=== PATIENT | male | born 1950 | race Caucasian/White ===

== ENCOUNTER 2020-06-12 12:16 | Inpatient (IN) ==
--- OUTSIDE RECORDS SUMMARY | 2020-06-12 12:20 | External Medical Summary | Continuity of Care Document ---
:1950 Author Name Fadumo Burroughs Address Unavailable Unavailable , Care Team Providers Name Role Phone Jose Antonio GARCIA M.D. P. Unavailable [email or web address] PCP, UNKNOWN Unavailable Unavailable Problems Active medical history not documented Allergies and Adverse Reactions Allergy history not documented Medications Medications not documented Procedures Procedures not documented Immunizations Immunizations not documented Plan of Treatment Planned Observations Planned Goals not documented Results No Known Results Results not documented
[2020-06-12] MEDS ORDERED: MoRPHine SULFATE 2 MG/ML CARP IV PRN (12:38)
[2020-06-12] MEDS: MoRPHine SULFATE 4 MG/ML 1 ML CARP\\VIAL IV PRN ×3 (13:06→18:07)
[2020-06-12 13:30] LABS: INR 1.2 (0.9-1.1); Partial Thromboplastin Ratio 1.2; Partial Thromboplastin Time 34.6 Seconds (21.0-31.0); Prothrombin Time 12.4 Seconds (9.0-12.0)
[2020-06-12 13:38] LABS: BUN Creatinine Ratio 24.7 (10-20); Calcium 8.6 mg/dl (8.5-10.1); Creatinine Clr Calc Pharmacy 70.2 ml/min; Est GFR (African American) 81.4; Est GFR (Non-African American) 70.3
--- NOTE | 2020-06-12 13:48 | Emergency Department Note ---
History of Present Illness General Chief complaint: Hip Pain Time Seen by Provider: 06/12/20 12:38 Source: patient Mode of arrival: ambulatory Limitations: no limitations History of Present Illness Provider complaint: Right hip pain/injury Maximum Pain Intensity: 10 From a mcc. The patient lost his balance yesterday and fell onto his right hip causing some pain. He had x-rays this morning of his hip that showed a femoral neck fracture according to EMS. The patient was tested yesterday for Covid and was Covid negative at the [facility]. The patient was sent here for further evaluation. The patient does complain of right hip pain with movement. He denies any other injuries or complaints. He does not believe he struck his head and did not have any loss of consciousness. Home Medications Home Medications Medication Instructions Recorded Confirmed Type ATORVASTATIN (LIPITOR) 40 mg PO QAM #30 tab 02/18/14 Rx Aspirin (Aspirin EC Low Dose) 81 mg PO QAM #30 02/18/14 Rx Chlordiazepoxide (Chlordiazepoxide 25 mg PO BID #9 cap 02/18/14 Rx HCl) Allergies Allergy/AdvReac Type Severity Reaction Status Date / Time No Known Drug Allergies Allergy Unknown . Verified 02/14/14 10:39 Past Med/Surg History Social History Smoking Status: Unknown if ever smoked Preferred Language: Pashto Feels Safe at Home: Yes Review of Systems A total of 10 systems reviewed and were otherwise negative Physical Exam Vital Signs Vital Signs - 24 hr 06/12/20 12:16 06/12/20 12:30 06/12/20 13:00 Temperature 37.0 C Temperature Source Oral Pulse Rate 88 87 86 Pulse Rate from SpO2 Sensor 87 86 Pulse Rhythm Regular Respiratory Rate 20 23 26 H Respiratory Effort / Characteristics Non-Labored Spontaneous Respiratory Depth Normal Respiratory Pattern Regular Blood Pressure 168/95 H 193/92 H 171/85 H Blood Pressure Mean 119 128 107 Pulse Oximetry 95 94 94 Oxygen Delivery Method Room Air Room Air Room Air Sepsis Recent Fever Within 48 Hours No Sepsis New/Unexplained Change in Mental Status No Sepsis Action Taken by Nursing No Action Required CONSTITUTIONAL/VITAL SIGNS: Reviewed / noted above. GENERAL: Non-toxic in appearance. INTEGUMENTARY: Warm, dry, and [place]. HEAD: Normocephalic. EYES: without scleral icterus or trauma. ENT/OROPHARYNX: clear and moist. LYMPHADENOPATHY/NECK: Is supple without lymphadenopathy or meningismus. RESPIRATORY: Lungs clear and equal. CARDIOVASCULAR: Regular rate and rhythm. GI/ABDOMEN: Soft and nontender. No organomegaly or pulsatile mass. No rebound or guarding. Normal bowel sounds. EXTREMITIES: Warm and well perfused. There is tenderness to the right hip and discomfort with any movement. He does have it in a flexed position on the bed. BACK: No CVA tenderness. NEUROLOGICAL: Intact without focal deficits. PSYCHIATRIC: normal affect. MUSCULOSKELETAL: Normally developed with good muscle tone. TRIAGE NURSING DOCUMENTATION REVIEWED. Course Administered Medications Morphine Sulfate (Morphine Sulfate 4 Mg/Ml 1 Ml Carp\Vial) 4 mg IV Q1H PRN PRN Reason: Severe Pain (Rating 7,8,9,10) Stop: 06/26/20 12:37 Last Admin: 06/12/20 13:06 Dose: 4 mg Documented by: [id number] Medical Decision Making Differential Diagnosis Fracture, subluxation, dislocation, contusion, ligamentous injury, neurovascular, compartment syndrome, rhabdomyolysis, as well as other pathologies. Medical Records Attestation: I reviewed the patient's medical records. Home Medications Current Medication List: was personally reviewed by me Laboratory Data Attestation: I reviewed the patient's lab results. Result diagrams: 06/12/20 13:06 06/12/20 13:06 Lab Results 06/12/20 06/12/20 06/12/20 Range/Units 13:06 13:06 13:06 PT 12.4 H (9.0-12.0) Seconds INR 1.2 H (0.9-1.1) APTT 34.6 H (21.0-31.0) Seconds PTT Ratio 1.2 Sodium 137 (136-145) mmol/L Potassium 4.0 (3.5-5.1) mmol/L Chloride 104 (98-107) mmol/L Carbon Dioxide 27 (21-32) mmol/L Anion Gap 6.0 (3-11) BUN 26 H (7-18) mg/dl Creatinine 1.06 (0.6-1.4) mg/dl Est Cr Clr Drug Dosing 70.2 ml/min Est GFR ( Amer) 81.4 Est GFR (Non-Af Amer) 70.3 BUN/Creatinine Ratio 24.7 H (10-20) Glucose 239 H (70-99) mg/dl Calcium 8.6 (8.5-10.1) mg/dl Blood Type A Negative Antibody Screen NEGATIVE Imaging Data Radiologist's Impression: XR hip RT min 2V HISTORY: 69 years-old Male fall, pain acute right-sided hip pain status post fall COMPARISON: None TECHNIQUE: 2 views of the right hip FINDINGS: There is an acute transcervical nondisplaced fracture involving the right femur. Mild to moderate right hip osteoarthritis. The imaged right hemipelvis appears intact. No dislocation or avascular necrosis. Arterial vascular calcifications. IMPRESSION: Acute nondisplaced transcervical fracture of the right femur. XR chest 1V portable HISTORY: 69 years-old Male hip fx acute right hip pain with fracture COMPARISON: Chest radiographs 02/13/2014 TECHNIQUE: Supine portable AP view of the chest FINDINGS: Cardiomediastinal and hilar silhouettes are within normal limits. Calcified plaque of the thoracic aortic arch. No pneumothorax, pleural effusion, airspace consolidation or overt pulmonary edema. Probable healed remote fracture of the posterior left seventh rib. Degenerative changes of the shoulders and spine. IMPRESSION: No acute process. ECG Data Attestation: I personally reviewed and interpreted this ECG as follows: Indication: + other (Hip fracture) Rate (beats per minute): 86 Rhythm: + normal sinus ECG ST segments: no ST elevation ECG Findings: no PVCs MDM Narrative The patient is a 69-year-old male who presents to the ED with a chief complaint of the patient was given some IV morphine for pain. He will be seen by the hospitalist and orthopedist for further evaluation and care. Impression & Plan Closed fracture of right hip Discharge Plan Visit Data Chief Complaint: Hip Pain ED Provider: Roni Arteaga Discharge Problem: Closed fracture of right hip Patient Disposition: Being Evaluated by Hospitalist Forms Stand Alone Forms: My [facility] [employer] Prescriptions Prescriptions: No Action ATORVASTATIN (LIPITOR) 40 MG tablet 40 mg PO QAM Qty: 30 RF: 0 Aspirin (Aspirin EC Low Dose) 81 MG ENTERIC COATED TAB 81 mg PO QAM Qty: 30 RF: 0 Chlordiazepoxide (Chlordiazepoxide HCl) 25 MG capsule 25 mg PO BID Qty: 9 RF: 0 Referrals Referrals: Tomasz Valdez MD [Primary Care Provider] -
--- NOTE | 2020-06-12 13:53 | XRay Report ---
XR hip RT min 2V HISTORY: 69 years-old Male fall, pain acute right-sided hip pain status post fall COMPARISON: None TECHNIQUE: 2 views of the right hip FINDINGS: There is an acute transcervical nondisplaced fracture involving the right femur. Mild to moderate rig ht hip osteoarthritis. The imaged right hemipelvis appears intact. No dislocation or avascular necros is. Arterial vascular calcifications. IMPRESSION: Acute nondisplaced transcervical fracture of the right femur. ACT 112: Negative or not required by law. The above report was generated using voice recognition software. It may contain grammatical, syntax o r spelling errors. Electronically signed by: Mario Nails M.D. 06/12/2020 1:52 PM
--- NOTE | 2020-06-12 13:56 | XRay Report ---
XR chest 1V portable HISTORY: 69 years-old Male hip fx acute right hip pain with fracture COMPARISON: Chest radiographs 02/13/2014 TECHNIQUE: Supine portable AP view of the chest FINDINGS: Cardiomediastinal and hilar silhouettes are within normal limits. Calcified plaque of the thoracic ao rtic arch. No pneumothorax, pleural effusion, airspace consolidation or overt pulmonary edema. Probab le healed remote fracture of the posterior left seventh rib. Degenerative changes of the shoulders an d spine. IMPRESSION: No acute process. ACT 112: Negative or not required by law. The above report was generated using voice recognition software. It may contain grammatical, syntax o r spelling errors. Electronically signed by: Mario Nails M.D. 06/12/2020 1:54 PM
[2020-06-12 14:17] LABS: Basophils # (auto) 0.01 K/uL (0-0.2); Basophils % (auto) 0.2 %; Eosinophils # (auto) 0.11 K/uL (0-0.5); Hematocrit (blood only) 38.2 % (42-52); Hemoglobin 13.3 g/dL (14.0-18.0); Immature Granulocytes # (auto) 0.01 K/uL (0.00-0.02); Immature Granulocytes % (auto) 0.2 %; Lymphocytes # (auto) 0.78 K/uL (1.2-3.4); Lymphocytes % (auto) 14.4 %; Mean Corpuscular Hemoglobin 30.9 pg (25-34); Mean Corpuscular Hgb Conc 34.8 g/dL (32-36); Mean Corpuscular Volume 88.6 fL (80-100); Mean Platelet Volume 11.2 fL (7.4-10.4); Monocytes % (auto) 9.3 %; Neutrophils # (auto) 3.99 K/uL (1.4-6.5); Neutrophils % (auto) 73.9 %; Platelet Count 88 K/uL (130-400); Platelet Estimate Decreased (Normal); RDW Coefficient of Variation 13.2 % (11.5-14.5); RDW Standard Deviation 42.7 fL (36.4-46.3); Red Blood Count 4.31 M/uL (4.7-6.1)
--- NOTE | 2020-06-12 14:25 | History & Physical Report ---
Date of Service June 12, 2020 Assessment & Plan (1) Closed right hip fracture: Type and screen Vit D with AM labs NPO after midnight with LR @ 125 ml/HR Pain relief with Dilaudid 0.25-0.5mg IV q2h as needed Consult orthopedics (2) Fall: Unwitnessed but appears secondary to increased confusion when he was moved rooms. (3) Exposure to COVID-19 virus: Nasal swab negative 06/11. Repeat Nasal screen as no current symptoms or changes on CXR. (4) Generalized abdominal pain: No history of abdominal pain per [facility] CT A/P with IV contrast (5) Type 2 diabetes mellitus: HbA1c with a.m. labs Hold Metformin 1 g twice daily BSG ACHS, NovoLog sliding scale for correction and carb coverage, will add basal insulin if remains elevated. (6) Vitamin B12 deficiency: B12 injections monthly (7) Hypertensive urgency: Continue his usual lisinopril 10mg PO HS Hydralazine 5mg IV q4h PRN (8) Thrombocytopenia: Monitor with CBC in AM. Avoid anticoagulation if < 50. (9) History of CVA (cerebrovascular accident): Continue ASA, atorvastatin (10) DVT prophylaxis: SCDs. Deferred chemical prophylaxis pre-operatively. Admission and Anticipated Discharge Date Admission Date: 06/12/2020 History of Present Illness Chief Complaint: Right leg pain Primary Care Provider: Tomasz Valdez MD Akash Bey is a 69 year old male who presents to the ER with resident of [facility] since 2013 with right leg pain and XR confirmation of fracture performed as an outpatient. Difficult to get history from patient due to dysphasia but able to answer simple yes/no questions. Per residential he usually makes his own medical decisions. He had exposure to COVID-19 at [facility] and they have been testing him brent[place] daily basis. Temp 100.2 yesterday per residential notes. Patient denies shortness of breath, fever, chills, loss of taste or smell. Baseline cognition - may forget who staff members are, ineffective communication at times due to dysphasia and dysarthria as a result of prior strokes Baseline ambulation - abnormal gait and generalized muscle weakness and periph eral neuropathy - but can walk independently without any assist. 2 falls in the last week then previously in August. Recently had to change rooms due to COVID-19 exposure. In the ER XR hip confirmed right hip fracture. Therefore he was referred to medicine for admission and ongoing management of this. Allergies Allergy/AdvReac Type Severity Reaction Status Date / Time No Known Drug Allergies Allergy Unknown . Verified 06/12/20 15:46 Home Medications Home Medications Medication Instructions Recorded Confirmed Type aspirin [Aspirin Childrens] 81 mg PO DAILY 06/12/20 06/12/20 History atorvastatin [Lipitor] 40 mg PO PM 06/12/20 06/12/20 History carvedilol [Coreg] 3.125 mg PO BID 06/12/20 06/12/20 History docusate sodium [Colace] 100 mg PO BID 06/12/20 06/12/20 History folic acid 0.4 mg PO DAILY 06/12/20 06/12/20 History lisinopril [Prinivil] 10 mg PO HS 06/12/20 06/12/20 History magnesium oxide 400 mg PO TID 06/12/20 06/12/20 History metformin [Glucophage] 1,000 mg PO BID 06/12/20 06/12/20 History sennosides-docusate sodium 1 tab-cap PO QAM 06/12/20 06/12/20 History [Senexon-S] Past Med/Surg History Medical History (Updated 06/13/20 @ 07:32 by Kavin Olvera MD) Abnormal gait Alcohol abuse 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 Cholelithiasis Chronic constipation Contracture, left ankle Contracture, right ankle Diabetic neuropathy Dysarthria following cerebral infarction Full code status Functional urinary incontinence Generalized muscle weakness Hemiplegia of left nondominant 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 History of CVA (cerebrovascular accident) Hypertension Hypomagnesemia Incontinence, feces Left ear impacted cerumen Nicotine dependence Occlusion and stenosis of bilateral carotid arteries Oral phase dysphagia Type 2 diabetes mellitus Vascular dementia without behavioral disturbance Vitamin B12 deficiency Surgical History No pertinent past surgical history Social History Smoking Status: Unknown if ever smoked Tobacco Type: Cigarettes Hx Alcohol Use: No Hx Substance Use: No Preferred Language: Afghan Communication Ability: Impaired Communication Ability Comment: Prior CVA causing dysphaisa Beliefs That Will Affect Care: None marital status: Single Current Living Situation: Group Home Feels Safe at Home: Yes Assistive Devices: Oxygen - Continuous Review of Systems Review of Systems: All systems reviewed & are unremarkable except as noted in HPI & below (limited due to dysphasia) Physical Exam Constitutional: well developed; + not well nourished and no acute distress Eyes: + anicteric sclerae; normal pupil size ENMT: Mouth: + dry oral mucous membranes Neck: trachea midline Respiratory: normal respiratory effort, lungs clear to auscultation Cardiovascular: Rate/Rhythm: regular rate and regular rhythm Heart Sounds: + murmur (apical) Vessels: posterior tibial pulses present, dorsalis pedis pulses present and radial pulses present; no JVD Extremities: normal capillary refill; no calf tenderness and no pedal edema Gastrointestinal (Abdomen): Inspection/Auscultation: abdomen normal to inspection and normal bowel sounds Percussion/Palpation: + abdomen tender (Generalized), + guarding and abdomen soft; abdomen not rigid Musculoskeletal: painful movement of bilateral lower extremities even taking off his socks. Skin: no rashes, warm and dry (no areas of cellulitis) Neurologic: moves all extremities (in pain everywhere), + focal motor deficit (Left upper extremity, unable to compare lower extremities due to pain) and awake; not confused Speech / Cognition: + expressive aphasia and + abnormal cognition (able to follow one step commands but difficult to know cognition) Motor/Sensory: + pronator drift (unable to perform due to patient in pain); no tremor Psychiatric: Orientation: alert, oriented to person (self) and oriented to p lace; + not oriented to time Eye Contact: + fair eye contact Genitourinary: no CVA tenderness Results & Data Results & Data ([facility]) Vital Signs (Past 12 Hours) Vital Signs Temp Pulse Resp BP Pulse Ox 06/12/20 13:00 86 26 H 171/85 H 94 06/12/20 12:30 87 23 193/92 H 94 06/12/20 12:16 37.0 C 88 20 168/95 H 95 Diagnostic Findings XR chest 1V portable IMPRESSION: No acute process. XR hip RT min 2V IMPRESSION: Acute nondisplaced transcervical fracture of the right femur. ECG Indication: other (Pre-op) Rate (beats per minute): 86 Rhythm: normal sinus Findings: no acute ischemic change Comparison ECG Date: from (February 13, 2014) Change: no significant change Code Status & VTE Plan Code Status Full VTE Prophylaxis Plan VTE Prophylaxis will be ordered: Yes PG Care Time/CCT Total # of Minutes Spent Total Time Spent with Patient: Total time spent is greater than 50% in office service coordinator rdination of care (as documented) at patient's floor/unit and/or counseling patient: Coding Level of Care Code 77803 Initial Inpt Care Lvl 3 Diagnoses Closed right hip fracture S72.001A Fall W19.XXXA Exposure to COVID-19 virus Z20.828 Generalized abdominal pain R10.84 Type 2 diabetes mellitus E11.9 Vitamin B12 deficiency E53.8 Hypertensive urgency I16.0 Thrombocytopenia D69.6 History of CVA (cerebrovascular accident) Z86.73 DVT prophylaxis Z29.9
[2020-06-12] MEDS ORDERED: SODIUM CHLORIDE 0.9% 1000ML 500 ML IV ONE (16:21)
[2020-06-12] MEDS ORDERED: IOVERSOL 100ml IV ONE (18:15)
--- NOTE | 2020-06-12 18:32 | CT Scan Report ---
ABDOMEN AND PELVIS CT WITH IV CONTRAST CT DOSE: 1174.90 mGycm HISTORY: Acute generalized abdominal pain status post recent fall. fall yesterday, generalized abdom inal pain TECHNIQUE: Multiaxial CT images of the abdomen and pelvis were performed following the IV administrat ion of 90 cc of Optiray 320, A dose lowering technique was utilized adhering to the principles of AL DEMARIO. COMPARISON STUDY: None. FINDINGS: Multiplanar and bibasilar left greater than right bibasilar consolidative opacities. No pne umatosis or pneumoperitoneum. Moderate cardiomegaly with coronary artery calcifications. Small perica rdial effusion. The spleen, and adrenal glands are unremarkable. Gallstone noted within the gallbladd er neck. No CT evidence of acute cholecystitis. Pancreatic parenchymal calcifications suggesting sequ lamont of chronic pancreatitis. Extensive vascular calcifications. Unremarkable liver. Calcifications of the bilateral kidneys are likely vascular in nature. Probable cyst of the interpola r right kidney, 8 mm. No ureteral calculi or obstructive uropathy. Moderate urinary bladder distentio n with mild prostamegaly. Extensive calcified plaque the abdominal aorta and branch vessels. No aneur ysm. There is no bowel obstruction or bowel wall thickening. Moderate fecal retention. Unremarkable append ix. No retroperitoneal hematoma. There is asymmetric prominence of the right gluteus kelsie with mil dly increased attenuation. Moderate subcutaneous edema within the adjacent tissues. Degenerative buckner ges of the spine, pelvis and hips. Acute nondisplaced transcervical fracture of the right femur with mild impaction and mild apex anterior angulation.. Moderate osteoarthritis of the bilateral femoral a cetabular joints. No additional acute fracture identified. IMPRESSION: 1. Acute mildly angulated and impacted transcervical fracture of the right femur. 2. Intramuscular hematoma of the right gluteus kelsie. 3. No acute posttraumatic intra-abdominal or intrapelvic abnormality. 4. Dependent bibasilar opacities suggest atelectasis versus pneumonitis. 5. Prostamegaly with urinary bladder distention. 6. Additional findings as above. ACT 112: Negative or not required by law. The above report was generated using voice recognition software. It may contain grammatical, syntax o r spelling errors. Electronically signed by: Mario Nails M.D. 06/12/2020 6:31 PM
[2020-06-12] MEDS ORDERED: GLUCOSE 40% GEL 15 GM TUBE PO PRN (18:33)
[2020-06-12] MEDS ORDERED: DEXTROSE 50% 50 ML SYRINGE IV PRN (18:33)
[2020-06-12] MEDS ORDERED: GLUCOSE 10 TABS/TUBE PO PRN (18:33)
[2020-06-12] MEDS ORDERED: bisacodyL 10 MG SUPP PR PRN (18:33)
[2020-06-12] MEDS ORDERED: oxyCODONE HCL IR 5 MG TAB (IMMEDIATE RELEASE) PO PRN (18:33)
[2020-06-12] MEDS ORDERED: NALOXONE HCL 0.4 MG/1 ML VIAL/CARP IV PRN (18:33)
[2020-06-12] MEDS ORDERED: HYDROmorphone INJ 0.5 MG/0.5 ML SYR IV PRN (18:33)
[2020-06-12] MEDS ORDERED: MAGNESIUM HYDROXIDE SUSP 30 ML UDC PO PRN (18:33)
[2020-06-12] MEDS ORDERED: ACETAMINOPHEN 325 MG TAB PO PRN (18:33)
[2020-06-12] MEDS ORDERED: GLUCAGON FOR INJ 1 MG VIAL SQ PRN (18:33)
[2020-06-12] MEDS: LACTATED RINGER'S 1,000 ML IV SCH (18:50)
[2020-06-12] MEDS: INSULIN ASPART 100 UNITS/ML 3 ML PEN SC SCH ×2 (19:53→21:38)
--- NOTE | 2020-06-12 20:30 | Electrocardiogram Report ---
Test Reason : Blood Pressure : / mmHG Vent. Rate : 086 BPM Atrial Rate : 086 BPM P-R Int : 154 ms QRS Dur : 088 ms QT Int : 396 ms P-R-T Axes : 059 -11 069 degrees QTc Int : 473 ms Poor data quality, interpretation may be adversely affected Normal sinus rhythm Normal ECG When compared with ECG of 13-FEB-2014 17:36, No significant change was found Confirmed by Peter Mckeon ([id number]) on 06/12/2020 8:30:16 PM Referred By: Confirmed By:Peter Mckeon
[2020-06-12] MEDS: oxyCODONE HCL IR 5 MG TAB (IMMEDIATE RELEASE) PO PRN (20:32)
[2020-06-12] MEDS: carvediloL 3.125 MG TAB PO SCH (20:33)
[2020-06-12] MEDS: DOCUSATE SODIUM/SENNA 50/8.6MG TAB PO SCH (20:34)
[2020-06-12] MEDS: ATORVASTATIN 40 MG TAB PO SCH (20:42)
[2020-06-12] MEDS: lisinopril 10 MG TAB PO SCH (20:43)
[2020-06-12] MEDS: MAGNESIUM OXIDE 400 MG TAB PO SCH (20:44)
[2020-06-12] MEDS ORDERED: hydrALAZINE HCL 20 MG/ML VIAL IV PRN (21:01)
[2020-06-12] MEDS ORDERED: TAMSULOSIN HCL 0.4 MG CAP PO ONE (22:00)
[2020-06-12] MEDS ORDERED: INSULIN GLARGINE SOLOSTAR 100 UNITS/ML 3 ML PEN SC ONE (23:02)
[2020-06-13 00:51] LABS: Appearance Urine Clear (Clear); Bacteria Urine Automated Negative (Negative); Bilirubin Urine Negative (Negative); Blood Urine Trace (Negative); Color Urine Yellow; Epithelial Cell Urine Auto 20-30 /lpf (0-5); Glucose Urine UA 1+ (Negative); Ketones Urine Trace (Negative); Leukocyte Esterase Urine Negative (Negative); Nitrite Urine Negative (Negative); Protein Urine 1+ (Negative); Specific Gravity Urine 1.031 (1.000-1.030); Urobilinogen Urine Negative (Negative); pH Urine 5.5 (4.5-7.5)
[2020-06-13] MEDS: LACTATED RINGER'S 1,000 ML IV SCH ×2 (03:05→11:08)
[2020-06-13 06:34] LABS: Hematocrit (blood only) 36.2 % (42-52); Hemoglobin 12.2 g/dL (14.0-18.0); Mean Corpuscular Hemoglobin 30.5 pg (25-34); Mean Corpuscular Hgb Conc 33.7 g/dL (32-36); Mean Corpuscular Volume 90.5 fL (80-100); RDW Coefficient of Variation 13.6 % (11.5-14.5); RDW Standard Deviation 45.1 fL (36.4-46.3); White Blood Count 5.09 K/uL (4.8-10.8)
[2020-06-13 06:48] LABS: Mean Platelet Volume 10.6 fL (7.4-10.4); Platelet Count 82 K/uL (130-400)
[2020-06-13 07:03] LABS: Basophils # (auto) 0.01 K/uL (0-0.2); Basophils % (auto) 0.2 %; Eosinophils # (auto) 0.15 K/uL (0-0.5); Eosinophils % (auto) 2.9 %; Immature Granulocytes # (auto) 0.01 K/uL (0.00-0.02); Immature Granulocytes % (auto) 0.2 %; Lymphocytes # (auto) 0.85 K/uL (1.2-3.4); Lymphocytes % (auto) 16.7 %; Monocytes # (auto) 0.47 K/uL (0.11-0.59); Monocytes % (auto) 9.2 %; Neutrophils % (auto) 70.8 %
[2020-06-13 07:22] LABS: BUN Creatinine Ratio 23.8 (10-20); Calcium 8.6 mg/dl (8.5-10.1); Creatinine Clr Calc Pharmacy 75.1 ml/min; Est GFR (African American) 90.7; Est GFR (Non-African American) 78.2; Potassium 3.8 mmol/L (3.5-5.1)
[2020-06-13 08:45] LABS: Estimated Average Glucose 146 mg/dl; Hemoglobin A1C 6.7 % (4.5-5.6)
[2020-06-13] MEDS ORDERED: ASPIRIN 81 MG ECTAB PO SCH (09:00)
[2020-06-13] MEDS: carvediloL 3.125 MG TAB PO SCH ×2 (09:27→21:02)
[2020-06-13] MEDS: INSULIN ASPART 100 UNITS/ML 3 ML PEN SC SCH ×4 (10:08→22:36)
[2020-06-13] MEDS: DOCUSATE SODIUM/SENNA 50/8.6MG TAB PO SCH ×2 (10:10→21:09)
[2020-06-13] MEDS: MAGNESIUM OXIDE 400 MG TAB PO SCH ×3 (10:10→21:10)
[2020-06-13] MEDS: INSULIN GLARGINE SOLOSTAR 100 UNITS/ML 3 ML PEN SC SCH ×2 (10:10→21:00)
[2020-06-13] MEDS: FOLIC ACID 400 MCG TAB PO SCH (10:10)
--- NOTE | 2020-06-13 10:55 | Hospitalist Progress Note ---
Date of Service June 13, 2020 Assessment & Plan (1) Closed right hip fracture: Likely to OR later today by [facility] Orth[facility]ics if consent can be obtained from patient's POA. NPO in meantime with IVF. Pain control - aleman dilaudid to 0.5mg q2h; tylenol IV 1gm q8h prn. Defer selection of DVT proph to orthopedics. Check 25-OH vit D in am. From medical standpoint he is likely optimized. Although he has COVID-19 infection, O2 sats during my bedside visit today were 93% in RA at lowest and he is likely very early in the illness course. (2) COVID-19 virus infection: Our case management department called [facility] and he had been getti ng daily COVID testing until this admission. By report his testing was previously negative. Thus, he is early in the disease course. He is occasionally requiring a small amount of NC O2. Will repeat cxr to determine if any COVID pneumonia has developed. If he has persistent hypoxia then consider IV remdesivir x 5 days, decadron, and plasma. Consider d-dimer in am but expect it to be high in setting of hip fracture. (3) Fall: Unwitnessed fall at [facility]. No other apparent injuries. (4) Generalized abdominal pain: CT abd/pelvis without acute findings. LFTs noted to be normal. No pain on exam today. Follow. (5) Type 2 diabetes mellitus: A1c <7%. Holding metformin. Increase lantus to 10 units BID. novolog for correction and carb coverage (6) Vitamin B12 deficiency: B12 injections monthly (7) Thrombocytopenia: Platelets in the 80s. Also 110-140s 5-6 years ago. Thus, this is likely chronic. There could be a consumptive process element in the setting of [place]-fracture bleeding. Trend platelets. Also, COVID-19 infection could cause bone marrow suppression. (8) History of CVA (cerebrovascular accident): Continue ASA, atorvastatin for secondary prevention. Resulting left-sided hemiparesis. (9) Pancreatic calcification: noted on CT abd/pelvis. this is c/w chronic pancreatitis. if he has daily diarrhea consider creon. records indicate prior h/o alcoholism. (10) Hypertension: Cont home meds. (11) Murmur: last echo in 2013 -- was wnl. murmur not terribly loud. s1 and s2 clearly heard. defer on echo for now. (12) DVT prophylaxis: SCDs for now. Chemical means post-op. case management trying to figure out next of kin/POA. will update that person when contact information is available. Admission and Anticipated Discharge Date Admission Date: June 12, 2020 Subjective challenging to communicate with patient due to his dysarthria. however, he does c/o right hip pain stating "it hurts like hell." denies dyspnea or cough. no abd or chest pain. tele with NSR. Review of Systems Review of Systems: Unobtainable due to cognitive status Physical Exam Constitutional: + acute distress (any movement causes right hip pain ) and + altered mental status ENMT: Mouth: + dry oral mucous membranes Respiratory: normal respiratory effort, lungs clear to auscultation Cardiovascular: Rate/Rhythm: regular rate and regular rhythm Heart Sounds: normal S1, normal S2 and + murmur (2/6 LLSB) Vessels: posterior tibial pulses present and dorsalis pedis pulses present; no JVD Extremities: no edema Gastrointestinal (Abdomen): normal bowel sounds, soft, nontender, no hepatosplenomegaly Musculoskeletal: right hip mildly shortened and externally rotated; mild edema right thigh Neurologic: + focal motor deficit (left arm/leg with hemiparesis; increased tone LUE) Psychiatric: Orientation: alert Results & Data Results & Data ([facility]) Vital Signs (Past 12 Hours) Vital Signs Temp Pulse Resp BP Pulse Ox 06/13/20 07:47 36.5 C 81 18 159/78 H 100 06/13/20 04:00 36.7 C 71 20 157/94 H 99 06/13/20 00:32 36.5 C 81 20 150/94 H 98 Laboratory Results Laboratory Results - last 24 hr 06/12/20 06/12/20 06/12/20 13:06 13:06 13:06 WBC 5.40 RBC 4.31 L Hgb 13.3 L Hct 38.2 L MCV 88.6 MCH 30.9 MCHC 34.8 RDW Std Deviation 42.7 RDW Coeff of Guido 13.2 Plt Count 88 L MPV 11.2 H Immature Gran % (Auto) 0.2 Neut % (Auto) 73.9 Lymph % (Auto) 14.4 Denali % (Auto) 9.3 Eos % (Auto) 2.0 Baso % (Auto) 0.2 Neut # (Auto) 3.99 Lymph # (Auto) 0.78 L Denali # (Auto) 0.50 Eos # (Auto) 0.11 Baso # (Auto) 0.01 Immature Gran # (Auto) 0.01 Platelet Estimate Decreased L PT 12.4 H INR 1.2 H APTT 34.6 H PTT Ratio 1.2 Sodium Potassium Chloride Carbon Dioxide Anion Gap BUN Creatinine Est Cr Clr Drug Dosing Est GFR ( Amer) Est GFR (Non-Af Amer) BUN/Creatinine Ratio Glucose POC Glucose Estimat Average Glucose Hemoglobin A1c Calcium Urine Color Urine Appearance Urine pH Ur Specific Pacific Urine Protein Urine Glucose (UA) Urine Ketones Urine Blood Urine Nitrite Urine Bilirubin Urine Urobilinogen Ur Leukocyte Esterase Urine WBC (Auto) Urine RBC (Auto) U Hyaline Cast (Auto) U Epithel Cells (Auto) Urine Bacteria (Auto) Nasal Screen MRSA (PCR) COVID-19 Eval Order Hepatitis C Ab Screen SARS-CoV-2, RNA, NAAT Blood Type A Negative Antibody Screen NEGATIVE 06/12/20 06/12/20 06/12/20 13:06 15:30 15:30 WBC RBC Hgb Hct MCV MCH MCHC RDW Std Deviation RDW Coeff of Guido Plt Count MPV Immature Gran % (Auto) Neut % (Auto) Lymph % (Auto) Denali % (Auto) Eos % (Auto) Baso % (Auto) Neut # (Auto) Lymph # (Auto) Denali # (Auto) Eos # (Auto) Baso # (Auto) Immature Gran # (Auto) Platelet Estimate PT INR APTT PTT Ratio Sodium 137 Potassium 4.0 Chloride 104 Carbon Dioxide 27 Anion Gap 6.0 BUN 26 H Creatinine 1.06 Est Cr Clr Drug Dosing 70.2 Est GFR ( Amer) 81.4 Est GFR (Non-Af Amer) 70.3 BUN/Creatinine Ratio 24.7 H Glucose 239 H POC Glucose Estimat Average Glucose Hemoglobin A1c Calcium 8.6 Urine Color Urine Appearance Urine pH Ur Specific Pacific Urine Protein Urine Glucose (UA) Urine Ketones Urine Blood Urine Nitrite Urine Bilirubin Urine Urobilinogen Ur Leukocyte Esterase Urine WBC (Auto) Urine RBC (Auto) U Hyaline Cast (Auto) U Epithel Cells (Auto) Urine Bacteria (Auto) Nasal Screen MRSA (PCR) COVID-19 Eval [facility] Hepatitis C Ab Screen SARS-CoV-2, RNA, NAAT POSITIVE A* Blood Type Antibody Screen 06/12/20 06/12/20 06/13/20 19:32 21:33 06:08 WBC RBC Hgb Hct MCV MCH MCHC RDW Std Deviation RDW Coeff of Guido Plt Count MPV Immature Gran % (Auto) Neut % (Auto) Lymph % (Auto) Denali % (Auto) Eos % (Auto) Baso % (Auto) Neut # (Auto) Lymph # (Auto) Denali # (Auto) Eos # (Auto) Baso # (Auto) Immature Gran # (Auto) Platelet Estimate PT INR APTT PTT Ratio Sodium Potassium Chloride Carbon Dioxide Anion Gap BUN Creatinine Est Cr Clr Drug Dosing Est GFR ( Amer) Est GFR (Non-Af Amer) BUN/Creatinine Ratio Glucose POC Glucose 215 H 245 H Estimat Average Glucose 146 Hemoglobin A1c 6.7 H Calcium Urine Color Urine Appearance Urine pH Ur Specific Pacific Urine Protein Urine Glucose (UA) Urine Ketones Urine Blood Urine Nitrite Urine Bilirubin Urine Urobilinogen Ur Leukocyte Esterase Urine WBC (Auto) Urine RBC (Auto) U Hyaline Cast (Auto) U Epithel Cells (Auto) Urine Bacteria (Auto) Nasal Screen MRSA (PCR) COVID-19 Eval Order Hepatitis C Ab Screen SARS-CoV-2, RNA, NAAT Blood Type Antibody Screen 06/13/20 06/13/20 06/13/20 06:08 06:08 06:08 WBC 5.09 RBC 4.00 L Hgb 12.2 L Hct 36.2 L MCV 90.5 MCH 30.5 MCHC 33.7 RDW Std Deviation 45.1 RDW Coeff of Guido 13.6 Plt Count 82 L MPV 10.6 H Immature Gran % (Auto) 0.2 Neut % (Auto) 70.8 Lymph % (Auto) 16.7 Denali % (Auto) 9.2 Eos % (Auto) 2.9 Baso % (Auto) 0.2 Neut # (Auto) 3.60 Lymph # (Auto) 0.85 L Denali # (Auto) 0.47 Eos # (Auto) 0.15 Baso # (Auto) 0.01 Immature Gran # (Auto) 0.01 Platelet Estimate PT INR APTT PTT Ratio Sodium 136 Potassium 3.8 Chloride 105 Carbon Dioxide 31 Anion Gap 0 L BUN 23 H Creatinine 0.97 Est Cr Clr Drug Dosing 75.1 Est GFR ( Amer) 90.7 Est GFR (Non-Af Amer) 78.2 BUN/Creatinine Ratio 23.8 H Glucose 166 H POC Glucose Estimat Average Glucose Hemoglobin A1c Calcium 8.6 Urine Color Urine Appearance Urine pH Ur Specific Pacific Urine Protein Urine Glucose (UA) Urine Ketones Urine Blood Urine Nitrite Urine Bilirubin Urine Urobilinogen Ur Leukocyte Esterase Urine WBC (Auto) Urine RBC (Auto) U Hyaline Cast (Auto) U Epithel Cells (Auto) Urine Bacteria (Auto) Nasal Screen MRSA (PCR) COVID-19 Eval Order Hepatitis C Ab Screen Neg SARS-CoV-2, RNA, NAAT Blood Type Antibody Screen 06/13/20 06/13/20 06/13/20 06:50 07:49 Unknown WBC RBC Hgb Hct MCV MCH MCHC RDW Std Deviation RDW Coeff of Guido Plt Count MPV Immature Gran % (Auto) Neut % (Auto) Lymph % (Auto) Denali % (Auto) Eos % (Auto) Baso % (Auto) Neut # (Auto) Lymph # (Auto) Den[place] # (Auto) Eos # (Auto) Baso # (Auto) Immature Gran # (Auto) Platelet Estimate PT INR APTT PTT Ratio Sodium Potassium Chloride Carbon Dioxide Anion Gap BUN Creatinine Est Cr Clr Drug Dosing Est GFR ( Amer) Est GFR (Non-Af Amer) BUN/Creatinine Ratio Glucose POC Glucose 165 H Estimat Average Glucose Hemoglobin A1c Calcium Urine Color Yellow Urine Appearance Clear Urine pH 5.5 Ur Specific Pacific 1.031 H Urine Protein 1+ H Urine Glucose (UA) 1+ H Urine Ketones Trace H Urine Blood Trace H Urine Nitrite Negative Urine Bilirubin Negative Urine Urobilinogen Negative Ur Leukocyte Esterase Negative Urine WBC (Auto) 1-5 Urine RBC (Auto) 10-30 H U Hyaline Cast (Auto) 5-10 H U Epithel Cells (Auto) 20-30 H Urine Bacteria (Auto) Negative Nasal Screen MRSA (PCR) Negative COVID-19 Eval Order Hepatitis C Ab Screen SARS-CoV-2, RNA, NAAT Blood Type Antibody Screen PG Care Time/CCT Total # of Minutes Spent Total Time Spent with Patient: Total time spent is greater than 50% in coordination of care (as documented) at patient's floor/unit and/or counseling patient: Coding Level of Care Code 20721 Subseq Hosp Care Lvl 3 Diagnoses Closed right hip fracture S72.001A COVID-19 virus infection U07.1 Fall W19.XXXA Generalized abdominal pain R10.84 Type 2 diabetes mellitus E11.9 Vitamin B12 deficiency E53.8 Thrombocytopenia D69.6 History of CVA (cerebrovascular accident) Z86.73 Pancreatic calcification K86.89 Hypertension I10 Murmur R01.1 DVT prophylaxis Z29.9
[2020-06-13] MEDS ORDERED: ACETAMINOPHEN 1000 MG/100 ML IV IV PRN (11:01)
--- NOTE | 2020-06-13 13:23 | XRay Report ---
SINGLE VIEW CHEST CLINICAL HISTORY: Covid Pneumonia. FINDINGS: 3 AP, portable, upright chest radiograph is compared to study dated 06/12/2020. The examina tion is degraded by portable technique and patient rotation. The heart is enlarged noting atheroscle rotic calcification of the thoracic aorta. The pulmonary vasculature is noncongested. There is airspa ce consolidation at the left lung base. No large pleural effusion is identified. No pneumothorax is s een. The skeletal structures are osteopenic. The bony thorax is grossly intact. IMPRESSION: 1. There is airspace consolidation at the left lung base. Correlate clinically for evidence of an inf ectious/inflammatory pneumonitis. Radiographic follow-up to resolution is recommended. 2. Cardiomegaly without radiographic evidence of congestive failure. ACT 112: Negative or not required by law. Electronically signed by: Jose Elias Conner M.D. 06/13/2020 1:22 PM
[2020-06-13] MEDS ORDERED: REMDESIVIR 200 MG in SODIUM CHLORIDE 0.9% 210 ML IV ONE (13:45)
--- NOTE | 2020-06-13 14:05 | Orthopedic Consultation ---
Date of Consultation June 13, 2020 Assessment & Plan (1) Closed fracture of right hip: I spoke on the phone with his sister who is his power of litigation attorney associate. She consented to proceed with a right hip hemiarthroplasty. She understands the risks, benefits, and alternatives to the procedures like to proceed. He is currently n.p.o. We will plan to do the procedure later this afternoon. Present on Admission?: Yes History of Present Illness Reason for Consultation: Right hip fracture Attending Physician: Kavin Egan History of Present Illness Benedict is a pleasant 69-year-old male who resides at [facility]. He has advanced dementia. He is able to transfer with a walker but he only ambulates with a wheelchair. He has been wheelchair-bound for several years. He had a fall at [facility]. He was brought to [facility]. He was found to be Covid positive. He is dealing with right hip pain and x-rays demonstrated a displaced right femoral neck fracture. Orthopedics was consulted to evaluate and treat. Allergies Allergy/AdvReac Type Severity Reaction Status Date / Time No Known Drug Allergies Allergy Unknown . Verified 06/12/20 15:46 Home Medications Medication Instructions Recorded Confirmed Type aspirin [Aspirin Childrens] 81 mg PO DAILY 06/12/20 06/12/20 History atorvastatin [Lipitor] 40 mg PO PM 06/12/20 06/12/20 History carvedilol [Coreg] 3.125 mg PO BID 06/12/20 06/12/20 History docusate sodium [Colace] 100 mg PO BID 06/12/20 06/12/20 History folic acid 0.4 mg PO DAILY 06/12/20 06/12/20 History lisinopril [Prinivil] 10 mg PO HS 06/12/20 06/12/20 History magnesium oxide 400 mg PO TID 06/12/20 06/12/20 History metformin [Glucophage] 1,000 mg PO BID 06/12/20 06/12/20 History sennosides-docusate sodium 1 tab-cap PO QAM 06/12/20 06/12/20 History [Senexon-S] Patient History Medical History Abnormal gait Alcohol abuse 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 Cholelithiasis Chronic constipation Contracture, left ankle Contracture, right ankle Diabetic neuropathy Dysarthria following cerebral infarction Full code status Functional urinary incontinence Generalized muscle weakness Hemiplegia of left nondominant 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 History of CVA (cerebrovascular accident) Hypertension Hypomagnesemia Incontinence, feces Left ear impacted cerumen Nicotine dependence Occlusion and stenosis of bilateral carotid arteries Oral phase dysphagia Type 2 diabetes mellitus Vascular dementia without behavioral disturbance Vitamin B12 deficiency Surgical History No pertinent past surgical history Social History Smoking Status: Unknown if ever smoked Tobacco Type: Cigarettes Hx Alcohol Use: No Hx Substance Use: No Preferred Language: Turkish Communication Ability: Impaired Communication Ability Comment: Prior CVA causing dysphaisa Beliefs That Will Affect Care: None marital status: Single Current Living Situation: [facility] Feels Safe at Home: Yes Review of Systems Review of Systems: All systems reviewed & are unremarkable except as noted in HPI & below Physical Exam Physical Exam: On physical examination of the right hip, the right leg is shortened and externally rotated. He has pain with logroll of his right hip. He is unable to cooperate with a neurologic examination. Results & Data ([facility]) Vital Signs (Past 12 Hours) Vital Signs Temp Pulse Resp BP Pulse Ox 06/13/20 11:45 36.4 C L 93 H 18 171/70 H 92 06/13/20 07:47 36.5 C 81 18 159/78 H 100 06/13/20 04:00 36.7 C 71 20 157/94 H 99 Diagnostic Findings X-rays of the right hip show a moderately displaced right femoral neck fracture. PG Care Time/CCT Total # of Minutes Spent Total Time Spent with Patient: Total time spent is greater than 50% in coordination of care (as documented) at patient's floor/unit and/or counseling patient: Coding Level of Care Code 86331 Inpt Consult Level 4 Diagnoses Closed fracture of right hip S72.001A Encounter type: initial encounter (1) Closed fracture of right hip Encounter type: initial encounter Qualified Code(s): S72.001A - Fracture of unspecified part of neck of right femur, initial encounter for closed fracture
[2020-06-13] MEDS: HYDROmorphone INJ 0.5 MG/0.5 ML SYR IV PRN (14:37)
--- NOTE | 2020-06-13 15:12 | History & Physical Bridge Note ---
Date of Service June 13, 2020 History & Physical Bridge Note I have examined the patient, reviewed the History & Physical and in the interval since the performance of the History & Physical I have noted the following changes of clinical significance: no changes noted
[2020-06-13] MEDS ORDERED: ceFAZolin 2,000 MG/15 ML IV PUSH IV ONE (15:19)
[2020-06-13] MEDS: SODIUM CHLORIDE 0.9% 10ML FLUSH IV SCH (15:19)
[2020-06-13] MEDS ORDERED: fentaNYL citrate 100 MCG/2 ML VIAL ONE (15:23)
[2020-06-13] MEDS ORDERED: BACITRACIN INJ 50,000 UNIT VIAL ONE (15:29)
[2020-06-13] MEDS ORDERED: ROPIVACAINE 0.5% HCL/PF 150 MG, BUPIVACAINE 0.5% MPF 30 ML, EPINEPHrine 0.15 MG, Ketoro... INFIL SCH (16:00)
[2020-06-13] MEDS ORDERED: ATROPINE SULFATE 0.1 MG/ML 10ML SYR IV PRN (16:40)
[2020-06-13] MEDS ORDERED: fentaNYL citrate 100 MCG/2 ML VIAL IV PRN (16:40)
[2020-06-13] MEDS ORDERED: ePHEDrine sulfate 50 MG/ML AMP IV PRN (16:40)
[2020-06-13] MEDS ORDERED: ONDANSETRON INJ 2 MG/ML 2 ML VIAL IV PRN (16:40)
--- NOTE | 2020-06-13 16:40 | Anesthesiology Consultation ---
Date of Service June 13, 2020 Assessment & Plan (1) Encounter for pre-operative examination: Chart Review Chart Review: Acceptable Risk for Surgery Consults Requested none ASA ASA4 Proposed Anesthesia Anesthesia Type: General Risk / Benefits Reviewed With: PT / POA / Parent / Guardian, Accepts Plan and Informed Consent Obtained Additional Notes COVID positive History Surgery Operation Date: 06/13/20 09:50 Proposed Procedures p Right Bipolar Hemiarthroplasty - Janes Phipps, Height/Weight Height: 6 ft Weight: 76 kg Allergies Allergy/AdvReac Type Severity Reaction Status Date / Time No Known Drug Allergies Allergy Unknown . Verified 06/12/20 15:46 Medications Home Medications Medication Instructions Recorded Confirmed Last Taken aspirin [Aspirin Childrens] 81 mg PO DAILY 06/12/20 06/12/20 06/12/20 09:00 atorvastatin [Lipitor] 40 mg PO PM 06/12/20 06/12/20 06/11/20 17:00 carvedilol [Coreg] 3.125 mg PO BID 06/12/20 06/12/20 06/12/20 09:00 docusate sodium [Colace] 100 mg PO BID 06/12/20 06/12/20 06/12/20 09:00 folic acid 0.4 mg PO DAILY 06/12/20 06/12/20 06/12/20 09:00 lisinopril [Prinivil] 10 mg PO HS 06/12/20 06/12/20 06/11/20 21:00 magnesium oxide 400 mg PO TID 06/12/20 06/12/20 06/12/20 13:00 metformin [Glucophage] 1,000 mg PO BID 06/12/20 06/12/20 06/12/20 09:00 sennosides-docusate sodium 1 tab-cap PO QAM 06/12/20 06/12/20 06/12/20 09:00 [Senexon-S] Active Medications Generic Name Dose Route Start Last Admin Trade Name Freq PRN Reason Stop Dose Admin Aspirin 81 mg 06/13/20 09:00 06/13/20 10:11 Aspirin 81 Mg Ectab PO 07/13/20 08:59 Not Given DAILY [facility] Atorvastatin Calcium 40 mg 06/12/20 21:00 06/12/20 20:42 Atorvastatin 40 Mg Tab PO 07/12/20 20:59 40 mg PM ROHAN Administration Carvedilol 3.125 mg 06/12/20 21:00 06/13/20 09:27 Carvedilol 3.125 Mg Tab PO 07/12/20 20:59 3.125 mg BID ROHAN Administration Folic Acid 400 mcg 06/13/20 09:00 06/13/20 10:10 Folic Acid 400 Mcg Tab PO 07/13/20 08:59 Not Given DAILY ROHAN Hydralazine HCl 5 mg 06/12/20 21:01 06/13/20 14:38 Hydralazine Hcl 20 Mg/Ml Vial IV 07/12/20 21:00 5 mg Q4H PRN Administration sBP > 180 Hydromorphone HCl 0.5 mg 06/13/20 11:02 06/13/20 14:37 Hydromorphone Inj 0.5 Mg/0.5 Ml Syr IV 06/26/20 18:32 0.5 mg Q2H PRN Administration pain Lactated Ringer's 1,000 mls @ 125 mls/hr 06/12/20 18:33 06/13/20 11:08 Lr IV 07/12/20 18:32 125 mls/hr .Q8H ROHAN Administration Insulin Aspart 0 units 06/12/20 19:00 06/13/20 13:12 Insulin Aspart 100 Units/Ml 3 Ml Pen SC 07/12/20 18:59 2 units ACHS ROHAN Administration Insulin Glargine 10 units 06/13/20 09:00 06/13/20 10:10 Insulin Glargine Solostar 100 Units/Ml 3 Ml Pen SC 07/13/20 08:59 Not Given BID ROHAN Lisinopril 10 mg 06/12/20 21:00 06/12/20 20:43 Lisinopril 10 Mg Tab PO 07/12/20 20:59 10 mg HS ROHAN Administration Magnesium Oxide 400 mg 06/12/20 21:00 06/13/20 15:18 Magnesium Oxide 400 Mg Tab PO 07/12/20 20:59 Not Given TID ROHAN Oxycodone HCl 10 mg 06/12/20 18:33 06/12/20 20:32 Oxycodone Hcl Ir 5 Mg Tab (Immediate Release) PO 06/26/20 18:32 10 mg Q4H PRN Administration SEVERE Pain (Scale 7,8,9,10) Senna/Docusate Sodium 2 tab 06/12/20 21:00 06/12/20 20:34 Docusate Sodium/Senna 50/8.6mg Tab PO 07/12/20 20:59 2 tab HS ROHAN Administration Senna/Docusate Sodium 1 tab 06/13/20 09:00 06/13/20 10:10 Docusate Sodium/Senna 50/8.6mg Tab PO 07/13/20 08:59 Not Given QAM ROHAN Sodium Chloride 30 ml 06/13/20 14:00 06/13/20 15:19 Sodium Chloride 0.9% 10ml Flush IV 06/17/20 14:01 30 ml Q24H ROHAN Administration NPO Date Last Intake of Fluids: 06/12/20 Time Last Intake of Fluids: 18:00 Last Intake of Fluids Comment: per pt Date Last Intake of Solids: 06/12/20 Time Last Intake of Solids: 18:00 Last Intake of Solids Comment: per pt Past Medical History Medical History Abnormal gait Alcohol abuse 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 Cholelithiasis Chronic constipation Contracture, left ankle Contracture, right ankle Diabetic neuropathy Dysarthria following cerebral infarction Full code status Functional urinary incontinence Generalized muscle weakness Hemiplegia of left nondominant 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 History of CVA (cerebrovascular accident) Hypertension Hypomagnesemia Incontinence, feces Left ear impacted cerumen Nicotine dependence Occlusion and stenosis of bilateral carotid arteries Oral phase dysphagia Type 2 diabetes mellitus Vascular dementia without behavioral disturbance Vitamin B12 deficiency Exercise / Class Metabolic Activity IV < 2 Limit ADL/Bedbound Past Surgical History Surgical History No pertinent past surgical history Past Anesthesia History No Hx of Anesthesia Complications and No Family Hx of Anesthesia Complications History of PONV No Hx of PONV and No Hx of Motion Sickness Social History Smoking Status: Unknown if ever smoked Hx Alcohol Use: No Hx Substance Use: No Physical Exam Vital Signs Last Vital Signs Temp 97.9 F 06/13/20 15:15 Pulse 105 H 06/13/20 15:15 Resp 18 06/13/20 15:15 BP 158/84 H 06/13/20 15:15 Pulse Ox 95 06/13/20 15:15 ENMT Mouth: no dentition abnormality Thyromental Distance: > or= 3.5 Finger Breadths Mallampati Class: II Neck normal visual inspection Respiratory normal respiratory effort Auscultation: lungs clear to auscultation bilaterally Cardiovascular Rate/Rhythm: regular rate and regular rhythm Testing Laboratory Results 06/13/20 06:08 06/13/20 06:08 PT 12.4 Seconds (9.0-12.0) H 06/12/20 13:06 INR 1.2 (0.9-1.1) H 06/12/20 13:06 APTT 34.6 Seconds (21.0-31.0) H 06/12/20 13:06 Hemoglobin A1c 6.7 % (4.5-5.6) H 06/13/20 06:08 Urine Color Yellow 06/13/20 Unknown Urine Appearance Clear (Clear) 06/13/20 Unknown Urine pH 5.5 (4.5-7.5) 06/13/20 Unknown Ur Specific Jessie 1.031 (1.000-1.030) H 06/13/20 Unknown Urine Protein 1+ (Negative) H 06/13/20 Unknown Urine Glucose (UA) 1+ (Negative) H 06/13/20 Unknown Urine Ketones Trace (Negative) H 06/13/20 Unknown Urine Nitrite Negative (Negative) 06/13/20 Unknown Ur Leukocyte Esterase Negative (Negative) 06/13/20 Unknown Urine WBC (Auto) 1-5 /hpf (0-5) 06/13/20 Unknown Urine RBC (Auto) 10-30 /hpf (0-4) H 06/13/20 Unknown U Hyaline Cast (Auto) 5-10 /lpf (0-5) H 06/13/20 Unknown U Epithel Cells (Auto) 20-30 /lpf (0-5) H 06/13/20 Unknown Urine Bacteria (Auto) Negative (Negative) 06/13/20 Unknown Blood Type A Negative 06/12/20 13:06 Antibody Screen NEGATIVE 06/12/20 13:06 06/13/20 06/13/20 11:46 07:49 POC Glucose 180 H 165 H Electrocardiogram Date: 06/12/20 Normal sinus rhythm, rate 86 bpm Normal ECG When compared with ECG of 13-FEB-2014 17:36, No significant change was found Confirmed by Peter Mckeon ([id number]) on 06/12/2020 8:30:16 PM Chest X-Ray Date: 06/13/20 IMPRESSION: 1. There is airspace consolidation at the left lung base. Correlate clinically for evidence of an infectious/inflammatory pneumonitis. Radiographic follow-up to resolution is recommended. 2. Cardiomegaly without radiographic evidence of congestive failure.
--- NOTE | 2020-06-13 17:43 | Operative Report ---
PG Post Operative Report Pre & Post Diagnosis Operation Date: 06/13/20 09:50 Pre-Op Diagnosis: Displaced right femoral neck fracture Post-Op Diagnosis: Displaced right femoral neck fracture I identified the patient and participated in the time-out.: Yes Procedure Operation Date: 06/13/20 09:50 Actual Procedures p Right Hip Bipolar Hemiarthroplasty(Right) - Janes Phipps DO Surgeon Janes Phipps DO Chemical Blender Janes Valencia PAC Estimated Blood Loss 300 Findings Consistent with Post-Op Diagnosis Specimens Right femoral head Complications none Disposition Disposition: Recovery Room Indications Benedict is a 69-year-old male who fell at [facility] and sustained a right hip fracture. He was admitted to [facility]. Orthopedics was consulted. After discussions with his power of workers compensation defense attorney, we elected to proceed with a cemented right hip hemiarthroplasty. Description of Procedure On June 13, 2020 Benedict was brought down from the hospital room to the preoperative holding area. He was Covid positive and had to be placed in a negative pressure room. The operative extremity was identified and signed. He was then intubated in the negative pressure room and brought back to the oper ating room. He was placed in the lateral decubitus position. The right hip was then prepped and draped in sterile fashion. A timeout was done. The patient and the operative extremity was properly identified. A lateral approach was used. Dissection was taken down through the fascia and the abductors were exposed. The anterior one third of the abductors were tenotomized off the greater trochanter. The femoral neck was then resected and removed. The femoral head was then removed. The acetabulum was then exposed. Time was spent doing a circumferential labral release. Several different femoral heads were trialed and a size 52 seem to be the best fit. The proximal femur was then exposed. Sequential broaching up to a size 11 broach was done. A 52 mm bipolar shell with a +3.5 neck was then trialed. The hip was then reduced. The hip was brought through a full range of motion and felt to be stable. The hip was then dislocated. The broach was removed. The final size 11 LDFX stem was then cemented in place with Palacos G cement. Once cement had hardened a 28 mm +3.5 head was snapped into a 52 mm Shell. The hip was then reduced. The hip was brought through a full range of motion and felt to be stable. The abductors were then tenodesed back to the greater trochanter with transosseous FiberWire sutures and side to side sutures. The surrounding soft tissues were injected with 100 cc of an orthopedic pain control cocktail. The fascia was then closed with #1 Vicryl. Skin was closed with 2-0 Vicryl and zoey. A Silverlon dressing was placed. He was then transferred to a hospital bed and taken back to the negative pressure room while still intubated. He tolerated the procedure well. Janes Valencia PA-C, was present for the entire procedure. He was critical for patient positioning, prepping, draping, retraction exposure, wound closure and application of sterile dressing. I attest to the content of the Intraoperative Record and any orders documented therein. Any exceptions are noted below.
--- NOTE | 2020-06-13 18:38 | Anesthesiology Progress Note ---
Date of Service June 13, 2020 Anesthesia Post Procedure Vital Signs Vital Signs: Temp Pulse Pulse Pulse Resp BP Pulse Ox 06/13/20 18:30 105 H 20 152/72 H 97 06/13/20 18:20 107 H 19 149/87 H 96 06/13/20 18:10 107 H 18 114/70 98 06/13/20 18:00 36.2 C L 106 H 24 97/79 L 100 06/13/20 16:36 109 H 06/13/20 15:15 36.6 C 105 H 18 158/84 H 95 06/13/20 15:01 171/79 H 06/13/20 14:35 178/110 H 06/13/20 11:45 36.4 C L 93 H 18 171/70 H 92 06/13/20 07:47 36.5 C 81 18 159/78 H 100 06/13/20 04:00 36.7 C 71 20 157/94 H 99 06/13/20 00:32 36.5 C 81 20 150/94 H 98 06/12/20 19:43 36.8 C 85 187/105 H 92 Pain Intensity Right Hip: Pain Intensity: 6 Transfer of Care Handoff Completed per policy Notes Mental Status: alert / awake / arousable Patient Amnestic to Procedure: Yes Nausea / Vomiting: adequately controlled Pain: adequately controlled Airway Patency, RR, SpO2: stable & adequate BP & HR: stable & adequate Hydration State: stable & adequate Anesthetic Complications: no major complications apparent
--- NOTE | 2020-06-13 18:39 | XRay Report ---
XR hip RT min 2V CLINICAL HISTORY: Post-Operative implant position COMPARISON: Right hip radiographs June 12, 2020. FINDINGS: Alignment of the right hip arthroplasty is anatomic. There is no periprosthetic fracture o r unexpected radiopaque foreign body. There are skin zoey. Extensive vascular calcification is inc identally noted. IMPRESSION: Expected findings following right hip arthroplasty. ACT 112: Negative or not required by law. Electronically signed by: Param Taylor M.D. 06/13/2020 6:38 PM
[2020-06-13] MEDS: DEXAMETHASONE SOD PHOSPHATE 6 MG in SYRINGE 0 ML IV SCH (19:49)
[2020-06-13] MEDS ORDERED: INSULIN GLARGINE SOLOSTAR 100 UNITS/ML 3 ML PEN SC SCH (21:00)
[2020-06-13] MEDS: ASPIRIN 81 MG ECTAB PO SCH (21:02)
[2020-06-13] MEDS: lisinopril 10 MG TAB PO SCH (21:04)
[2020-06-13] MEDS: ATORVASTATIN 40 MG TAB PO SCH (21:05)
[2020-06-13] MEDS: TAMSULOSIN HCL 0.4 MG CAP PO SCH (21:07)
[2020-06-13] MEDS: oxyCODONE HCL IR 5 MG TAB (IMMEDIATE RELEASE) PO PRN (22:27)
[2020-06-14] MEDS: LACTATED RINGER'S 1,000 ML IV SCH ×4 (01:56→18:05)
[2020-06-14 06:24] LABS: Hematocrit (blood only) 27.5 % (42-52); Hemoglobin 9.4 g/dL (14.0-18.0); Mean Corpuscular Hgb Conc 34.2 g/dL (32-36); Mean Corpuscular Volume 90.8 fL (80-100); RDW Coefficient of Variation 13.4 % (11.5-14.5); RDW Standard Deviation 44.4 fL (36.4-46.3); Red Blood Count 3.03 M/uL (4.7-6.1); White Blood Count 4.46 K/uL (4.8-10.8)
[2020-06-14 06:30] LABS: Mean Platelet Volume 11.5 fL (7.4-10.4); Platelet Count 81 K/uL (130-400)
[2020-06-14 07:01] LABS: BUN Creatinine Ratio 25.6 (10-20); Calcium 8.3 mg/dl (8.5-10.1); Creatinine Clr Calc Pharmacy 75.9 ml/min; Est GFR (African American) 89.5; Est GFR (Non-African American) 77.3; Magnesium 1.7 mg/dl (1.8-2.4); Potassium 4.4 mmol/L (3.5-5.1)
[2020-06-14 07:04] LABS: Immature Granulocytes # (auto) 0.01 K/uL (0.00-0.02); Immature Granulocytes % (auto) 0.2 %; Lymphocytes % (auto) 6.7 %; Monocytes # (auto) 0.28 K/uL (0.11-0.59); Monocytes % (auto) 6.3 %; Neutrophils # (auto) 3.87 K/uL (1.4-6.5); Neutrophils % (auto) 86.8 %
[2020-06-14] MEDS ORDERED: ERGOCALCIFEROL 50,000 UNITS 1250 MCG CAP PO ONE (08:45)
[2020-06-14] MEDS ORDERED: MAGNESIUM SULFATE / D5W 1 GM/100 ML BAG IV ONE (08:45)
[2020-06-14] MEDS: HYDROmorphone INJ 0.5 MG/0.5 ML SYR IV PRN (10:09)
[2020-06-14] MEDS: FOLIC ACID 400 MCG TAB PO SCH (10:13)
[2020-06-14] MEDS: MAGNESIUM OXIDE 400 MG TAB PO SCH ×3 (10:13→20:53)
[2020-06-14] MEDS: DOCUSATE SODIUM/SENNA 50/8.6MG TAB PO SCH ×2 (10:13→20:54)
[2020-06-14] MEDS: ASPIRIN 81 MG ECTAB PO SCH ×2 (10:14→20:52)
[2020-06-14] MEDS: carvediloL 3.125 MG TAB PO SCH ×2 (10:14→20:52)
[2020-06-14] MEDS: INSULIN ASPART 100 UNITS/ML 3 ML PEN SC SCH ×4 (11:00→20:56)
[2020-06-14] MEDS: INSULIN GLARGINE SOLOSTAR 100 UNITS/ML 3 ML PEN SC SCH ×2 (11:01→20:56)
--- NOTE | 2020-06-14 12:33 | Hospitalist Progress Note ---
Date of Service June 14, 2020 Assessment & Plan (1) Acute respiratory failure with hypoxia: 2nd to COVID-19. Supportive care. see below. (2) Closed right hip fracture: POD #1 s/p ORIF by Dr Phipps. DVT proph - asa BID, but will ask ortho if we can do lovenox or heparin in light of COVID status. Pain control - dilaudid 0.5mg q2h prn; tylenol prn. Replace vitamin D. PT, OT. (3) COVID-19 virus infection: with developing pneumonia and acute hypoxic respiratory failure. day #2 decadron. day #2 remdesivir. I spoke with pt's sister, Casie COREAS. Consent obtained for convalescent plasma - risks/benefits described in detail. Conversation witnessed by staff combat information center officer. Will transfuse once plasma is available. Will need d-dimer rechecked in next 1-2 days. Follow Cr and ast/alt in light of remdesivir. (4) Fall: [facility] at [facility]. No other apparent injuries besides right hip fracture. (5) Generalized abdominal pain: CT abd/pelvis without acute findings. LFTs noted to be normal. Continues to have no pain. (6) Type 2 diabetes mellitus: A1c <7%. Holding metformin. Increase lantus to 15 units BID. novolog for correction and carb coverage - adjust again today. (7) Vitamin B12 deficiency: B12 injections monthly (8) Thrombocytopenia: Platelets in the 80s. Also 110-140s 5-6 years ago. Thus, this is likely chronic. There could be a consumptive process element in the setting of madison-fracture bleeding. Trend platelets. COVID-19 infection could cause bone marrow suppression. (9) History of CVA (cerebrovascular accident): Continue ASA, atorvastatin for secondary prevention. Resulting left-sided hemiparesis. (10) Pancreatic calcification: noted on CT abd/pelvis. this is c/w chronic pancreatitis. if he has daily diarrhea consider creon. records indicate prior h/o alcoholism. (11) Hypertension: Cont home meds. (12) Murmur: last echo in 2013 -- was wnl. murmur not terribly loud. s1 and s2 clearly heard. defer on echo for now. (13) Hypomagnesemia: replace Iv mag repeat level am (14) Vitamin D deficiency: ergocalciferol 01512 units weekly x 8 weeks (15) DVT prophylaxis: asa 81mg BID but will ask ortho to allow higher dose lovenox or heparin SC updated Casie Sena extensively by phone today including consent process for plasma Admission and Anticipated Discharge Date Admission Date: June 12, 2020 Subjective patient awake and more talkative today than yesterday however much of his speech was word-salad and challenging to understand. he does c/o hip pain. requiring more O2 today. I turned off his O2 via NC and he promptly decreased to 89% sats in room air. difficult to elicit ROS due to dysarthria and word-salad. staff report poor appetite. tele wnl overnight. Review of Systems Review of Systems: Unobtainable due to cognitive status Physical Exam Constitutional: + altered mental status; no acute distress ENMT: external ear and nose normal, oropharynx normal Respiratory: no respiratory distress Auscultation: + rales (bases); no wheezes Cardiovascular: Rate/Rhythm: regular rhythm and + tachycardic Heart Sounds: normal S1, normal S2 and + murmur (2/6 LLSB) Vessels: posterior tibial pulses present and dorsalis pedis pulses present; no JVD Extremities: + edema (right thigh only ) Gastrointestinal (Abdomen): normal bowel sounds, soft, nontender, no hepatosplenomegaly Neurologic: + focal motor deficit (left arm/leg with hemiparesis; increased tone LUE) Psychiatric: Orientation: alert and oriented to person Results & Data Results & Data ([facility]) Vital Signs (Past 12 Hours) Vital Signs Temp Pulse Resp BP Pulse Ox 06/14/20 11:11 36.8 C 108 H 18 104/81 93 06/14/20 08:17 36.5 C 101 H 18 142/74 H 95 06/14/20 04:39 37.1 C 91 H 17 139/72 96 Laboratory Results Laboratory Results - last 24 hr 06/12/20 06/13/20 06/14/20 13:06 21:00 05:47 WBC RBC Hgb Hct MCV MCH MCHC RDW Std Deviation RDW Coeff of Guido Plt Count MPV Immature Gran % (Auto) Neut % (Auto) Lymph % (Auto) Cassia % (Auto) Eos % (Auto) Baso % (Auto) Neut # (Auto) Lymph # (Auto) Cassia # (Auto) Eos # (Auto) Baso # (Auto) Immature Gran # (Auto) Sodium Potassium Chloride Carbon Dioxide Anion Gap BUN Creatinine Est Cr Clr Drug Dosing Est GFR ( Amer) Est GFR (Non-Af Amer) BUN/Creatinine Ratio Glucose POC Glucose 187 H Calcium Magnesium AST ALT 25-OH Vitamin D Total 13.1 L Blood Type A Negative Antibody Screen NEGATIVE 06/14/20 06/14/20 06/14/20 05:47 05:47 08:19 WBC 4.46 L RBC 3.03 L Hgb 9.4 L Hct 27.5 L MCV 90.8 MCH 31.0 MCHC 34.2 RDW Std Deviation 44.4 RDW Coeff of Guido 13.4 Plt Count 81 L MPV 11.5 H Immature Gran % (Auto) 0.2 Neut % (Auto) 86.8 Lymph % (Auto) 6.7 Cassia % (Auto) 6.3 Eos % (Auto) 0.0 Baso % (Auto) 0.0 Neut # (Auto) 3.87 Lymph # (Auto) 0.30 L Cassia # (Auto) 0.28 Eos # (Auto) 0.00 Baso # (Auto) 0.00 Immature Gran # (Auto) 0.01 Sodium 137 Potassium 4.4 D Chloride 103 Carbon Dioxide 28 Anion Gap 6.0 BUN 25 H Creatinine 0.98 Est Cr Clr Drug Dosing 75.9 Est GFR ( Amer) 89.5 Est GFR (Non-Af Amer) 77.3 BUN/Creatinine Ratio 25.6 H Glucose 227 H POC Glucose 213 H Calcium 8.3 L Magnesium 1.7 L AST 19 ALT 14 25-OH Vitamin D Total Blood Type Antibody Screen 06/14/20 11:14 WBC RBC Hgb Hct MCV MCH MCHC RDW Std Deviation RDW Coeff of Guido Plt Count MPV Immature Gran % (Auto) Neut % (Auto) Lymph % (Auto) Cassia % (Auto) Eos % (Auto) Baso % (Auto) Neut # (Auto) Lymph # (Auto) Cassia # (Auto) Eos # (Auto) Baso # (Auto) Immature Gran # (Auto) Sodium Potassium Chloride Carbon Dioxide Anion Gap BUN Creatinine Est Cr Clr Drug Dosing Est GFR ( Amer) Est GFR (Non-Af Amer) BUN/Creatinine Ratio Glucose POC Glucose 248 H Calcium Magnesium AST ALT 25-OH Vitamin D Total Blood Type Antibody Screen PG Care Time/CCT Total # of Minutes Spent Total Time Spent with Patient: Total time spent is greater than 50% in coordination of care (as documented) at patient's floor/unit and/or counseling patient: Coding Level of Care Code 00876 Subseq Hosp Care Lvl 3 Diagnoses Acute respiratory failure with hypoxia J96.01 Closed right hip fracture S72.001A COVID-19 virus infection U07.1 Fall W19.XXXA Generalized abdominal pain R10.84 Type 2 diabetes mellitus E11.9 Vitamin B12 deficiency E53.8 Thrombocytopenia D69.6 History of CVA (cerebrovascular accident) Z86.73 Pancreatic calcification K86.89 Hypertension I10 Murmur R01.1 Hypomagnesemia E83.42 Vitamin D deficiency E55.9 DVT prophylaxis Z29.9
[2020-06-14] MEDS: DEXAMETHASONE SOD PHOSPHATE 6 MG in SYRINGE 0 ML IV SCH (12:54)
[2020-06-14] MEDS: CEROVITE ADV FORMULA TAB PO SCH (12:54)
[2020-06-14] MEDS: REMDESIVIR 100 MG in SODIUM CHLORIDE 0.9% 230 ML IV SCH (14:24)
[2020-06-14] MEDS: SODIUM CHLORIDE 0.9% 10ML FLUSH IV SCH (15:30)
--- NOTE | 2020-06-14 20:21 | XRay Report ---
XR chest 1V portable HISTORY: 69 years-old Male COVID-19; worsening hypoxia acute hypoxia with shortness of breath COMPARISON: Chest radiograph 06/13/2020 TECHNIQUE: Portable AP view of the chest FINDINGS: Cardiomediastinal and hilar silhouettes are within normal limits. No pneumothorax, large pleural effu sukhi or overt pulmonary edema. Chronic bibasilar interstitial coarsening. Subtle ill-defined opacitie s of the medial right lung base. Degenerative changes of the shoulders and spine. Limited exam second emely to positioning. IMPRESSION: Subtle ill-defined opacities of the medial right lung base may reflect atelectasis versus pneumonitis. ACT 112: Negative or not required by law. The above report was generated using voice recognition software. It may contain grammatical, syntax o r spelling errors. Electronically signed by: Mario Nails M.D. 06/14/2020 8:20 PM
[2020-06-14] MEDS: TAMSULOSIN HCL 0.4 MG CAP PO SCH (20:52)
[2020-06-14] MEDS: ATORVASTATIN 40 MG TAB PO SCH (20:53)
[2020-06-14] MEDS: lisinopril 10 MG TAB PO SCH (20:54)
[2020-06-15] MEDS: oxyCODONE HCL IR 5 MG TAB (IMMEDIATE RELEASE) PO PRN (00:48)
[2020-06-15] MEDS: HYDROmorphone INJ 0.5 MG/0.5 ML SYR IV PRN (04:47)
[2020-06-15 06:35] LABS: Creatinine Clr Calc Pharmacy 74.4 ml/min; Est GFR (African American) 87.4; Est GFR (Non-African American) 75.4
[2020-06-15] MEDS: DEXAMETHASONE SOD PHOSPHATE 6 MG in SYRINGE 0 ML IV SCH (07:31)
[2020-06-15] MEDS: ASPIRIN 81 MG ECTAB PO SCH (07:32)
[2020-06-15] MEDS: carvediloL 3.125 MG TAB PO SCH ×2 (07:32→20:57)
[2020-06-15] MEDS: MAGNESIUM OXIDE 400 MG TAB PO SCH ×3 (07:32→20:58)
[2020-06-15] MEDS: FOLIC ACID 400 MCG TAB PO SCH (07:32)
[2020-06-15] MEDS: DOCUSATE SODIUM/SENNA 50/8.6MG TAB PO SCH ×2 (07:33→20:59)
[2020-06-15] MEDS: CEROVITE ADV FORMULA TAB PO SCH (07:33)
[2020-06-15 07:57] LABS: Hematocrit (blood only) 28.9 % (42-52); Hemoglobin 9.9 g/dL (14.0-18.0); Mean Corpuscular Hgb Conc 34.3 g/dL (32-36); Mean Corpuscular Volume 90.6 fL (80-100); Mean Platelet Volume 11.5 fL (7.4-10.4); Platelet Count 113 K/uL (130-400); RDW Coefficient of Variation 13.4 % (11.5-14.5); RDW Standard Deviation 44.3 fL (36.4-46.3); Red Blood Count 3.19 M/uL (4.7-6.1); White Blood Count 5.67 K/uL (4.8-10.8)
[2020-06-15 08:06] LABS: BUN Creatinine Ratio 29.6 (10-20); Calcium 8.3 mg/dl (8.5-10.1); Creatinine Clr Calc Pharmacy 77.5 ml/min; Est GFR (African American) 91.8; Est GFR (Non-African American) 79.2; Magnesium 1.8 mg/dl (1.8-2.4); Potassium 3.8 mmol/L (3.5-5.1)
[2020-06-15] MEDS: INSULIN ASPART 100 UNITS/ML 3 ML PEN SC SCH ×4 (08:28→21:29)
[2020-06-15] MEDS: INSULIN GLARGINE SOLOSTAR 100 UNITS/ML 3 ML PEN SC SCH ×2 (08:40→21:23)
[2020-06-15] MEDS: LACTATED RINGER'S 1,000 ML IV SCH (10:30)
[2020-06-15] MEDS: CARBOHYDRATES FOR HYPOGLYCEMIA PO PRN (12:23)
[2020-06-15] MEDS: REMDESIVIR 100 MG in SODIUM CHLORIDE 0.9% 230 ML IV SCH (13:51)
[2020-06-15] MEDS: SODIUM CHLORIDE 0.9% 10ML FLUSH IV SCH (13:52)
[2020-06-15] MEDS ORDERED: OPTIRAY 320 125ml IV ONE (16:36)
--- NOTE | 2020-06-15 16:49 | CT Scan Report ---
CT ANGIOGRAM OF THE CHEST CLINICAL HISTORY: Dyspnea. Recent surgery. Covid. COMPARISON STUDY: Chest x-ray dated 06/14/2020. TECHNIQUE: Following the IV administration of 103 cc of Optiray 320, CT angiogram of the chest was pe rformed from the upper abdomen to the thoracic inlet utilizing the pulmonary embolus protocol. Images are reviewed in the axial, sagittal, and coronal planes. 3-D MIPS images are created and assessed. I V contrast was administered without complication. A dose lowering technique was utilized adhering to the principles of ALARA. The examination is degraded by motion artifact, as well as by streak artifa ct from the arms which could not be elevated above the chest. CT DOSE: 733.28 mGycm FINDINGS: Thyroid: Imaged portions of the thyroid gland are normal in size and heterogeneous in attenuation. Thoracic aorta: There is evidence carotid calcification of the thoracic aorta, which is normal in sophia iber and demonstrates standard 3-vessel arch anatomy. No dissection is seen. Pulmonary vasculature: The pulmonary trunk is normal in caliber. There are no filling defects identif ied in main, lobar, or proximal segmental pulmonary branches to suggest pulmonary embolus. Evaluation of the peripheral branches is degraded by streak and motion artifact. Heart: The heart is enlarged noting a small pericardial effusion. The coronary arteries are densely c alcified. Lungs and pleural spaces: Evaluation of the lung parenchyma is significantly degraded by motion artif act. There are trace pleural effusions. Dense patchy airspace consolidation is seen at both lung base s, right greater than left. Milder patchy airspace consolidation is seen in the upper lobes. Secretio ns are seen in the distal trachea. There is mild diffuse peribronchial thickening. Mediastinum: There are mildly enlarged mediastinal lymph nodes. A subcarinal node on image #165 measu res 2.5 x 1.8 cm. A right peritracheal node on image #199 measures 9 mm short axis. Calcified mediast inal nodes indicate remote granulomatous infection. Kim: There are calcified left hilar nodes. No hilar adenopathy is identified. Axillae: There is no axillary lymphadenopathy. Upper abdomen: Moderate fecal retention is noted in the partially visualized left colon. There are ca lcified hepatic granulomas. Partially visualized upper abdominal viscera is otherwise grossly unremar kable. Skeletal structures: The skeletal structures are osteopenic. 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 No lytic or blastic bony lesions are seen. IMPRESSION: 1. Streak and motion compromised examination. 2. There is no evidence of central pulmonary embolus in the main, lobar, or proximal segmental pulmon emely arteries. 3. There is dense bibasilar airspace consolidation, right greater than left. Milder patchy airspace c onsolidation is seen throughout the upper lobes. The appearance is typical for an infectious/inflamma tory pneumonitis. Radiographic follow-up to resolution is recommended. 4. Trace pleural effusions. 5. There are mildly enlarged mediastinal lymph nodes which are nonspecific and may be reactive. 6. Additional findings as above. ACT 112: Negative or not required by law. Electronically signed by: Jose Elias Conner M.D. 06/15/2020 4:48 PM
[2020-06-15] MEDS ORDERED: PIPERACILL/TAZOBAC CONSULT ACTIVE PRN (16:58)
[2020-06-15] MEDS ORDERED: PIPERACILLIN/TAZOBACTAM 3.375 GM in DEXTROSE 5% 100 ML IV ONE (17:30)
[2020-06-15] MEDS: HEPARIN SOD 5,000 UNIT/0.5 ML VIAL SQ SCH ×2 (17:49→23:52)
[2020-06-15] MEDS: ADVANCED PROBIOTIC 1250 MG CAPSULE PO SCH (17:51)
--- NOTE | 2020-06-15 20:19 | Hospitalist Progress Note ---
Date of Service June 15, 2020 Assessment & Plan (1) Pneumonia due to COVID-19 virus: Extensive pneumonia b/l as seen on CTA chest. Cannot rule out superimposed bacterial pneumonia. Continue decadron and remdesivir. Day #3 of each. s/p plasma on 06/14/20. Start zosyn for possible bacterial pneumonia. Aspiration vs gram negative ([facility] patient). Overall respiratory status is worse today. Increasing O2 requirements. (2) Acute respiratory failure with hypoxia: 2nd to COVID-19 pneumonia. see "pneumonia" above. Supportive care. (3) Acute blood loss anemia: 2nd to bleeding from hip fracture, hematoma, etc. CBC in am. (4) Closed right hip fracture: POD #2 s/p ORIF by Dr Phipps. DVT proph - heparin 7500 units TID in light of COVID 19 infection; Dr Phipps ok with such. Pain control - dilaudid 0.5mg q2h prn; tylenol prn. Replace vitamin D. PT, OT. (5) COVID-19 virus infection: with pneumonia and acute hypoxic respiratory failure. day #3 decadron. day #3 remdesivir. Check d-dimer am. Follow Cr and ast/alt in light of remdesivir. (6) Acute metabolic encephalopathy: 2nd to COVID-19, pain, etc. Supportive care. (7) Fall: Unwitnessed fall at [facility]. No other apparent injuries besides right hip fracture. (8) Generalized abdominal pain: CT abd/pelvis without acute findings. Continues to have no pain. (9) Type 2 diabetes mellitus: A1c <7%. Holding metformin. With hypoglycemia this am. Cut lantus back to once daily dosing. novolog for correction and carb coverage. (10) Vitamin B12 deficiency: B12 injections monthly (11) Thrombocytopenia: Platelets slowly improving. Also 110-140s 5-6 years ago. Thus, this is likely chronic. There could be a consumptive process element in the setting of [place]-fracture bleeding. COVID-19 infection could cause bone marrow suppression. (12) History of CVA (cerebrovascular accident): Continue ASA, atorvastatin for secondary prevention. Resulting left-sided hemiparesis. (13) Pancreatic calcification: noted on CT abd/pelvis. this is c/w chronic pancreatitis. if he has daily diarrhea consider creon. records indicate prior h/o alcoholism. (14) Hypertension: Cont home meds. (15) Murmur: last echo in 2013 -- was wnl. murmur not terribly loud. s1 and s2 clearly heard. defer on echo for now. (16) Hypomagnesemia: replaced and resolved (17) Vitamin D deficiency: ergocalciferol 14800 units weekly x 8 weeks (18) DVT prophylaxis: heparin 7500 units TID - due to increased VTE risk in setting of COVID infection updated Casie Sena extensively by phone today once again told Casie prognosis is guarded and I am concerned he is worsening she will inform her siblings about his status Admission and Anticipated Discharge Date Admission Date: June 12, 2020 Subjective patient very confused during my visit. talks very quickly with a word-salad type pattern. only intelligible thing he mentioned was pain of his right hip. otherwise could not offer meaningful history or ROS. staff report a buttock ulcer, as well as extensive ecchymoses over right flank and right hip region. POOR appetite. Review of Systems Review of Systems: Unobtainable due to cognitive status Physical Exam Constitutional: + acute distress (due to pain ), + ill appearing, + altered mental status and + frail appearing ENMT: Mouth: + dry oral mucous membranes Respiratory: no respiratory distress Auscultation: + diminished lung sounds (bases) and + rales (bases); no wheezes Cardiovascular: Rate/Rhythm: regular rhythm and + tachycardic Heart Sounds: normal S1, normal S2 and + murmur (2/6 LLSB) Vessels: posterior tibial pulses present and dorsalis pedis pulses present; no JVD Extremities: + edema (right thigh only ) Gastrointestinal (Abdomen): normal bowel sounds, soft, nontender, no hepatosplenomegaly Skin: extensive ecchymoses right flank, right lateral thigh Neurologic: + focal motor deficit (left arm/leg with hemiparesis; increased tone LUE) and + confused Speech / Cognition: + abnormal speech Psychiatric: Orientation: alert and oriented to person; + not oriented to place and + not oriented to time Results & Data Results & Data ([facility]) Vital Signs (Past 12 Hours) Vital Signs Temp Pulse Resp BP Pulse Ox 06/15/20 19:47 36.8 C 116 H 18 137/97 94 06/15/20 17:10 36.6 C 116 H 18 124/89 95 CTA chest reviewed - extensive b/l pneumonia, worst right base no PE labs reviewed - cbc, bmp AST elevated hypoglycemic this am PG Care Time/CCT Total # of Minutes Spent Total Time Spent with Patient: Total time spent is greater than 50% in coordination of care (as documented) at patient's floor/unit and/or counseling patient: Coding Level of Care Code 67641 Subseq Hosp Care Lvl 3 Diagnoses Pneumonia due to COVID-19 virus U07.1; J12.89 Acute respiratory failure with hypoxia J96.01 Acute blood loss anemia D62 Closed right hip fracture S72.001A COVID-19 virus infection U07.1 Acute metabolic encephalopathy G93.41 Fall W19.XXXA Generalized abdominal pain R10.84 Type 2 diabetes mellitus E11.9 Vitamin B12 deficiency E53.8 Thrombocytopenia D69.6 History of CVA (cerebrovascular accident) Z86.73 Pancreatic calcification K86.89 Hypertension I10 Murmur R01.1 Hypomagnesemia E83.42 Vitamin D deficiency E55.9 DVT prophylaxis Z29.9
[2020-06-15] MEDS: TAMSULOSIN HCL 0.4 MG CAP PO SCH (20:57)
[2020-06-15] MEDS: ATORVASTATIN 40 MG TAB PO SCH (20:58)
[2020-06-15] MEDS: lisinopril 10 MG TAB PO SCH (20:59)
[2020-06-15] MEDS: PIPERACILLIN/TAZOBACTAM 3.375 GM in DEXTROSE 5% 100 ML IV SCH (21:31)
[2020-06-16] MEDS: LACTATED RINGER'S 1,000 ML IV SCH ×2 (01:24→13:11)
[2020-06-16] MEDS: PIPERACILLIN/TAZOBACTAM 3.375 GM in DEXTROSE 5% 100 ML IV SCH ×3 (05:44→21:03)
[2020-06-16] MEDS: HEPARIN SOD 5,000 UNIT/0.5 ML VIAL SQ SCH ×3 (05:45→21:14)
[2020-06-16 07:06] LABS: Creatinine Clr Calc Pharmacy 77.5 ml/min; Est GFR (African American) 91.8; Est GFR (Non-African American) 79.2
[2020-06-16 07:29] LABS: Hematocrit (blood only) 26.5 % (42-52); Mean Corpuscular Hemoglobin 30.8 pg (25-34); Mean Corpuscular Volume 90.8 fL (80-100); Mean Platelet Volume 11.2 fL (7.4-10.4); Platelet Count 124 K/uL (130-400); RDW Coefficient of Variation 13.6 % (11.5-14.5); RDW Standard Deviation 45.5 fL (36.4-46.3); Red Blood Count 2.92 M/uL (4.7-6.1); White Blood Count 5.92 K/uL (4.8-10.8)
[2020-06-16 07:30] LABS: D Dimer 1700 ug/L FEU (0-500)
[2020-06-16 07:31] LABS: BUN Creatinine Ratio 29.7 (10-20); Calcium 8.1 mg/dl (8.5-10.1); Creatinine Clr Calc Pharmacy 74.4 ml/min; Est GFR (African American) 87.4; Est GFR (Non-African American) 75.4; Potassium 3.9 mmol/L (3.5-5.1)
[2020-06-16] MEDS: HYDROmorphone INJ 0.5 MG/0.5 ML SYR IV PRN ×4 (08:01→21:04)
[2020-06-16] MEDS: DEXAMETHASONE SOD PHOSPHATE 6 MG in SYRINGE 0 ML IV SCH (08:02)
[2020-06-16] MEDS: carvediloL 3.125 MG TAB PO SCH ×2 (08:06→21:17)
[2020-06-16] MEDS: ADVANCED PROBIOTIC 1250 MG CAPSULE PO SCH (08:07)
[2020-06-16] MEDS: FOLIC ACID 400 MCG TAB PO SCH (08:07)
[2020-06-16] MEDS: DOCUSATE SODIUM/SENNA 50/8.6MG TAB PO SCH ×2 (08:07→21:19)
[2020-06-16] MEDS: MAGNESIUM OXIDE 400 MG TAB PO SCH ×3 (08:07→21:17)
[2020-06-16] MEDS: CEROVITE ADV FORMULA TAB PO SCH (08:07)
[2020-06-16] MEDS: INSULIN ASPART 100 UNITS/ML 3 ML PEN SC SCH ×4 (09:13→21:00)
[2020-06-16] MEDS: INSULIN GLARGINE SOLOSTAR 100 UNITS/ML 3 ML PEN SC SCH ×2 (09:13→21:00)
[2020-06-16] MEDS ORDERED: bisacodyL 10 MG SUPP PR STA (09:37)
--- NOTE | 2020-06-16 13:00 | Orthopedic Progress Note ---
Date of Service June 16, 2020 Assessment & Plan (1) Closed fracture of right hip: His incision looks good. He has not been participating with physical therapy. He does have advanced dementia. According to his sister and his power of document review attorney he mostly ambulates with a wheelchair. He does limited ambulation with a walker, mostly just for transfers. We will keep him on Lovenox for DVT prophylaxis. He can be weightbearing as tolerated with the right hip. He is orthopedically stable for discharge when medically ready. The Silverlon dressing can stay in place for 7 days from the day of surgery. The zoey will be removed 2 to 3 weeks from the day of surgery. Full discharge instructions were already placed in the discharge summary. He should follow-up with orthopedics in 2 to 3 weeks for staple removal. Present on Admission?: Yes Admission and Anticipated Discharge Date Admission Date: June 12, 2020 Subjective Benedict was seen and examined at bedside this morning. He is awake but is difficult to understand him. He has not been working well with physical therapy. I am not sure if he has been out of bed yet. He does not seem to be having too much pain at the right hip. He has had no acute events since the surgery. Physical Exam Physical Exam: On physical examination of the right hip, the Silverlon dressing is clean and dry. There is a little bit of bleeding on it but that is to be expected. He has some ecchymosis posteriorly in the gluteal region. His leg lengths are equal. There is no signs of infection. He is unable to cooperate with a neurologic examination. Results & Data ([facility]) Vital Signs (Past 12 Hours) Vital Signs Temp Pulse Pulse Resp BP BP Pulse Ox 06/16/20 11:18 36.5 C 77 18 123/76 99 06/16/20 08:00 37.1 C 97 H 18 148/85 H 100 06/16/20 07:55 98 H 20 160/79 H 99 06/16/20 04:11 37.0 C 93 H 20 157/76 H 97 06/16/20 01:15 87 Laboratory Results H & H 06/12/20 06/13/20 06/14/20 Range/Units 13:06 06:08 05:47 Hgb 13.3 L 12.2 L 9.4 L (14.0-18.0) g/dL Hct 38.2 L 36.2 L 27.5 L (42-52) % 06/15/20 06/16/20 Range/Units 05:38 05:48 Hgb 9.9 L 9.0 L (14.0-18.0) g/dL Hct 28.9 L 26.5 L (42-52) % Coagulation 06/12/20 Range/Units 13:06 INR 1.2 H (0.9-1.1) Diagnostic Findings Postoperative x-rays of the right hip showed the prosthesis to be in anatomic alignment without any evidence of fracture, dislocation, or loosening. PG Care Time/CCT Total # of Minutes Spent Total Time Spent with Patient: Total time spent is greater than 50% in coordination of care (as documented) at patient's floor/unit and/or counseling patient: Coding Level of Care Code None Diagnoses Closed fracture of right hip S72.001A Encounter type: initial encounter (1) Closed fracture of right hip Encounter type: initial encounter Qualified Code(s): S72.001A - Fracture of unspecified part of neck of right femur, initial encounter for closed fracture
[2020-06-16] MEDS: REMDESIVIR 100 MG in SODIUM CHLORIDE 0.9% 230 ML IV SCH (14:14)
--- NOTE | 2020-06-16 15:06 | Electrocardiogram Report ---
Test Reason : Blood Pressure : / mmHG Vent. Rate : 123 BPM Atrial Rate : 123 BPM P-R Int : 148 ms QRS Dur : 088 ms QT Int : 324 ms P-R-T Axes : 062 -16 081 degrees QTc Int : 463 ms Poor data quality, interpretation may be adversely affected Sinus tachycardia with Premature supraventricular complexes Nonspecific ST and T wave abnormality Abnormal ECG When compared with ECG of 12-JUN-2020 13:11, Premature supraventricular complexes are now Present T wave inversion now evident in Anterolateral leads Confirmed by Brandon Koroma ([id number]) on 06/16/2020 3:06:15 PM Referred By: REFERRED SELF Confirmed By:Brandon Koroma
[2020-06-16] MEDS: SODIUM CHLORIDE 0.9% 10ML FLUSH IV SCH (15:57)
--- NOTE | 2020-06-16 20:35 | Hospitalist Progress Note ---
Date of Service June 16, 2020 Assessment & Plan (1) Pneumonia due to COVID-19 virus: Extensive pneumonia b/l as seen on CTA chest. Cannot rule out superimposed bacterial pneumonia. Continue decadron and remdesivir. Day #4 of each. s/p plasma on 06/14/20. Day #2 zosyn for possible bacterial pneumonia. Aspiration vs gram negative (SNF patient). Appreciate speech consultation. Respiratory status mildly improved today. (2) Acute respiratory failure with hypoxia: 2nd to COVID-19 pneumonia. see "pneumonia" above. Supportive care. (3) Acute blood loss anemia: 2nd to bleeding from hip fracture, hematoma, etc. Hb 9 today. stable. start ferrous sulfate BID once constipation is improved. (4) Closed right hip fracture: POD #3 s/p ORIF by Dr Phipps. DVT proph - heparin 7500 units TID in light of COVID 19 infection; Dr Phipps ok with such. Pain control - dilaudid 0.5mg q2h prn; tylenol prn. Replace vitamin D. PT, OT. (5) COVID-19 virus infection: with pneumonia and acute hypoxic respiratory failure. day #4 decadron. day #4 remdesivir. Follow Cr and ast/alt in light of remdesivir. s/p plasma this admission as well. (6) Acute metabolic encephalopathy: severe. 2nd to COVID-19, pain, etc. Supportive care. consider scheduled antipsychotic at HS. (7) Fall: Unwitnessed fall at SNF. No other apparent injuries besides right hip fracture. (8) Generalized abdominal pain: CT abd/pelvis without acute findings. Pain present today - suspect constipation. cont aggressive bowel regimen. (9) Type 2 diabetes mellitus: A1c <7%. Holding metformin. lantus BID. novolog for correction and carb coverage. (10) Vitamin B12 deficiency: B12 injections monthly (11) Thrombocytopenia: Platelets slowly improving. baseline 110-140s 5-6 years ago. Thus, this is likely chronic. There could be a consumptive process element in the setting of [place]-fracture bleeding. COVID-19 infection could cause bone marrow suppression. trend his cbc. (12) History of CVA (cerebrovascular accident): Continue ASA, atorvastatin for secondary prevention. Resulting left-sided hemiparesis. (13) Pancreatic calcification: noted on CT abd/pelvis. this is c/w chronic pancreatitis. records indicate prior h/o alcoholism. (14) Hypertension: Cont home meds. (15) Murmur: last echo in 2013 -- was wnl. defer on echo due to COVID status for now. (16) Hypomagnesemia: replaced and resolved (17) Vitamin D deficiency: ergocalciferol 40424 units weekly x 8 weeks (18) DVT prophylaxis: heparin 7500 units TID - due to increased VTE risk in setting of COVID infection updated Casie Sena extensively by phone today again told Casie prognosis is guarded and I am concerned he is failing to thrive will obtain palliative care consult tomorrow she continues to keep her siblings informed about his status Admission and Anticipated Discharge Date Admission Date: June 12, 2020 Subjective patient with usual word salad but I was able to understand him a bit more today. states he "hurts all over". also states he is short of breath. staff report no BM yet. staff also report ongoing poor appetite/liquid intake. doing poorly with therapy. tele - sinus tach or NSR. Review of Systems Review of Systems: Unobtainable due to cognitive status Physical Exam Constitutional: + ill appearing, + altered mental status and + frail appearing; no acute distress ENMT: Mouth: + dry oral mucous membranes Respiratory: no respiratory distress Auscultation: + diminished lung sounds (bases), + rales (bases with course BS b/l) and + wheezes (scant b/l ) sounds worse today Cardiovascular: Rate/Rhythm: regular rate and regular rhythm Heart Sounds: normal S1, normal S2 and + murmur (2/6 LLSB) Vessels: posterior tibial pulses present and dorsalis pedis pulses present; no JVD Extremities: + edema (right thigh only ) Gastrointestinal (Abdomen): Inspection/Auscultation: normal bowel sounds; abdomen not distended Percussion/Palpation: + abdomen tender (central abdomen ); no hepatosplenomegaly Neurologic: + focal motor deficit (left arm/leg with hemiparesis; increased tone LUE) and + confused Speech / Cognition: + abnormal speech Psychiatric: Orientation: alert and oriented to person; + not oriented to place and + not oriented to time Results & Data Results & Data ([facility]) Vital Signs (Past 12 Hours) Vital Signs Temp Pulse Pulse Resp BP Pulse Ox 06/16/20 19:30 70 99 06/16/20 18:24 71 06/16/20 15:31 36.8 C 95 H 20 139/78 95 06/16/20 14:26 99 06/16/20 13:01 100 06/16/20 11:18 36.5 C 77 18 123/76 99 Laboratory Results Laboratory Results - last 24 hr 06/15/20 06/16/20 06/16/20 23:59 04:10 05:41 WBC RBC Hgb Hct MCV MCH MCHC RDW Std Deviation RDW Coeff of Guido Plt Count MPV D-Dimer Sodium Potassium Chloride Carbon Dioxide Anion Gap BUN Creatinine 0.96 Est Cr Clr Drug Dosing 77.5 Est GFR ( Amer) 91.8 Est GFR (Non-Af Amer) 79.2 BUN/Creatinine Ratio Glucose POC Glucose 114 H 118 H Calcium AST 89 H ALT 35 06/16/20 06/16/20 06/16/20 05:48 05:48 05:48 WBC 5.92 RBC 2.92 L Hgb 9.0 L Hct 26.5 L MCV 90.8 MCH 30.8 MCHC 34.0 RDW Std Deviation 45.5 RDW Coeff of Guido 13.6 Plt Count 124 L MPV 11.2 H D-Dimer 1700 H* Sodium 140 Potassium 3.9 Chloride 104 Carbon Dioxide 30 Anion Gap 6.0 BUN 30 H Creatinine 1.00 Est Cr Clr Drug Dosing 74.4 Est GFR ( Amer) 87.4 Est GFR (Non-Af Amer) 75.4 BUN/Creatinine Ratio 29.7 H Glucose 108 H POC Glucose Calcium 8.1 L AST 90 H ALT 36 06/16/20 06/16/20 06/16/20 07:10 11:16 16:51 WBC RBC Hgb Hct MCV MCH MCHC RDW Std Deviation RDW Coeff of Guido Plt Count MPV D-Dimer Sodium Potassium Chloride Carbon Dioxide Anion Gap BUN Creatinine Est Cr Clr Drug Dosing Est GFR ( Amer) Est GFR (Non-Af Amer) BUN/Creatinine Ratio Glucose POC Glucose 139 H 189 H 218 H Calcium AST ALT PG Care Time/CCT Total # of Minutes Spent Total Time Spent with Patient: Total time spent is greater than 50% in coordination of care (as documented) at patient's floor/unit and/or counseling patient: Coding Level of Care Code 04995 Subseq Hosp Care Lvl 3 Diagnoses Pneumonia due to COVID-19 virus U07.1; J12.89 Acute respiratory failure with hypoxia J96.01 Acute blood loss anemia D62 Closed right hip fracture S72.001A COVID-19 virus infection U07.1 Acute metabolic encephalopathy G93.41 Fall W19.XXXA Generalized abdominal pain R10.84 Type 2 diabetes mellitus E11.9 Vitamin B12 deficiency E53.8 Thrombocytopenia D69.6 History of CVA (cerebrovascular accident) Z86.73 Pancreatic calcification K86.89 Hypertension I10 Murmur R01.1 Hypomagnesemia E83.42 Vitamin D deficiency E55.9 DVT prophylaxis Z29.9
[2020-06-16] MEDS: ATORVASTATIN 40 MG TAB PO SCH (21:18)
[2020-06-16] MEDS: TAMSULOSIN HCL 0.4 MG CAP PO SCH (21:18)
[2020-06-16] MEDS: lisinopril 10 MG TAB PO SCH (21:23)
[2020-06-17] MEDS: LACTATED RINGER'S 1,000 ML IV SCH ×2 (01:55→13:27)
[2020-06-17] MEDS: HYDROmorphone INJ 0.5 MG/0.5 ML SYR IV PRN ×3 (03:11→20:22)
[2020-06-17] MEDS: PIPERACILLIN/TAZOBACTAM 3.375 GM in DEXTROSE 5% 100 ML IV SCH ×3 (05:15→21:54)
[2020-06-17] MEDS: HEPARIN SOD 5,000 UNIT/0.5 ML VIAL SQ SCH ×3 (05:16→20:25)
[2020-06-17 06:56] LABS: Creatinine Clr Calc Pharmacy 75.1 ml/min; Est GFR (African American) 88.4; Est GFR (Non-African American) 76.3
[2020-06-17 07:43] LABS: D Dimer 1250 ug/L FEU (0-500)
[2020-06-17 08:00] LABS: Calcium 8.3 mg/dl (8.5-10.1); Creatinine Clr Calc Pharmacy 74.4 ml/min; Est GFR (African American) 87.4; Est GFR (Non-African American) 75.4; Potassium 4.1 mmol/L (3.5-5.1)
[2020-06-17] MEDS: DEXAMETHASONE SOD PHOSPHATE 6 MG in SYRINGE 0 ML IV SCH (08:46)
[2020-06-17] MEDS: MAGNESIUM OXIDE 400 MG TAB PO SCH ×3 (08:46→20:22)
[2020-06-17] MEDS: carvediloL 3.125 MG TAB PO SCH ×2 (08:46→20:24)
[2020-06-17] MEDS: FOLIC ACID 400 MCG TAB PO SCH (08:47)
[2020-06-17] MEDS: CEROVITE ADV FORMULA TAB PO SCH (08:47)
[2020-06-17] MEDS: ADVANCED PROBIOTIC 1250 MG CAPSULE PO SCH (08:47)
[2020-06-17] MEDS: INSULIN ASPART 100 UNITS/ML 3 ML PEN SC SCH ×4 (08:49→20:23)
[2020-06-17] MEDS: DOCUSATE SODIUM/SENNA 50/8.6MG TAB PO SCH ×2 (09:58→20:22)
[2020-06-17] MEDS: INSULIN GLARGINE SOLOSTAR 100 UNITS/ML 3 ML PEN SC SCH ×2 (09:58→20:24)
[2020-06-17] MEDS: SODIUM CHLORIDE 0.9% 10ML FLUSH IV SCH (13:05)
[2020-06-17] MEDS: REMDESIVIR 100 MG in SODIUM CHLORIDE 0.9% 230 ML IV SCH (13:05)
--- NOTE | 2020-06-17 15:22 | Palliative Care Consultation ---
Date of Consultation June 17, 2020 Assessment & Plan (1) Palliative care encounter: His sister, Casie Sena, is his primary contact. I called her at [phone] at 1500 with no answer. Will continue to reach out to discuss Mr Bey's illness and goals of care. He is a full code at this time. I was able to reach his sister, Casie, later this afternoon. When asked what her understanding of his current situation was, she was concerned that he was having difficulty with swallowing. We reviewed his current pneumonia with covid in context of hip fracture, prior CVA and general debility. She tells me that he has never discussed anything about his healthcare wishes and she does not know what he would say if he were able to speak for himself right now. I explained that he is very ill and at risk for further complications and decline. Likelihood for recovery to his prior potential is virtually zero. We discussed what life had been like for him prior to his CVA in 2013. While she is unsure about what Akash's wishes would be for his care, she is adamant that her wish is to pursue all available options at this time. She is agreeable to palliative care following and updating her to discuss goals for treatment as his illness evolves. Thank you for allowing us to participate in this gentleman's care. (2) Acute respiratory failure with hypoxia: (3) Pneumonia due to COVID-19 virus: (4) Closed right hip fracture: History of Present Illness Reason for Consultation: goals of care Requesting Physician: Dr. Egan Attending Physician: Kavin Egan History of Present Illness 69 yo gentleman who is a resident at [facility] since CVA in 2013. He has had residual dysphagia and apparently also aphasia. He had an unwitnessed fall that resulted in a right hip fracture. He is s/p right hip hemiarthroplasy. He has subsequently developed b/l pneumonia and is covid positive. He is being treated with remdesivir, decadron, convalescent plasma and IV antibiotics. He has elevated D dimer of 1250 and is on heparin. He has been receiving both dilaudid and oxycodone for pain related to his hip fracture. We have been consulted to assist with goals of care. Allergies Allergy/AdvReac Type Severity Reaction Status Date / Time No Known Drug Allergies Allergy Unknown . Verified 06/12/20 15:46 Home Medications Medication Instructions Recorded Confirmed Type aspirin [Aspirin Childrens] 81 mg PO DAILY 06/12/20 06/12/20 History atorvastatin [Lipitor] 40 mg PO PM 06/12/20 06/12/20 History carvedilol [Coreg] 3.125 mg PO BID 06/12/20 06/12/20 History docusate sodium [Colace] 100 mg PO BID 06/12/20 06/12/20 History folic acid 0.4 mg PO DAILY 06/12/20 06/12/20 History lisinopril [Prinivil] 10 mg PO HS 06/12/20 06/12/20 History magnesium oxide 400 mg PO TID 06/12/20 06/12/20 History metformin [Glucophage] 1,000 mg PO BID 06/12/20 06/12/20 History sennosides-docusate sodium 1 tab-cap PO QAM 06/12/20 06/12/20 History [Senexon-S] Patient History Medical History Abnormal gait Alcohol abuse 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 Cholelithiasis Chronic constipation Contracture, left ankle Contracture, right ankle Diabetic neuropathy Dysarthria following cerebral infarction Full code status Functional urinary incontinence Generalized muscle weakness Hemiplegia of left nondominant 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 History of CVA (cerebrovascular accident) Hypertension Hypomagnesemia Incontinence, feces Left ear impacted cerumen Nicotine dependence Occlusion and stenosis of bilateral carotid arteries Oral phase dysphagia Type 2 diabetes mellitus Vascular dementia without behavioral disturbance Vitamin B12 deficiency Surgical History No pertinent past surgical history Social History Smoking Status: Unknown if ever smoked Tobacco Type: Cigarettes Hx Alcohol Use: No Hx Substance Use: No Preferred Language: Citizen Of [place] Communication Ability: Impaired Communication Ability Comment: Prior CVA causing dysphaisa Beliefs That Will Affect Care: None marital status: Single Current Living Situation: Shelter Feels Safe at Home: Yes Assistive Devices: Oxygen - Continuous Review of Systems Review of Systems: Other not obtained with aphasia and covid 19 pandemic Physical Exam Physical Exam: deferred due to covid 19 pandemic Results & Data ([facility]) Vital Signs (Past 12 Hours) Vital Signs Temp Pulse Pulse Resp BP Pulse Ox 06/17/20 11:06 99.0 F 83 18 120/73 98 06/17/20 08:00 71 06/17/20 07:50 97.7 F 86 18 138/70 96 PG Care Time/CCT Total # of Minutes Spent Total Time Spent with Patient: Total time spent is greater than 50% in coordination of care (as documented) at patient's floor/unit and/or counseling patient: 40 minutes total with more than 50% of time spent on family education, goals of care Coding Level of Care Code 14032 Inpt Consult Level 2 Diagnoses Palliative care encounter Z51.5 Acute respiratory failure with hypoxia J96.01 Pneumonia due to COVID-19 virus U07.1; J12.89 Closed right hip fracture S72.001A
[2020-06-17] MEDS: lisinopril 10 MG TAB PO SCH (20:23)
[2020-06-17] MEDS: TAMSULOSIN HCL 0.4 MG CAP PO SCH (20:24)
[2020-06-17] MEDS: ATORVASTATIN 40 MG TAB PO SCH (20:24)
--- NOTE | 2020-06-17 20:54 | Hospitalist Progress Note ---
Date of Service June 17, 2020 Assessment & Plan (1) Pneumonia due to COVID-19 virus: Extensive pneumonia b/l as seen on CTA chest. Cannot rule out superimposed bacterial pneumonia. Continue decadron and remdesivir. Day #5 of each. s/p plasma on 06/14/20. Day #3 zosyn for possible bacterial pneumonia. Aspiration vs gram negative (SNF patient). Could consider changing to PO abx tomorrow if stable/improving from respiratory standpoint. Respiratory status stable today. (2) COVID-19 virus infection: with pneumonia and acute hypoxic respiratory failure. day #5 decadron. day #5 remdesivir. Follow Cr and ast/alt in light of remdesivir. s/p plasma this admission as well. Significant anorexia, failure to thrive, etc in face of COVID-19 illness. Appreciate palliative care consultation. (3) Acute respiratory failure with hypoxia: 2nd to COVID-19 pneumonia. see "pneumonia" above. Supportive care. No clinical evidence of pulmonary edema. (4) Acute blood loss anemia: 2nd to bleeding from hip fracture, hematoma, etc. cont ferrous sulfate BID. repeat CBC am. (5) Closed right hip fracture: POD #4 s/p ORIF by Dr Phipps. DVT proph - heparin 7500 units TID in light of COVID 19 infection; Dr Phipps ok with such. Pain control - dilaudid 0.5mg q2h prn; tylenol prn; oxycodone prn. Patient seems to be in pain most times of day - consider long-acting pain meds. not doing well with PT, OT. (6) Acute metabolic encephalopathy: severe. ongoing. 2nd to COVID-19, pain, etc. Supportive care. consider scheduled antipsychotic at HS. (7) Fall: Unwitnessed fall at SNF. No other apparent injuries besides right hip fracture. (8) Generalized abdominal pain: CT abd/pelvis without acute findings. suspect constipation -- had BM overnight and pain seems better today. cont aggressive bowel regimen. (9) Type 2 diabetes mellitus: A1c <7%. Holding metformin. uncontrolled. due to steroids. adjust lantus BID. adjust novolog for correction and carb coverage. (10) Vitamin B12 deficiency: B12 injections monthly will give injection tomorrow (11) Thrombocytopenia: Platelets slowly improving. repeat cbc in am baseline 110-140s 5-6 years ago. Thus, this is likely chronic. (12) History of CVA (cerebrovascular accident): Continue ASA, atorvastatin for secondary prevention. Resulting left-sided hemiparesis. (13) Pancreatic calcification: noted on CT abd/pelvis. this is c/w chronic pancreatitis. records indicate prior h/o alcoholism. (14) Hypertension: Cont home meds. (15) Murmur: last echo in 2013 -- was wnl. defer on echo due to COVID status for now. (16) Hypomagnesemia: replaced and resolved (17) Vitamin D deficiency: ergocalciferol 57974 units weekly x 8 weeks (18) DVT prophylaxis: heparin 7500 units TID - due to increased VTE risk in setting of COVID infection updated Casie Sena extensively by phone over the last few days have told Casie several times that prognosis is guarded and I am concerned he is failing to thrive appreciate palliative care consult sister wants aggressive care, full code, etc Admission and Anticipated Discharge Date Admission Date: June 12, 2020 Subjective patient states "I feel terrible" he cannot elaborate on such his word-salad speech continues does seem to continue have right hip pain had bowel movement per staff tele - stable, NSR eating very poorly still Review of Systems Review of Systems: Unobtainable due to cognitive status Physical Exam Constitutional: + ill appearing, + altered mental status and + frail appearing; no acute distress ENMT: external ear and nose normal, oropharynx normal Respiratory: no respiratory distress Auscultation: + diminished lung sounds (bases) and + rales (bases with course BS b/l) Cardiovascular: Rate/Rhythm: regular rate and regular rhythm Heart Sounds: normal S1, normal S2 and + murmur (2/6 LLSB) Vessels: posterior tibial pulses present and dorsalis pedis pulses present; no JVD Extremities: + edema (right thigh only ) Gastrointestinal (Abdomen): normal bowel sounds, soft, nontender, no hepatosplenomegaly Inspection/Auscultation: abdomen not distended Skin: + pallor dressing intact right lateral hip Neurologic: + focal motor deficit (left arm/leg with hemiparesis; increased tone LUE) and + confused Speech / Cognition: + abnormal speech Psychiatric: Orientation: alert and oriented to person; + not oriented to place and + not oriented to time Results & Data Results & Data ([facility]) Vital Signs (Past 12 Hours) Vital Signs Temp Pulse Pulse Resp BP Pulse Ox 06/17/20 19:00 36.8 C 90 20 153/80 H 95 06/17/20 16:28 36.6 C 87 22 164/73 H 98 06/17/20 16:00 77 06/17/20 11:06 37.2 C 83 18 120/73 98 Laboratory Results Laboratory Results - last 24 hr 06/16/20 06/17/20 06/17/20 20:58 05:38 06:55 D-Dimer 1250 H* Sodium Potassium Chloride Carbon Dioxide Anion Gap BUN Creatinine 0.99 Est Cr Clr Drug Dosing 75.1 Est GFR ( Amer) 88.4 Est GFR (Non-Af Amer) 76.3 BUN/Creatinine Ratio Glucose POC Glucose 224 H Calcium AST 51 H ALT 32 06/17/20 06/17/20 06/17/20 06:55 07:53 11:11 D-Dimer Sodium 139 Potassium 4.1 Chloride 105 Carbon Dioxide 31 Anion Gap 4.0 BUN 37 H Creatinine 1.00 Est Cr Clr Drug Dosing 74.4 Est GFR ( Amer) 87.4 Est GFR (Non-Af Amer) 75.4 BUN/Creatinine Ratio 37.0 H Glucose 142 H POC Glucose 153 H 233 H Calcium 8.3 L AST ALT 06/17/20 06/17/20 16:26 20:04 D-Dimer Sodium Potassium Chloride Carbon Dioxide Anion Gap BUN Creatinine Est Cr Clr Drug Dosing Est GFR ( Amer) Est GFR (Non-Af Amer) BUN/Creatinine Ratio Glucose POC Glucose 206 H 217 H Calcium AST ALT PG Care Time/CCT Total # of Minutes Spent Total Time Spent with Patient: Total time spent is greater than 50% in coordination of care (as documented) at patient's floor/unit and/or counseling patient: Coding Level of Care Code 77433 Subseq Hosp Care Lvl 3 Diagnoses Pneumonia due to COVID-19 virus U07.1; J12.89 COVID-19 virus infection U07.1 Acute respiratory failure with hypoxia J96.01 Acute blood loss anemia D62 Closed right hip fracture S72.001A Acute metabolic encephalopathy G93.41 Fall W19.XXXA Generalized abdominal pain R10.84 Type 2 diabetes mellitus E11.9 Vitamin B12 deficiency E53.8 Thrombocytopenia D69.6 History of CVA (cerebrovascular accident) Z86.73 Pancreatic calcification K86.89 Hypertension I10 Murmur R01.1 Hypomagnesemia E83.42 Vitamin D deficiency E55.9 DVT prophylaxis Z29.9
[2020-06-18] MEDS: PIPERACILLIN/TAZOBACTAM 3.375 GM in DEXTROSE 5% 100 ML IV SCH ×3 (05:57→23:18)
[2020-06-18] MEDS: HEPARIN SOD 5,000 UNIT/0.5 ML VIAL SQ SCH ×3 (05:57→23:31)
[2020-06-18 06:56] LABS: Hemoglobin 8.4 g/dL (14.0-18.0); Mean Corpuscular Hemoglobin 30.3 pg (25-34); Mean Corpuscular Hgb Conc 33.6 g/dL (32-36); Mean Corpuscular Volume 90.3 fL (80-100); Mean Platelet Volume 11.1 fL (7.4-10.4); Platelet Count 195 K/uL (130-400); RDW Coefficient of Variation 13.5 % (11.5-14.5); RDW Standard Deviation 44.6 fL (36.4-46.3); Red Blood Count 2.77 M/uL (4.7-6.1); White Blood Count 7.06 K/uL (4.8-10.8)
[2020-06-18 07:23] LABS: BUN Creatinine Ratio 39.1 (10-20); Calcium 8.3 mg/dl (8.5-10.1); Creatinine Clr Calc Pharmacy 72.2 ml/min; Est GFR (African American) 84.3; Est GFR (Non-African American) 72.7
[2020-06-18] MEDS: oxyCODONE HCL IR 5 MG TAB (IMMEDIATE RELEASE) PO PRN (08:02)
[2020-06-18] MEDS: carvediloL 3.125 MG TAB PO SCH ×2 (08:03→23:20)
[2020-06-18] MEDS: DEXAMETHASONE SOD PHOSPHATE 6 MG in SYRINGE 0 ML IV SCH (08:03)
[2020-06-18] MEDS: ADVANCED PROBIOTIC 1250 MG CAPSULE PO SCH (08:03)
[2020-06-18] MEDS: MAGNESIUM OXIDE 400 MG TAB PO SCH ×3 (08:03→23:21)
[2020-06-18] MEDS: DOCUSATE SODIUM/SENNA 50/8.6MG TAB PO SCH ×2 (08:03→23:20)
[2020-06-18] MEDS: CEROVITE ADV FORMULA TAB PO SCH (08:04)
[2020-06-18] MEDS: FOLIC ACID 400 MCG TAB PO SCH (08:04)
[2020-06-18] MEDS: FERROUS SULFATE 325 MG TAB PO SCH ×2 (08:04→18:09)
[2020-06-18] MEDS ORDERED: CYANOCOBALAMIN 1000 MCG/ML VIAL IM ONE (08:30)
[2020-06-18] MEDS: INSULIN GLARGINE SOLOSTAR 100 UNITS/ML 3 ML PEN SC SCH ×2 (09:05→23:29)
[2020-06-18] MEDS: INSULIN ASPART 100 UNITS/ML 3 ML PEN SC SCH ×4 (09:06→23:30)
[2020-06-18] MEDS: HYDROmorphone INJ 0.5 MG/0.5 ML SYR IV PRN (18:20)
--- NOTE | 2020-06-18 20:54 | Hospitalist Progress Note ---
Date of Service June 18, 2020 Assessment & Plan (1) Pneumonia due to COVID-19 virus: Extensive pneumonia b/l as seen on CTA chest. Cannot rule out superimposed bacterial pneumonia. Continue decadron - day #6 of such. s/p 5-day remdesivir course. s/p plasma on 06/14/20. Day #4 zosyn for possible bacterial pneumonia. Aspiration vs gram negative (SNF patient). Could consider changing to PO abx tomorrow if stable/improving from respiratory standpoint. Respiratory status stable again today. (2) COVID-19 virus infection: with pneumonia and acute hypoxic respiratory failure. day #6 decadron. completed 5-day remdesivir course. ast/alt normal while on remdesivir. s/p plasma this admission as well. Significant anorexia, failure to thrive, etc in face of COVID-19 illness -- maybe starting to improve slowly?? Appreciate palliative care consultation. (3) Acute respiratory failure with hypoxia: 2nd to COVID-19 pneumonia. see "pneumonia" above. (4) Acute blood loss anemia: 2nd to bleeding from hip fracture, hematoma, etc. cont ferrous sulfate BID. could consider IV venofer while here. (5) Closed right hip fracture: POD #5 s/p ORIF by Dr Phipps. DVT proph - heparin 7500 units TID in light of COVID 19 infection; Dr Phipps ok with such. Pain control - dilaudid 0.5mg q2h prn; tylenol prn; oxycodone prn. Patient seems to be in pain most times of day - consider long-acting pain meds. not doing well with PT, OT. see their notes. long-term rehab potential is poor in light of prior stroke and multiple comorbidities. (6) Acute metabolic encephalopathy: severe. ongoing. 2nd to COVID-19, pain, etc. Supportive care. consider scheduled antipsychotic at HS. (7) Fall: Unwitnessed fall at SNF. No other apparent injuries besides right hip fracture. (8) Generalized abdominal pain: CT abd/pelvis without acute findings. suspect constipation as culprit - symptoms improved with BM. cont aggressive bowel regimen. (9) Type 2 diabetes mellitus: A1c <7%. Holding metformin. uncontrolled but now improving. cont lantus BID + novolog for correction and carb coverage. (10) Vitamin B12 deficiency: B12 injections monthly will give injection today (11) Thrombocytopenia: resolved was likely consumptive in setting of hip fracture w/ bleeding, and also bone marrow suppression from COVID 19 infection (12) History of CVA (cerebrovascular accident): Continue ASA, atorvastatin for secondary prevention. Resulting left-sided hemiparesis. (13) Pancreatic calcification: noted on CT abd/pelvis. this is c/w chronic pancreatitis. records indicate prior h/o alcoholism. (14) Hypertension: Cont home meds. (15) Murmur: last echo in 2013 -- was wnl. defer on echo due to COVID status for now. (16) Hypomagnesemia: replaced and resolved (17) Vitamin D deficiency: ergocalciferol 01842 units weekly x 8 weeks (18) DVT prophylaxis: heparin 7500 units TID - due to increased VTE risk in setting of COVID infection updated Casie Sena extensively by phone over the last few days have told Casie several times that prognosis is guarded spoke to her again 06/18/20 appreciate palliative care consult sister wants aggressive care, full code, etc patient has other siblings - Casie is keeping them informed; uncertain of other siblings' feelings on his care Admission and Anticipated Discharge Date Admission Date: June 12, 2020 Subjective during the visit pt said "keeps going [id number]; [id number]" (talking about IV pump) he could not give any other meaningful history or ROS at least 3/4 of the visit his speech was typical word salad staff report his eating was better today and more robust still doing very poorly with turns, transfers, etc lots of pain right hip still on NC O2 Review of Systems Review of Systems: Unobtainable due to cognitive status Physical Exam Constitutional: + altered mental status and + frail appearing; no acute distress ENMT: external ear and nose normal, oropharynx normal Respiratory: no respiratory distress Auscultation: + diminished lung sounds (bases) and + rales (bases with course BS b/l) Cardiovascular: Rate/Rhythm: regular rate and regular rhythm Heart Sounds: normal S1, normal S2 and + murmur (2/6 LLSB) Vessels: posterior tibial pulses present and dorsalis pedis pulses present; no JVD Extremities: + edema (right thigh only but improving) Gastrointestinal (Abdomen): normal bowel sounds, soft, nontender, no hepatosplenomegaly Inspection/Auscultation: + abdomen distended (Mild) Skin: + pallor Neurologic: + focal motor deficit (left arm/leg with hemiparesis; increased tone LUE) and + confused Speech / Cognition: + abnormal speech Psychiatric: Orientation: alert and oriented to person; + not oriented to place and + not oriented to time Results & Data Results & Data ([facility]) Vital Signs (Past 12 Hours) Vital Signs Temp Pulse Pulse Resp BP Pulse Ox 06/18/20 16:10 36.6 C 72 20 146/72 H 99 06/18/20 15:32 79 06/18/20 11:27 36.7 C 78 20 143/69 H 95 06/18/20 10:45 71 Laboratory Results Laboratory Results - last 24 hr 06/18/20 06/18/20 06/18/20 05:46 05:46 08:37 WBC 7.06 RBC 2.77 L Hgb 8.4 L Hct 25.0 L MCV 90.3 MCH 30.3 MCHC 33.6 RDW Std Deviation 44.6 RDW Coeff of Guido 13.5 Plt Count 195 D MPV 11.1 H Sodium 140 Potassium 4.0 Chloride 105 Carbon Dioxide 32 Anion Gap 3.0 BUN 40 H Creatinine 1.03 Est Cr Clr Drug Dosing 72.2 Est GFR ( Amer) 84.3 Est GFR (Non-Af Amer) 72.7 BUN/Creatinine Ratio 39.1 H Glucose 113 H POC Glucose 141 H Calcium 8.3 L AST 38 H ALT 29 06/18/20 06/18/20 11:53 17:29 WBC RBC Hgb Hct MCV MCH MCHC RDW Std Deviation RDW Coeff of Guido Plt Count MPV Sodium Potassium Chloride Carbon Dioxide Anion Gap BUN Creatinine Est Cr Clr Drug Dosing Est GFR ( Amer) Est GFR (Non-Af Amer) BUN/Creatinine Ratio Glucose POC Glucose 181 H 187 H Calcium AST ALT PG Care Time/CCT Total # of Minutes Spent Total Time Spent with Patient: Total time spent is greater than 50% in coordination of care (as documented) at patient's floor/unit and/or counseling patient: Coding Level of Care Code 97373 Subseq Hosp Care Lvl 3 Diagnoses Pneumonia due to COVID-19 virus U07.1; J12.89 COVID-19 virus infection U07.1 Acute respiratory failure with hypoxia J96.01 Acute blood loss anemia D62 Closed right hip fracture S72.001A Acute metabolic encephalopathy G93.41 Fall W19.XXXA Generalized abdominal pain R10.84 Type 2 diabetes mellitus E11.9 Vitamin B12 deficiency E53.8 Thrombocytopenia D69.6 History of CVA (cerebrovascular accident) Z86.73 Pancreatic calcification K86.89 Hypertension I10 Murmur R01.1 Hypomagnesemia E83.42 Vitamin D deficiency E55.9 DVT prophylaxis Z29.9
[2020-06-18] MEDS: ATORVASTATIN 40 MG TAB PO SCH (23:20)
[2020-06-18] MEDS: TAMSULOSIN HCL 0.4 MG CAP PO SCH (23:20)
[2020-06-18] MEDS: lisinopril 10 MG TAB PO SCH (23:21)
[2020-06-19] MEDS: oxyCODONE HCL IR 5 MG TAB (IMMEDIATE RELEASE) PO PRN (06:03)
[2020-06-19] MEDS: PIPERACILLIN/TAZOBACTAM 3.375 GM in DEXTROSE 5% 100 ML IV SCH ×3 (06:04→22:28)
[2020-06-19] MEDS: HEPARIN SOD 5,000 UNIT/0.5 ML VIAL SQ SCH ×3 (06:07→21:45)
[2020-06-19 07:17] LABS: Hematocrit (blood only) 23.5 % (42-52); Hemoglobin 7.7 g/dL (14.0-18.0); Mean Corpuscular Hemoglobin 30.2 pg (25-34); Mean Corpuscular Hgb Conc 32.8 g/dL (32-36); Mean Corpuscular Volume 92.2 fL (80-100); Mean Platelet Volume 10.8 fL (7.4-10.4); Platelet Count 237 K/uL (130-400); RDW Coefficient of Variation 13.9 % (11.5-14.5); RDW Standard Deviation 46.8 fL (36.4-46.3); Red Blood Count 2.55 M/uL (4.7-6.1); White Blood Count 7.78 K/uL (4.8-10.8)
[2020-06-19 07:38] LABS: BUN Creatinine Ratio 34.9 (10-20); Calcium 7.8 mg/dl (8.5-10.1); Creatinine Clr Calc Pharmacy 74.4 ml/min; Est GFR (African American) 87.4; Est GFR (Non-African American) 75.4; Potassium 3.5 mmol/L (3.5-5.1)
[2020-06-19] MEDS: INSULIN ASPART 100 UNITS/ML 3 ML PEN SC SCH ×4 (09:55→21:45)
[2020-06-19] MEDS: carvediloL 3.125 MG TAB PO SCH ×2 (10:20→20:20)
[2020-06-19] MEDS: DEXAMETHASONE SOD PHOSPHATE 6 MG in SYRINGE 0 ML IV SCH (10:21)
[2020-06-19] MEDS: CEROVITE ADV FORMULA TAB PO SCH (10:21)
[2020-06-19] MEDS: MAGNESIUM OXIDE 400 MG TAB PO SCH ×3 (10:22→20:20)
[2020-06-19] MEDS: FERROUS SULFATE 325 MG TAB PO SCH ×2 (10:22→19:02)
[2020-06-19] MEDS: DOCUSATE SODIUM/SENNA 50/8.6MG TAB PO SCH ×2 (10:22→20:19)
[2020-06-19] MEDS: FOLIC ACID 400 MCG TAB PO SCH (10:23)
[2020-06-19] MEDS: ADVANCED PROBIOTIC 1250 MG CAPSULE PO SCH (10:24)
[2020-06-19] MEDS: INSULIN GLARGINE SOLOSTAR 100 UNITS/ML 3 ML PEN SC SCH ×2 (10:33→21:45)
[2020-06-19] MEDS ORDERED: HALOPERIDOL LACTATE 5 MG/ML 1 ML VIAL IM PRN (19:24)
[2020-06-19] MEDS: lisinopril 10 MG TAB PO SCH (20:19)
[2020-06-19] MEDS: TAMSULOSIN HCL 0.4 MG CAP PO SCH (20:19)
[2020-06-19] MEDS: ATORVASTATIN 40 MG TAB PO SCH (20:20)
--- NOTE | 2020-06-19 22:32 | Hospitalist Progress Note ---
Date of Service June 19, 2020 Assessment & Plan (1) Pneumonia due to COVID-19 virus: Extensive pneumonia b/l as seen on CTA chest. Cannot rule out superimposed bacterial pneumonia. Continue decadron - day #7 of such. s/p 5-day remdesivir course. s/p plasma on 06/14/20. Day #5 zosyn for possible bacterial pneumonia. Aspiration vs gram negative (SNF patient). Could consider changing to PO abx tomorrow if stable/improving from respiratory standpoint. Respiratory status stable again today. (2) COVID-19 virus infection: with pneumonia and acute hypoxic respiratory failure. day #6 decadron. completed 5-day remdesivir course. ast/alt normal while on remdesivir. s/p plasma this admission as well. Significant anorexia, failure to thrive, etc in face of COVID-19 illness -- maybe starting to improve slowly?? Appreciate palliative care consultation. (3) Acute respiratory failure with hypoxia: 2nd to COVID-19 pneumonia. see "pneumonia" above. (4) Acute blood loss anemia: 2nd to bleeding from hip fracture, hematoma, etc. cont ferrous sulfate BID. could consider IV venofer while here. (5) Closed right hip fracture: POD #6 s/p ORIF by Dr Phipps. DVT proph - heparin 7500 units TID in light of COVID 19 infection; Dr Phipps ok with such. Pain control - dilaudid 0.5mg q2h prn; tylenol prn; oxycodone prn. Patient seems to be in pain most times of day - consider long-acting pain meds. not doing well with PT, OT. see their notes. long-term rehab potential is poor in light of prior stroke and multiple comorbidities. (6) Acute metabolic encephalopathy: severe. ongoing. 2nd to COVID-19, pain, etc. Supportive care. consider scheduled antipsychotic at HS. (7) Fall: Unwitnessed fall at SNF. No other apparent injuries besides right hip fracture. (8) Generalized abdominal pain: CT abd/pelvis without acute findings. suspect constipation as culprit - symptoms improved with BM. cont aggressive bowel regimen. (9) Type 2 diabetes mellitus: A1c <7%. Holding metformin. uncontrolled but now improving. cont lantus BID + novolog for correction and carb coverage. (10) Vitamin B12 deficiency: B12 injections monthly will give injection today (11) Thrombocytopenia: resolved was likely consumptive in setting of hip fracture w/ bleeding, and also bone marrow suppression from COVID 19 infection (12) History of CVA (cerebrovascular accident): Continue ASA, atorvastatin for secondary prevention. Resulting left-sided hemiparesis. (13) Pancreatic calcification: noted on CT abd/pelvis. this is c/w chronic pancreatitis. records indicate prior h/o alcoholism. (14) Hypertension: Cont home meds. (15) Murmur: last echo in 2013 -- was wnl. defer on echo due to COVID status for now. (16) Hypomagnesemia: replaced and resolved (17) Vitamin D deficiency: ergocalciferol 28038 units weekly x 8 weeks (18) DVT prophylaxis: heparin 7500 units TID - due to increased VTE risk in setting of COVID infection updated Casie Sena extensively by phone over the last few days have told Casie several times that prognosis is guarded spoke to her again 06/18/20 appreciate palliative care consult sister wants aggressive care, full code, etc patient has other siblings - Casie is keeping them informed; uncertain of other siblings' feelings on his care Admission and Anticipated Discharge Date Admission Date: June 12, 2020 Subjective Patient remains intermittently confused. Has no new complaints today. Review of Systems Review of Systems: Unobtainable due to cognitive status Physical Exam Physical Exam: Constitutional: + altered mental status and + frail appearing; no acute distress ENMT: external ear and nose normal, oropharynx normal Respiratory: no respiratory distress Auscultation: + diminished lung sounds (bases) and + rales (bases with course BS b/l) Cardiovascular: Rate/Rhythm: regular rate and regular rhythm Heart Sounds: normal S1, normal S2 and + murmur (2/6 LLSB) Vessels: posterior tibial pulses present and dorsalis pedis pulses present; no JVD Extremities: + edema (right thigh only but improving) Gastrointestinal (Abdomen): normal bowel sounds, soft, nontender, no hepatosplenomegaly Inspection/Auscultation: + abdomen distended (Mild) Skin: + pallor Neurologic: + focal motor deficit (left arm/leg with hemiparesis; increased tone LUE) and + confused Speech / Cognition: + abnormal speech Psychiatric: Orientation: alert and oriented to person; + not oriented to place and + not oriented to time Results & Data Results & Data ([facility]) Vital Signs (Past 12 Hours) Vital Signs Temp Pulse Resp BP Pulse Ox 06/19/20 20:17 77 162/81 H 06/19/20 19:57 37.2 C 102 H 16 161/74 H 95 06/19/20 15:58 37.4 C 86 20 166/76 H 95 06/19/20 11:53 37.4 C 85 20 154/74 H 94 PG Care Time/CCT Total # of Minutes Spent Total Time Spent with Patient: Total time spent is greater than 50% in coordination of care (as documented) at patient's floor/unit and/or counseling patient: Coding Level of Care Code 66378 Subseq Hosp Care Lvl 3 Diagnoses Pneumonia due to COVID-19 virus U07.1; J12.89 COVID-19 virus infection U07.1 Acute respiratory failure with hypoxia J96.01 Acute blood loss anemia D62 Closed right hip fracture S72.001A Acute metabolic encephalopathy G93.41 Fall W19.XXXA Generalized abdominal pain R10.84 Type 2 diabetes mellitus E11.9 Vitamin B12 deficiency E53.8 Thrombocytopenia D69.6 History of CVA (cerebrovascular accident) Z86.73 Pancreatic calcification K86.89 Hypertension I10 Murmur R01.1 Hypomagnesemia E83.42 Vitamin D deficiency E55.9 DVT prophylaxis Z29.9 Time Spent (min) 35
[2020-06-20] MEDS: oxyCODONE HCL IR 5 MG TAB (IMMEDIATE RELEASE) PO PRN (05:15)
[2020-06-20] MEDS: PIPERACILLIN/TAZOBACTAM 3.375 GM in DEXTROSE 5% 100 ML IV SCH ×2 (06:10→13:49)
[2020-06-20] MEDS: HEPARIN SOD 5,000 UNIT/0.5 ML VIAL SQ SCH ×3 (06:21→21:22)
[2020-06-20] MEDS: CARBOHYDRATES FOR HYPOGLYCEMIA PO PRN (07:37)
[2020-06-20] MEDS: INSULIN ASPART 100 UNITS/ML 3 ML PEN SC SCH ×4 (08:25→21:27)
[2020-06-20] MEDS: INSULIN GLARGINE SOLOSTAR 100 UNITS/ML 3 ML PEN SC SCH (08:30)
[2020-06-20] MEDS: MAGNESIUM OXIDE 400 MG TAB PO SCH ×3 (08:33→21:20)
[2020-06-20] MEDS: carvediloL 3.125 MG TAB PO SCH ×2 (08:33→21:19)
[2020-06-20] MEDS: FOLIC ACID 400 MCG TAB PO SCH (08:33)
[2020-06-20] MEDS: CEROVITE ADV FORMULA TAB PO SCH (08:33)
[2020-06-20] MEDS: ADVANCED PROBIOTIC 1250 MG CAPSULE PO SCH (08:33)
[2020-06-20] MEDS: FERROUS SULFATE 325 MG TAB PO SCH ×2 (08:33→17:43)
[2020-06-20] MEDS: DEXAMETHASONE SOD PHOSPHATE 6 MG in SYRINGE 0 ML IV SCH (08:33)
[2020-06-20] MEDS: DOCUSATE SODIUM/SENNA 50/8.6MG TAB PO SCH ×2 (08:34→21:19)
[2020-06-20] MEDS ORDERED: QUEtiapine FUMARATE 25 MG TABLET PO SCH (21:00)
[2020-06-20] MEDS: lisinopril 10 MG TAB PO SCH (21:19)
[2020-06-20] MEDS: TAMSULOSIN HCL 0.4 MG CAP PO SCH (21:20)
[2020-06-20] MEDS: ATORVASTATIN 40 MG TAB PO SCH (21:21)
--- NOTE | 2020-06-20 22:46 | Hospitalist Progress Note ---
Date of Service June 20, 2020 Assessment & Plan (1) Pneumonia due to COVID-19 virus: Extensive pneumonia b/l as seen on CTA chest. Cannot rule out superimposed bacterial pneumonia. Continue decadron - day #8 of such. s/p 5-day remdesivir course. s/p plasma on 06/14/20. Day #5 zosyn for possible bacterial pneumonia, will stop today, no hypoxia, no clear signs of bacterial pneumonia Respiratory status stable again today. (2) COVID-19 virus infection: with pneumonia and acute hypoxic respiratory failure. day #8 decadron. completed 5-day remdesivir course. ast/alt normal while on remdesivir. s/p plasma this admission as well. Significant anorexia, failure to thrive, etc in face of COVID-19 illness -- minimal improvement today Appreciate palliative care consultation. family wishes him to be full code (3) Acute respiratory failure with hypoxia: 2nd to COVID-19 pneumonia. see "pneumonia" above. (4) Acute blood loss anemia: 2nd to bleeding from hip fracture, hematoma, etc. cont ferrous sulfate BID. Hb stable (5) Closed right hip fracture: POD #7 s/p ORIF by Dr Phipps. DVT proph - heparin 7500 units TID in light of COVID 19 infection; Dr Phipps ok with such. Pain control - dilaudid 0.5mg q2h prn; tylenol prn; oxycodone prn. Patient seems to be in pain most times of day not doing well with PT, OT, not cooperative long-term rehab potential is poor in light of prior stroke and multiple comorbidities doubtful that he will return to prior functional status (6) Acute metabolic encephalopathy: severe. ongoing. 2nd to COVID-19, pain, etc. Supportive care. (7) Fall: Unwitnessed fall at SNF. No other apparent injuries besides right hip fracture. (8) Generalized abdominal pain: CT abd/pelvis without acute findings. suspect constipation as culprit - symptoms improved with BM. cont aggressive bowel regimen. (9) Type 2 diabetes mellitus: A1c <7%. Holding metformin. uncontrolled but now improving. cont lantus BID + novolog for correction and carb coverage. (10) Vitamin B12 deficiency: B12 injections monthly (11) Thrombocytopenia: resolved was likely consumptive in setting of hip fracture w/ bleeding, and also bone marrow suppression from COVID 19 infection (12) History of CVA (cerebrovascular accident): Continue ASA, atorvastatin for secondary prevention. Resulting left-sided hemiparesis. (13) Pancreatic calcification: noted on CT abd/pelvis. this is c/w chronic pancreatitis. records indicate prior h/o alcoholism. (14) Hypertension: Cont home meds. (15) Murmur: last echo in 2013 -- was wnl. defer on echo due to COVID status for now. (16) Hypomagnesemia: replaced and resolved (17) Vitamin D deficiency: ergocalciferol 44672 units weekly x 8 weeks (18) DVT prophylaxis: heparin 7500 units TID - due to increased VTE risk in setting of COVID infection Admission and Anticipated Discharge Date Admission Date: June 12, 2020 Subjective patient confused, difficult to understand he is agitated, won't let staff try to get him out of bed he does not appear to be in pain, won't tell me if he is reviewed chart appreciate palliative care following patient Review of Systems Review of Systems: Unobtainable due to cognitive status Physical Exam Constitutional: well nourished and + frail appearing; no acute distress Neck: trachea midline, no thyromegaly Respiratory: normal respiratory effort, lungs clear to auscultation Cardiovascular: RRR, no murmur, no edema Gastrointestinal (Abdomen): normal bowel sounds, soft, nontender, no hepatosplenomegaly Musculoskeletal: Head/Neck/Chest: normocephalic, head atraumatic and neck supple Extremities: + limited ROM of extremities (right hip due to pain) and + abnormal strength (weakness in left upper and lower extremity); + extremities abnormal to inspection (edema in left arm), no cyanosis, no clubbing and no petechiae Skin: no rashes, warm and dry Neurologic: CN's II-XI intact bilaterally, moves all extremities, awake and + confused Speech / Cognition: + abnormal speech Psychiatric: Orientation: alert, oriented to person and + guarded; + not oriented to place and + not oriented to time Lymphatic: no cervical or axillary lymphadenopathy Results & Data Results & Data ([facility]) Vital Signs (Past 12 Hours) Vital Signs Temp Pulse Pulse Resp BP Pulse Ox 06/20/20 19:14 91 H 19 128/75 97 06/20/20 15:49 37.1 C 92 H 19 151/96 H 96 11/23/20 15:00 78 06/20/20 11:18 36.7 C 81 19 184/79 H 98 Laboratory Results Laboratory Results - last 24 hr 06/20/20 06/20/20 06/20/20 07:27 07:29 07:51 POC Glucose 54 L* 53 L* 51 L* 06/20/20 06/20/20 06/20/20 08:01 10:08 11:20 POC Glucose 55 L* 105 H 112 H 06/20/20 06/20/20 16:15 20:06 POC Glucose 202 H 256 H Medications Administered Current Inpatient Medications Acetaminophen (Acetaminophen 325 Mg Tab) 650 mg PO Q6H PRN PRN Reason: MILD Pain (Scale 1,2,3) Stop: 07/12/20 18:32 Last Admin: 06/16/20 08:08 Dose: 650 mg Documented by: Atorvastatin Calcium (Atorvastatin 40 Mg Tab) 40 mg PO PM [facility] Stop: 07/12/20 20:59 Last Admin: 06/20/20 21:21 Dose: 40 mg Documented by: Bisacodyl (Bisacodyl 10 Mg Supp) 10 mg RI DAILY PRN PRN Reason: Constipation Stop: 07/12/20 18:32 Carvedilol (Carvedilol 3.125 Mg Tab) 3.125 mg PO BID [facility] Stop: 07/12/20 20:59 Last Admin: 06/20/20 21:19 Dose: 3.125 mg Documented by: Dextrose (Dextrose 50% 50 Ml Syringe) 25 - 50 ml IV UD PRN; Protocol PRN Reason: Hypoglycemia Protocol Stop: 07/12/20 18:32 Ferrous Sulfate (Ferrous Sulfate 325 Mg Tab) 325 mg PO BIDM [facility] Stop: 07/18/20 07:59 Last Admin: 06/20/20 17:43 Dose: 325 mg Documented by: Folic Acid (Folic Acid 400 Mcg Tab) 400 mcg PO DAILY [facility] Stop: 07/13/20 08:59 Last Admin: 06/20/20 08:33 Dose: 400 mcg Documented by: Glucagon (Glucagon For Inj 1 Mg Vial) 1 mg SQ UD PRN; Protocol PRN Reason: Hypoglycemia Protocol Stop: 07/12/20 18:32 Glucose (Glucose 10 Tabs/Tube) 4 - 8 tabs PO UD PRN; Protocol PRN Reason: Hypoglycemia Protocol Stop: 07/12/20 18:32 Glucose (Glucose 40% Gel 15 Gm Tube) 15 - 30 gm PO UD PRN; Protocol PRN Reason: Hypoglycemia Protocol Stop: 07/12/20 18:32 Haloperidol Lactate (Haloperidol Lactate 5 Mg/Ml 1 Ml Vial) 1 mg IM Q6H PRN PRN Reason: Agitation Stop: 07/19/20 19:23 Last Admin: 06/19/20 20:15 Dose: 1 mg Documented by: Heparin Sodium (Porcine) (Heparin Sod 5,000 Unit/0.5 Ml Vial) 7,500 units SQ Q8 [facility] Stop: 07/15/20 17:29 Last Admin: 06/20/20 21:22 Dose: 7,500 units Documented by: Hydralazine HCl (Hydralazine Hcl 20 Mg/Ml Vial) 5 mg IV Q4H PRN PRN Reason: sBP > 180 Stop: 07/12/20 21:00 Last Admin: 06/13/20 14:38 Dose: 5 mg Documented by: Hydromorphone HCl (Hydromorphone Inj 0.5 Mg/0.5 Ml Syr) 0.5 mg IV Q2H PRN PRN Reason: pain Stop: 06/26/20 18:32 Last Admin: 06/18/20 18:20 Dose: 0.5 mg Documented by: Dexamethasone Sodium Phosphate (6 mg/ Syringe) 1.5 mls @ 1 mls/min IV DAILY [facility] Stop: 07/13/20 13:44 Last Admin: 06/20/20 08:33 Dose: 1 mls/min Documented by: Insulin Aspart (Insulin Aspart 100 Units/Ml 3 Ml Pen) 0 units SC ACHS [facility] Stop: 07/12/20 18:59 Last Admin: 06/20/20 21:27 Dose: 5 units Documented by: Insulin Glargine (Insulin Glargine Solostar 100 Units/Ml 3 Ml Pen) 18 units SC DAILY [facility] Stop: 07/18/20 08:59 Lactobacillus Acidoph/Casei/Rhamnos (Advanced Probiotic 1250 Mg Capsule) 2 cap PO DAILY [facility] Stop: 07/15/20 16:59 Last Admin: 06/20/20 08:33 Dose: 2 cap Documented by: Lisinopril (Lisinopril 10 Mg Tab) 10 mg PO HS [facility] Stop: 12/15/20 20:59 Last Admin: 06/20/20 21:19 Dose: 10 mg Documented by: Magnesium Hydroxide (Magnesium Hydroxide Susp 30 Ml Udc) 30 ml PO DAILY PRN PRN Reason: Constipation Stop: 07/12/20 18:32 Magnesium Oxide (Magnesium Oxide 400 Mg Tab) 400 mg PO TID [facility] Stop: 07/12/20 20:59 Last Admin: 06/20/20 21:20 Dose: 400 mg Documented by: Miscellaneous (Carbohydrates For Hypoglycemia ) 15 - 30 gm PO UD PRN PRN Reason: Hypoglycemia Protocol Stop: 07/12/20 18:32 Last Admin: 06/20/20 07:37 Dose: 30 gm Documented by: Multivitamins/Minerals (Cerovite Adv Formula Tab) 1 tab PO QAM [facility] Stop: 07/14/20 08:59 Last Admin: 06/20/20 08:33 Dose: 1 tab Documented by: Naloxone HCl (Naloxone Hcl 0.4 Mg/1 Ml Vial/Carp) 0.1 mg IV UD PRN PRN Reason: Opiate Overdose Stop: 07/12/20 18:32 Oxycodone HCl (Oxycodone Hcl Ir 5 Mg Tab (Immediate Release)) 5 mg PO Q4H PRN PRN Reason: MODERATE Pain (Scale 4,5,6) Stop: 06/26/20 18:32 Last Admin: 06/16/20 05:55 Dose: 5 mg Documented by: Oxycodone HCl (Oxycodone Hcl Ir 5 Mg Tab (Immediate Release)) 10 mg PO Q4H PRN PRN Reason: SEVERE Pain (Scale 7,8,9,10) Stop: 06/26/20 18:32 Last Admin: 06/20/20 05:15 Dose: 10 mg Documented by: Senna/Docusate Sodium (Docusate Sodium/Senna 50/8.6mg Tab) 2 tab PO HS [facility] Stop: 07/12/20 20:59 Last Admin: 06/20/20 21:19 Dose: 2 tab Documented by: Senna/Docusate Sodium (Docusate Sodium/Senna 50/8.6mg Tab) 1 tab PO QAM [facility] Stop: 07/13/20 08:59 Last Admin: 06/20/20 08:34 Dose: 1 tab Documented by: Tamsulosin HCl (Tamsulosin Hcl 0.4 Mg Cap) 0.4 mg PO HS [facility] Stop: 07/13/20 20:59 Last Admin: 06/20/20 21:20 Dose: 0.4 mg Documented by: PG Care Time/CCT Total # of Minutes Spent Total Time Spent with Patient: Total time spent is greater than 50% in coordination of care (as documented) at patient's floor/unit and/or counseling patient: Coding Level of Care Code 11081 Subseq Hosp Care Lvl 2 Diagnoses Pneumonia due to COVID-19 virus U07.1; J12.89 COVID-19 virus infection U07.1 Acute respiratory failure with hypoxia J96.01 Acute blood loss anemia D62 Closed right hip fracture S72.001A Acute metabolic encephalopathy G93.41 Fall W19.XXXA Generalized abdominal pain R10.84 Type 2 diabetes mellitus E11.9 Vitamin B12 deficiency E53.8 Thrombocytopenia D69.6 History of CVA (cerebrovascular accident) Z86.73 Pancreatic calcification K86.89 Hypertension I10 Murmur R01.1 Hypomagnesemia E83.42 Vitamin D deficiency E55.9 DVT prophylaxis Z29.9
[2020-06-21] MEDS: HEPARIN SOD 5,000 UNIT/0.5 ML VIAL SQ SCH ×3 (05:29→21:04)
[2020-06-21] MEDS: INSULIN GLARGINE SOLOSTAR 100 UNITS/ML 3 ML PEN SC SCH (10:04)
[2020-06-21] MEDS: INSULIN ASPART 100 UNITS/ML 3 ML PEN SC SCH ×4 (10:05→21:06)
[2020-06-21] MEDS: DEXAMETHASONE SOD PHOSPHATE 6 MG in SYRINGE 0 ML IV SCH (10:06)
[2020-06-21] MEDS: ADVANCED PROBIOTIC 1250 MG CAPSULE PO SCH (10:06)
[2020-06-21] MEDS: MAGNESIUM OXIDE 400 MG TAB PO SCH ×3 (10:07→21:02)
[2020-06-21] MEDS: CEROVITE ADV FORMULA TAB PO SCH (10:07)
[2020-06-21] MEDS: DOCUSATE SODIUM/SENNA 50/8.6MG TAB PO SCH ×2 (10:07→21:00)
[2020-06-21] MEDS: FOLIC ACID 400 MCG TAB PO SCH (10:08)
[2020-06-21] MEDS: FERROUS SULFATE 325 MG TAB PO SCH ×2 (10:09→17:24)
[2020-06-21] MEDS: carvediloL 3.125 MG TAB PO SCH ×2 (10:09→21:02)
--- NOTE | 2020-06-21 16:43 | Palliative Care Progress Note ---
Date of Service June 21, 2020 Assessment & Plan Admission and Anticipated Discharge Date Admission Date: June 12, 2020 Subjective Discussed Results & Data ([facility]) Vital Signs (Past 12 Hours) Vital Signs Temp Pulse Pulse Resp BP BP Pulse Ox 06/21/20 15:53 98.4 F 81 18 128/76 96 06/21/20 11:38 97.7 F 105 H 18 110/81 95 06/21/20 07:39 81 06/21/20 07:35 97.7 F 87 18 128/90 98 PG Care Time/CCT Total # of Minutes Spent Total Time Spent with Patient: Total time spent is greater than 50% in coordination of care (as documented) at patient's floor/unit and/or counseling patient: Coding
[2020-06-21] MEDS: ATORVASTATIN 40 MG TAB PO SCH (21:03)
[2020-06-21] MEDS: TAMSULOSIN HCL 0.4 MG CAP PO SCH (21:03)
[2020-06-21] MEDS: lisinopril 10 MG TAB PO SCH (21:04)
--- NOTE | 2020-06-21 22:50 | Hospitalist Progress Note ---
Date of Service June 21, 2020 Assessment & Plan (1) Pneumonia due to COVID-19 virus: Extensive pneumonia b/l as seen on CTA chest. Cannot rule out superimposed bacterial pneumonia. Continue decadron - day #9 of such. s/p 5-day remdesivir course. s/p plasma on 06/14/20. complted 5 days of Zosyn for possible bacterial pneumonia, no hypoxia, no clear signs of bacterial pneumonia Respiratory status stable for several days on room air he is stable for discharge in relation to COVID infection (2) COVID-19 virus infection: with pneumonia and acute hypoxic respiratory failure. day #9 decadron. completed 5-day remdesivir course. ast/alt normal while on remdesivir. s/p plasma this admission as well. Significant anorexia, failure to thrive, etc in face of COVID-19 illness -- getting up today, still not eating great Appreciate palliative care consultation. family wishes him to be full code and aggressive care (3) Acute respiratory failure with hypoxia: 2nd to COVID-19 pneumonia. see "pneumonia" above. (4) Acute blood loss anemia: 2nd to bleeding from hip fracture, hematoma, etc. cont ferrous sulfate BID. Hb stable (5) Closed right hip fracture: POD #8 s/p ORIF by Dr Phipps. DVT proph - heparin 7500 units TID in light of COVID 19 infection; Dr Phipps ok with such. Pain control - dilaudid 0.5mg q2h prn; tylenol prn; oxycodone prn. Patient seems to be in pain most times of day he was finally able to get up to a chair today long-term rehab potential is poor in light of prior stroke and multiple comorbidities doubtful that he will return to prior functional status would recommend return to [facility] but palliative trying to determine how much family would want done if he continues to decline for time being they want aggressive care (6) Acute metabolic encephalopathy: severe. ongoing. 2nd to COVID-19, pain, etc. Supportive care. today he keeps saying that he feels drunk, but he is speaking a lot more and language is more coherent (7) Fall: [facility] at [facility]. No other apparent injuries besides right hip fracture. (8) Generalized abdominal pain: CT abd/pelvis without acute findings. suspect constipation as culprit - symptoms improved with BM. cont aggressive bowel regimen. (9) Type 2 diabetes mellitus: A1c <7%. Holding metformin. hypoglycemia yesterday, change to Lantus qAM, stopped evening dose sugars better today (10) Vitamin B12 deficiency: B12 injections monthly (11) Thrombocytopenia: resolved was likely consumptive in setting of hip fracture w/ bleeding, and also bone marrow suppression from COVID 19 infection (12) History of CVA (cerebrovascular accident): Continue ASA, atorvastatin for secondary prevention. Resulting left-sided hemiparesis. (13) Pancreatic calcification: noted on CT abd/pelvis. this is c/w chronic pancreatitis. records indicate prior h/o alcoholism. (14) Hypertension: Cont home meds. (15) Murmur: last echo in 2013 -- was wnl. defer on echo due to COVID status for now. (16) Hypomagnesemia: replaced and resolved (17) Vitamin D deficiency: ergocalciferol 69977 units weekly x 8 weeks (18) DVT prophylaxis: heparin 7500 units TID - due to increased VTE risk in setting of COVID infection can likely return to [facility] in a few days Admission and Anticipated Discharge Date Admission Date: June 12, 2020 Subjective patient doing a lot better today, sitting up in a chair, he cooperated with nurse will have RN marques quigley as this could be contributing to agitation and confusion he is speaking better today, he says he feels like he is drunk, but he cannot tell me why he feels this way explained he is here in hospital due to hip fracture and COVID discussed that he needs to cooperate with therapy, goal is to get back to [facility] palliative care touched base with family, they continue to want everything done for him they won't go into further details as to why, Dr. Hui communicating with them that he has multiple co-morbidities Review of Systems Review of Systems: Unobtainable due to cognitive status (just keeps saying that he feels drunk) Physical Exam Constitutional: well nourished and + frail appearing; no acute distress Neck: trachea midline, no thyromegaly Respiratory: normal respiratory effort, lungs clear to auscultation Cardiovascular: RRR, no murmur, no edema Gastrointestinal (Abdomen): normal bowel sounds, soft, nontender, no hepatosplenomegaly Musculoskeletal: Head/Neck/Chest: normocephalic, head atraumatic and neck supple Extremities: + limited ROM of extremities (right hip due to pain) and + abnormal strength (weakness in left upper and lower extremity); + extremities abnormal to inspection (edema in left arm), no cyanosis, no clubbing and no petechiae Skin: no rashes, warm and dry Neurologic: CN's II-XI intact bilaterally, moves all extremities, awake and + confused Speech / Cognition: + abnormal speech Psychiatric: Orientation: alert, oriented to person and + guarded; + not oriented to place and + not oriented to time Lymphatic: no cervical or axillary lymphadenopathy Results & Data Results & Data ([facility]) Vital Signs (Past 12 Hours) Vital Signs Temp Pulse Pulse Resp BP BP Pulse Ox 06/21/20 19:13 89 06/21/20 15:53 36.9 C 81 18 128/76 96 06/21/20 11:38 36.5 C 105 H 18 110/81 95 Laboratory Results Laboratory Results - last 24 hr 06/21/20 06/21/20 06/21/20 07:24 11:37 16:29 POC Glucose 144 H 259 H 231 H 06/21/20 20:18 POC Glucose 200 H Medications Administered Current Inpatient Medications Acetaminophen (Acetaminophen 325 Mg Tab) 650 mg PO Q6H PRN PRN Reason: MILD Pain (Scale 1,2,3) Stop: 07/12/20 18:32 Last Admin: 06/16/20 08:08 Dose: 650 mg Documented by: Atorvastatin Calcium (Atorvastatin 40 Mg Tab) 40 mg PO PM [facility] Stop: 07/12/20 20:59 Last Admin: 06/21/20 21:03 Dose: 40 mg Documented by: Bisacodyl (Bisacodyl 10 Mg Supp) 10 mg WA DAILY PRN PRN Reason: Constipation Stop: 07/12/20 18:32 Carvedilol (Carvedilol 3.125 Mg Tab) 3.125 mg PO BID [facility] Stop: 07/12/20 20:59 Last Admin: 06/21/20 21:02 Dose: 3.125 mg Documented by: Dextrose (Dextrose 50% 50 Ml Syringe) 25 - 50 ml IV UD PRN; Protocol PRN Reason: Hypoglycemia Protocol Stop: 07/12/20 18:32 Ferrous Sulfate (Ferrous Sulfate 325 Mg Tab) 325 mg PO BIDM [facility] Stop: 07/18/20 07:59 Last Admin: 11/24/20 17:24 Dose: 325 mg Documented by: Folic Acid (Folic Acid 400 Mcg Tab) 400 mcg PO DAILY [facility]OHAN Stop: 07/13/20 08:59 Last Admin: 06/21/20 10:08 Dose: 400 mcg Documented by: Glucagon (Glucagon For Inj 1 Mg Vial) 1 mg SQ UD PRN; Protocol PRN Reason: Hypoglycemia Protocol Stop: 07/12/20 18:32 Glucose (Glucose 10 Tabs/Tube) 4 - 8 tabs PO UD PRN; Protocol PRN Reason: Hypoglycemia Protocol Stop: 07/12/20 18:32 Glucose (Glucose 40% Gel 15 Gm Tube) 15 - 30 gm PO UD PRN; Protocol PRN Reason: Hypoglycemia Protocol Stop: 07/12/20 18:32 Haloperidol Lactate (Haloperidol Lactate 5 Mg/Ml 1 Ml Vial) 1 mg IM Q6H PRN PRN Reason: Agitation Stop: 07/19/20 19:23 Last Admin: 06/19/20 20:15 Dose: 1 mg Documented by: Heparin Sodium (Porcine) (Heparin Sod 5,000 Unit/0.5 Ml Vial) 7,500 units SQ Q8 ROHAN Stop: 07/15/20 17:29 Last Admin: 06/21/20 21:04 Dose: 7,500 units Documented by: Hydralazine HCl (Hydralazine Hcl 20 Mg/Ml Vial) 5 mg IV Q4H PRN PRN Reason: sBP > 180 Stop: 07/12/20 21:00 Last Admin: 06/13/20 14:38 Dose: 5 mg Documented by: Hydromorphone HCl (Hydromorphone Inj 0.5 Mg/0.5 Ml Syr) 0.5 mg IV Q2H PRN PRN Reason: pain Stop: 06/26/20 18:32 Last Admin: 06/18/20 18:20 Dose: 0.5 mg Documented by: Dexamethasone Sodium Phosphate (6 mg/ Syringe) 1.5 mls @ 1 mls/min IV DAILY ROHAN Stop: 07/13/20 13:44 Last Admin: 06/21/20 10:06 Dose: 1 mls/min Documented by: Insulin Aspart (Insulin Aspart 100 Units/Ml 3 Ml Pen) 0 units SC ACHS ROHAN Stop: 07/12/20 18:59 Last Admin: 11/24/20 21:06 Dose: 2 units Documented by: Insulin Glargine (Insulin Glargine Solostar 100 Units/Ml 3 Ml Pen) 18 units SC DAILY [facility] Stop: 07/18/20 08:59 Last Admin: 06/21/20 10:04 Dose: 18 units Documented by: Lactobacillus Acidoph/Casei/Rhamnos (Advanced Probiotic 1250 Mg Capsule) 2 cap PO DAILY [facility] Stop: 07/15/20 16:59 Last Admin: 06/21/20 10:06 Dose: 2 cap Documented by: Lisinopril (Lisinopril 10 Mg Tab) 10 mg PO HS [facility] Stop: 07/12/20 20:59 Last Admin: 06/21/20 21:04 Dose: 10 mg Documented by: Magnesium Hydroxide (Magnesium Hydroxide Susp 30 Ml Udc) 30 ml PO DAILY PRN PRN Reason: Constipation Stop: 07/12/20 18:32 Magnesium Oxide (Magnesium Oxide 400 Mg Tab) 400 mg PO TID [facility] Stop: 07/12/20 20:59 Last Admin: 06/21/20 21:02 Dose: 400 mg Documented by: Miscellaneous (Carbohydrates For Hypoglycemia ) 15 - 30 gm PO UD PRN PRN Reason: Hypoglycemia Protocol Stop: 07/12/20 18:32 Last Admin: 06/20/20 07:37 Dose: 30 gm Documented by: Multivitamins/Minerals (Cerovite Adv Formula Tab) 1 tab PO QAM [facility] Stop: 07/14/20 08:59 Last Admin: 06/21/20 10:07 Dose: 1 tab Documented by: Naloxone HCl (Naloxone Hcl 0.4 Mg/1 Ml Vial/Carp) 0.1 mg IV UD PRN PRN Reason: Opiate Overdose Stop: 07/12/20 18:32 Oxycodone HCl (Oxycodone Hcl Ir 5 Mg Tab (Immediate Release)) 5 mg PO Q4H PRN PRN Reason: MODERATE Pain (Scale 4,5,6) Stop: 06/26/20 18:32 Last Admin: 06/16/20 05:55 Dose: 5 mg Documented by: Oxycodone HCl (Oxycodone Hcl Ir 5 Mg Tab (Immediate Release)) 10 mg PO Q4H PRN PRN Reason: SEVERE Pain (Scale 7,8,9,10) Stop: 06/26/20 18:32 Last Admin: 06/20/20 05:15 Dose: 10 mg Documented by: Senna/Docusate Sodium (Docusate Sodium/Senna 50/8.6mg Tab) 2 tab PO HS [facility]OHAN Stop: 07/12/20 20:59 Last Admin: 06/21/20 21:00 Dose: 2 tab Documented by: Senna/Docusate Sodium (Docusate Sodium/Senna 50/8.6mg Tab) 1 tab PO QAM [facility]OHAN Stop: 07/13/20 08:59 Last Admin: 06/21/20 10:07 Dose: 1 tab Documented by: Tamsulosin HCl (Tamsulosin Hcl 0.4 Mg Cap) 0.4 mg PO HS ROHAN Stop: 07/13/20 20:59 Last Admin: 06/21/20 21:03 Dose: 0.4 mg Documented by: PG Care Time/CCT Total # of Minutes Spent Total Time Spent with Patient: Total time spent is greater than 50% in coordination of care (as documented) at patient's floor/unit and/or counseling patient: Coding Level of Care Code 24358 Subseq Hosp Care Lvl 3 Diagnoses Pneumonia due to COVID-19 virus U07.1; J12.89 COVID-19 virus infection U07.1 Acute respiratory failure with hypoxia J96.01 Acute blood loss anemia D62 Closed right hip fracture S72.001A Acute metabolic encephalopathy G93.41 Fall W19.XXXA Generalized abdominal pain R10.84 Type 2 diabetes mellitus E11.9 Vitamin B12 deficiency E53.8 Thrombocytopenia D69.6 History of CVA (cerebrovascular accident) Z86.73 Pancreatic calcification K86.89 Hypertension I10 Murmur R01.1 Hypomagnesemia E83.42 Vitamin D deficiency E55.9 DVT prophylaxis Z29.9
[2020-06-22] MEDS: HEPARIN SOD 5,000 UNIT/0.5 ML VIAL SQ SCH ×2 (06:27→13:21)
[2020-06-22] MEDS: INSULIN GLARGINE SOLOSTAR 100 UNITS/ML 3 ML PEN SC SCH (09:24)
[2020-06-22] MEDS: carvediloL 3.125 MG TAB PO SCH (09:25)
[2020-06-22] MEDS: MAGNESIUM OXIDE 400 MG TAB PO SCH ×2 (09:25→13:20)
[2020-06-22] MEDS: INSULIN ASPART 100 UNITS/ML 3 ML PEN SC SCH ×3 (09:25→17:41)
[2020-06-22] MEDS: FERROUS SULFATE 325 MG TAB PO SCH ×2 (09:26→17:54)
[2020-06-22] MEDS: FOLIC ACID 400 MCG TAB PO SCH (09:26)
[2020-06-22] MEDS: DOCUSATE SODIUM/SENNA 50/8.6MG TAB PO SCH (09:27)
[2020-06-22] MEDS: ADVANCED PROBIOTIC 1250 MG CAPSULE PO SCH (09:32)
[2020-06-22] MEDS: CEROVITE ADV FORMULA TAB PO SCH (09:32)
[2020-06-22] MEDS: DEXAMETHASONE SOD PHOSPHATE 6 MG in SYRINGE 0 ML IV SCH (09:33)
--- NOTE | 2020-06-22 13:42 | Palliative Care Progress Note ---
Date of Service June 22, 2020 Assessment & Plan (1) Palliative care encounter: I talked with sister, Casie, on the phone. She understands his restrictions due to his comorbidities, but is adamantly wanting Mr. Bey to remain a Full Code and receive aggressive treatment. He was able to eat small bites but of course remains ill and likely will further decline. He has not received much medication from a pain management perspective. His last dose of IV Dilaudid was on 06/18, last dose of Roxicodone was 06/20. I suspect that he has underlying chronic pain and could benefit from more frequent administration of his PRN medications. Will reiterate this for discharge as well. The patient is able to return back to [facility] as he is a bed hold. Discussed the above with the IDT and case management Thank you for allowing us to participate in this gentleman's care. (2) Acute respiratory failure with hypoxia: (3) Pneumonia due to COVID-19 virus: (4) Closed right hip fracture: Admission and Anticipated Discharge Date Admission Date: June 12, 2020 Subjective Patient was able to sit in the chair yesterday and was cooperating with the RN. Patients quigley was removed See A/P for further information. Review of Systems Review of Systems: deferred due to covid-19. discussed with hospitalist Physical Exam Physical Exam: deferred due to covid 19 and discussed with hospitalist Results & Data ([facility]) Vital Signs (Past 12 Hours) Vital Signs Temp Pulse Pulse Resp BP Pulse Ox 06/22/20 11:37 36.6 C 80 18 144/82 H 93 06/22/20 09:24 36.5 C 73 20 158/81 H 93 06/22/20 08:00 81 06/22/20 05:55 36.6 C 78 18 150/81 H 99 PG Care Time/CCT Total # of Minutes Spent Total Time Spent with Patient: Total time spent is greater than 50% in coor dination of care (as documented) at patient's floor/unit and/or counseling patient: 35 Coding Level of Care Code 29312 Subseq Hosp Care Lvl 3 Diagnoses Palliative care encounter Z51.5 Acute respiratory failure with hypoxia J96.01 Pneumonia due to COVID-19 virus U07.1; J12.89 Closed right hip fracture S72.001A Time Spent (min) 35 Time Spent Midlevel Total time spent 35 minutes with > 50% of that time spent discussing goals of care with family and collaborating with IDT
--- NOTE | 2020-06-22 16:36 | Discharge Summary ---
Date of Service June 22, 2020 Admission HPI Per Admitting Provider Akash Bey is a 69 year old male who presents to the ER with resident of [facility] since 2013 with right leg pain and XR confirmation of fracture performed as an outpatient. Difficult to get history from patient due to dysphasia but able to answer simple yes/no questions. Per [facility] he usually makes his own medical decisions. He had exposure to COVID-19 at [facility] and they have been testing him brent[place] daily basis. Temp 100.2 yesterday per [facility] notes. Patient denies shortness of breath, fever, chills, loss of taste or smell. Baseline cognition - may forget who staff members are, ineffective communication at times due to dysphasia and dysarthria as a result of prior strokes Baseline ambulation - abnormal gait and generalized muscle weakness and peripheral neuropathy - but can walk independently without any assist. 2 falls in the last week then previously in August. Recently had to change rooms due to COVID-19 exposure. In the ER XR hip confirmed right hip fracture. Therefore he was referred to medicine for admission and ongoing management of this. Principal Diagnosis Pt has been doing well. Tolerating PO without issue. Pt denies fever, SOB, chest pain, abd pain, n/v/c/d, LE pain or swelling. Discharge Exam Constitutional WD/WN, vitals as above Eyes normal visual ayon by confrontation and + anicteric sclerae Neck normal visual inspection and trachea midline Respiratory normal respiratory effort, lungs clear to auscultation Cardiovascular Rate/Rhythm: regular rate and regular rhythm Gastrointestinal (Abdomen) Inspection/Auscultation: abdomen not distended Percussion/Palpation: abdomen soft; abdomen nontender Musculoskeletal Head/Neck/Chest: normocephalic and head atraumatic Skin no rashes, warm and dry Neurologic awake and + confused Speech / Cognition: + abnormal speech Psychiatric Orientation: alert, oriented to person and cooperative; + not oriented to place and + not oriented to time Discharge Data Allergies Allergy/AdvReac Type Severity Reaction Status Date / Time No Known Drug Allergies Allergy Unknown . Verified 06/12/20 15:46 Consultations 06/12/20 14:12 ED Decision to Admit Stat 06/12/20 18:33 Consult Case Management - Discharge Planning Routine Consult Orthopedic Surgery Routine 06/13/20 19:25 Consult Case Management - Discharge Planning Routine 06/17/20 08:41 Consult Palliative Care Routine Procedures Performed Operation Date: 06/13/20 09:50 Actual Procedures p Right Bipolar Hemiarthroplasty(Right) - Janes Phipps, Ordered Studies 06/12/20 15:32 CT abd pelvis IV con only Stat 06/15/20 15:02 CT angio chest PE protocol Urgent Hospital Course (1) Pneumonia due to COVID-19 virus: Extensive pneumonia b/l as seen on CTA chest. Cannot rule out superimposed bacterial pneumonia. Finished course of decadron, 10 days s/p 5-day remdesivir course. s/p plasma on 06/14/20. completed 5 days of Zosyn for possible bacterial pneumonia, no hypoxia, no clear signs of bacterial pneumonia Respiratory status stable for several days on room air he is stable for discharge in relation to COVID infection (2) COVID-19 virus infection: with pneumonia and acute hypoxic respiratory failure. decadron. completed 5-day remdesivir course. ast/alt normal while on remdesivir. s/p plasma this admission as well. Significant anorexia, failure to thrive, etc in face of COVID-19 illness -- getting up today, still not eating great Appreciate palliative care consultation. family wishes him to be full code and aggressive care (3) Acute respiratory failure with hypoxia: 2nd to COVID-19 pneumonia. see "pneumonia" above. (4) Acute blood loss anemia: 2nd to bleeding from hip fracture, hematoma, etc. cont ferrous sulfate BID. Hb stable (5) Closed right hip fracture: s/p ORIF by Dr Phipps on 06/13 DVT proph during admission - heparin 7500 units TID in light of COVID 19 infection Issues with pain control during admission, has not required narcotic pain medications for a few days prior to d/c long-term rehab potential is poor in light of prior stroke and multiple comorbidities doubtful that he will return to prior functional status would recommend return to [facility] but palliative Palliative care was active in pt's stay and attempts to coordinate goals of care with family (6) Acute metabolic encephalopathy: Improving and is at baseline 2nd to COVID-19, pain, etc. Supportive care. (7) Fall: [facility]ed fall at SN[facility]. No other apparent injuries besides right hip fracture. (8) Generalized abdominal pain: CT abd/pelvis without acute findings. suspect constipation as culprit - symptoms improved with BM. cont aggressive bowel regimen. (9) Type 2 diabetes mellitus: A1c <7%. (10) Vitamin B12 deficiency: B12 injections monthly (11) Thrombocytopenia: resolved was likely consumptive in setting of hip fracture w/ bleeding, and also bone marrow suppression from COVID 19 infection (12) History of CVA (cerebrovascular accident): Continue ASA, atorvastatin for secondary prevention. Resulting left-sided hemiparesis. (13) Pancreatic calcification: noted on CT abd/pelvis. this is c/w chronic pancreatitis. records indicate prior h/o alcoholism. (14) Hypertension: Cont home meds. (15) Murmur: last echo in 2013 -- was wnl. defer on echo due to COVID status for now. (16) Hypomagnesemia: replaced and resolved (17) Vitamin D deficiency: ergocalciferol 62514 units weekly x 8 weeks Total Time Total Time Spent Total Time Spent (In Minutes): >30 Total Time Includes: Examination of the Patient, Discharge Planning, Medication Reconciliation, Communication With Other Providers and Other Discharge Plan Discharge Items Patient Disposition: Transfer Correction Fac Reason For Visit: RIGHT HIP FRACTURE Discharge Diagnosis: R hip fracture, COVID PNA Activity: As commented below Activity Comment: As per PT recs s/p R hip repair Non-emergency contact: Primary Care Provider and Surgeon Call non-emergency contact if: you have any medication questions, your symptoms worsen and your pain is concerning for you Follow-up/Referrals: Tomasz Valdez MD [Primary Care Provider] - Diet: Carb Consistent or DM2 Addtl Attending Provider Instructions: ORTHOPEDIC INSTRUCTIONS Hip Hemiarthroplasty Activity and Therapy Recommendations: 1. You were shown a series of exercises in the hospital. Do these exercises three times each day if you are able. 2. Get up and walk several times each day if you are capable. Make sure you have assistance is needed. For the first four weeks, try not to stand or walk for more than one hour at a time. If you do stand or walk for more than one hour, you will not hurt anything, but your leg will likely swell. 3. As you feel comfortable, you may change from the walker or crutches to a cane and then to independent walking if you are able. Please be safe. Medications: 1. Narcotic You will likely be sent from the hospital with the narcotic pain medication that worked best throughout your stay. 2. Lovenox -you will likely be on Lovenox postoperatively for 4 to 6 weeks for DVT prophylaxis. 3. Other medications may be given for specific circumstances. If you have any questions, please call the office at [phone]. 4. Resume previous home medications unless otherwise instructed TEDs/Elastic Stockings: The white elastic stockings help limit swelling and prevent blood clots from forming in your legs. The more you wear them, the more they work. Wear them for six weeks. Dressing Care: Leave the Silverlon dressing in place for 7 days. After 7 days you may remove the dressing. If the incision is not draining then you may leave the zoey open to air. If there is a little bit of drainage or if the zoey are getting stuck on your clothing then cover the incision with a dry dressing. The zoey will be removed at your 2 week follow-up appointment. Showering: You may shower with the Silverlon dressing in place. Do not let the shower spray hit the dressing directly. Pat the Silverlon dressing dry. If the dressing becomes wet underneath, then simply remove the dressing. Keep the incision dry until you are 7 days out from the day of surgery. After 7 days you may remove the Silverlon dressing and shower with the zoey exposed. Let soapy water run over the zoey and pat them dry. Do not scrub or soak the incision. Things To Watch For: 1. Drainage from the incision site that occurs more than one week after your surgery. 2. Increased redness at the incision site. 3. Fever above 102 degrees Fahrenheit. 4. Unusual chest pain or shortness of breath. 5. Call [facility] at with any of the above problems Follow-Up Visit: Follow-up with Dr. Phipps's PA (Janes Valencia) 2-3 weeks after your day of surgery. He will remove your zoey and answer any questions. If you have any additional questions or concerns, Dr Phipps is usually in the office at the same time and will be available An appointment was probably scheduled when you signed-up for surgery in the office. If you have any questions call [employer] Provider Instructions: Pt started on lantus this admission, please check BS ACHS to determine if ongoing insulin needs moving forward as metformin is restarted. Pending Studies at Discharge: No Stand-Alone Forms: My [facility] Skilled Items Patient informed of condition?: Yes DNR: No Discharge Level of Care: Skilled Communicable Disease: Yes Discharge Prognosis: Improving Lines: None Urinary Catheter: No Medications and DC Order Prescriptions: New tamsulosin 0.4 mg Capsule 0.4 mg PO HS Qty: 30 RF: 0 ferrous sulfate 325 mg (65 mg iron) Tablet,Delayed Release (Dr/Ec) 325 mg PO BIDM Qty: 600 RF: 0 Lantus Solostar U-100 Insulin 100 unit/mL (3 mL) Insulin Pen 18 unit SC DAILY 30 Days Qty: 5.4 RF: 0 Advanced Probiotic 625 mg (10 billion cell) Capsule 2 cap PO DAILY Qty: 60 RF: 0 Continued atorvastatin [Lipitor] 40 mg tablet 40 mg PO PM RF: 0 sennosides-docusate sodium [Senexon-S] 8.6-50 mg Tablet 1 tab-cap PO QAM RF: 0 folic acid 400 mcg Tablet 0.4 mg PO DAILY RF: 0 carvedilol [Coreg] 3.125 mg tablet 3.125 mg PO BID RF: 0 magnesium oxide 400 mg (241.3 mg magnesium) Tablet 400 mg PO TID RF: 0 metformin [Glucophage] 1,000 mg tablet 1,000 mg PO BID RF: 0 lisinopril [Prinivil] 10 mg tablet 10 mg PO HS RF: 0 docusate sodium [Colace] 100 mg Capsule 100 mg PO BID RF: 0 aspirin [Aspirin Childrens] 81 mg Tablet,Chewable 81 mg PO DAILY RF: 0 Discharge Orders: Discharge Order (Routine); Ordered 06/22/20 Ordered By: Vidya Hilliard/Other Patient Handouts: Managing Type 2 Diabetes Admission Data Admit Date/Time: 06/12/20 14:24 Attending Provider: Vidya Quintero Admit Provider: Kavin Olvera Primary Care Provider: Tomasz Valdez Other Providers: Kavin Olvera ; Angus Prajapati ; Samina Hui Other Interventions: Discharge Summary Assessment (RN) Last Done: 06/22/20 16:58 Coding Level of Care Code D/C Day Management >30 mins Diagnoses Pneumonia due to COVID-19 virus U07.1; J12.89 COVID-19 virus infection U07.1 Acute respiratory failure with hypoxia J96.01 Acute blood loss anemia D62 Closed right hip fracture S72.001A Acute metabolic encephalopathy G93.41 Fall W19.XXXA Generalized abdominal pain R10.84 Type 2 diabetes mellitus E11.9 Vitamin B12 deficiency E53.8 Thrombocytopenia D69.6 History of CVA (cerebrovascular accident) Z86.73 Pancreatic calcification K86.89 Hypertension I10 Murmur R01.1 Hypomagnesemia E83.42 Vitamin D deficiency E55.9
== END 2020-06-22 20:06 | DRG 521 ==
LOC: ED 12:16 → SUATTDRO 14:24 → 2S 14:24

== ENCOUNTER 2021-07-01 18:55 | Inpatient (IN) ==
[2021-07-01] MEDS ORDERED: ONDANSETRON INJ 2 MG/ML 2 ML VIAL IV STA (19:04)
--- NOTE | 2021-07-01 19:09 | Emergency Department Note ---
History of Present Illness General Chief complaint: Vomiting Stated complaint: ABD PAIN Time Seen by Provider: 07/01/21 18:57 Source: patient and EMS Mode of arrival: EMS History of Present Illness Provider complaint: Abdominal pain Onset (ago): hour(s) Location: abdomen and left Radiation: non-radiation Pain Consistency: + now resolved Quality: + other (Sore) Exacerbated By: + other (Bumps during ambulance ride) Associated symptoms: + nausea/vomiting; no chest pain, no cough, no fever/chills, no headaches or no shortness of breath This is a 71-year-old male who presents with abdominal pain. He states it started earlier today. He describes it as a soreness in the lower abdomen more on the left side. He states it was worse when he came over here in the ambulance and they hit any bumps. He states it is now resolved. He did state that earlier he was eating a piece of meat and he choked on it and then vomited about a nickel sized piece of meat. He states he did not chew it properly. He was coughing after the choking episode but denies cough now. He states he is not short of breath or having any chest pain. He denies any fever or cold symptoms. He has had no diarrhea or urinary symptoms. Home Medications Medication Instructions Recorded Confirmed Type aspirin 81 mg chewable tablet 81 mg PO DAILY 06/12/20 07/01/21 History (Aspirin Childrens) atorvastatin 40 mg tablet (Lipitor) 40 mg PO PM 06/12/20 07/01/21 History carvedilol 3.125 mg tablet (Coreg) 3.125 mg PO AMHS 06/12/20 07/01/21 History folic acid 400 mcg tablet 0.4 mg PO DAILY 06/12/20 07/01/21 History magnesium oxide 400 mg (241.3 mg 400 mg PO BID 06/12/20 07/01/21 History magnesium) tablet acetaminophen 500 mg tablet 500 mg PO TID MDD 3g 08/02/20 07/01/21 History (Tylenol Extra Strength) L.acidop,casei,lactis,rham-B.lact,james 2 cap PO QAM 07/01/21 07/01/21 History 625 mg (10 billion cell) capsule (Advanced Probiotic) acetaminophen 325 mg tablet 650 mg PO Q4 PRN MDD 3g 07/01/21 07/01/21 History diclofenac sodium 1 % topical gel 4 g TOPICAL QID 07/01/21 07/01/21 History famotidine 20 mg tablet 20 mg PO DAILY 07/01/21 07/01/21 History furosemide 20 mg tablet 20 mg PO DAILY 07/01/21 07/01/21 History insulin glargine 100 unit/mL 22 unit SUBCUT QAM 07/01/21 07/01/21 History subcutaneous solution (Lantus U-100 Insulin) ipratropium 0.5 mg-albuterol 3 mg 3 ml INHALATION Q4 PRN 07/01/21 07/01/21 History (2.5 mg base)/3 mL nebulization soln lisinopril 10 mg tablet 10 mg PO HS 07/01/21 07/01/21 History metformin 1,000 mg tablet 1,000 mg PO BID 07/01/21 07/01/21 History potassium chloride 20 mEq 20 meq PO DAILY 07/01/21 07/01/21 History tablet,extended release(part/cryst) tamsulosin 0.4 mg capsule 0.4 mg PO DAILYBB 07/01/21 07/01/21 History Allergies Allergy/AdvReac Type Severity Reaction Status Date / Time No Known Drug Allergies Allergy Unknown . 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 Cholelithiasis Chronic constipation Contracture, left ankle Contracture, right ankle Diabetic neuropathy Dysarthria following cerebral infarction Full code status Functional urinary incontinence Generalized muscle weakness Hemiplegia of left nondominant 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 History of CVA (cerebrovascular accident) Hypertension Hypomagnesemia Incontinence, feces Left ear impacted cerumen Nicotine dependence Occlusion and stenosis of bilateral carotid arteries Oral phase dysphagia Type 2 diabetes mellitus Vascular dementia without behavioral disturbance Vitamin B12 deficiency Surgical History No pertinent past surgical history Social History Smoking Status: Never smoker Tobacco Type: Cigarettes Hx Alcohol Use: No Hx Substance Use: No Preferred Language: Mongolian Communication Ability: Impaired Beliefs That Will Affect Care: None marital status: Single Current Living Situation: Detention Feels Safe at Home: Yes Assistive Devices: Wheelchair Review of Systems See HPI for pertinent positives & negatives. and A total of 10 systems reviewed and were otherwise negative Physical Exam Vital Signs Vital Signs - 24 hr 07/01/21 18:47 07/01/21 20:48 07/01/21 21:00 Temperature 36.8 C Temperature Source Oral Pulse Rate 103 H Pulse Rate [Right] 102 H 95 H Pulse Rhythm Regular Pulse Rhythm [Right] Regular Regular Respiratory Rate 16 18 18 Respiratory Effort / Characteristics Non-Labored Non-Labored Non-Labored Respiratory Depth Normal Normal Normal Blood Pressure 155/100 H Blood Pressure [Left Arm] 155/107 H 169/142 H Blood Pressure Mean 118 Blood Pressure Mean [Left Arm] 123 151 Pulse Oximetry 95 92 94 Oxygen Delivery Method Room Air Room Air Room Air Sepsis Recent Fever Within 48 Hours No Sepsis New/Unexplained Change in Mental Status No Sepsis Action Taken by Nursing No Action Required 07/01/21 22:59 Temperature Temperature Source Pulse Rate 90 Pulse Rate [Right] Pulse Rhythm Pulse Rhythm [Right] Respiratory Rate Respiratory Effort / Characteristics Respiratory Depth Blood Pressure 169/100 H Blood Pressure [Left Arm] Blood Pressure Mean Blood Pressure Mean [Left Arm] Pulse Oximetry Oxygen Delivery Method Sepsis Recent Fever Within 48 Hours Sepsis New/Unexplained Change in Mental Status Sepsis Action Taken by Nursing Constitutional: Vital signs reviewed. Eyes: Pupils are equal round reactive to light. Conjunctiva are noninjected. ENT: Pharynx is clear without erythema or exudate. Mucous membranes are moist. Neck supple without meningeal signs. Respiratory: Clear to auscultation bilaterally. Breath sounds are equal bilaterally. Cardiovascular: Tachycardic. Regular rhythm. GI: Soft, nondistended with tenderness in the left lower quadrant. No guarding.. Bowel sounds are present. Musculoskeletal: No peripheral edema. No lower extremity tenderness. Integumentary: No cyanosis. or jaundice. Neurological: The patient is awake and alert. Speech is very slurred. Psychiatric: Normal affect. Not anxious appearing. Course Administered Medications Discontinued Medications Metoprolol Tartrate (Metoprolol Tartrate 1 Mg/Ml Vial) 2.5 mg IV NOW STA Stop: 07/01/21 22:44 Last Admin: 07/01/21 22:59 Dose: 2.5 mg Documented by: [id number] Ondansetron HCl (Ondansetron Inj 2 Mg/Ml 2 Ml Vial) 4 mg IV NOW STA Stop: 07/01/21 19:05 Last Admin: 07/01/21 22:20 Dose: Not Given Documented by: [id number] Medical Decision Making Differential Diagnosis Diverticulitis, bowel obstruction, constipation, aspiration, food bolus impaction Medical Records Attestation: I reviewed the patient's medical records. I did perform a limited focused review of portions of the patient's old chart on the electronic medical record. The patient has had no recent pertinent visits to this hospital. The patient was admitted in May of last year for COVID-19 pneumonia. He also had abdominal pain then which was thought to be due to constipation. Home Medications Current Medication List: was personally reviewed by me Laboratory Data Attestation: I reviewed the patient's lab results. Result diagrams: 07/01/21 19:11 07/01/21 19:11 Lab Results 07/01/21 07/01/21 07/01/21 Range/Units 19:11 19:11 19:58 WBC 9.24 (4.8-10.8) K/uL RBC 4.63 L (4.7-6.1) M/uL Hgb 14.6 (14.0-18.0) g/dL Hct 43.2 (42-52) % MCV 93.3 (80-100) fL MCH 31.5 (25-34) pg MCHC 33.8 (32-36) g/dL RDW Std Deviation 46.4 H (36.4-46.3) fL RDW Coeff of Guido 13.7 (11.5-14.5) % Plt Count 144 (130-400) K/uL MPV 11.0 H (7.4-10.4) fL Immature Gran % (Auto) 0.8 % Neut % (Auto) 84.0 % Lymph % (Auto) 7.8 % Runnels % (Auto) 6.0 % Eos % (Auto) 1.2 % Baso % (Auto) 0.2 % Neut # (Auto) 7.77 H (1.4-6.5) K/uL Lymph # (Auto) 0.72 L (1.2-3.4) K/uL Runnels # (Auto) 0.55 (0.11-0.59) K/uL Eos # (Auto) 0.11 (0-0.5) K/uL Baso # (Auto) 0.02 (0-0.2) K/uL Immature Gran # (Auto) 0.07 H (0.00-0.02) K/uL APTT (21.0-31.0) Seconds PTT Ratio Sodium 139 (136-145) mmol/L Potassium 4.4 (3.5-5.1) mmol/L Chloride 104 (98-107) mmol/L Carbon Dioxide 28 (21-32) mmol/L Anion Gap 7.0 (3-11) BUN 24 H (7-18) mg/dl Creatinine 1.15 (0.6-1.4) mg/dl Est Cr Clr Drug Dosing 62.8 ml/min Est GFR ( Amer) 72.8 ml/min Est GFR (Non-Af Amer) 62.8 ml/min BUN/Creatinine Ratio 20.4 H (10-20) Glucose 209 H (70-99) mg/dl Calcium 9.4 (8.5-10.1) mg/dl Total Bilirubin 0.5 (0.2-1) mg/dl AST 9 L (15-37) U/L ALT 18 (12-78) Alkaline Phosphatase 105 (45-117) U/L Troponin I 0.191 H* (0-0.045) ng/ml Total Protein 7.9 (6.4-8.2) gm/dl Albumin 3.5 (3.4-5.0) gm/dl Globulin 4.4 H (2.5-4.0) gm/dl Albumin/Globulin Ratio 0.8 L (0.9-2) Lipase 119 (73-393) U/L SARS-CoV-2, RNA, NAAT NEGATIVE (NEGATIVE) 07/01/21 Range/Units 22:54 WBC (4.8-10.8) K/uL RBC (4.7-6.1) M/uL Hgb (14.0-18.0) g/dL Hct (42-52) % MCV (80-100) fL MCH (25-34) pg MCHC (32-36) g/dL RDW Std Deviation (36.4-46.3) fL RDW Coeff of Guido (11.5-14.5) % Plt Count (130-400) K/uL MPV (7.4-10.4) fL Immature Gran % (Auto) % Neut % (Auto) % Lymph % (Auto) % Runnels % (Auto) % Eos % (Auto) % Baso % (Auto) % Neut # (Auto) (1.4-6.5) K/uL Lymph # (Auto) (1.2-3.4) K/uL Runnels # (Auto) (0.11-0.59) K/uL Eos # (Auto) (0-0.5) K/uL Baso # (Auto) (0-0.2) K/uL Immature Gran # (Auto) (0.00-0.02) K/uL APTT 24.3 (21.0-31.0) Seconds PTT Ratio 0.9 Sodium (136-145) mmol/L Potassium (3.5-5.1) mmol/L Chloride (98-107) mmol/L Carbon Dioxide (21-32) mmol/L Anion Gap (3-11) BUN (7-18) mg/dl Creatinine (0.6-1.4) mg/dl Est Cr Clr Drug Dosing ml/min Est GFR ( Amer) ml/min Est GFR (Non-Af Amer) ml/min BUN/Creatinine Ratio (10-20) Glucose (70-99) mg/dl Calcium (8.5-10.1) mg/dl Total Bilirubin (0.2-1) mg/dl AST (15-37) U/L ALT (12-78) Alkaline Phosphatase (45-117) U/L Troponin I (0-0.045) ng/ml Total Protein (6.4-8.2) gm/dl Albumin (3.4-5.0) gm/dl Globulin (2.5-4.0) gm/dl Albumin/Globulin Ratio (0.9-2) Lipase (73-393) U/L SARS-CoV-2, RNA, NAAT (NEGATIVE) Imaging Data Attestation: I personally reviewed and interpreted this imaging study as follows: My Impression: Chest x-ray per my interpretation shows no acute cardiopulmonary process. Radiologist's Impression: Abdomen/Pelvis CT 07/01/21 19:04 CT OF THE ABDOMEN AND PELVIS WITHOUT CONTRAST CLINICAL HISTORY: Left lower quadrant pain. COMPARISON STUDY: CT of the abdomen and pelvis June 12, 2020. TECHNIQUE: Axial images of the abdomen and pelvis were obtained without IV contrast. Images were reviewed in the axial, sagittal, and coronal planes. Automated exposure control was utilized for the study. A dose lowering technique was utilized adhering to the principles of ALARA. FINDINGS: Note is made of moderate groundglass opacities within the lower lungs. These are increased in extent when compared to CT of June 12, 2020. Extensive calcifications within each renal sinus are likely vascular. There is no hydronephrosis. There are no ureteral calculi. Bladder is mildly distended. Evaluation the remainder of the abdomen and pelvis is suboptimally assessed on this unenhanced exam. Unenhanced images of the liver, spleen, adrenal glands and pancreas are unremarkable with exception of parenchymal calcifications within the pancreas. There is no biliary or pancreatic ductal dilatation. There is a gallstone within the gallbladder. There is no peripancreatic or pericholecystic infiltration. The appendix is unremarkable. There is no evidence for a bowel obstruction. Moderate amount of stool within the colon and rectum is noted. Images of the pelvis are degraded by streak artifact from right hip arthroplasty. There is no free fluid. There is no abscess. No acute fracture is identified within the visualized skeletal structures. Extensive atherosclerotic plaque is noted. IMPRESSION: 1. Bilateral lower lobe groundglass opacities. The appearance favors an infectious process however a similar pattern was shown on CT of June 12, 2020. These are technically indeterminate and a follow-up chest CT in 6 months is recommended. 2. No acute process within the abdomen or pelvis on unenhanced exam. 3. Cholelithiasis. No evidence for acute cholecystitis. 4. Moderate amount of stool within the colon and the rectum. No bowel obstruction. ACT 112: Negative or not required by law. Electronically signed by: Param Taylor M.D. 07/01/2021 8:06 PM [facility] Patient: AKASH JONES (Male) : 46 Status: ER Date: 07/01/21 20:33 Room #: History: tachy/pos trop eval for pe Slices: [id number] Priors: Tech: Elvin Leone @ [phone] Exams: CTA CHEST Contrast: IV Amt: 120 ml optiray Accession Numbers: [id number] Referring Physician: AKASH HASTINGS Preliminary Findings Only See Final Report For Complete Findings CTA CHEST: No pulmonary embolism. No acute aortic syndrome. Advanced coronary artery calcifications. Dependent atelectasis in the lungs. Radiologist: Manoj Mcconnell MD Study ready at 21:30 and initial results transmitted at 22:11 ECG Data Attestation: I personally reviewed and interpreted this ECG as follows: Indication: + abdominal pain and + tachycardia Rate (beats per minute): 106 Rhythm: + sinus tachycardia ECG ST segments: + T-wave inversions; no ST elevation ECG Findings: no PVCs Comparison ECG Date: no prior available MDM Narrative I did evaluate the patient as noted above. The patient is presenting after choking on a piece of meat and vomiting a nickel sized piece of meat. He c omplains of lower abdominal pain currently. He states he is not short of breath. His O2 saturation is 93% on room air. IV access was established. I did place an order for continuous cardiac monitoring. The monitor showed sinus tachycardia at a rate of 111 bpm.I did order and personally review the patient's 12-lead EKG as described above. He has sinus tachycardia at a rate of 106. He has some T wave inversions in the high lateral leads. No old EKGs available for comparison. He denies having any chest pain or shortness of breath. I did order and personally reviewed the images of the patient's chest x-ray as described above. I did order a urine analysis. I did order and review the tawana ent's blood work as noted in the electronic medical record. CBC is unremarkable without leukocytosis or anemia. His electrolytes are unremarkable. Glucose is 209 but he does have a history of diabetes. Troponin is elevated 0.191. Again he denies having any chest pain or shortness of breath. I did order a CT of the abdomen and pelvis. I did review the images myself as well as the radiology r eport as described above. He has groundglass opacities in the lower lobes of the lung but these were apparently present on CT June 12, 2020. That is when he had COVID-19. He has moderate stool within the colon and rectum without bowel obstruction. I did reevaluate the patient. He is persistently tachycardic. Given the positive troponin and persistent tachycardia I did wish to rule out PE and so I did order a CT angiogram of the chest after discussion with the patient. There is no evidence of pulmonary embolism but he does have advanced coronary artery calcifications. I did discuss the test results with the patient. He will be hospitalized for further care and evaluation. His ta chycardia is significantly improved. His heart rate is now 90. He denies any chest pain or shortness of breath. He will require repeat cardiac biomarkers and further evaluation. I did discuss case with the hospitalist and counter caser. Impression & Plan Abdominal pain, lower, Choking episode, Tachycardia, Elevated troponin, Acute h yperglycemia Discharge Plan Visit Data Chief Complaint: Vomiting Stated Complaint: ABD PAIN ED Provider: Akash Hastings Discharge Problem: Abdominal pain, lower, Choking episode, Tachycardia, Elevated troponin, Acute hyperglycemia Patient Disposition: Being Evaluated by Hospitalist Forms Stand Alone Forms: My [facility] Prescriptions Prescriptions: No Action acetaminophen [Tylenol Extra Strength] 500 mg tablet 500 mg PO TID MDD 3g RF: 0 atorvastatin [Lipitor] 40 mg tablet 40 mg PO PM RF: 0 folic acid 400 mcg Tablet 0.4 mg PO DAILY RF: 0 carvedilol [Coreg] 3.125 mg tablet 3.125 mg PO AMHS RF: 0 magnesium oxide 400 mg (241.3 mg magnesium) Tablet 400 mg PO BID RF: 0 aspirin [Aspirin Childrens] 81 mg Tablet,Chewable 81 mg PO DAILY RF: 0 potassium chloride 20 mEq tablet,ER particles/crystals 20 meq PO DAILY RF: 0 famotidine 20 mg tablet 20 mg PO DAILY RF: 0 metformin 1,000 mg tablet 1,000 mg PO BID RF: 0 lisinopril 10 mg tablet 10 mg PO HS RF: 0 furosemide 20 mg tablet 20 mg PO DAILY RF: 0 Lantus U-100 Insulin 100 unit/mL solution 22 unit SUBCUT QAM RF: 0 diclofenac sodium 1 % gel 4 g TOPICAL QID RF: 0 tamsulosin 0.4 mg capsule 0.4 mg PO DAILYBB RF: 0 Advanced Probiotic 625 mg (10 billion cell) capsule 2 cap PO QAM RF: 0 ipratropium-albuterol 0.5 mg-3 mg(2.5 mg base)/3 mL solution for nebulization 3 ml INHALATION Q4 PRN (Reason: Shortness Of Breath) RF: 0 acetaminophen 325 mg Tablet 650 mg PO Q4 MDD 3g PRN (Reason: Fever Or Pain) RF: 0 Referrals Referrals: Tomasz Valdez MD [Physician] -
[2021-07-01 19:21] LABS: Basophils # (auto) 0.02 K/uL (0-0.2); Basophils % (auto) 0.2 %; Eosinophils # (auto) 0.11 K/uL (0-0.5); Eosinophils % (auto) 1.2 %; Hematocrit (blood only) 43.2 % (42-52); Hemoglobin 14.6 g/dL (14.0-18.0); Immature Granulocytes # (auto) 0.07 K/uL (0.00-0.02); Immature Granulocytes % (auto) 0.8 %; Lymphocytes # (auto) 0.72 K/uL (1.2-3.4); Lymphocytes % (auto) 7.8 %; Mean Corpuscular Hemoglobin 31.5 pg (25-34); Mean Corpuscular Hgb Conc 33.8 g/dL (32-36); Mean Corpuscular Volume 93.3 fL (80-100); Monocytes # (auto) 0.55 K/uL (0.11-0.59); Neutrophils # (auto) 7.77 K/uL (1.4-6.5); Platelet Count 144 K/uL (130-400); RDW Coefficient of Variation 13.7 % (11.5-14.5); RDW Standard Deviation 46.4 fL (36.4-46.3); Red Blood Count 4.63 M/uL (4.7-6.1); White Blood Count 9.24 K/uL (4.8-10.8)
[2021-07-01 19:38] LABS: Albumin Level 3.5 gm/dl (3.4-5.0); BUN Creatinine Ratio 20.4 (10-20); Calcium 9.4 mg/dl (8.5-10.1); Creatinine Clr Calc Pharmacy 62.8 ml/min; Est GFR (African American) 72.8 ml/min; Est GFR (Non-African American) 62.8 ml/min; Potassium 4.4 mmol/L (3.5-5.1)
[2021-07-01 19:50] LABS: Albumin Globulin Ratio 0.8 (0.9-2); Bilirubin,Total 0.5 mg/dl (0.2-1); Globulin 4.4 gm/dl (2.5-4.0); Total Protein 7.9 gm/dl (6.4-8.2); Troponin I 0.191 ng/ml (0-0.045)
--- NOTE | 2021-07-01 20:07 | CT Scan Report ---
CT OF THE ABDOMEN AND PELVIS WITHOUT CONTRAST CLINICAL HISTORY: Left lower quadrant pain. COMPARISON STUDY: CT of the abdomen and pelvis June 12, 2020. TECHNIQUE: Axial images of the abdomen and pelvis were obtained without IV contrast. Images were revi ewed in the axial, sagittal, and coronal planes. Automated exposure control was utilized for the aracely dy. A dose lowering technique was utilized adhering to the principles of ALARA. FINDINGS: Note is made of moderate groundglass opacities within the lower lungs. These are increased in extent when compared to CT of June 12, 2020. Extensive calcifications within each renal sinus are likely vascular. There is no hydronephrosis. There are no ureteral calculi. Bladder is mildly dis tended. Evaluation the remainder of the abdomen and pelvis is suboptimally assessed on this unenhance d exam. Unenhanced images of the liver, spleen, adrenal glands and pancreas are unremarkable with exc eption of parenchymal calcifications within the pancreas. There is no biliary or pancreatic ductal di latation. There is a gallstone within the gallbladder. There is no peripancreatic or pericholecystic infiltration. The appendix is unremarkable. There is no evidence for a bowel obstruction. Moderate am ount of stool within the colon and rectum is noted. Images of the pelvis are degraded by streak artif act from right hip arthroplasty. There is no free fluid. There is no abscess. No acute fracture is id entified within the visualized skeletal structures. Extensive atherosclerotic plaque is noted. IMPRESSION: 1. Bilateral lower lobe groundglass opacities. The appearance favors an infectious process however a similar pattern was shown on CT of June 12, 2020. These are technically indeterminate and a follo w-up chest CT in 6 months is recommended. 2. No acute process within the abdomen or pelvis on unenhanced exam. 3. Cholelithiasis. No evidence for acute cholecystitis. 4. Moderate amount of stool within the colon and the rectum. No bowel obstruction. ACT 112: Negative or not required by law. Electronically signed by: Param Taylor M.D. 07/01/2021 8:06 PM
--- NOTE | 2021-07-01 22:40 | History & Physical Report ---
Date of Service July 01, 2021 Assessment & Plan (1) SOB (shortness of breath): Plan: Secondary to aspiration pneumonitis Known aspiration risk No sepsis for now Troponin elevation secondary to above hypertensive urgency contributory hx CVA/PVD as per records DM2 insulin requiring, well-controlled as of recent hemoglobin A1c of 04 June 2021 dementia/hx Wernicke Korsakoff syndrome as per records past tobacco/alcohol abuse OBS PCU Unasyn Swallow eval, aspiration precautions Facilitate nighttime BP meds Follow troponin TTE, Cardiology consult if with progression Basal insulin, ISS BG goal 1 10-1 40, carb count coverage DVT prophylaxis. Lovenox subcu Full code Patient sister requesting updates from providers. Ms. Casie Sena, contact #[phone]. Text document was generated using [employer] voice recognition software. It may contain grammatical or spelling errors. Kindly contact undersigned for clarification of any documentation item in question. History of Present Illness Chief Complaint: Abdominal pain, cough, S OB Primary Care Provider: Dr. Rosa History obtained from patient, family, and records. Limited history from patient secondary to chronic aphasia. Medical history significant for CVA, PVD, hypertension, DM2 insulin requiring, dementia, Wernicke Korsakoff syndrome as per records, past tobacco/alcohol abuse, chronic anemia (baseline hemoglobin 12-13 ), aspiration risk as per records. Last confinement May 2020 for COVID-19 pneumonia. Patient complained of left-sided abdominal pain to jail staff in a.m. as per records. Patient later on noted to choke on a piece of meat with subsequent cough and emesis. Some shortness of breath as per patient. Patient denies chest pain. Abnormal vitals noted at jail as per patient sister. Patient brought to the ER for evaluation. Medical History as above Surgical History : Hip fracture surgery Family History : Heart disease, stroke Personal/Social history : Past tobacco/alcohol abuse, disabled, jail resident Allergies Allergy/AdvReac Type Severity Reaction Status Date / Time No Known Drug Allergies Allergy Unknown . Verified 07/01/21 19:26 Home Medications Medication Instructions Recorded Confirmed Type aspirin 81 mg chewable tablet 81 mg PO DAILY 06/12/20 07/01/21 History (Aspirin Childrens) atorvastatin 40 mg tablet (Lipitor) 40 mg PO PM 06/12/20 07/01/21 History carvedilol 3.125 mg tablet (Coreg) 3.125 mg PO AMHS 06/12/20 07/01/21 History folic acid 400 mcg tablet 0.4 mg PO DAILY 06/12/20 07/01/21 History magnesium oxide 400 mg (241.3 mg 400 mg PO BID 06/12/20 07/01/21 History magnesium) tablet acetaminophen 500 mg tablet 500 mg PO TID MDD 3g 08/02/20 07/01/21 History (Tylenol Extra Strength) L.acidop,casei,lactis,rham-B.lact,james 2 cap PO QAM 07/01/21 07/01/21 History 625 mg (10 billion cell) capsule (Advanced Probiotic) acetaminophen 325 mg tablet 650 mg PO Q4 PRN MDD 3g 07/01/21 07/01/21 History diclofenac sodium 1 % topical gel 4 g TOPICAL QID 07/01/21 07/01/21 History famotidine 20 mg tablet 20 mg PO DAILY 07/01/21 07/01/21 History furosemide 20 mg tablet 20 mg PO DAILY 07/01/21 07/01/21 History insulin glargine 100 unit/mL 22 unit SUBCUT QAM 07/01/21 07/01/21 History subcutaneous solution (Lantus U-100 Insulin) ipratropium 0.5 mg-albuterol 3 mg 3 ml INHALATION Q4 PRN 07/01/21 07/01/21 History (2.5 mg base)/3 mL nebulization soln lisinopril 10 mg tablet 10 mg PO HS 07/01/21 07/01/21 History metformin 1,000 mg tablet 1,000 mg PO BID 07/01/21 07/01/21 History potassium chloride 20 mEq 20 meq PO DAILY 07/01/21 07/01/21 History tablet,extended release(part/cryst) tamsulosin 0.4 mg capsule 0.4 mg PO DAILYBB 07/01/21 07/01/21 History Past Med/Surg History Medical History Abnormal gait Alcohol abuse 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 Cholelithiasis Chronic constipation Contracture, left ankle Contracture, right ankle Diabetic neuropathy Dysarthria following cerebral infarction Full code status Functional urinary incontinence Generalized muscle weakness Hemiplegia of left nondominant 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 History of CVA (cerebrovascular accident) Hypertension Hypomagnesemia Incontinence, feces Left ear impacted cerumen Nicotine dependence Occlusion and stenosis of bilateral carotid arteries Oral phase dysphagia Type 2 diabetes mellitus Vascular dementia without behavioral disturbance Vitamin B12 deficiency Surgical History No pertinent past surgical history Social History Smoking Status: Never smoker Tobacco Type: Cigarettes Hx Alcohol Use: No Hx Substance Use: No Preferred Language: Latvian Communication Ability: Impaired Communication Ability Comment: Pt follows direction Beliefs That Will Affect Care: None marital status: Single Current Living Situation: Other Current Living Situation Comment: is from [facility] Feels Safe at Home: Yes Assistive Devices: Wheelchair Review of Systems Review of Systems: Could not be reliably obtained Physical Exam Physical Exam: GENERAL: Comfortable, aphasic, dysarthric, no respiratory distress SKIN: Pallor, warm HEENT: Pale palpebral conjunctivae, no ptosis, dry buccal mucosa NECK : Supple, no tenderness CHEST : Decreased breath sounds, no tenderness HEART : RRR, systolic murmur heard over sternal border and second right intercostal space ABDOMEN: Some distention, nontender EXTREMITIES : No LE swelling/tenderness, no other conspicuous deformities noted NEUROLOGIC : Coherent, aphasic, dysarthric, chronic left hemiplegia Results & Data Results & Data ([facility]) Vital Signs (Past 12 Hours) Vital Signs Temp Pulse Pulse Resp BP BP Pulse Ox 07/01/21 21:00 95 H 18 169/142 H 94 07/01/21 20:48 102 H 18 155/107 H 92 07/01/21 18:47 36.8 C 103 H 16 155/[address] chest initial read: No pulmonaryembolism. No acute aortic syndrome. Advanced coronaryarterycalcifications. Dependent atelectasis in the lungs EKG as per my interpretation: Rate 105, sinus tachycardia, LAD, LAFB, no ischemia
[2021-07-01] MEDS ORDERED: METOPROLOL TARTRATE 1 MG/ML VIAL IV STA (22:43)
[2021-07-01 23:16] LABS: Partial Thromboplastin Ratio 0.9; Partial Thromboplastin Time 24.3 Seconds (21.0-31.0)
[2021-07-01 23:41] LABS: Magnesium 1.7 mg/dl (1.8-2.4); Troponin I 2.29 ng/ml (0-0.045)
[2021-07-01] MEDS ORDERED: SODIUM CHLORIDE 0.9% 1000ML 1,000 ML IV ONE (23:49)
[2021-07-02] MEDS ORDERED: AMPICILLIN/SULBACTAM SOD 3,000 MG in 0.9 % SODIUM CHLORIDE 100 ML IV ONE
[2021-07-02] MEDS ORDERED: MAGNESIUM SULFATE / D5W 1 GM/100 ML BAG IV ONE (00:04)
[2021-07-02] MEDS ORDERED: PROMETHAZINE HCL 12.5 MG in SODIUM CHLORIDE 0.9% 50 ML IV PRN (01:08)
[2021-07-02] MEDS ORDERED: NITROGLYCERIN SL 0.4 MG/TAB TAB SL PRN (01:08)
[2021-07-02] MEDS ORDERED: oxyCODONE HCL IR 5 MG TAB (IMMEDIATE RELEASE) PO PRN (01:08)
[2021-07-02] MEDS ORDERED: PNEUMOCOCCAL POLYSACCHARIDES 25 MCG/0.5 ML VIAL/SYR IM ONE (02:19)
[2021-07-02] MEDS ORDERED: INFLUENZA VACCINE HIGH DOSE PF 65+ 0.7 ML SYR IM ONE (02:19)
[2021-07-02 02:30] LABS: Basophils # (auto) 0.02 K/uL (0-0.2); Basophils % (auto) 0.3 %; Eosinophils # (auto) 0.07 K/uL (0-0.5); Eosinophils % (auto) 0.9 %; Hematocrit (blood only) 40.4 % (42-52); Hemoglobin 13.9 g/dL (14.0-18.0); Immature Granulocytes # (auto) 0.03 K/uL (0.00-0.02); Immature Granulocytes % (auto) 0.4 %; Lymphocytes # (auto) 1.17 K/uL (1.2-3.4); Lymphocytes % (auto) 15.3 %; Mean Corpuscular Hemoglobin 32.2 pg (25-34); Mean Corpuscular Hgb Conc 34.4 g/dL (32-36); Mean Corpuscular Volume 93.5 fL (80-100); Monocytes # (auto) 0.68 K/uL (0.11-0.59); Monocytes % (auto) 8.9 %; Neutrophils # (auto) 5.67 K/uL (1.4-6.5); Neutrophils % (auto) 74.2 %; Platelet Count 145 K/uL (130-400); RDW Coefficient of Variation 13.7 % (11.5-14.5); Red Blood Count 4.32 M/uL (4.7-6.1); White Blood Count 7.64 K/uL (4.8-10.8)
[2021-07-02] MEDS ORDERED: LABETALOL HCL IV 5 MG/ML 20ML IV STA (02:31)
[2021-07-02 02:39] LABS: Partial Thromboplastin Time 25.5 Seconds (21.0-31.0)
[2021-07-02 02:47] LABS: BUN Creatinine Ratio 18.6 (10-20); Calcium 9.2 mg/dl (8.5-10.1); Creatinine Clr Calc Pharmacy 56.1 ml/min; Est GFR (African American) 68.4 ml/min; Potassium 4.3 mmol/L (3.5-5.1)
[2021-07-02] MEDS: lisinopril 10 MG TAB PO SCH ×2 (03:02→21:31)
[2021-07-02] MEDS: INSULIN ASPART 100 UNITS/ML 3 ML PEN SC SCH ×5 (03:19→21:13)
[2021-07-02] MEDS ORDERED: Heparin IV Adult Wt-Based Standard *NO* Bolus Protocol IV SCH (03:19)
--- NOTE | 2021-07-02 03:36 | Communication Note ---
Date of Service: July 02, 2021 Progressive troponin elevation noted overnight 0.191 -> 2.290 -> 4.080 Patient without complaints as per RN. AP NSTEMI Change full admission Initiate IV heparin Continue patient aspirin, beta-marsha, statin Rx Cardiology consult in a.m. Re: NSTEMI
[2021-07-02] MEDS ORDERED: HEPARIN 25000 UNIT/500 ML D5W IV ONE (04:27)
[2021-07-02] MEDS: ASPIRIN 81 MG ECTAB PO SCH (04:31)
[2021-07-02] MEDS: HEPARIN SODIUM/DEXTROSE 25,000 UNITS/500 ML BAG IV SCH ×2 (04:42→23:14)
[2021-07-02] MEDS: AMPICILLIN/SULBACTAM SOD 3,000 MG in 0.9 % SODIUM CHLORIDE 100 ML IV SCH ×3 (06:00→18:37)
[2021-07-02] MEDS: TAMSULOSIN HCL 0.4 MG CAP PO SCH (06:00)
[2021-07-02] MEDS ORDERED: CONSULT PHARMACY SCH (09:00)
[2021-07-02] MEDS ORDERED: INSULIN GLARGINE SOLOSTAR 100 UNITS/ML 3 ML PEN SC SCH (09:00)
[2021-07-02] MEDS ORDERED: ASPIRIN 81 MG ECTAB PO SCH (09:00)
[2021-07-02] MEDS ORDERED: ENOXAPARIN INJ 40 MG/0.4 ML SYR SQ SCH (09:00)
[2021-07-02] MEDS ORDERED: carvediloL 6.25 MG TAB PO SCH (09:00)
[2021-07-02] MEDS ORDERED: carvediloL 3.125 MG TAB PO SCH ×2 (09:00)
[2021-07-02] MEDS: FOLIC ACID 400 MCG TAB PO SCH (09:15)
[2021-07-02] MEDS: ACETAMINOPHEN 500 MG TAB PO SCH ×3 (09:15→21:31)
[2021-07-02] MEDS: carvediloL 6.25 MG TAB PO SCH ×2 (09:15→21:32)
--- NOTE | 2021-07-02 09:22 | CT Scan Report ---
CHEST CTA for PULMONARY ARTERIES CT DOSE: 830.47 mGy.cm HISTORY: Tachycardia. Positive troponin. Assess for pulmonary embolus. TECHNIQUE: Multiaxial CT images of the chest were performed following the intravenous administration of contrast to evaluate the pulmonary arteries. Maximal intensity projection images were also obtaine d. A dose lowering technique was utilized adhering to the principles of ALARA. COMPARISON STUDY: Chest CTA 06/15/2020. FINDINGS: There are few punctate calcifications within the visualized liver and spleen. The adrenal g lands are unremarkable. There are few small gallstones. Trace left pleural effusion and a trace peric ardial effusion, unchanged. Normal caliber esophagus. Severe calcified plaque within the coronary art eries. Normal caliber thoracic aorta with no evidence for dissection. The heart is borderline enlarge d. Mild elevation of the left hemidiaphragm, unchanged. No filling defects within the pulmonary arter ies to suggest a pulmonary embolus. A few calcified hilar and subcarinal lymph nodes. No lymphadenopa thy identified within the chest. No suspicious lytic or blastic osseous lesions. No pneumothorax. Mil d biapical pleural-parenchymal scarlike densities remain unchanged. Interstitial thickening and groun dglass densities within the lung bases most pronounced within the lower lobes have improved in the in terval. There is 1.3 cm focal irregular density within the right upper lobe on image 163. This is sim ilar to the prior study. Mild diffuse bronchial wall thickening. Focal opacification within the right upper lobe bronchus best seen image 186. This is new from the prior study and therefore favors mucoi d opacification. IMPRESSION: 1. No evidence for pulmonary embolus. 2. Interval improvement in the interstitial thickening and groundglass densities within the lung base s most pronounced within the lower lobes. This could represent a residual viral pneumonitis or aspira tion pneumonitis. [address] follow-up recommended to ensure resolution. 3. Focal opacification within the right upper lobe bronchus which favors mucoid opacification. This a lso requires CT follow-up or bronchoscopy to exclude the less likely possibility of an endobronchial lesion. 4. Focal irregular density within the right upper lobe measuring 1.3 cm, unchanged. This may represen t an area of scarring. This also requires follow-up to ensure stability and exclude the less likely p ossibility of a pulmonary lesion. 5. Trace left pleural effusion and a trace pericardial effusion, unchanged ACT 112: Positive. There are findings on this exam that require communication between the performing entity and the patient following Patient Test Result Information Act ([place] Act 112) guidelines. Electronically signed by: Dewayne Morrison M.D. 07/02/2021 9:21 AM
[2021-07-02] MEDS: INSULIN GLARGINE SOLOSTAR 100 UNITS/ML 3 ML PEN SC SCH ×2 (10:23→21:13)
--- NOTE | 2021-07-02 11:02 | XRay Report ---
XR chest 1V portable HISTORY: Possible aspiration. choked COMPARISON: Chest 06/14/2020. FINDINGS: Patchy bibasilar airspace opacities. No pneumothorax. No pleural fusions. The heart remains borderline enlarged. No evidence for pulmonary edema. IMPRESSION: Patchy bibasilar airspace opacities. This could represent atelectasis or pneumonia. ACT 112: Negative or not required by law. Electronically signed by: Dewayne Morrison M.D. 07/02/2021 11:00 AM
[2021-07-02 11:55] LABS: Appearance Urine Clear (Clear); Bacteria Urine Automated Negative (Negative); Bilirubin Urine Negative (Negative); Blood Urine Negative (Negative); Cast Urine Automated 0 /lpf (0-5); Color Urine Yellow; Glucose Urine UA Negative (Negative); Ketones Urine Negative (Negative); Leukocyte Esterase Urine Negative (Negative); Nitrite Urine Negative (Negative); Protein Urine 1+ (Negative); RBC Urine Automated 0-4 /hpf (0-4); Specific Gravity Urine 1.038 (1.000-1.030); Urobilinogen Urine Negative (Negative)
[2021-07-02 12:00] LABS: Partial Thromboplastin Ratio 2.3
[2021-07-02 12:17] LABS: Partial Thromboplastin Time 59.2 Seconds (21.0-31.0)
--- NOTE | 2021-07-02 13:01 | Electrocardiogram Report ---
Test Reason : Blood Pressure : / mmHG Vent. Rate : 106 BPM Atrial Rate : 106 BPM P-R Int : 166 ms QRS Dur : 096 ms QT Int : 376 ms P-R-T Axes : 065 -28 089 degrees QTc Int : 499 ms Sinus tachycardia Otherwise normal ECG When compared with ECG of 15-JUN-2020 15:50, Premature supraventricular complexes are no longer Present ST no longer depressed in Anterior leads T wave inversion less evident in Anterolateral leads Confirmed by Bruno Simpson ([id number]) on 07/02/2021 1:01:01 PM Referred By: Barb Ventura Confirmed By:Bruno Simpson
--- NOTE | 2021-07-02 13:11 | Electrocardiogram Report ---
Test Reason : Blood Pressure : / mmHG Vent. Rate : 069 BPM Atrial Rate : 069 BPM P-R Int : 162 ms QRS Dur : 102 ms QT Int : 460 ms P-R-T Axes : 062 -43 089 degrees QTc Int : 492 ms Normal sinus rhythm Left axis deviation T wave abnormality, consider anterolateral ischemia Prolonged QT Abnormal ECG When compared with ECG of 01-JUL-2021 19:11, (unconfirmed) Vent. rate has decreased BY 37 BPM T wave inversion more evident in Anterolateral leads Confirmed by Bruno Simpson ([id number]) on 07/02/2021 1:10:57 PM Referred By: Barb Ventura Confirmed By:Bruno Simpson
--- NOTE | 2021-07-02 16:52 | Cardiology Consultation ---
Date of Consultation July 02, 2021 Assessment & Plan (1) NSTEMI (non-ST elevated myocardial infarction): 71-year-old halfway patient with history of bihemispheric strokes presents after a choking episode, chest x-ray/CT suggestive of possible aspiration pneumonia, and he has had non-ST segment elevation myocardial infarction. Patient's echocardiogram reveals focal apical hypokinesis to akinesis with normal hypercontractile wall motion of the mid and apical levels, perhaps consi stent with ischemia/injury in the distal LAD territory or perhaps due to stress- induced cardiomyopathy with left apical ballooning pattern. The patient is not a candidate for invasive coronary angiography. Continue supportive care and medications including aspirin, unfractionated heparin, carvedilol, lisinopril, and atorvastatin. I am concerned with regards to his bleeding risk, and will therefore hold off on adding clopidogrel. Agree with empiric antibiotics. DVT prophylaxis: He is on unfractioned heparin infusion. Case discussed with Dr Jones. History of Present Illness Attending Physician: Jomar Jones MD History of Present Illness Mr Bey is a 71-year-old male seen in cardiology consultation per the request of Dr. Copeland and Dr Jones for the evaluation of troponin elevation, non-ST segment elevation myocardial infarction. Interview of the patient was limited due to his baseline neurologic deficits. He is a resident of [facility] and does not follow with cardiology as an outpatient. Per review of his outpatient chart a CT of the head performed in July, revealed encephalomalacia of the high right frontal parietal region as well as a large chronic infarct of the right basal ganglia. Carotid duplex performed 03/28/2021 demonstrated a known chronic occlusion of the right internal carotid artery and a moderate stenosis of the left internal carotid artery in the range of 50 to 69%. He reportedly has chronic left hemiparesis. And is maintained on aspirin 81 mg daily and atorvastatin 40 mg daily with most recent outpatient LDL level as measured in March, of 69 mg/dL. He had presented to the emergency department with apparent complaint of abdominal pain and a recent choking episode. Electrocardiogram performed this morning 07/02/2021 at 10:32 AM revealed normal sinus rhythm at 69 bpm, with T wave inversion in leads V3 to V6 consistent with anterolateral ischemia. Compared to prior tracing performed on 07/01/2021, anterolateral repolarization changes are new. The patient was observed to have an elevation in his troponin I, which peaked at 4.2 NG per mL this morning at 535, and trended down to 3.06 NG per mL as of 1131 this morning. As noted, at the time my assessment, communication with the patient is somewhat difficult, but he denies any chest discomfort. Allergies Allergy/AdvReac Type Severity Reaction Status Date / Time No Known Drug Allergies Allergy Unknown . Verified 07/01/21 19:26 Home Medications Medication Instructions Recorded Confirmed Type aspirin 81 mg chewable tablet 81 mg PO DAILY 06/12/20 07/01/21 History (Aspirin Childrens) atorvastatin 40 mg tablet (Lipitor) 40 mg PO PM 06/12/20 07/01/21 History carvedilol 3.125 mg tablet (Coreg) 3.125 mg PO AMHS 06/12/20 07/01/21 History folic acid 400 mcg tablet 0.4 mg PO DAILY 06/12/20 07/01/21 History magnesium oxide 400 mg (241.3 mg 400 mg PO BID 06/12/20 07/01/21 History magnesium) tablet acetaminophen 500 mg tablet 500 mg PO TID MDD 3g 08/02/20 07/01/21 History (Tylenol Extra Strength) L.acidop,casei,lactis,rham-B.lact,james 2 cap PO QAM 07/01/21 07/01/21 History 625 mg (10 billion cell) capsule (Advanced Probiotic) acetaminophen 325 mg tablet 650 mg PO Q4 PRN MDD 3g 07/01/21 07/01/21 History diclofenac sodium 1 % topical gel 4 g TOPICAL QID 07/01/21 07/01/21 History famotidine 20 mg tablet 20 mg PO DAILY 07/01/21 07/01/21 History furosemide 20 mg tablet 20 mg PO DAILY 07/01/21 07/01/21 History insulin glargine 100 unit/mL 22 unit SUBCUT QAM 07/01/21 07/01/21 History subcutaneous solution (Lantus U-100 Insulin) ipratropium 0.5 mg-albuterol 3 mg 3 ml INHALATION Q4 PRN 07/01/21 07/01/21 History (2.5 mg base)/3 mL nebulization soln lisinopril 10 mg tablet 10 mg PO HS 07/01/21 07/01/21 History metformin 1,000 mg tablet 1,000 mg PO BID 07/01/21 07/01/21 History potassium chloride 20 mEq 20 meq PO DAILY 07/01/21 07/01/21 History tablet,extended release(part/cryst) tamsulosin 0.4 mg capsule 0.4 mg PO DAILYBB 07/01/21 07/01/21 History Patient History Medical History Abnormal gait Alcohol abuse 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 Cholelithiasis Chronic constipation Contracture, left ankle Contracture, right ankle Diabetic neuropathy Dysarthria following cerebral infarction Full code status Functional urinary incontinence Generalized muscle weakness Hemiplegia of left nondominant 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 History of CVA (cerebrovascular accident) Hypertension Hypomagnesemia Incontinence, feces Left ear impacted cerumen Nicotine dependence Occlusion and stenosis of bilateral carotid arteries Oral phase dysphagia Type 2 diabetes mellitus Vascular dementia without behavioral disturbance Vitamin B12 deficiency Surgical History No pertinent past surgical history Social History Smoking Status: Never smoker Tobacco Type: Cigarettes Hx Alcohol Use: No Hx Substance Use: No Preferred Language: Malay Communication Ability: Effective Communication Ability Comment: Pt follows direction Beliefs That Will Affect Care: None marital status: Single Current Living Situation: Other Current Living Situation Comment: is from [facility] Feels Safe at Home: Yes Assistive Devices: Walker and Wheelchair Review of Systems Review of Systems: Unobtainable due to cognitive status Physical Exam Physical Exam: Temp Pulse Resp BP Pulse Ox 36.6 C 77 16 151/75 H 95 07/02/21 15:10 07/02/21 16:00 07/02/21 15:10 07/02/21 15:10 07/02/21 15:10 Constitutional: + ill appearing (Chronically ill in appearance) Respiratory: normal respiratory effort, lungs clear to auscultation Cardiovascular: RRR, no murmur, no edema Gastrointestinal (Abdomen): normal bowel sounds, soft, nontender, no hepatosplenomegaly Neurologic: Expressive aphasia noted, left hemiparesis Results & Data ([facility]) Vital Signs (Past 12 Hours) Vital Signs Temp Pulse Pulse Resp BP BP Pulse Ox 07/02/21 16:00 77 07/02/21 15:10 36.6 C 72 16 151/75 H 95 07/02/21 12:24 36.5 C 70 18 128/77 97 07/02/21 08:00 67 07/02/21 07:10 36.5 C 79 20 175/81 H 94 Laboratory Results Cardiac Enzymes 07/01/21 07/01/21 07/02/21 Range/Units 19:11 22:54 02:15 AST 9 L (15-37) U/L Troponin I 0.191 H* 2.290 H* 4.080 H* (0-0.045) ng/ml 07/02/21 07/02/21 Range/Units 05:35 11:31 AST (15-37) U/L Troponin I 4.210 H* 3.060 H* (0-0.045) ng/ml Coagulation 07/01/21 07/02/21 07/02/21 Range/Units 22:54 02:15 11:07 APTT 24.3 25.5 59.2 H* (21.0-31.0) Seconds Lipids 07/02/21 Range/Units 02:15 Triglycerides 82 (0-150) mg/dl Cholesterol 125 (0-200) mg/dl HDL Cholesterol 46 mg/dl Cholesterol/HDL Ratio 3 CBC 07/01/21 07/02/21 Range/Units 19:11 02:15 WBC 9.24 7.64 (4.8-10.8) K/uL RBC 4.63 L 4.32 L (4.7-6.1) M/uL Hgb 14.6 13.9 L (14.0-18.0) g/dL Hct 43.2 40.4 L (42-52) % Plt Count 144 145 (130-400) K/uL Neut # (Auto) 7.77 H 5.67 (1.4-6.5) K/uL Lymph # (Auto) 0.72 L 1.17 L (1.2-3.4) K/uL [place] # (Auto) 0.55 0.68 H (0.11-0.59) K/uL Eos # (Auto) 0.11 0.07 (0-0.5) K/uL Baso # (Auto) 0.02 0.02 (0-0.2) K/uL Comprehensive Metabolic Panel 07/01/21 07/02/21 Range/Units 19:11 02:15 Sodium 139 138 (136-145) mmol/L Potassium 4.4 4.3 (3.5-5.1) mmol/L Chloride 104 104 (98-107) mmol/L Carbon Dioxide 28 31 (21-32) mmol/L BUN 24 H 23 H (7-18) mg/dl Creatinine 1.15 1.21 (0.6-1.4) mg/dl Glucose 209 H 187 H (70-99) mg/dl Calcium 9.4 9.2 (8.5-10.1) mg/dl AST 9 L (15-37) U/L ALT 18 (12-78) Alkaline Phosphatase 105 (45-117) U/L Total Protein 7.9 (6.4-8.2) gm/dl Albumin 3.5 (3.4-5.0) gm/dl Intake and Output 07/02/21 07/02/21 07/02/21 06:59 14:59 22:59 Intake Total 377.65 / 377.65 267.75 / 267.75 Balance 377.65 / 377.65 267.75 / 267.75 Intake: IV 377.65 / 377.65 267.75 / 267.75 Ampicillin/Sulbactam Sod 3,000 216 / 216 108 / 108 mg In 0.9 % Sodium Chloride 100 ml @ 216 mls/hr IV Q6H [facility] Rx# :[id number] Heparin Sodium/Dextrose 25,000 61.65 / 61.65 159.75 / 159.75 units In 500 ml @ 1,350 UNITS/ HR 27 mls/hr IV .[id number] [facility] Rx #:[id number] Magnesium Sulfate / D5w 1 gm In 100 / 100 100 ml @ 50 mls/hr IV ONE ONE Rx#:[id number] Other: Weight 82.9 kg Weight Measurement Method Built in [facility] Diagnostic Findings Abdomen/Pelvis CT 07/01/21 19:04 CT OF THE ABDOMEN AND PELVIS WITHOUT CONTRAST IMPRESSION: 1. Bilateral lower lobe groundglass opacities. The appearance favors an infectious process however a similar pattern was shown on CT of June 12, 2020. These are technically indeterminate and a follow-up chest CT in 6 months is recommended. 2. No acute process within the abdomen or pelvis on unenhanced exam. 3. Cholelithiasis. No evidence for acute cholecystitis. 4. Moderate amount of stool within the colon and the rectum. No bowel obstruction. ACT 112: Negative or not required by law. Electronically signed by: Param Taylor M.D. 07/01/2021 8:06 PM Chest X-Ray 07/01/21 19:04 XR chest 1V portable HISTORY: Possible aspiration. choked COMPARISON: Chest 06/14/2020. FINDINGS: Patchy bibasilar airspace opacities. No pneumothorax. No pleural fusions. The heart remains borderline enlarged. No evidence for pulmonary edema. IMPRESSION: Patchy bibasilar airspace opacities. This could represent atelectasis or pneumonia. ACT 112: Negative or not required by law. Electronically signed by: Dewayne Morrison M.D. 07/02/2021 11:00 AM Chest CTA 07/01/21 19:58 CHEST CTA for PULMONARY ARTERIES IMPRESSION: 1. No evidence for pulmonary embolus. 2. Interval improvement in the interstitial thickening and groundglass densities within the lung bases most pronounced within the lower lobes. This could represent a residual viral pneumonitis or aspiration pneumonitis. [address] follow-up recommended to ensure resolution. 3. Focal opacification within the right upper lobe bronchus which favors mucoid opacification. This also requires CT follow-up or bronchoscopy to exclude the less likely possibility of an endobronchial lesion. 4. Focal irregular density within the right upper lobe measuring 1.3 cm, unchanged. This may represent an area of scarring. This also requires follow-up to ensure stability and exclude the less likely possibility of a pulmonary lesion. 5. Trace left pleural effusion and a trace pericardial effusion, unchanged ACT 112: Positive. There are findings on this exam that require communication between the performing entity and the patient following Patient Test Result Information Act ([place] Act 112) guidelines. Electronically signed by: Dewayne Morrison M.D. 07/02/2021 9:21 AM
[2021-07-02] MEDS: ATORVASTATIN 40 MG TAB PO SCH (21:32)
--- NOTE | 2021-07-02 23:56 | Hospitalist Progress Note ---
Date of Service July 02, 2021 Assessment & Plan (1) NSTEMI (non-ST elevated myocardial infarction): Plan: Elevated troponin Present on admission for shortness of breath after choking on a piece of meat Troponin on admission 0.191, then peak to 4.2, now trending down to 3.06 EKG showed T wave inversion on admission Denies any chest pain He was started on heparin drip cardiology on board Echo showed focal apical hypokinesis to akinesis with normal hypercontractile wall motion of the mid and apical levels, perhaps consistent with ischemia/injury in the distal LAD territory or perhaps due to stress-induced cardiomyopathy with left apical ballooning pattern. Ejection fraction 55 to 60% Not a candidate for invasive coronary angiography as per cardiology Continue medical management with aspirin, unfractionated heparin, carvedilol, lisinopril, and atorvastatin. Continue monitor in telemetry SOB (shortness of breath) Choking episode Possible secondary to aspiration pneumonitis Chest x-ray showed Patchy bibasilar airspace opacities CTA chest showed Interval improvement in the interstitial thickening and groundglass densities within the lung bases most pronounced within the lower lobes. Focal opacification within the right upper lobe bronchus which favors mucoid opacification.. [address] follow-up recommended to ensure resolution. Continue Unasyn IV Speech on board Continue aspiration precaution Hx CVA Continue aspirin and statin DM2 Most recent hemoglobin A1c 04 June 2021 Metformin on hold during the hospital course Continue Lantus and insulin sliding scale Continue monitor blood sugar Dementia/hx Wernicke Korsakoff syndrome as per records Stable DVT prophylaxis. On heparin drip Full code Patient sister requesting updates from providers. Ms. Casie Sena, contact #[phone]. Admission and Anticipated Discharge Date Admission Date: July 02, 2021 Subjective Patient was seen and examined for follow-up of dysphagia Lying in bed with no acute distress Denies any chest pain, palpitation, dizziness, and fever. Review of Systems Review of Systems: All systems reviewed & are unremarkable except as noted in Subjective Physical Exam Physical Exam: General- No acute distress Head- atraumatic Eyes- PERRL, EOMI, ENT- oropharynx clear Neck- supple, no JVD Lungs- clear to auscultation Heart- regular rhythm; +murmur Abdomen- normal bowel sounds, soft, nontender Extremities- no calf tenderness Neuro- alert, awake; PERRL, EOMI, +dysarthria, +chronic left hemiplegia Skin- warm & dry Results & Data Results & Data ([facility]) Vital Signs (Past 12 Hours) Vital Signs Temp Pulse Pulse Resp BP BP Pulse Ox 07/02/21 22:29 36.5 C 62 19 118/73 94 07/02/21 21:28 68 148/77 H 95 07/02/21 19:42 36.3 C L 69 19 127/78 95 07/02/21 16:00 77 07/02/21 15:10 36.6 C 72 16 151/75 H 95 07/02/21 12:24 36.5 C 70 18 128/77 97
[2021-07-03] MEDS: AMPICILLIN/SULBACTAM SOD 3,000 MG in 0.9 % SODIUM CHLORIDE 100 ML IV SCH ×4 (00:49→17:13)
[2021-07-03] MEDS: TAMSULOSIN HCL 0.4 MG CAP PO SCH (05:33)
[2021-07-03] MEDS: carvediloL 6.25 MG TAB PO SCH ×2 (08:13→20:51)
[2021-07-03] MEDS: ACETAMINOPHEN 500 MG TAB PO SCH ×3 (08:13→20:50)
[2021-07-03] MEDS: FOLIC ACID 400 MCG TAB PO SCH (08:14)
[2021-07-03] MEDS: ASPIRIN 81 MG ECTAB PO SCH (08:14)
[2021-07-03] MEDS: INSULIN GLARGINE SOLOSTAR 100 UNITS/ML 3 ML PEN SC SCH ×2 (08:14→20:51)
[2021-07-03] MEDS: INSULIN ASPART 100 UNITS/ML 3 ML PEN SC SCH ×4 (08:15→20:51)
[2021-07-03 10:41] LABS: Partial Thromboplastin Ratio 3.8
[2021-07-03 10:49] LABS: Partial Thromboplastin Time 100.9 Seconds (21.0-31.0)
--- NOTE | 2021-07-03 12:14 | Cardiology Progress Note ---
Date of Service July 03, 2021 Assessment & Plan (1) NSTEMI (non-ST elevated myocardial infarction): Plan: 71-year-old prison patient with history of bihemispheric strokes presents after a choking episode, chest x-ray/CT suggestive of possible aspiration pne umonia, and he has had non-ST segment elevation myocardial infarction. Patient's echocardiogram reveals focal apical hypokinesis to akinesis with normal hypercontractile wall motion of the mid and apical levels, perhaps consistent with ischemia/injury in the distal LAD territory or perhaps due to stress-induced cardiomyopathy with left apical ballooning pattern. The patient is not a candidate for invasive coronary angiography. Continue supportive care and medications including aspirin, unfractionated heparin, carvedilol, lisinopril, and atorvastatin. I am concerned with regards to his bleeding risk, and will therefore hold off on adding clopidogrel. Agree with empiric antibiotics for possible aspiration event. Update EKG. DVT prophylaxis: He is on unfractionated heparin infusion. Admission and Anticipated Discharge Date Admission Date: July 02, 2021 Subjective Patient seen in follow up.He is much more alert today. He asked me to change the channel to the news on his TV. He is sitting upright and eating his lunch meal. Telemetry reveals SR in the 60s . Review of Systems Review of Systems: All systems reviewed & are unremarkable except as noted in HPI & below Physical Exam Physical Exam: Cardiac Enzymes 07/02/21 Range/Units 11:31 Troponin I 3.060 H* (0-0.045) ng/ml Coagulation 07/02/21 07/03/21 Range/Units 11:07 10:05 APTT 59.2 H* 100.9 H* (21.0-31.0) Seco nds Intake and Output 07/02/21 07/03/21 07/03/21 22:59 06:59 14:59 Intake Total 382.6 / 2223.20 1573.85 / 2223.20 Output Total 200 / 200 Balance 382.6 / 2023. 1373.85 / Intake: IV 282.6 / 2073.20 1523.85 / 2073.20 Ampicillin/Sul bactam Sod 3,000 108 / 432 216 / 432 mg In 0.9 % So dium Chloride 100 ml @ 216 mls/h r IV Q6H [facility] Rx# :[id number] Heparin Sodium /Dextrose 25,000 174.6 / 642.20 307.85 / 642.20 units In 500 m l @ 1,350 UNITS/ HR 27 mls/hr I V .[id number] [facility] Rx #:[id number] Sodium Chlorid e 0.9% 1000ML 1, 1000 / 1000 000 ml @ 50 ml s/hr IV .Q20H [facility] Rx#:[id number] Oral 100 / 150 50 / 150 Output: Urine Amount (Ca theter) 200 / 200 External 200 / 200 Other: # Unmeasured Voi ds 1 Weight 83.4 kg Constitutional: + ill appearing (Chronically ill in appearance) Respiratory: normal respiratory effort, lungs clear to auscultation Cardiovascular: RRR, no murmur, no edema Gastrointestinal (Abdomen): normal bowel sounds, soft, nontender, no hepatosplenomegaly Neurologic: L hemiparesis Results & Data ([facility]) Vital Signs (Past 12 Hours) Vital Signs Temp Pulse Pulse Resp BP Pulse Ox 07/03/21 08:01 36.5 C 76 18 132/60 95 07/03/21 07:15 68 07/03/21 03:07 36.5 C 63 18 124/75 94
[2021-07-03 12:33] LABS: Hematocrit (blood only) 36.3 % (42-52); Hemoglobin 12.3 g/dL (14.0-18.0); Mean Corpuscular Hemoglobin 31.6 pg (25-34); Mean Corpuscular Hgb Conc 33.9 g/dL (32-36); Mean Corpuscular Volume 93.3 fL (80-100); Mean Platelet Volume 10.8 fL (7.4-10.4); Platelet Count 121 K/uL (130-400); RDW Coefficient of Variation 13.7 % (11.5-14.5); RDW Standard Deviation 46.4 fL (36.4-46.3); Red Blood Count 3.89 M/uL (4.7-6.1); White Blood Count 4.92 K/uL (4.8-10.8)
[2021-07-03 13:10] LABS: Calcium 8.9 mg/dl (8.5-10.1); Creatinine Clr Calc Pharmacy 55.7 ml/min; Est GFR (African American) 67.7 ml/min; Est GFR (Non-African American) 58.5 ml/min; Potassium 3.9 mmol/L (3.5-5.1)
--- NOTE | 2021-07-03 16:52 | Communication Note ---
Date of Service: July 03, 2021 EKG performed at 1600 Reviewed. EKG shows evolution of new deep T wave inversions in the precordial leads compatible with LAD occlusion or stress induced cardiomyopathy. Pt denied any symptoms of angina at time of my assessment today.
[2021-07-03 18:13] LABS: Partial Thromboplastin Ratio 2.4
[2021-07-03 18:15] LABS: Partial Thromboplastin Time 63.5 Seconds (21.0-31.0)
[2021-07-03] MEDS: lisinopril 10 MG TAB PO SCH (20:51)
[2021-07-03] MEDS: ATORVASTATIN 40 MG TAB PO SCH (20:51)
[2021-07-03] MEDS: HEPARIN SODIUM/DEXTROSE 25,000 UNITS/500 ML BAG IV SCH (20:52)
--- NOTE | 2021-07-03 22:01 | Hospitalist Progress Note ---
Date of Service July 03, 2021 Assessment & Plan (1) NSTEMI (non-ST elevated myocardial infarction): Plan: Elevated troponin Present on admission for shortness of breath after choking on a piece of meat Troponin on admission 0.191, then peak to 4.2, now trending down to 3.06 EKG showed T wave inversion on admission Denies any chest pain He was started on heparin drip cardiology on board Echo showed focal apical hypokinesis to akinesis with normal hypercontractile wall motion of the mid and apical levels, perhaps consistent with ischemia/injury in the distal LAD territory or perhaps due to stress-induced cardiomyopathy with left apical ballooning pattern. Ejection fraction 55 to 60% Not a candidate for invasive coronary angiography as per cardiology Continue medical management with aspirin, unfractionated heparin, carvedilol, lisinopril, and atorvastatin. Case discussed with cardiology recommend to continue IV heparin drip for 48-hour Continue monitor in telemetry SOB (shortness of breath) Choking episode Possible secondary to aspiration pneumonitis Chest x-ray showed Patchy bibasilar airspace opacities CTA chest showed Interval improvement in the interstitial thickening and groundglass densities within the lung bases most pronounced within the lower lobes. Focal opacification within the right upper lobe bronchus which favors mucoid opacification.. [address] follow-up recommended to ensure resolution. Continue Unasyn IV Speech on board Continue aspiration precaution Abnormal Lung CT Need outpatient CT chest in 3 month follow-up to ensure resolution. Hx CVA Continue aspirin and statin DM2 Most recent hemoglobin A1c 04 June 2021 Metformin on hold during the hospital course Continue Lantus and insulin sliding scale Continue monitor blood sugar Dementia/hx Wernicke Korsakoff syndrome as per records Stable DVT prophylaxis. On heparin drip Full code Patient sister requesting updates from providers. Ms. Casie Sena, contact #[phone]. Admission and Anticipated Discharge Date Admission Date: July 02, 2021 Subjective Patient was seen and examined for follow-up of elevated troponin Lying in bed with no acute distress He is more awake today and I was able to understand him when he speaks Denies any chest pain, palpitation, dizziness, and fever. Review of Systems Review of Systems: All systems reviewed & are unremarkable except as noted in Subjective Physical Exam Physical Exam: General- No acute distress Head- atraumatic Eyes- PERRL, EOMI, ENT- oropharynx clear Neck- supple, no JVD Lungs- clear to auscultation Heart- regular rhythm; +murmur Abdomen- normal bowel sounds, soft, nontender Extremities- no calf tenderness Neuro- alert, awake; PERRL, EOMI, +dysarthria, +chronic left hemiplegia Skin- warm & dry Results & Data Results & Data ([facility]) Vital Signs (Past 12 Hours) Vital Signs Temp Pulse Pulse Resp BP BP Pulse Ox 07/03/21 20:41 36.8 C 86 22 189/93 H 94 07/03/21 16:00 36.8 C 67 18 126/79 97 07/03/21 14:55 70 07/03/21 11:30 37.4 C 83 20 120/61 96
[2021-07-04] MEDS: AMPICILLIN/SULBACTAM SOD 3,000 MG in 0.9 % SODIUM CHLORIDE 100 ML IV SCH ×5 (00:06→23:58)
[2021-07-04] MEDS: TAMSULOSIN HCL 0.4 MG CAP PO SCH (06:28)
[2021-07-04 08:05] LABS: Partial Thromboplastin Ratio 2.3
[2021-07-04 08:11] LABS: Partial Thromboplastin Time 61.5 Seconds (21.0-31.0)
[2021-07-04] MEDS: INSULIN ASPART 100 UNITS/ML 3 ML PEN SC SCH ×4 (08:21→20:11)
[2021-07-04] MEDS: INSULIN GLARGINE SOLOSTAR 100 UNITS/ML 3 ML PEN SC SCH ×2 (08:21→20:11)
[2021-07-04] MEDS: ACETAMINOPHEN 500 MG TAB PO SCH ×3 (08:22→20:09)
[2021-07-04] MEDS: carvediloL 6.25 MG TAB PO SCH ×2 (08:22→20:10)
[2021-07-04] MEDS: ASPIRIN 81 MG ECTAB PO SCH (08:22)
[2021-07-04] MEDS: FOLIC ACID 400 MCG TAB PO SCH (08:22)
--- NOTE | 2021-07-04 10:21 | Electrocardiogram Report ---
Test Reason : Blood Pressure : / mmHG Vent. Rate : 067 BPM Atrial Rate : 067 BPM P-R Int : 166 ms QRS Dur : 100 ms QT Int : 494 ms P-R-T Axes : 052 -33 141 degrees QTc Int : 521 ms Normal sinus rhythm Left axis deviation Marked T wave abnormality consider anterolateral ischemia Prolonged QT Abnormal ECG When compared with ECG of 02-JUL-2021 10:32, T wave inversion more evident in Anterolateral leads Confirmed by Bruno Simpson ([id number]) on 07/04/2021 10:21:14 AM Referred By: Barb Ventura Confirmed By:Bruno Simpson
--- NOTE | 2021-07-04 10:32 | Electrocardiogram Report ---
Test Reason : Blood Pressure : / mmHG Vent. Rate : 067 BPM Atrial Rate : 067 BPM P-R Int : 172 ms QRS Dur : 100 ms QT Int : 498 ms P-R-T Axes : 053 -28 158 degrees QTc Int : 526 ms Normal sinus rhythm Prolonged QT Abnormal ECG When compared with ECG of 03-JUL-2021 16:00, (unconfirmed) No significant change was found Confirmed by Bruno Simpson ([id number]) on 07/04/2021 10:32:14 AM Referred By: Barb Ventura Confirmed By:Bruno Simpson
--- NOTE | 2021-07-04 15:12 | Cardiology Progress Note ---
Date of Service July 04, 2021 Assessment & Plan (1) NSTEMI (non-ST elevated myocardial infarction): Plan: 71-year-old longterm patient with history of bihemispheric strokes presents after a choking episode, chest x-ray/CT suggestive of possible aspiration pne umonia, and he has had non-ST segment elevation myocardial infarction. EKG performed 07/04/2021 reveals ongoing deep T wave inversions in the anterior precordial leads consistent with anterolateral ischemia or stress-induced cardiomyopathy. A repeat echocardiogram was performed revealing ongoing small focal apical wall motion abnormality, with hypercontractility at the mid and basal levels of the left ventricle. Patient's clinical presentation, troponin levels, EKG and echocardiogram suggest LAD territory ischemia/infarction or stress-induced induced cardiomyopathy (Takotsubo syndrome/left apical ballooning pattern). Patient is felt to be at high risk for complication of cardiac catheterization given his history of severe cerebrovascular disease. He states that he utilizes a wheelchair at the longterm, and does not walk due to his baseline neurologic deficit. Given lack of anginal symptoms, recommend ongoing medication therapy. -Discontinue Coumadin having completed 48 hours of infusion -Continue aspirin, carvedilol, lisinopril, atorvastatin Hold off on adding clopidogrel due to bleeding risk. Transition to DVT prophylaxis dose Lovenox for tomorrow. Titrate up lisinopril to 10 twice daily, as blood pressure has been above goal. Although this needs to be performed with caution given his history of chronic carotid occlusion. DVT prophylaxis: Transition to Lovenox DVT prophylaxis dose. Admission and Anticipated Discharge Date Admission Date: July 02, 2021 Subjective Patient seen in cardiology follow-up. Denies any subjective complaint at present. Specifically denies any chest discomfort or shortness of breath, however history is somewhat difficult to obtain. Review of Systems Review of Systems: All systems reviewed & are unremarkable except as noted in HPI & below Physical Exam Physical Exam: Temp Pulse Resp BP Pulse Ox 36.6 C 64 16 170/69 H 97 07/04/21 15:06 07/04/21 15:06 07/04/21 15:06 07/04/21 15:06 07/04/21 15:06 Constitutional: no acute distress Respiratory: normal respiratory effort, lungs clear to auscultation Cardiovascular: RRR, no murmur, no edema Gastrointestinal (Abdomen): normal bowel sounds, soft, nontender, no hepatosplenomegaly Neurologic: Left hemiparesis Results & Data ([facility]) Vital Signs (Past 12 Hours) Vital Signs Temp Pulse Pulse Resp BP Pulse Ox 07/04/21 08:41 84 07/04/21 07:11 36.3 C L 65 18 155/82 H 95 07/04/21 03:28 36.3 C L 70 16 135/79 94
[2021-07-04] MEDS: HEPARIN SODIUM/DEXTROSE 25,000 UNITS/500 ML BAG IV SCH (16:06)
[2021-07-04] MEDS: ATORVASTATIN 40 MG TAB PO SCH (20:10)
[2021-07-04] MEDS: lisinopril 10 MG TAB PO SCH (20:10)
--- NOTE | 2021-07-04 23:29 | Hospitalist Progress Note ---
Date of Service July 04, 2021 Assessment & Plan (1) NSTEMI (non-ST elevated myocardial infarction): Plan: Elevated troponin Present on admission for shortness of breath after choking on a piece of meat Troponin on admission 0.191, then peak to 4.2, now trending down to 3.06 EKG showed T wave inversion on admission Denies any chest pain He was started on heparin drip cardiology on board Echo showed focal apical hypokinesis to akinesis with normal hypercontractile wall motion of the mid and apical levels, perhaps consistent with ischemia/injury in the distal LAD territory or perhaps due to stress-induced cardiomyopathy with left apical ballooning pattern. Ejection fraction 55 to 60% Not a candidate for invasive coronary angiography due to high risk for complication of cardiac cath with history of severe cerebrovascular disease. Repeat echo today showed a small focal apical wall motion abnormality, with hypercontractility at the mid and basal levels of the left ventricle. Ejection fraction 60 to 65% Continue medical management with aspirin, unfractionated heparin, carvedilol, lisinopril, and atorvastatin. IV heparin drip discontinued after 48-hour Continue monitor in telemetry SOB (shortness of breath) Choking episode Possible secondary to aspiration pneumonitis Chest x-ray showed Patchy bibasilar airspace opacities CTA chest showed Interval improvement in the interstitial thickening and groundglass densities within the lung bases most pronounced within the lower lobes. Focal opacification within the right upper lobe bronchus which favors mucoid opacification.. [address] follow-up recommended to ensure resolution. Continue Unasyn IV Speech on board Continue aspiration precaution Hypertension Lisinopril increased to 10 mg twice daily Continue monitor BP Abnormal Lung CT Need outpatient CT chest in 3 month follow-up to ensure resolution. Hx CVA Continue aspirin and statin DM2 Most recent hemoglobin A1c 04 June 2021 Metformin on hold during the hospital course Continue Lantus and insulin sliding scale Continue monitor blood sugar Dementia/hx Wernicke Korsakoff syndrome as per records Stable DVT prophylaxis. On heparin drip Full code Patient sister requesting updates from providers. Ms. Casie Sena, contact #[phone]. Admission and Anticipated Discharge Date Admission Date: July 02, 2021 Subjective Patient was seen and examined for follow-up of elevated troponin Lying in bed with no acute distress Denies any chest pain, palpitation, dizziness, and fever. Review of Systems Review of Systems: All systems reviewed & are unremarkable except as noted in Subjective Physical Exam Physical Exam: General- No acute distress Head- atraumatic Eyes- PERRL, EOMI, ENT- oropharynx clear Neck- supple, no JVD Lungs- clear to auscultation Heart- regular rhythm; +murmur Abdomen- normal bowel sounds, soft, nontender Extremities- no calf tenderness Neuro- alert, awake; PERRL, EOMI, +dysarthria, +chronic left hemiplegia Skin- warm & dry Results & Data Results & Data ([facility]) Vital Signs (Past 12 Hours) Vital Signs Temp Pulse Pulse Resp BP Pulse Ox 07/04/21 19:34 36.5 C 65 18 165/80 H 96 07/04/21 16:07 57 L 07/04/21 15:06 36.6 C 64 16 170/69 H 97
[2021-07-05] MEDS: AMPICILLIN/SULBACTAM SOD 3,000 MG in 0.9 % SODIUM CHLORIDE 100 ML IV SCH ×4 (05:41→23:07)
[2021-07-05] MEDS: TAMSULOSIN HCL 0.4 MG CAP PO SCH (05:42)
[2021-07-05 05:58] LABS: Hematocrit (blood only) 35.1 % (42-52); Hemoglobin 11.7 g/dL (14.0-18.0); Mean Corpuscular Hgb Conc 33.3 g/dL (32-36); Mean Corpuscular Volume 92.9 fL (80-100); Platelet Count 113 K/uL (130-400); RDW Coefficient of Variation 13.5 % (11.5-14.5); RDW Standard Deviation 46.2 fL (36.4-46.3); Red Blood Count 3.78 M/uL (4.7-6.1); White Blood Count 4.48 K/uL (4.8-10.8)
[2021-07-05 06:30] LABS: Calcium 8.3 mg/dl (8.5-10.1); Creatinine Clr Calc Pharmacy 67.3 ml/min; Est GFR (African American) 85.1 ml/min; Est GFR (Non-African American) 73.4 ml/min; Magnesium 1.7 mg/dl (1.8-2.4); Potassium 3.7 mmol/L (3.5-5.1)
[2021-07-05 06:53] LABS: Troponin I 0.301 ng/ml (0-0.045)
[2021-07-05] MEDS: INSULIN ASPART 100 UNITS/ML 3 ML PEN SC SCH ×4 (08:46→21:01)
[2021-07-05] MEDS: INSULIN GLARGINE SOLOSTAR 100 UNITS/ML 3 ML PEN SC SCH ×2 (08:47→21:00)
[2021-07-05] MEDS: lisinopril 10 MG TAB PO SCH ×2 (08:50→20:59)
[2021-07-05] MEDS: carvediloL 6.25 MG TAB PO SCH ×2 (08:51→20:58)
[2021-07-05] MEDS: FOLIC ACID 400 MCG TAB PO SCH (08:51)
[2021-07-05] MEDS: ASPIRIN 81 MG ECTAB PO SCH (08:51)
[2021-07-05] MEDS: ACETAMINOPHEN 500 MG TAB PO SCH ×3 (08:52→20:57)
[2021-07-05] MEDS ORDERED: POTASSIUM CHLORIDE 20 MEQ/15 ML UDC PO STA (11:41)
--- NOTE | 2021-07-05 11:41 | Cardiology Progress Note ---
Date of Service July 05, 2021 Assessment & Plan (1) NSTEMI (non-ST elevated myocardial infarction): Plan: Continue medical management for NSTEMI, with distal LAD territory infarct/injury, or perhaps stress-induced cardiomyopathy, preserved LVEF noted repeat echocardiogram 07/04/2021. Supplement potassium and magnesium. Has completed 48-hour course of heparin. Continue aspirin, carvedilol, lisinopril (dose titrated to 10 twice daily this admission), atorvastatin. Lovenox, DVT prophylaxis distad. (2) Aortic stenosis: Plan: Moderate aortic stenosis noted on echo. Continue clinical/echocardiographic surveillance. No intervention necessary at present. Admission and Anticipated Discharge Date Admission Date: July 02, 2021 Subjective Patient seen in cardiology follow-up. He has been off of heparin for 48 hours. Denies any subjective complaints. Telemetry reveals sinus bradycardia in the range of 50 to 60 bpm. Physical Exam Physical Exam: Temp Pulse Resp BP Pulse Ox 37.0 C 68 18 123/59 L 97 07/05/21 08:00 07/05/21 08:00 07/05/21 08:00 07/05/21 08:00 07/05/21 08:00 Constitutional: WD/WN, vitals as above Respiratory: normal respiratory effort, lungs clear to auscultation Cardiovascular: Rate/Rhythm: regular rate Heart Sounds: + murmur (2/6 systolic murmur) Extremities: no edema Neurologic: Left hemiparesis Results & Data ([facility]) Vital Signs (Past 12 Hours) Vital Signs Temp Pulse Pulse Resp BP Pulse Ox 07/05/21 08:00 37.0 C 68 18 123/59 L 97 07/05/21 07:52 63 07/05/21 03:34 36.6 C 62 18 128/63 96 Laboratory Results Cardiac Enzymes 07/05/21 Range/Units 05:40 Troponin I 0.301 H* (0-0.045) ng/ml CBC 07/05/21 Range/Units 05:40 WBC 4.48 L (4.8-10.8) K/uL RBC 3.78 L (4.7-6.1) M/uL Hgb 11.7 L (14.0-18.0) g/dL Hct 35.1 L (42-52) % Plt Count 113 L (130-400) K/uL Comprehensive Metabolic Panel 07/05/21 Range/Units 05:40 Sodium 143 (136-145) mmol/L Potassium 3.7 (3.5-5.1) mmol/L Chloride 110 H (98-107) mmol/L Carbon Dioxide 27 (21-32) mmol/L BUN 18 (7-18) mg/dl Creatinine 1.01 (0.6-1.4) mg/dl Glucose 105 H (70-99) mg/dl Calcium 8.3 L (8.5-10.1) mg/dl Intake and Output 07/04/21 07/05/21 07/05/21 22:59 06:59 14:59 Intake Total 111.617 / 1252.417 516 / 1252.417 Output Total 975 / 975 Balance 111.617 / 277.417 -459 / 277.417 Intake: IV 111.617 / 712.417 216 / 712.417 Ampicillin/Sulbactam Sod 3,000 108 / 432 216 / 432 mg In 0.9 % Sodium Chloride 100 ml @ 216 mls/hr IV Q6H [facility] Rx# :[id number] Heparin Sodium/Dextrose 25,000 3.617 / 280.417 units In 500 ml @ 1,200 UNITS/ HR 24 mls/hr IV .[id number] [facility] Rx #:[id number] Oral 300 / 540 Output: Urine 900 / 900 Urine Amount (Catheter) 75 / 75 External 75 / 75 Other: # Unmeasured Voids 1 Weight 82.1 kg Weight Measurement Method Built in [facility]
[2021-07-05] MEDS: ENOXAPARIN INJ 40 MG/0.4 ML SYR SQ SCH (13:51)
[2021-07-05] MEDS: MAGNESIUM OXIDE 400 MG TAB PO SCH ×2 (13:51→20:58)
--- NOTE | 2021-07-05 20:19 | Hospitalist Progress Note ---
Date of Service July 05, 2021 delayed entry date of service noted above Assessment & Plan (1) NSTEMI (non-ST elevated myocardial infarction): Plan: per Dr. Jones's notes with addendum NSTEMI Elevated troponin Present on admission for shortness of breath after choking on a piece of meat Troponin on admission 0.191, then peak to 4.2, now trending down to 3.06 EKG showed T wave inversion on admission Denies any chest pain He was started on heparin drip cardiology on board Echo showed focal apical hypokinesis to akinesis with normal hypercontractile wall motion of the mid and apical levels, perhaps consistent with ischemia/injury in the distal LAD territory or perhaps due to stress-induced cardiomyopathy with left apical ballooning pattern. Ejection fraction 55 to 60% Not a candidate for invasive coronary angiography due to high risk for complication of cardiac cath with history of severe cerebrovascular disease. Repeat echo today showed a small focal apical wall motion abnormality, with hypercontractility at the mid and basal levels of the left ventricle. Ejection fraction 60 to 65% Continue medical management with aspirin, unfractionated heparin, carvedilol, lisinopril, and atorvastatin. IV heparin drip discontinued after 48-hour Continue monitor in telemetry 07/05 Remains stable overall Continue aspirin, carvedilol, lisinopril, Lipitor Appreciate cardiology service recommendations SOB (shortness of breath) Choking episode Possible aspiration pneumonitis Chest x-ray showed Patchy bibasilar airspace opacities CTA chest showed Interval improvement in the interstitial thickening and groundglass densities within the lung bases most pronounced within the lower lobes. Focal opacification within the right upper lobe bronchus which favors mucoid opacification.. [address] follow-up recommended to ensure resolution. Continue Unasyn IV Speech on board Continue aspiration precaution 07/05/2021 Respiratory status stable Continue Unasyn Always supervise with meals Hypertension Lisinopril increased to 10 mg twice daily Continue monitor BP Abnormal Lung CT CT chest angio: 1. No evidence for pulmonary embolus. 2. Interval improvement in the interstitial thickening and groundglass densities within the lung bases most pronounced within the lower lobes. This could represent a residual viral pneumonitis or aspiration pneumonitis. [address] follow-up recommended to ensure resolution. 3. Focal opacification within the right upper lobe bronchus which favors mucoid opacification. This also requires CT follow-up or bronchoscopy to exclude the less likely possibility of an endobronchial lesion. 4. Focal irregular density within the right upper lobe measuring 1.3 cm, unchanged. This may represent an area of scarring. This also requires follow-up to ensure stability and exclude the less likely possibility of a pulmonary lesion. 5. Trace left pleural effusion and a trace pericardial effusion, unchanged Need outpatient CT chest in 1 month follow-up to ensure resolution. Hx CVA Continue aspirin and statin DM2 Most recent hemoglobin A1c 04 June 2021 Metformin on hold during the hospital course Continue Lantus and insulin sliding scale Continue monitor blood sugar Dementia/hx Wernicke Korsakoff syndrome as per records Stable DVT prophylaxis. On lovenox Full code Admission and Anticipated Discharge Date Admission Date: July 02, 2021 Subjective ff up for NSTEMI, aspiration pneumonitis, etc seen sitting up in bed, comfortable in good spirits states he feels fine overall no chest pain, dyspnea, palpitations, dizziness No cough, shortness of breath, sputum, fevers or chills No other symptoms No other issues per [employer] of Systems Review of Systems: all noted and negative except for above Physical Exam Physical Exam: General- oriented x 1-2, not in distress, speaks in sentences with no effort or accessory muscle use Eyes- anicteric Neck- no JVD Lungs- clear breath sounds bilaterally, no rales/wheezes Heart- normal rate, regular rhythm; no murmurs Abdomen- normal bowel sounds, nondistended, soft, nontender Extremities- no pretibial edema, no calf tenderness Neuro- alert, oriented x 1-2; no gross focal neurologic deficits Skin- warm & dry Results & Data Results & Data ([facility]) Vital Signs (Past 12 Hours) Vital Signs Temp Pulse Pulse Resp BP Pulse Ox 07/05/21 20:05 37.0 C 68 19 158/72 H 96 07/05/21 15:45 64 07/05/21 15:30 37 C 63 16 166/73 H 93 07/05/21 11:49 36.4 C L 59 L 18 129/73 96 all noted and reviewed including below
[2021-07-05] MEDS: ATORVASTATIN 40 MG TAB PO SCH (20:59)
[2021-07-06] MEDS: AMPICILLIN/SULBACTAM SOD 3,000 MG in 0.9 % SODIUM CHLORIDE 100 ML IV SCH ×3 (05:57→17:25)
[2021-07-06] MEDS: TAMSULOSIN HCL 0.4 MG CAP PO SCH (05:58)
[2021-07-06 07:51] LABS: Creatinine Clr Calc Pharmacy 66.6 ml/min; Est GFR (African American) 84.1 ml/min; Est GFR (Non-African American) 72.6 ml/min
[2021-07-06] MEDS: ENOXAPARIN INJ 40 MG/0.4 ML SYR SQ SCH (08:14)
[2021-07-06] MEDS: lisinopril 10 MG TAB PO SCH (08:15)
[2021-07-06] MEDS: ACETAMINOPHEN 500 MG TAB PO SCH ×2 (08:15→14:46)
[2021-07-06] MEDS: MAGNESIUM OXIDE 400 MG TAB PO SCH (08:15)
[2021-07-06] MEDS: ASPIRIN 81 MG ECTAB PO SCH (08:16)
[2021-07-06] MEDS: carvediloL 6.25 MG TAB PO SCH (08:16)
[2021-07-06] MEDS: FOLIC ACID 400 MCG TAB PO SCH (08:16)
[2021-07-06] MEDS: INSULIN GLARGINE SOLOSTAR 100 UNITS/ML 3 ML PEN SC SCH (08:17)
[2021-07-06] MEDS: INSULIN ASPART 100 UNITS/ML 3 ML PEN SC SCH ×3 (08:19→17:21)
[2021-07-06 10:40] LABS: BUN Creatinine Ratio 18.8 (10-20); Calcium 8.9 mg/dl (8.5-10.1); Creatinine Clr Calc Pharmacy 63.5 ml/min; Est GFR (African American) 79.4 ml/min; Est GFR (Non-African American) 68.5 ml/min; Magnesium 2.2 mg/dl (1.8-2.4); Potassium 3.8 mmol/L (3.5-5.1)
--- NOTE | 2021-07-06 12:37 | Cardiology Progress Note ---
Date of Service July 06, 2021 Assessment & Plan (1) NSTEMI (non-ST elevated myocardial infarction): Plan: Continue medical management for the NSTEMI (Distal LAD territory infarct/injury versus stress-induced cardiomyopathy). Preserved LVEF noted via repeat echocardiogram dated 07/04/2021. Continue guideline directed medical management with beta-marsha (carvedilol), ACEI (Lisinopril), moderate intensity statin therapy (atorvastatin 40 mg/dL), and aspirin (2) Aortic stenosis: Plan: Moderate via resting echocaridography this admission. Continue clinical/echocardiographic surveillance. No intervention necessary at this point. (3) Dyslipidemia, goal LDL below 70: Plan: LDL goal less than 70 mg/dL. LDL cholesterol 63 mg/dL on 07/02/2021. LFT's OK (AST 9, ALT 18, Alk Phos 105) on 07/01/2021. Continue atorvastatin 40 mg/day (4) HTN, goal below 130/80: Plan: Last BP was 131/64 with labile BP's noted throughout this admission. Carvedilol and Lisinopril increased this admission. Resting heart rates will not likely allow for further titration of carvedilol. Amlodipine may be a future consideration along with long acting nitrates (isosorbide mononitrate) Admission and Anticipated Discharge Date Admission Date: July 02, 2021 Supervising Physician Co-Signing Physician Notes Supervising Physician Attestation: I have personally performed a history and physical examination on the patient. I agree with the physician seed laboratory assistant's findings and plan as documented with the following additions. Subjective: Patient without complaints other than being eager for transfer back to the [facility] Exam: Left-sided hemiparesis Data: Sinus rhythm with sinus bradycardia in the range of 50 to 60 bpm noted Assessment and Plan: Findings and plan as documented above. DVT prophylaxis: Subcutaneous Lovenox 40 mg daily Angus Carr DO Subjective Patient seen and examined in cardiology follow-up. Inpatient and outpatient chart reviewed including medications and telemetry reviewed. No complaints. Anxious for discharge back to [facility]. Patient denies chest pain, palpitations, shortness of breath, dizziness, fevers, or chills. Telemetry over the last 24 hours has revealed sinus rhythm in the 50's and 60's, with occasional PAC's overnight. July 04, 2021 TTE Interpretation Summary ([facility], Dr. Carr): Goal directed focus study. Moderate concntric LVH. Small apical WMA, with hyperdynamic contrac tility at the mid and basal levels. Normal systolic function, EF 60-65%. Moderate aortic stenosis. When compared to the previous study dated 07/02/2021, there has been subtle improvement in the size of the apical WMA. Physical Exam Physical Exam: General: A&Ox3. NAD. Garbled speech. HENT: Normocephalic. Atraumatic. Eyes: PER. Conjunctiva pink, sclera clear. Neck: Transmitted systolic murmur versus bilateral carotid bruits. No JVD. No HJR. Heart: RRR. Grade II/ systolic murmur heart best at the right upper sternal border. No diastolic murmur. No rub. PMI is nondisplaced. Lungs: Upper airway congestion that improves post cough. No wheeze. Abdomen: +BS. Soft. Nontender. No masses or organomegaly. Extremities: No clubbing, cyanosis, or edema. Nails are discolored, presumably from prior tobacco use/abuse. Limited neurological examination reveals left sided hemiparesis. Pulses: radial=2/4, posterior tibial=1/4. Results & Data ([facility]) Vital Signs (Past 12 Hours) Vital Signs Temp Pulse Pulse Resp BP Pulse Ox 07/06/21 12:00 36.5 C 59 L 18 131/64 96 07/06/21 08:00 36.9 C 59 L 60 16 147/73 H 96 07/06/21 03:45 36.3 C L 54 L 149/63 H 95 Laboratory Results Laboratory Results - last 48 hr 07/04/21 07/04/21 07/05/21 16:28 19:59 05:40 WBC RBC Hgb Hct MCV MCH MCHC RDW Std Deviation RDW Coeff of Guido Plt Count MPV Sodium 143 Potassium 3.7 Chloride 110 H Carbon Dioxide 27 Anion Gap 6.0 BUN 18 Creatinine 1.01 Est Cr Clr Drug Dosing 67.3 Est GFR ( Amer) 85.1 Est GFR (Non-Af Amer) 73.4 BUN/Creatinine Ratio 18.0 Glucose 105 H POC Glucose 150 H 140 H Calcium 8.3 L Magnesium 1.7 L Troponin I 0.301 H* 07/05/21 07/05/21 07/05/21 05:40 07:32 11:30 WBC 4.48 L RBC 3.78 L Hgb 11.7 L Hct 35.1 L MCV 92.9 MCH 31.0 MCHC 33.3 RDW Std Deviation 46.2 RDW Coeff of Guido 13.5 Plt Count 113 L MPV 11.0 H Sodium Potassium Chloride Carbon Dioxide Anion Gap BUN Creatinine Est Cr Clr Drug Dosing Est GFR ( Amer) Est GFR (Non-Af Amer) BUN/Creatinine Ratio Glucose POC Glucose 97 167 H Calcium Magnesium Troponin I 07/05/21 07/05/21 07/06/21 16:04 20:47 06:43 WBC RBC Hgb Hct MCV MCH MCHC RDW Std Deviation RDW Coeff of Guido Plt Count MPV Sodium Potassium Chloride Carbon Dioxide Anion Gap BUN Creatinine 1.02 Est Cr Clr Drug Dosing 66.6 Est GFR ( Amer) 84.1 Est GFR (Non-Af Amer) 72.6 BUN/Creatinine Ratio Glucose POC Glucose 135 H 136 H Calcium Magnesium Troponin I 07/06/21 07/06/21 07/06/21 06:45 07:42 11:16 WBC RBC Hgb Hct MCV MCH MCHC RDW Std Deviation RDW Coeff of Guido Plt Count MPV Sodium 141 Potassium 3.8 Chloride 109 H Carbon Dioxide 29 Anion Gap 3.0 BUN 20 H Creatinine 1.07 Est Cr Clr Drug Dosing 63.5 Est GFR ( Amer) 79.4 Est GFR (Non-Af Amer) 68.5 BUN/Creatinine Ratio 18.8 Glucose 101 H POC Glucose 102 H 210 H Calcium 8.9 Magnesium 2.2 Troponin I
--- NOTE | 2021-07-06 15:29 | Hospitalist Progress Note ---
Date of Service July 06, 2021 Assessment & Plan (1) NSTEMI (non-ST elevated myocardial infarction): Plan: per Dr. Jones's notes with addendum NSTEMI Elevated troponin Present on admission for shortness of breath after choking on a piece of meat Troponin on admission 0.191, then peak to 4.2, now trending down to 3.06 EKG showed T wave inversion on admission Denies any chest pain He was started on heparin drip cardiology on board Echo showed focal apical hypokinesis to akinesis with normal hypercontractile wall motion of the mid and apical levels, perhaps consistent with ischemia/injury in the distal LAD territory or perhaps due to stress-induced cardiomyopathy with left apical ballooning pattern. Ejection fraction 55 to 60% Not a candidate for invasive coronary angiography due to high risk for complication of cardiac cath with history of severe cerebrovascular disease. Repeat echo today showed a small focal apical wall motion abnormality, with hypercontractility at the mid and basal levels of the left ventricle. Ejection fraction 60 to 65% Continue medical management with aspirin, unfractionated heparin, carvedilol, lisinopril, and atorvastatin. IV heparin drip discontinued after 48-hour Continue monitor in telemetry 07/06/21 Remains stable overall Continue aspirin, carvedilol, lisinopril, Lipitor Appreciate cardiology service recommendations ff up with [facility] wrap turner Dr. Carr in 2 weeks Moderate aortic stenosis Continue clinical/echocardiographic surveillance per cardiology service SOB (shortness of breath) Choking episode Possible aspiration pneumonitis Chest x-ray showed Patchy bibasilar airspace opacities CTA chest showed Interval improvement in the interstitial thickening and groundglass densities within the lung bases most pronounced within the lower lobes. Focal opacification within the right upper lobe bronchus which favors mucoid opacification.. [address] follow-up recommended to ensure resolution. Continue Unasyn IV Speech on board Continue aspiration precaution 07/06/2021 Respiratory status stable Completed 5 days of IV Zosyn Always supervise with meals Follow speech therapy recommendations Hypertension Lisinopril increased to 10 mg twice daily Carvedilol increased to 6.25 mg p.o. twice daily Continue monitor BP Abnormal Lung CT CT chest angio: 1. No evidence for pulmonary embolus. 2. Interval improvement in the interstitial thickening and groundglass densities within the lung bases most pronounced within the lower lobes. This could rep resent a residual viral pneumonitis or aspiration pneumonitis. [address] follow-up recommended to ensure resolution. 3. Focal opacification within the right upper lobe bronchus which favors mucoid opacification. This also requires CT follow-up or bronchoscopy to exclude the less likely possibility of an endobronchial lesion. 4. Focal irregular density within the right upper lobe measuring 1.3 cm, unchanged. This may represent an area of scarring. This also requires follow-up to ensure stability and exclude the less likely possibility of a pulmonary lesion. 5. Trace left pleural effusion and a trace pericardial effusion, unchanged Need outpatient CT chest in 1 month follow-up to ensure resolution. Hx CVA Continue aspirin and statin DM2 Most recent hemoglobin A1c 04 June 2021 Metformin on hold during the hospital course Continue Lantus and insulin sliding scale Continue monitor blood sugar Dementia/hx Wernicke Korsakoff syndrome as per records Stable DVT prophylaxis. On lovenox Disposition Return to detention facility Follow-up with PCP in 1 week Follow-up with wrap turner Dr. Carr in 2 weeks Admission and Anticipated Discharge Date Admission Date: July 02, 2021 Subjective Follow-up for NSTEMI, aspiration pneumonitis, etc. Seen resting in bed, comfortable good spirits States he feels fine overall No cough, shortness of breath, sputum, fevers or chills No chest pain, palpitations, dizziness No other symptoms States he is ready for discharge today Review of Systems Review of Systems: all noted and negative except for above Physical Exam Physical Exam: General- oriented x 1-2, not in distress, speaks in sentences with no effort or accessory muscle use Eyes- anicteric Neck- no JVD Lungs- clear BS bilaterally, no crackles or wheezing Heart- normal rate, regular rhythm; no murmurs Abdomen- normal bowel sounds, nondistended, soft, nontender Extremities- no pretibial edema, no calf tenderness Neuro- alert, oriented x 1-2, no gross focal neurologic deficits Skin- warm & dry Results & Data Results & Data ([facility]) Vital Signs (Past 12 Hours) Vital Signs Temp Pulse Pulse Resp BP Pulse Ox 07/06/21 12:00 36.5 C 59 L 18 131/64 96 07/06/21 08:00 36.9 C 59 L 60 16 147/73 H 96 07/06/21 03:45 36.3 C L 54 L 149/63 H 95 all noted and reviewed including below
--- NOTE | 2021-07-06 15:39 | Discharge Summary ---
Date of Service July 06, 2021 Admission HPI Per Admitting Provider History obtained from patient, family, and records. Limited history from patient secondary to chronic aphasia. Medical history significant for CVA, PVD, hypertension, DM2 insulin requiring, dementia, Wernicke Korsakoff syndrome as per records, past tobacco/alcohol abuse, chronic anemia (baseline hemoglobin 12-13 ), aspiration risk as per records. Last confinement May 2020 for COVID-19 pneumonia. Patient complained of left-sided abdominal pain to halfway staff in a.m. as per records. Patient later on noted to choke on a piece of meat with subsequent cough and emesis. Some shortness of breath as per patient. Patient denies chest pain. Abnormal vitals noted at halfway as per patient sister. Patient brought to the ER for evaluation. Medical History as above Surgical History : Hip fracture surgery Family History : Heart disease, stroke Personal/Social history : Past tobacco/alcohol abuse, disabled, halfway resident Admission Exam (Per Admitting) Constitutional GENERAL: Comfortable, aphasic, dysarthric, no respiratory distress SKIN: Pallor, warm HEENT: Pale palpebral conjunctivae, no ptosis, dry buccal mucosa NECK : Supple, no tenderness CHEST : Decreased breath sounds, no tenderness HEART : RRR, systolic murmur heard over sternal border and second right intercostal space ABDOMEN: Some distention, nontender EXTREMITIES : No LE swelling/tenderness, no other conspicuous deformities noted NEUROLOGIC : Coherent, aphasic, dysarthric, chronic left hemiplegia Discharge Data Consultations 07/01/21 22:51 ED Decision to Admit Stat 07/02/21 03:19 Consult Cardiology Routine Procedures Performed CHEST CTA for PULMONARY ARTERIES CT DOSE: 830.47 mGy.cm HISTORY: Tachycardia. Positive troponin. Assess for pulmonary embolus. TECHNIQUE: Multiaxial CT images of the chest were performed following the intravenous administration of contrast to evaluate the pulmonary arteries. Maximal intensity projection images were also obtained. A dose lowering technique was utilized adhering to the principles of ALARA. COMPARISON STUDY: Chest CTA 06/15/2020. FINDINGS: There are few punctate calcifications within the visualized liver and spleen. The adrenal glands are unremarkable. There are few small gallstones. Trace left pleural effusion and a trace pericardial effusion, unchanged. Normal caliber esophagus. Severe calcified plaque within the coronary arteries. Normal caliber thoracic aorta with no evidence for dissection. The heart is borderline enlarged. Mild elevation of the left hemidiaphragm, unchanged. No filling defects within the pulmonary arteries to suggest a pulmonary embolus. A few calcified hilar and subcarinal lymph nodes. No lymphadenopathy identified within the chest. No suspicious lytic or blastic osseous lesions. No pneumothorax. Mild biapical pleural-parenchymal scarlike densities remain unchanged. Interstitial thickening and groundglass densities within the lung bases most pronounced within the lower lobes have improved in the interval. There is 1.3 cm focal irregular density within the right upper lobe on image 163. This is similar to the prior study. Mild diffuse bronchial wall thickening. Focal opacification within the right upper lobe bronchus best seen image 186. This is new from the prior study and therefore favors mucoid opacification. IMPRESSION: 1. No evidence for pulmonary embolus. 2. Interval improvement in the interstitial thickening and groundglass densities within the lung bases most pronounced within the lower lobes. This could re present a residual viral pneumonitis or aspiration pneumonitis. [address] follow-up recommended to ensure resolution. 3. Focal opacification within the right upper lobe bronchus which favors mucoid opacification. This also requires CT follow-up or bronchoscopy to exclude the less likely possibility of an endobronchial lesion. 4. Focal irregular density within the right upper lobe measuring 1.3 cm, unchanged. This may represent an area of scarring. This also requires follow-up to ensure stability and exclude the less likely possibility of a pulmonary lesion. 5. Trace left pleural effusion and a trace pericardial effusion, unchanged ACT 112: Positive. There are findings on this exam that require communication between the performing entity and the patient following Patient Test Result Information Act ([place] Act 112) guidelines. Electronically signed by: Dewayne Morrison M.D. 07/02/2021 9:[address] OF THE ABDOMEN AND PELVIS WITHOUT CONTRAST CLINICAL HISTORY: Left lower quadrant pain. COMPARISON STUDY: CT of the abdomen and pelvis June 12, 2020. TECHNIQUE: Axial images of the abdomen and pelvis were obtained without IV contrast. Images were reviewed in the axial, sagittal, and coronal planes. Automated exposure control was utilized for the study. A dose lowering technique was utilized adhering to the principles of ALARA. FINDINGS: Note is made of moderate groundglass opacities within the lower lungs. These are increased in extent when compared to CT of June 12, 2020. Extensive calcifications within each renal sinus are likely vascular. There is no hydronephrosis. There are no ureteral calculi. Bladder is mildly distended. Evaluation the remainder of the abdomen and pelvis is suboptimally assessed on this unenhanced exam. Unenhanced images of the liver, spleen, adrenal glands and pancreas are unremarkable with exception of parenchymal calcifications within the pancreas. There is no biliary or pancreatic ductal dilatation. There is a gallstone within the gallbladder. There is no peripancreatic or pericholecystic infiltration. The appendix is unremarkable. There is no evidence for a bowel obstruction. Moderate amount of stool within the colon and rectum is noted. Images of the pelvis are degraded by streak artifact from right hip arthroplasty. There is no free fluid. There is no abscess. No acute fracture is identified within the visualized skeletal structures. Extensive atherosclerotic plaque is noted. IMPRESSION: 1. Bilateral lower lobe groundglass opacities. The appearance favors an infectious process however a similar pattern was shown on CT of June 12, 2020. These are technically indeterminate and a follow-up chest CT in 6 months is recommended. 2. No acute process within the abdomen or pelvis on unenhanced exam. 3. Cholelithiasis. No evidence for acute cholecystitis. 4. Moderate amount of stool within the colon and the rectum. No bowel obstruction. ACT 112: Negative or not required by law. Electronically signed by: Param Taylor M.D. 07/01/2021 8:06 PM Hospital Course (1) NSTEMI (non-ST elevated myocardial infarction): per Dr. Jones's notes with addendum NSTEMI Elevated troponin Present on admission for shortness of breath after choking on a piece of meat Troponin on admission 0.191, then peak to 4.2, now trending down to 3.06 EKG showed T wave inversion on admission Denies any chest pain He was started on heparin drip cardiology on board Echo showed focal apical hypokinesis to akinesis with normal hypercontractile wall motion of the mid and apical levels, perhaps consistent with ischemia/injury in the distal LAD territory or perhaps due to stress-induced cardiomyopathy with left apical ballooning pattern. Ejection fraction 55 to 60% Not a candidate for invasive coronary angiography due to high risk for complication of cardiac cath with history of severe cerebrovascular disease. Repeat echo today showed a small focal apical wall motion abnormality, with hypercontractility at the mid and basal levels of the left ventricle. Ejection fraction 60 to 65% Continue medical management with aspirin, unfractionated heparin, carvedilol, lisinopril, and atorvastatin. IV heparin drip discontinued after 48-hour Continue monitor in telemetry 07/06/21 Remains stable overall Continue aspirin, carvedilol, lisinopril, Lipitor Appreciate cardiology service recommendations ff up with [facility] riprap worker Dr. Carr in 2 weeks Moderate aortic stenosis Continue clinical/echocardiographic surveillance per cardiology service SOB (shortness of breath) Choking episode Possible aspiration pneumonitis Chest x-ray showed Patchy bibasilar airspace opacities CTA chest showed Interval improvement in the interstitial thickening and groundglass densities within the lung bases most pronounced within the lower lob es. Focal opacification within the right upper lobe bronchus which favors mucoid opacification.. [address] follow-up recommended to ensure resolution. Continue Unasyn IV Speech on board Continue aspiration precaution 07/06/2021 Respiratory status stable Completed 5 days of IV Zosyn Always supervise with meals Follow speech therapy recommendations Hypertension Lisinopril increased to 10 mg twice daily Carvedilol increased to 6.25 mg p.o. twice daily Continue monitor BP Abnormal Lung CT CT chest angio: 1. No evidence for pulmonary embolus. 2. Interval improvement in the interstitial thickening and groundglass densities within the lung bases most pronounced within the lower lobes. This could represent a residual viral pneumonitis or aspiration pneumonitis. [address] follow-up recommended to ensure resolution. 3. Focal opacification within the right upper lobe bronchus which favors mucoid opacification. This also requires CT follow-up or bronchoscopy to exclude the less likely possibility of an endobronchial lesion. 4. Focal irregular density within the right upper lobe measuring 1.3 cm, unchanged. This may represent an area of scarring. This also requires follow-up to ensure stability and exclude the less likely possibility of a pulmonary lesion. 5. Trace left pleural effusion and a trace pericardial effusion, unchanged Need outpatient CT chest in 1 month follow-up to ensure resolution. Hx CVA Continue aspirin and statin DM2 Most recent hemoglobin A1c 04 June 2021 Metformin on hold during the hospital course Continue Lantus and insulin sliding scale Continue monitor blood sugar Dementia/hx Wernicke Korsakoff syndrome as per records Stable DVT prophylaxis. On lovenox Disposition Return to group home facility Follow-up with PCP in 1 week Follow-up with riprap worker Dr. Crar in 2 weeks
== END 2021-07-06 19:13 | DRG 280 ==
LOC: ED 18:55 → 2S 18:55 → SUATTDRO 07-02 03:21

== ENCOUNTER 2023-01-21 19:33 | Inpatient (IN) ==
[2023-01-21] MEDS ORDERED: ALBUT/IPRATROP 3MG/0.5MG NEB 3 ML VIAL NEB STA (20:08)
--- NOTE | 2023-01-21 20:13 | Emergency Department Note ---
Impression & Plan AMS (altered mental status), Multifocal pneumonia, Aspiration into airway, Hypomagnesemia, Acute hyperglycemia ED Provider Note ED Provider Note NAME: ROB JONES AGE:72 SEX: Male : 1950 ARRIVES VIA: EMS INFORMANT: EMS ED PROVIDER(s): Samina Syed DO CHIEF COMPLAINT: AMS HPI: This is a 72-year-old male presents emergency department via EMS after he was seen by an outpatient provider and sent in for additional evaluation and concern for failed outpatient treatment of pneumonia. Patient was diagnosed on Saturday with pneumonia and started on doxycycline. He was rechecked today and given steroids and a breathing treatment. 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 Patient does have a prior history of dysphagia/aspiration. Patient can answer yes no to simple questions and denies chest pain, abdominal pain, headaches, or nausea. PAST MEDICAL HISTORY:See Below PAST SURGICAL HISTORY:See Below FAMILY HISTORY:See Below SOCIAL HISTORY:See Below HOME MEDICATIONS:See Below ALLERGIES:See Below VITALS:See Below PHYSICAL EXAMINATION: GENERAL: alert, well appearing, well nourished, no distress, non-toxic EYE EXAM: normal conjunctiva, PERRL and EOM's grossly intact OROPHARYNX: no exudate, no erythema, lips, buccal mucosa, and tongue normal and mucous membranes are dry NECK: supple, no nuchal rigidity, no adenopathy, non-tender LUNGS: Normal chest wall mechanics, frequent cough, bilateral rhonchi, scattered expiratory wheeze, conversational tachypnea, coarse cough HEART: no murmurs, S1 normal and S2 normal ABDOMEN: abdomen soft, non-tender, normo-active bowel sounds, no masses, no rebound or guarding. BACK: Back is symmetrical on inspection and there is no deformity, no midline tenderness, no CVA tenderness. SKIN: no rashes, petechiae, orbruising UPPER EXTREMITIES: upper extremities are grossly normal. FROM, nml pulses b/l. LOWER EXTREMITIES: No pitting edema. FROM, nml pulses b/l. NEURO EXAM: Confused, cranial nerves II-XII grossly intact, aphasia, no facial droop,Gross sensation intact. Vital Signs: reviewed and remarkable Differential Diagnosis: Pneumonia, PE, pleural effusion, CHF, ACS, foreign body, failed outpatient treatment, sepsis, as well as others were considered MEDICAL DECISION MAKING: This is a 72-year-old male who presents via EMS from a local facility due to concern for worsening pneumonia and failed outpatient treatment. Patient with significant risk factors and prior history. Patient was afebrile and vital signs stable on arrival although he was noted to be tachycardic. Labs drawn and sent, IV established, EKG and CXR performed and interpreted at bedside, and patient placed on telemetry. Due to severity of symptoms and history of pneumonia, patient sent additionally for CT imaging to rule out other pathology and also better define the areas involved with his infection. Patient noted to have a multifocal pneumonia, no evidence of PE. Patient's breathing and lung sounds were improved following a DuoNeb treatment. Patient was given IV antibiotics here and gentle IV fluid hydration additionally. Case discussed with hospitalist team for additional evaluation and management. Consultation(s): 0: DIscussed with Dr. Santana for admission. ER Treatment Provided: See below Diagnostics Interpreted By Me: -ECG: Normal sinus at 81, normal axis, normal intervals, no acute ST/T wave changes -Cardiac Monitoring: An order was placed for continuous cardiac monitoring. The monitor shows a rate of 78 with normal sinus rhythm. -Laboratory studies: As stated above and show below. -Imaging studies: X-ray Chest: A single view study of the chest was reviewed and was negative for cardiomegaly, effusion, pulmonary edema, or wide mediastinum. Lower lobe pneumonia. 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 History of CVA (cerebrovascular accident) Hypertension Hypomagnesemia Incontinence, feces Left ear impacted cerumen Nicotine dependence Occlusion and stenosis of bilateral carotid arteries Oral phase dysphagia Type 2 diabetes mellitus Vascular dementia without behavioral disturbance Vitamin B12 deficiency Surgical History No pertinent past surgical history Social History Smoking Status: Never smoker Tobacco Type: Cigarettes Second Hand Exposure: No; Hx Alcohol Use: No Hx Substance Use: No Preferred Language: Romansh Communication Ability: Effective Communication Ability Comment: Patient mouths words, Hard to make out Floor Manager Required: No Beliefs That Will Affect Care: None marital status: Single Current Living Situation: Jail Current Living Situation Comment: is from [facility] Feels Safe at Home: Yes Assistive Devices: Walker and Wheelchair Assistive Devices Comment: Patient is a turn and reposition Allergies Allergies Allergy/AdvReac Type Severity Reaction Status Date / Time No Known Allergies Allergy Verified 01/21/23 20:07 Home Meds Home Medications Medication Instructions Recorded Confirmed aspirin 81 mg chewable tablet 81 mg PO QAM 06/12/20 01/21/23 (Aspirin Childrens) atorvastatin 40 mg tablet (Lipitor) 40 mg PO QDD 06/12/20 01/21/23 folic acid 400 mcg tablet 0.4 mg PO QAM 06/12/20 01/21/23 magnesium oxide 400 mg (241.3 mg 400 mg PO BID17 06/12/20 01/21/23 magnesium) tablet acetaminophen 500 mg tablet 500 mg PO TID 08/02/20 01/21/23 (Tylenol Extra Strength) acetaminophen 325 mg tablet 650 mg PO Q4 PRN Fever Or Pain 07/01/21 01/21/23 diclofenac sodium 1 % topical gel 4 g topical QID 07/01/21 01/21/23 famotidine 20 mg tablet 20 mg PO DAILY 07/01/21 01/21/23 ipratropium 0.5 mg-albuterol 3 mg 3 ml inhalation Q4 PRN Shortness 07/01/21 01/21/23 (2.5 mg base)/3 mL nebulization Of Breath soln tamsulosin 0.4 mg capsule 0.4 mg PO DAILYBB 07/01/21 01/21/23 Med Pass Suppliment 180 ml PO TID 01/21/23 01/21/23 amlodipine 2.5 mg tablet 2.5 mg PO QAM 01/21/23 01/21/23 dimenhydrinate 50 mg tablet 50 mg PO DIRECTED PRN PRN CAR 01/21/23 01/21/23 (Driminate) RIDES doxycycline hyclate 100 mg capsule 100 mg PO BID 01/21/23 01/21/23 fluticasone propionate 50 2 spray intranasal HS 01/21/23 01/21/23 mcg/actuation nasal spray,suspension (Flonase Allergy Relief) guaifenesin 100 mg/5 mL oral 200 mg PO Q4H PRN Cough 01/21/23 01/21/23 liquid (Robafen) ipratropium 0.5 mg-albuterol 3 mg 3 ml inhalation QID 01/21/23 01/21/23 (2.5 mg base)/3 mL nebulization soln loratadine 10 mg tablet (Claritin) 10 mg PO QAM 01/21/23 01/21/23 magnesium hydroxide 400 mg/5 mL 30 ml PO DIRECTED PRN NO BM OF 01/21/23 01/21/23 oral suspension (Milk of Magnesia) 3 DAYS. metformin 500 mg tablet 500 mg PO BID17 01/21/23 01/21/23 methylprednisolone sodium succ 125 125 mg IM ONCE 01/21/23 01/21/23 mg solution for injection mirtazapine 15 mg tablet 15 mg PO HS 01/21/23 01/21/23 prednisone 20 mg tablet 40 mg PO QAM 01/21/23 01/21/23 sennosides 8.6 mg-docusate sodium 2 tab-cap PO BID 01/21/23 01/21/23 50 mg capsule (Senna Plus) Previous Rx's Medication Instructions Recorded carvedilol 6.25 mg tablet 6.25 mg PO AMHS 30 days #30 tabs 07/06/21 lisinopril 10 mg tablet 10 mg PO BID 30 days #60 tabs 07/06/21 Results & Data (ED) Vital Signs Vital Signs - 24 hr 01/21/23 19:39 01/21/23 19:45 01/21/23 20:00 Temperature 37 C Temperature Source Oral Pulse Rate 100 H 101 H 87 Respiratory Rate 18 22 Blood Pressure 140/77 125/69 Blood Pressure Mean 98 87 Pulse Oximetry 97 94 Oxygen Delivery Method Room Air Room Air Sepsis Recent Fever Within 48 Hours No Sepsis New/Unexplained Change in Mental Status Yes Sepsis Action Taken by Nursing No Action Required 01/21/23 21:30 01/21/23 22:00 01/21/23 22:30 Temperature Temperature Source Pulse Rate 77 78 78 Respiratory Rate 21 16 16 Blood Pressure 144/76 H 113/69 111/56 L Blood Pressure Mean 98 83 74 Pulse Oximetry 100 96 96 Oxygen Delivery Method Room Air Room Air Room Air Sepsis Recent Fever Within 48 Hours Sepsis New/Unexplained Change in Mental Status Sepsis Action Taken by Nursing 01/21/23 23:00 Temperature Temperature Source Pulse Rate 74 Respiratory Rate 17 Blood Pressure 103/59 L Blood Pressure Mean 73 Pulse Oximetry 94 Oxygen Delivery Method Room Air Sepsis Recent Fever Within 48 Hours Sepsis New/Unexplained Change in Mental Status Sepsis Action Taken by Nursing Laboratory Data 01/21/23 19:49 01/21/23 19:49 Lab Results 01/21/23 01/21/23 01/21/23 Range/Units 19:49 19:49 19:49 WBC 6.08 (4.8-10.8) K/ul RBC 3.85 L (4.70-6.10) M/uL Hgb 11.9 L (14.0-18.0) g/dl Hct 35.9 L (42.0-52.0) % MCV 93.2 (80.0-100.0) fL MCH 30.9 (25.0-34.0) pg MCHC 33.1 (32.0-36.0) g/dL RDW Std Deviation 46.2 (36.4-46.3) fL RDW Coeff of Guido 13.5 (11.5-14.5) % Plt Count 263 (130-400) K/uL MPV 11.3 (9.4-12.4) fL Immature Gran % (Auto) 0.5 % Neut % (Auto) 90.7 % Lymph % (Auto) 8.1 % [place] % (Auto) 0.5 % Eos % (Auto) 0.0 % Baso % (Auto) 0.2 % Neut # (Auto) 5.52 (1.40-6.50) K/uL Lymph # (Auto) 0.49 L (1.2-3.4) K/uL [place] # (Auto) 0.03 L (0.11-0.59) K/uL Eos # (Auto) 0.00 (0-0.50) K/uL Baso # (Auto) 0.01 (0-0.2) K/uL Immature Gran # (Auto) 0.03 (0.01-0.20) K/uL PT 12.7 H (9.0-12.0) Seconds INR 1.2 H (0.9-1.1) Sodium 137 (136-145) mmol/L Potassium 4.5 (3.5-5.1) mmol/L Chloride 98 (98-107) mmol/L Carbon Dioxide 28 (21-32) mmol/L Anion Gap 11 (3-11) BUN 28 H (6-23) mg/dl Creatinine 1.02 (0.6-1.4) mg/dl Est Cr Clr Drug Dosing Not Reportable Est GFR ( Amer) 83.5 ml/min Est GFR (Non-Af Amer) 72.1 ml/min BUN/Creatinine Ratio 27.5 H (10-20) Glucose 357 H* (70-99(Fasting)) mg/dl POC Glucose (70-99) mg/dl Calcium 9.9 (8.6-10.3) mg/dl Magnesium 1.6 L (1.7-2.4) mg/dl Total Bilirubin 0.5 (0.2-1.0) mg/dl AST 11 L (13-39) U/L ALT 12 (7-52) U/L Alkaline Phosphatase 75 (34-104) U/L Troponin I High Sens 11.1 (0-20) pg/ml Total Protein 8.1 (6.0-8.3) gm/dl Albumin 3.9 (3.4-5.0) gm/dl Globulin 4.2 H (2.5-4.0) gm/dl Albumin/Globulin Ratio 0.9 (0.9-2) Lipase 9 L (11-82) U/L TSH (0.300-4.500) uIu/ml Adenovirus (PCR) (NotDetected) B. pertussis DNA (PCR) (NotDetected) B.parapertussis DNA PCR (NotDetected) C. pneumoniae DNA (PCR) (NotDetected) Coronavirus OC43 (PCR) (NotDetected) Coronavirus HKU1 (PCR) (NotDetected) Coronavirus 229E (PCR) (NotDetected) SARS-CoV-2 (PCR) (NotDetected) Coronavirus NL63 (PCR) (NotDetected) Human Metapneumovir PCR (NotDetected) Influenza Type A (PCR) (NotDetected) Influenza Type B (PCR) (NotDetected) M. pneumoniae (PCR) (NotDetected) Parainfluenza 1 (PCR) (NotDetected) Parainfluenza 2 (PCR) (NotDetected) Parainfluenza 3 (PCR) (NotDetected) Parainfluenza 4 (PCR) (NotDetected) RSV (PCR) (NotDetected) Entero/Rhino (PCR) (NotDetected) 01/21/23 01/21/23 01/21/23 Range/Units 19:49 19:53 19:54 WBC (4.8-10.8) K/ul RBC (4.70-6.10) M/uL Hgb (14.0-18.0) g/dl Hct (42.0-52.0) % MCV (80.0-100.0) fL MCH (25.0-34.0) pg MCHC (32.0-36.0) g/dL RDW Std Deviation (36.4-46.3) fL RDW Coeff of Guido (11.5-14.5) % Plt Count (130-400) K/uL MPV (9.4-12.4) fL Immature Gran % (Auto) % Neut % (Auto) % Lymph % (Auto) % [place] % (Auto) % Eos % (Auto) % Baso % (Auto) % Neut # (Auto) (1.40-6.50) K/uL Lymph # (Auto) (1.2-3.4) K/uL [place] # (Auto) (0.11-0.59) K/uL Eos # (Auto) (0-0.50) K/uL Baso # (Auto) (0-0.2) K/uL Immature Gran # (Auto) (0.01-0.20) K/uL PT (9.0-12.0) Seconds INR (0.9-1.1) Sodium (136-145) mmol/L Potassium (3.5-5.1) mmol/L Chloride (98-107) mmol/L Carbon Dioxide (21-32) mmol/L Anion Gap (3-11) BUN (6-23) mg/dl Creatinine (0.6-1.4) mg/dl Est Cr Clr Drug Dosing Est GFR ( Amer) ml/min Est GFR (Non-Af Amer) ml/min BUN/Creatinine Ratio (10-20) Glucose (70-99(Fasting)) mg/dl POC Glucose 324 H* (70-99) mg/dl Calcium (8.6-10.3) mg/dl Magnesium (1.7-2.4) mg/dl Total Bilirubin (0.2-1.0) mg/dl AST (13-39) U/L ALT (7-52) U/L Alkaline Phosphatase (34-104) U/L Troponin I High Sens (0-20) pg/ml Total Protein (6.0-8.3) gm/dl Albumin (3.4-5.0) gm/dl Globulin (2.5-4.0) gm/dl Albumin/Globulin Ratio (0.9-2) Lipase (11-82) U/L TSH 0.560 (0.300-4.500) uIu/ml Adenovirus (PCR) Not Detected (NotDetected) B. pertussis DNA (PCR) Not Detected (NotDetected) B.parapertussis DNA PCR Not Detected (NotDetected) C. pneumoniae DNA (PCR) Not Detected (NotDetected) Coronavirus OC43 (PCR) Not Detected (NotDetected) Coronavirus HKU1 (PCR) Not Detected (NotDetected) Coronavirus 229E (PCR) Not Detected (NotDetected) SARS-CoV-2 (PCR) Not Detected (NotDetected) Coronavirus NL63 (PCR) Not Detected (NotDetected) Human Metapneumovir PCR Not Detected (NotDetected) Influenza Type A (PCR) Not Detected (NotDetected) Influenza Type B (PCR) Not Detected (NotDetected) M. pneumoniae (PCR) Not Detected (NotDetected) Parainfluenza 1 (PCR) Not Detected (NotDetected) Parainfluenza 2 (PCR) Not Detected (NotDetected) Parainfluenza 3 (PCR) Not Detected (NotDetected) Parainfluenza 4 (PCR) Not Detected (NotDetected) RSV (PCR) Not Detected (NotDetected) Entero/Rhino (PCR) Not Detected (NotDetected) 01/21/23 Range/Units 23:09 WBC (4.8-10.8) K/ul RBC (4.70-6.10) M/uL Hgb (14.0-18.0) g/dl Hct (42.0-52.0) % MCV (80.0-100.0) fL MCH (25.0-34.0) pg MCHC (32.0-36.0) g/dL RDW Std Deviation (36.4-46.3) fL RDW Coeff of Guido (11.5-14.5) % Plt Count (130-400) K/uL MPV (9.4-12.4) fL Immature Gran % (Auto) % Neut % (Auto) % Lymph % (Auto) % [place] % (Auto) % Eos % (Auto) % Baso % (Auto) % Neut # (Auto) (1.40-6.50) K/uL Lymph # (Auto) (1.2-3.4) K/uL [place] # (Auto) (0.11-0.59) K/uL Eos # (Auto) (0-0.50) K/uL Baso # (Auto) (0-0.2) K/uL Immature Gran # (Auto) (0.01-0.20) K/uL PT (9.0-12.0) Seconds INR (0.9-1.1) Sodium (136-145) mmol/L Potassium (3.5-5.1) mmol/L Chloride (98-107) mmol/L Carbon Dioxide (21-32) mmol/L Anion Gap (3-11) BUN (6-23) mg/dl Creatinine (0.6-1.4) mg/dl Est Cr Clr Drug Dosing Est GFR ( Amer) ml/min Est GFR (Non-Af Amer) ml/min BUN/Creatinine Ratio (10-20) Glucose (70-99(Fasting)) mg/dl POC Glucose 334 H* (70-99) mg/dl Calcium (8.6-10.3) mg/dl Magnesium (1.7-2.4) mg/dl Total Bilirubin (0.2-1.0) mg/dl AST (13-39) U/L ALT (7-52) U/L Alkaline Phosphatase (34-104) U/L Troponin I High Sens (0-20) pg/ml Total Protein (6.0-8.3) gm/dl Albumin (3.4-5.0) gm/dl Globulin (2.5-4.0) gm/dl Albumin/Globulin Ratio (0.9-2) Lipase (11-82) U/L TSH (0.300-4.500) uIu/ml Adenovirus (PCR) (NotDetected) B. pertussis DNA (PCR) (NotDetected) B.parapertussis DNA PCR (NotDetected) C. pneumoniae DNA (PCR) (NotDetected) Coronavirus OC43 (PCR) (NotDetected) Coronavirus HKU1 (PCR) (NotDetected) Coronavirus 229E (PCR) (NotDetected) SARS-CoV-2 (PCR) (NotDetected) Coronavirus NL63 (PCR) (NotDetected) Human Metapneumovir PCR (NotDetected) Influenza Type A (PCR) (NotDetected) Influenza Type B (PCR) (NotDetected) M. pneumoniae (PCR) (NotDetected) Parainfluenza 1 (PCR) (NotDetected) Parainfluenza 2 (PCR) (NotDetected) Parainfluenza 3 (PCR) (NotDetected) Parainfluenza 4 (PCR) (NotDetected) RSV (PCR) (NotDetected) Entero/Rhino (PCR) (NotDetected) Administered Medications Acetaminophen (Acetaminophen 500 Mg Tab) 500 mg PO Q8 [facility] Stop: 02/21/23 05:59 Last Admin: 01/22/23 20:14 Dose: 500 mg Documented By: Admin: 01/22/23 12:50 Dose: Not Given Documented By: Admin: 01/22/23 05:04 Dose: Not Given Documented By: TMD Albuterol (Albut/Ipratrop 3mg/0.5mg Neb 3 Ml Vial) 3 ml NEB Q12R ROHAN; Protocol Stop: 02/21/23 18:59 Last Admin: 01/22/23 19:23 Dose: 3 ml Documented By: CMF Amlodipine Besylate (Amlodipine Besylate 5 Mg Tab) 2.5 mg PO QAM [facility] Stop: 02/21/23 08:59 Last Admin: 01/22/23 08:28 Dose: Not Given Documented By: CARLOS Aspirin (Aspirin 81 Mg Ectab) 81 mg PO QAM [facility] Stop: 02/21/23 08:59 Last Admin: 01/22/23 08:28 Dose: Not Given Documented By: CARLOS Atorvastatin Calcium (Atorvastatin 40 Mg Tab) 40 mg PO QDD [facility] Stop: 02/21/23 16:29 Last Admin: 01/22/23 16:15 Dose: 40 mg Documented By: CARLOS Carvedilol (Carvedilol 3.125 Mg Tab) 3.125 mg PO AMHS [facility] Stop: 02/21/23 08:59 Last Admin: 01/22/23 20:13 Dose: 3.125 mg Documented By: Admin: 01/22/23 08:28 Dose: Not Given Documented By: Jayce Diclofenac Sodium (Diclofenac Sod 1% Gel 100 Gm Tube) 4 gm EXT QID [facility]; Protocol Stop: 02/21/23 08:59 Last Admin: 01/22/23 20:13 Dose: 4 gm Documented By: Admin: 01/22/23 16:15 Dose: 4 gm Documented By: Admin: 01/22/23 12:15 Dose: 4 gm Documented By: Admin: 01/22/23 08:36 Dose: Not Given Documented By: CARLOS Famotidine (Famotidine 20 Mg Tab) 20 mg PO DAILY [facility] Stop: 02/21/23 08:59 Last Admin: 01/22/23 08:28 Dose: Not Given Documented By: Jayce Fluticasone Propionate (Fluticasone Propionate Na Spr 16 Gm Btl) 2 sprays NA HS [facility] Stop: 02/21/23 20:59 Last Admin: 01/22/23 20:12 Dose: 2 sprays Documented By: TEDDY Folic Acid (Folic Acid 400 Mcg Tab) 400 mcg PO QAM [facility] Stop: 02/21/23 08:59 Last Admin: 01/22/23 08:28 Dose: Not Given Documented By: CARLOS Ampicillin Sodium/Sulbactam Sodium 3,000 mg/ Sodium Chloride 108 mls @ 200 mls/hr IV Q6H [facility]; Protocol Stop: 01/29/23 02:59 Last Infusion: 01/22/23 20:41 Dose: 0 mls/hr Documented By: Admin: 01/22/23 20:07 Dose: 200 mls/hr Documented By: Infusion: 01/22/23 17:05 Dose: 0 mls/hr Documented By: Admin: 01/22/23 16:12 Dose: 200 mls/hr Documented By: Infusion: 01/22/23 09:34 Dose: 0 mls/hr Documented By: Admin: 01/22/23 08:40 Dose: 200 mls/hr Documented By: Infusion: 01/22/23 03:48 Dose: 0 mls/hr Documented By: Admin: 01/22/23 03:14 Dose: 200 mls/hr Documented By: RAJESH Insulin Aspart (Insulin Aspart Per Unit Charge) 0 units SC ACHS [facility] Stop: 02/21/23 16:29 Last Admin: 01/22/23 20:35 Dose: Not Given Documented By: Admin: 01/22/23 17:08 Dose: 1 units Documented By: CARLOS Co-signed By: KAREN Insulin Glargine (Lantus Per Unit Charge) 10 units SQ HS [facility] Stop: 02/21/23 20:59 Last Admin: 01/22/23 20:36 Dose: Not Given Documented By: TEDDY Ipratropium [place] (Ipratropium [place] Neb Soln 0.02% 2.5 Ml Vial) 0.5 mg NEB Q6R [facility] Stop: 02/21/23 06:59 Last Admin: 01/23/23 00:55 Dose: Not Given Documented By: Admin: 01/22/23 20:06 Dose: Not Given Documented By: Admin: 01/22/23 12:40 Dose: 0.5 mg Documented By: Admin: 01/22/23 07:17 Dose: 0.5 mg Documented By: JOHNNY Levalbuterol HCl (Levalbuterol 1.25 Mg/3 Ml Neb) 1.25 mg NEB Q6R [facility] Stop: 02/21/23 06:59 Last Admin: 01/23/23 00:55 Dose: Not Given Documented By: Admin: 01/22/23 20:06 Dose: Not Given Documented By: Admin: 01/22/23 12:40 Dose: 1.25 mg Documented By: Admin: 01/22/23 07:17 Dose: 1.25 mg Documented By: JOHNNY Loratadine (Loratadine 10 Mg Tab) 10 mg PO QAM [facility] Stop: 02/21/23 08:59 Last Admin: 01/22/23 08:29 Dose: Not Given Documented By: SMJayce Magnesium Oxide (Magnesium Oxide 400 Mg Tab) 400 mg PO BID17 [facility] Stop: 02/21/23 08:59 Last Admin: 01/22/23 16:15 Dose: 400 mg Documented By: Admin: 01/22/23 08:29 Dose: Not Given Documented By: CARLOS Sodium Chloride (Sodium Chlor 7% 4 Ml Neb) 4 ml NEB BIDR [facility] Stop: 02/21/23 18:59 Last Admin: 01/22/23 19:23 Dose: 4 ml Documented By: CMF Tamsulosin HCl (Tamsulosin Hcl 0.4 Mg Cap) 0.4 mg PO DAILYBB [facility] Stop: 02/21/23 06:29 Last Admin: 01/22/23 05:26 Dose: Not Given Documented By: TMD Discontinued Medications Albuterol (Albut/Ipratrop 3mg/0.5mg Neb 3 Ml Vial) 3 ml NEB NOW STA; Protocol Stop: 01/21/23 20:09 Last Admin: 01/21/23 20:14 Dose: 3 ml Documented By: YOUNG Enoxaparin Sodium (Enoxaparin Inj 30 Mg/0.3 Ml Syr) [facility]: 02/21/23 08:59 Last Admin: 01/22/23 08:37 Dose: 30 mg Documented By: CARLOS Sodium Chloride (Nss 1000ml) 1,000 mls @ 125 mls/hr IV .Q8H [facility] Stop: 02/20/23 20:14 Last Infusion: 01/22/23 02:11 Dose: 0 mls/hr Documented By: Infusion: 01/21/23 23:12 Dose: 0 mls/hr Documented By: Admin: 01/21/23 20:14 Dose: 125 mls/hr Documented By: EDGARDO Magnesium Sulfate/Dextrose (Magnesium Sulfate / D5w) 1 gm in 100 mls @ 100 mls/hr IV NOW STA Stop: 01/21/23 22:19 Last Infusion: 01/21/23 22:45 Dose: 0 mls/hr Documented By: Admin: 01/21/23 21:31 Dose: 100 mls/hr Documented By: YOUNG Piperacillin Sod/Tazobactam Sod (Zosyn) 4.5 gm in 120 mls @ 240 mls/hr IV NOW ONE Stop: 01/21/23 23:20 Last Infusion: 01/21/23 23:29 Dose: 0 mls/hr Documented By: Admin: 01/21/23 23:03 Dose: 240 mls/hr Documented By: YOUNG Sodium Chloride (Nss 1000ml) 1,000 mls @ 50 mls/hr IV .Q20H STA Stop: 01/22/23 19:15 Last Infusion: 01/22/23 12:48 Dose: 0 mls/hr Documented By: Infusion: 01/22/23 08:36 Dose: 50 mls/hr Documented By: Infusion: 01/22/23 00:41 Dose: 75 mls/hr Documented By: Admin: 01/21/23 23:26 Dose: 125 mls/hr Documented By: YOUNG Acetaminophen (Ofirmev) 1,000 mg in 100 mls @ 400 mls/hr IV NOW STA Stop: 01/22/23 02:54 Last Infusion: 01/22/23 03:16 Dose: 0 mls/hr Documented By: Admin: 01/22/23 02:55 Dose: 400 mls/hr Documented By: RAJESH Insulin Aspart (Insulin Aspart Per Unit Charge) 0 units SC ACHS [facility] Stop: 02/21/23 02:04 Last Admin: 01/22/23 02:32 Dose: 4 units Documented By: TMD Co-signed By: JULIO CESAR Insulin Aspart (Insulin Aspart Per Unit Charge) 0 units SC Q6 [facility] Stop: 02/21/23 02:04 Last Admin: 01/22/23 12:14 Dose: Not Given Documented By: Admin: 01/22/23 06:21 Dose: 1 units Documented By: TMD Co-signed By: YOMAIRA Insulin Glargine (Lantus Per Unit Charge) 10 units SQ NOW STA Stop: 01/22/23 00:02 Last Admin: 01/22/23 00:42 Dose: 10 units Documented By: YOUNG Co-signed By: MACEY Insulin Human Regular (Novolin-R Insulin Per Unit Charge) 6 units IV NOW STA Stop: 01/21/23 20:56 Last Admin: 01/21/23 21:31 Dose: 6 units Documented By: YOUNG Co-signed By: IGGY Insulin Human Regular (Novolin-R Insulin Per Unit Charge) 6 units IV NOW STA Stop: 01/21/23 23:13 Last Admin: 01/21/23 23:26 Dose: 6 units Documented By: YOUNG Co-signed By: XIMENA Ioversol (Optiray 320 125ml) 120 ml IV ONCE ONE Stop: 01/21/23 22:14 Last Admin: 01/21/23 22:14 Dose: 120 ml Documented By: AGUSTINA Imaging Data Radiologist's Impression: Chest CTA 01/21/23 21:20 Exam(s): CTA CHEST IV Amt: 120ml EXAM: CT Angiography Chest With Intravenous Contrast CLINICAL HISTORY: Pulmonary embolus. TECHNIQUE: Axial computed tomographic angiography images of the chest with intravenous contrast. CTDI is 14.25 mGy and DLP is 638.17 mGy-cm. Automated exposure control was utilized for the study. A dose lowering technique was utilized adhering to the principles of ALARA. MIP reconstructed images were created and reviewed. COMPARISON: CTA chest 07/01/2021 FINDINGS: Pulmonary arteries: Unremarkable. No pulmonary embolus. Aorta: Mild atherosclerosis. No thoracic aortic aneurysm. Lungs: Bibasilar airspace opacities favor aspiration/aspiration pneumonia as there are filling defects of the bronchi of the left lower lobe. There are additional airspace opacities of the left upper lobe. Pleural space: Unremarkable. No significant effusion. No pneumothorax. Heart: Unremarkable. No cardiomegaly. No significant pericardial effusion. No evidence of RV dysfunction. Bones/joints: There are degenerative changes of the spine. No fracture. Soft tissues: Unremarkable. Lymph nodes: Unremarkable. No enlarged lymph nodes. IMPRESSION: 1. No pulmonary embolus. 2. Bibasilar airspace opacities favor aspiration/aspiration pneumonia as there are filling defects of the bronchi of the left lower lobe. There are additional airspace opacities of the left upper lobe. Electronically signed by: Wendy Ascencio MD 01/21/23 22:50 PM Discharge Plan Visit Data Chief Complaint: Altered Mental Status Stated Complaint: ALTERED "MORE THAN NORMAL", DX W PNEUMONIA ON FRI ED Provider: Samina Syed Discharge Problem: AMS (altered mental status), Multifocal pneumonia, Aspiration into airway, Hypomagnesemia, Acute hyperglycemia Patient Disposition: Admitted As Inpatient Discharge Instructions Interventions: ED Discharge Assessment Last Done: 01/22/23 01:23
[2023-01-21] MEDS ORDERED: SODIUM CHLORIDE 0.9% 1000ML 1,000 ML IV SCH (20:15)
[2023-01-21 20:31] LABS: Hematocrit (blood only) 35.9 % (42.0-52.0); Hemoglobin 11.9 g/dl (14.0-18.0); Mean Corpuscular Hemoglobin 30.9 pg (25.0-34.0); Mean Corpuscular Hgb Conc 33.1 g/dL (32.0-36.0); Mean Corpuscular Volume 93.2 fL (80.0-100.0); Mean Platelet Volume 11.3 fL (9.4-12.4); Platelet Count 263 K/uL (130-400); RDW Coefficient of Variation 13.5 % (11.5-14.5); RDW Standard Deviation 46.2 fL (36.4-46.3); Red Blood Count 3.85 M/uL (4.70-6.10); White Blood Count 6.08 K/ul (4.8-10.8)
[2023-01-21 20:49] LABS: Basophils # (auto) 0.01 K/uL (0-0.2); Basophils % (auto) 0.2 %; Immature Granulocytes # (auto) 0.03 K/uL (0.01-0.20); Immature Granulocytes % (auto) 0.5 %; Lymphocytes # (auto) 0.49 K/uL (1.2-3.4); Lymphocytes % (auto) 8.1 %; Monocytes # (auto) 0.03 K/uL (0.11-0.59); Monocytes % (auto) 0.5 %; Neutrophils # (auto) 5.52 K/uL (1.40-6.50); Neutrophils % (auto) 90.7 %
[2023-01-21 20:50] LABS: INR 1.2 (0.9-1.1); Prothrombin Time 12.7 Seconds (9.0-12.0)
[2023-01-21 20:55] LABS: Alanine Aminotransferase 12 U/L (7-52); Albumin Globulin Ratio 0.9 (0.9-2); Albumin Level 3.9 gm/dl (3.4-5.0); Alkaline Phosphatase 75 U/L (34-104); Anion Gap 11 (3-11); Aspartate Aminotransferase 11 U/L (13-39); BUN Creatinine Ratio 27.5 (10-20); Bilirubin,Total 0.5 mg/dl (0.2-1.0); Blood Urea Nitrogen 28 mg/dl (6-23); Calcium 9.9 mg/dl (8.6-10.3); Carbon Dioxide 28 mmol/L (21-32); Chloride 98 mmol/L (98-107); Est GFR (African American) 83.5 ml/min; Est GFR (Non-African American) 72.1 ml/min; Globulin 4.2 gm/dl (2.5-4.0); Glucose 357 mg/dl (70-99(Fasting)); Lipase 9 U/L (11-82); Magnesium 1.6 mg/dl (1.7-2.4); Potassium 4.5 mmol/L (3.5-5.1); Sodium 137 mmol/L (136-145); Total Protein 8.1 gm/dl (6.0-8.3); Troponin I High Sensitivity 11.1 pg/ml (0-20)
[2023-01-21] MEDS ORDERED: NovoLIN-R INSULIN PER UNIT CHARGE IV STA ×2 (20:55→23:12)
[2023-01-21 21:02] LABS: Adenovirus PCR Not Detected (NotDetected); Bordetella parapertussis PCR Not Detected (NotDetected); Bordetella pertussis PCR Not Detected (NotDetected); Chlamydia pneumoniae PCR Not Detected (NotDetected); Coronavirus 229E PCR Not Detected (NotDetected); Coronavirus CoV-2 (COVID19)PCR Not Detected (NotDetected); Coronavirus HKU1 PCR Not Detected (NotDetected); Coronavirus NL63 PCR Not Detected (NotDetected); Coronavirus OC43PCR Not Detected (NotDetected); Human Metapneumovirus PCR Not Detected (NotDetected); Influenza A PCR Not Detected (NotDetected); Influenza B PCR Not Detected (NotDetected); Mycoplasma pneumoniae PCR Not Detected (NotDetected); Parainfluenza Virus 1 PCR Not Detected (NotDetected); Parainfluenza Virus 2 PCR Not Detected (NotDetected); Parainfluenza Virus 3 PCR Not Detected (NotDetected); Parainfluenza Virus 4 PCR Not Detected (NotDetected); Respiratory Syncytial VirusPCR Not Detected (NotDetected); Rhinovirus/Enterovirus PCR Not Detected (NotDetected)
[2023-01-21] MEDS ORDERED: MAGNESIUM SULFATE / D5W 1 GM/100 ML BAG IV STA (21:20)
[2023-01-21] MEDS ORDERED: OPTIRAY 320 125ml IV ONE (22:13)
--- NOTE | 2023-01-21 22:50 | CT Scan Report ---
Exam(s): CTA CHEST IV Amt: 120ml EXAM: CT Angiography Chest With Intravenous Contrast CLINICAL HISTORY: Pulmonary embolus. TECHNIQUE: Axial computed tomographic angiography images of the chest with intravenous contrast. CTDI is 14.25 mGy and DLP is 638.17 mGy-cm. Automated exposure control was utilized for the study. A dose lowering technique was utilized adhering to the principles of ALARA. MIP reconstructed images were created and reviewed. COMPARISON: CTA chest 07/01/2021 FINDINGS: Pulmonary arteries: Unremarkable. No pulmonary embolus. Aorta: Mild atherosclerosis. No thoracic aortic aneurysm. Lungs: Bibasilar airspace opacities favor aspiration/aspiration pneumonia as there are filling defects of the bronchi of the left lower lobe. There are additional airspace opacities of the left upper lobe. Pleural space: Unremarkable. No significant effusion. No pneumothorax. Heart: Unremarkable. No cardiomegaly. No significant pericardial effusion. No evidence of RV dysfunction. Bones/joints: There are degenerative changes of the spine. No fracture. Soft tissues: Unremarkable. Lymph nodes: Unremarkable. No enlarged lymph nodes. IMPRESSION: 1. No pulmonary embolus. 2. Bibasilar airspace opacities favor aspiration/aspiration pneumonia as there are filling defects of the bronchi of the left lower lobe. There are additional airspace opacities of the left upper lobe. Electronically signed by: Wendy Ascencio MD 01/21/23 22:50 PM
[2023-01-21] MEDS ORDERED: PIPERACILLIN/TAZOBACTAM 4.5 GM/120 ML BAG IV ONE (22:51)
[2023-01-21] MEDS ORDERED: SODIUM CHLORIDE 0.9% 1000ML 1,000 ML IV STA (23:16)
[2023-01-22] MEDS ORDERED: LANTUS PER UNIT CHARGE SQ STA (00:01)
--- NOTE | 2023-01-22 00:02 | History & Physical Report ---
Date of Service January 22, 2023 Assessment & Plan (1) AMS (altered mental status): Plan: Encephalopathy hx vascular dementia/Wernicke Korsakoff syndrome as per records Multifactorial: Hyperglycemia secondary to IM Solu-Medrol administration at half-way, DM 2 currently diet controlled, suboptimal control as of recent hemoglobin A1c of 7.02 January 2023 Recurrent aspiration pneumonia/HCAP, no sepsis for now hx CAD/CVA/PVD valvular heart disease (moderate AR/) hypertension, BP on the lower side past tobacco/alcohol abuse chronic anemia, hemoglobin at baseline Medical telemetry Unasyn Nebs RTC given wheezing symptoms Swallow eval, aspiration precautions Basal bolus insulin, ISS BG goal 1 10-1 40, carb count coverage DVT prophylaxis. Lovenox subcu Full code Patient sister requesting updates from providers. Casie Sena, contact #[phone]. Text document was generated using [employer] voice recognition software. It may contain grammatical or spelling errors. Kindly contact undersigned for clarification of any documentation item in que stion. History of Present Illness Chief Complaint: Altered mental status as per records Primary Care Provider: Dr. Rosa History obtained from patient family and records. Limited history from patient secondary to chronic aphasia. Medical history significant for CAD/CVA, valvular heart disease (moderate AR/), PVD, hypertension, DM2 diet controlled, dementia, Wernicke Korsakoff syndrome as per records, past tobacco/alcohol abuse, chronic anemia (baseline hemoglobin 11), aspiration risk as per records. Last confinement 2020 NSTEMI and aspiration pneumonitis. Cardiology recommended medical management for NSTEMI/probable CAD. Few days ago, patient noted to have increased lethargy at half-way. Chest congestion, coughing and audible wheezing noted. Outpatient chest x-ray showed left lower lobe infiltrate possible aspiration pneumonia. Patient started on doxycycline and DuoNebs course. Patient still feeling weak, short of breath and with audible wheezing on follow- up evaluation by half-way provider yesterday. Solu-Medrol IM dose administered followed by prednisone course prescription. Worsening confusion and wheezing noted at half-way. BSG 400s. Patient brought to ER for evaluation by EMS. IV insulin and Zosyn administered at the ER. Medical Historyas above Surgical History : Hip fracture surgery Family History : Heart disease, stroke Personal/Social history : Past tobacco/alcohol abuse, disabled, half-way resident Allergies Allergy/AdvReac Type Severity Reaction Status Date / Time No Known Allergies Allergy Verified 01/21/23 20:07 Home Medications Medication Instructions Recorded Confirmed Type aspirin 81 mg chewable tablet 81 mg PO QAM 06/12/20 01/21/23 History (Aspirin Childrens) atorvastatin 40 mg tablet (Lipitor) 40 mg PO QDD 06/12/20 01/21/23 History folic acid 400 mcg tablet 0.4 mg PO QAM 06/12/20 01/21/23 History magnesium oxide 400 mg (241.3 mg 400 mg PO BID17 06/12/20 01/21/23 History magnesium) tablet acetaminophen 500 mg tablet 500 mg PO TID 08/02/20 01/21/23 History (Tylenol Extra Strength) acetaminophen 325 mg tablet 650 mg PO Q4 PRN Fever Or Pain 07/01/21 01/21/23 History diclofenac sodium 1 % topical gel 4 g topical QID 07/01/21 01/21/23 History famotidine 20 mg tablet 20 mg PO DAILY 07/01/21 01/21/23 History ipratropium 0.5 mg-albuterol 3 mg 3 ml inhalation Q4 PRN Shortness 07/01/21 01/21/23 History (2.5 mg base)/3 mL nebulization Of Breath soln tamsulosin 0.4 mg capsule 0.4 mg PO DAILYBB 07/01/21 01/21/23 History carvedilol 6.25 mg tablet 6.25 mg PO AMHS 30 days #30 tabs 07/06/21 01/21/23 Rx lisinopril 10 mg tablet 10 mg PO BID 30 days #60 tabs 07/06/21 01/21/23 Rx Med Pass Suppliment 180 ml PO TID 01/21/23 01/21/23 History amlodipine 2.5 mg tablet 2.5 mg PO QAM 01/21/23 01/21/23 History dimenhydrinate 50 mg tablet 50 mg PO DIRECTED PRN PRN CAR 01/21/23 01/21/23 History (Driminate) RIDES doxycycline hyclate 100 mg capsule 100 mg PO BID 01/21/23 01/21/23 History fluticasone propionate 50 2 spray intranasal HS 01/21/23 01/21/23 History mcg/actuation nasal spray,suspension (Flonase Allergy Relief) guaifenesin 100 mg/5 mL oral 200 mg PO Q4H PRN Cough 01/21/23 01/21/23 History liquid (Robafen) ipratropium 0.5 mg-albuterol 3 mg 3 ml inhalation QID 01/21/23 01/21/23 History (2.5 mg base)/3 mL nebulization soln loratadine 10 mg tablet (Claritin) 10 mg PO QAM 01/21/23 01/21/23 History magnesium hydroxide 400 mg/5 mL 30 ml PO DIRECTED PRN NO BM OF 01/21/23 01/21/23 History oral suspension (Milk of Magnesia) 3 DAYS. 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 Cholelithiasis Chronic constipation Contracture, left ankle Contracture, right ankle Diabetic neuropathy Dysarthria following cerebral infarction Full code status Functional urinary incontinence Generalized muscle weakness Hemiplegia of left nondominant 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 History of CVA (cerebrovascular accident) Hypertension Hypomagnesemia Incontinence, feces Left ear impacted cerumen Nicotine dependence Occlusion and stenosis of bilateral carotid arteries Oral phase dysphagia Type 2 diabetes mellitus Vascular dementia without behavioral disturbance Vitamin B12 deficiency Surgical History No pertinent past surgical history Social History Smoking Status: Never smoker Tobacco Type: Cigarettes Second Hand Exposure: No; Hx Alcohol Use: No Hx Substance Use: No Preferred Language: Tunisian Communication Ability: Impaired Communication Ability Comment: Patient mouths words, Hard to make out Electronic Service Technician Required: No Beliefs That Will Affect Care: None marital status: Single Current Living Situation: Care Home Current Living Situation Comment: is from [facility] Feels Safe at Home: Yes Assistive Devices: None Assistive Devices Comment: Patient is a turn and reposition Review of Systems Review of Systems: Could not be reliably obtained secondary to aphasia Physical Exam Physical Exam: GENERAL: aphasic, audible expiratory wheezes, no respiratory distress SKIN: Pallor, warm HEENT: Pale palpebral conjunctivae, no ptosis, dry buccal mucosa NECK : Supple, no tenderness CHEST : Decreased breath sounds, expiratory wheezes, no tenderness HEART : RRR, systolic murmur heard over sternal border and second right intercostal space ABDOMEN: Some distention, nontender EXTREMITIES : No LE swelling/tenderness, no other conspicuous deformities noted NEUROLOGIC : Coherent, aphasic, chronic left hemiplegia Results & Data Results & Data Vital Signs (Past 12 Hours) Vital Signs Temp Pulse Resp BP Pulse Ox O2 Del Method 01/21/23 23:30 72 17 107/51 L 96 Room Air 01/21/23 23:00 74 17 103/59 L 94 Room Air 01/21/23 22:30 78 16 111/56 L 96 Room Air 01/21/23 22:00 78 16 113/69 96 Room Air 01/21/23 21:30 77 21 144/76 H 100 Room Air 01/21/23 20:00 87 22 125/69 94 Room Air 01/21/23 19:45 101 H 01/21/23 19:39 37 C 100 H 18 140/77 97 Room Air Laboratory Results Laboratory Results WBC 6.08 K/ul (4.8-10.8) 01/21/23 19:49 RBC 3.85 M/uL (4.70-6.10) L 01/21/23 19:49 Hgb 11.9 g/dl (14.0-18.0) L 01/21/23 19:49 Hct 35.9 % (42.0-52.0) L 01/21/23 19:49 MCV 93.2 fL (80.0-100.0) 01/21/23 19:49 MCH 30.9 pg (25.0-34.0) 01/21/23 19:49 MCHC 33.1 g/dL (32.0-36.0) 01/21/23 19:49 RDW Std Deviation 46.2 fL (36.4-46.3) 01/21/23 19:49 RDW Coeff of Guido 13.5 % (11.5-14.5) 01/21/23 19:49 Plt Count 263 K/uL (130-400) 01/21/23 19:49 MPV 11.3 fL (9.4-12.4) 01/21/23 19:49 Immature Gran % (Auto) 0.5 % 01/21/23 19:49 Neut % (Auto) 90.7 % 01/21/23 19:49 Lymph % (Auto) 8.1 % 01/21/23 19:49 Cascade % (Auto) 0.5 % 01/21/23 19:49 Eos % (Auto) 0.0 % 01/21/23 19:49 Baso % (Auto) 0.2 % 01/21/23 19:49 Neut # (Auto) 5.52 K/uL (1.40-6.50) 01/21/23 19:49 Lymph # (Auto) 0.49 K/uL (1.2-3.4) L 01/21/23 19:49 Cascade # (Auto) 0.03 K/uL (0.11-0.59) L 01/21/23 19:49 Eos # (Auto) 0.00 K/uL (0-0.50) 01/21/23 19:49 Baso # (Auto) 0.01 K/uL (0-0.2) 01/21/23 19:49 Immature Gran # (Auto) 0.03 K/uL (0.01-0.20) 01/21/23 19:49 PT 12.7 Seconds (9.0-12.0) H 01/21/23 19:49 INR 1.2 (0.9-1.1) H 01/21/23 19:49 Sodium 137 mmol/L (136-145) 01/21/23 19:49 Potassium 4.5 mmol/L (3.5-5.1) 01/21/23 19:49 Chloride 98 mmol/L (98-107) 01/21/23 19:49 Carbon Dioxide 28 mmol/L (21-32) 01/21/23 19:49 Anion Gap 11 (3-11) 01/21/23 19:49 BUN 28 mg/dl (6-23) H 01/21/23 19:49 Creatinine 1.02 mg/dl (0.6-1.4) 01/21/23 19:49 Est Cr Clr Drug Dosing Not Reportable 01/21/23 19:49 Est GFR ( Amer) 83.5 ml/min 01/21/23 19:49 Est GFR (Non-Af Amer) 72.1 ml/min 01/21/23 19:49 BUN/Creatinine Ratio 27.5 (10-20) H 01/21/23 19:49 Glucose 357 mg/dl (70-99(Fasting)) H* 01/21/23 19:49 POC Glucose 334 mg/dl (70-99) H* 01/21/23 23:09 Calcium 9.9 mg/dl (8.6-10.3) 01/21/23 19:49 Magnesium 1.6 mg/dl (1.7-2.4) L 01/21/23 19:49 Total Bilirubin 0.5 mg/dl (0.2-1.0) 01/21/23 19:49 AST 11 U/L (13-39) L 01/21/23 19:49 ALT 12 U/L (7-52) 01/21/23 19:49 Alkaline Phosphatase 75 U/L (34-104) 01/21/23 19:49 Troponin I High Sens 11.1 pg/ml (0-20) 01/21/23 19:49 Total Protein 8.1 gm/dl (6.0-8.3) 01/21/23 19:49 Albumin 3.9 gm/dl (3.4-5.0) 01/21/23 19:49 Globulin 4.2 gm/dl (2.5-4.0) H 01/21/23 19:49 Albumin/Globulin Ratio 0.9 (0.9-2) 01/21/23 19:49 Lipase 9 U/L (11-82) L 01/21/23 19:49 TSH 0.560 uIu/ml (0.300-4.500) 01/21/23 19:49 Adenovirus (PCR) Not Detected (NotDetected) 01/21/23 19:54 B. pertussis DNA (PCR) Not Detected (NotDetected) 01/21/23 19:54 B.parapertussis DNA PCR Not Detected (NotDetected) 01/21/23 19:54 C. pneumoniae DNA (PCR) Not Detected (NotDetected) 01/21/23 19:54 Coronavirus OC43 (PCR) Not Detected (NotDetected) 01/21/23 19:54 Coronavirus HKU1 (PCR) Not Detected (NotDetected) 01/21/23 19:54 Coronavirus 229E (PCR) Not Detected (NotDetected) 01/21/23 19:54 SARS-CoV-2 (PCR) Not Detected (NotDetected) 01/21/23 19:54 Coronavirus NL63 (PCR) Not Detected (NotDetected) 01/21/23 19:54 Human Metapneumovir PCR Not Detected (NotDetected) 01/21/23 19:54 Influenza Type A (PCR) Not Detected (NotDetected) 01/21/23 19:54 Influenza Type B (PCR) Not Detected (NotDetected) 01/21/23 19:54 M. pneumoniae (PCR) Not Detected (NotDetected) 01/21/23 19:54 Parainfluenza 1 (PCR) Not Detected (NotDetected) 01/21/23 19:54 Parainfluenza 2 (PCR) Not Detected (NotDetected) 01/21/23 19:54 Parainfluenza 3 (PCR) Not Detected (NotDetected) 01/21/23 19:54 Parainfluenza 4 (PCR) Not Detected (NotDetected) 01/21/23 19:54 RSV (PCR) Not Detected (NotDetected) 01/21/23 19:54 Entero/Rhino (PCR) Not Detected (NotDetected) 01/21/23 19:54 Impressions Chest CTA 01/21/23 21:20 Exam(s): CTA CHEST IV Amt: 120ml EXAM: CT Angiography Chest With Intravenous Contrast CLINICAL HISTORY: Pulmonary embolus. TECHNIQUE: Axial computed tomographic angiography images of the chest with intravenous contrast. CTDI is 14.25 mGy and DLP is 638.17 mGy-cm. Automated exposure control was utilized for the study. A dose lowering technique was utilized adhering to the principles of ALARA. MIP reconstructed images were created and reviewed. COMPARISON: CTA chest 07/01/2021 FINDINGS: Pulmonary arteries: Unremarkable. No pulmonary embolus. Aorta: Mild atherosclerosis. No thoracic aortic aneurysm. Lungs: Bibasilar airspace opacities favor aspiration/aspiration pneumonia as there are filling defects of the bronchi of the left lower lobe. There are additional airspace opacities of the left upper lobe. Pleural space: Unremarkable. No significant effusion. No pneumothorax. Heart: Unremarkable. No cardiomegaly. No significant pericardial effusion. No evidence of RV dysfunction. Bones/joints: There are degenerative changes of the spine. No fracture. Soft tissues: Unremarkable. Lymph nodes: Unremarkable. No enlarged lymph nodes. IMPRESSION: 1. No pulmonary embolus. 2. Bibasilar airspace opacities favor aspiration/aspiration pneumonia as there are filling defects of the bronchi of the left lower lobe. There are additional airspace opacities of the left upper lobe. Electronically signed by: Wendy Ascencio MD 01/21/23 22:50 PM Diagnostic Findings EKG as per my interpretation :Rate 80, NSR, LAD, LAFB, T wave abnormalities septal leads
--- NOTE | 2023-01-22 01:29 | CT Scan Report ---
Exam(s): CT HEAD Without Contrast EXAM: CT Head Without Intravenous Contrast CLINICAL HISTORY: Altered mental status. TECHNIQUE: Axial computed tomography images of the head/brain without intravenous contrast. Automated exposure control was utilized for the study. A dose lowering technique was utilized adhering to the principles of ALARA. COMPARISON: No relevant prior studies available. FINDINGS: Brain: No intracranial hemorrhage, mass-effect or midline shift. No abnormal extra axial fluid. No evidence of acute infarct. Mild periventricular white matter hypodensities are most consistent with chronic microangiopathy. There is encephalomalacia of the right MCA territory. Ventricles: Unremarkable. No ventriculomegaly. Bones/joints: Unremarkable. No acute fracture. Soft tissues: Unremarkable. Sinuses: Unremarkable as visualized. No acute sinusitis. Mastoid air cells: Unremarkable as visualized. No mastoid effusion. IMPRESSION: No acute intracranial finding. Electronically signed by: Wendy Ascencio MD 01/22/23 01:28 AM
[2023-01-22] MEDS ORDERED: ACETAMINOPHEN 325 MG TAB PO PRN ×2 (02:05→02:32)
[2023-01-22] MEDS ORDERED: GLUCAGON FOR INJ 1 MG VIAL SQ PRN (02:05)
[2023-01-22] MEDS ORDERED: GLUCOSE 10 TAB/TUBE PO PRN (02:05)
[2023-01-22] MEDS ORDERED: CARBOHYDRATES FOR HYPOGLYCEMIA PO PRN (02:05)
[2023-01-22] MEDS ORDERED: INSULIN ASPART PER UNIT CHARGE SC SCH (02:05)
[2023-01-22] MEDS ORDERED: DEXTROSE 50% 50 ML SYRINGE IV PRN (02:05)
[2023-01-22] MEDS ORDERED: GLUCOSE 40% GEL 15 GM TUBE PO PRN (02:05)
[2023-01-22] MEDS ORDERED: PROMETHAZINE HCL 6.25 MG in SODIUM CHLORIDE 0.9% 50 ML IV PRN (02:05)
[2023-01-22] MEDS ORDERED: ACETAMINOPHEN 1,000 MG/100 ML VIAL IV STA (02:40)
[2023-01-22] MEDS: AMPICILLIN/SULBACTAM SOD 3,000 MG in 0.9 % SODIUM CHLORIDE 100 ML IV SCH ×4 (03:14→20:07)
[2023-01-22] MEDS: ACETAMINOPHEN 500 MG TAB PO SCH ×3 (05:04→20:14)
[2023-01-22] MEDS: TAMSULOSIN HCL 0.4 MG CAP PO SCH (05:26)
[2023-01-22] MEDS ORDERED: Nursing to Pharmacy Communication SCH (06:00)
[2023-01-22] MEDS: INSULIN ASPART PER UNIT CHARGE SC SCH ×4 (06:21→20:35)
[2023-01-22] MEDS ORDERED: XOPENEX/ATROVENT 1.25mg/0.5MG NEB COMBO NEB SCH (07:00)
[2023-01-22] MEDS: LEVALBUTEROL 1.25 MG/3 ML NEB NEB SCH ×3 (07:17→20:06)
[2023-01-22] MEDS: IPRATROPIUM BROMIDE NEB SOLN 0.02% 2.5 ML VIAL NEB SCH ×3 (07:17→20:06)
--- NOTE | 2023-01-22 07:41 | XRay Report ---
XR chest 1V portable CLINICAL HISTORY: Shortness of breath. Pneumonia. COMPARISON STUDY: Chest radiograph and chest CT July 01, 2021. FINDINGS: There is no pneumothorax or pleural effusion. There is no evidence for pulmonary edema. Mod erate left lower lobe airspace opacity is present. There is no consolidation within the right lung. C ardiomediastinal silhouette is stable. IMPRESSION: Moderate left lower lobe airspace opacity suggestive of pneumonia or aspiration pneumoni tis. ACT 112: Negative or not required by law. Electronically signed by: Param Taylor M.D. 01/22/2023 7:40 AM
[2023-01-22 07:53] LABS: Hematocrit (blood only) 29.8 % (42.0-52.0); Hemoglobin 9.9 g/dl (14.0-18.0); Mean Corpuscular Hemoglobin 30.7 pg (25.0-34.0); Mean Corpuscular Hgb Conc 33.2 g/dL (32.0-36.0); Mean Corpuscular Volume 92.3 fL (80.0-100.0); Mean Platelet Volume 11.3 fL (9.4-12.4); Platelet Count 227 K/uL (130-400); RDW Coefficient of Variation 13.2 % (11.5-14.5); RDW Standard Deviation 44.2 fL (36.4-46.3); Red Blood Count 3.23 M/uL (4.70-6.10); White Blood Count 9.83 K/ul (4.8-10.8)
[2023-01-22 08:06] LABS: BUN Creatinine Ratio 29.5 (10-20); Calcium 9.1 mg/dl (8.6-10.3); Est GFR (Non-African American) 78.5 ml/min; Magnesium 1.9 mg/dl (1.7-2.4); Potassium 4.1 mmol/L (3.5-5.1)
[2023-01-22 08:14] LABS: Basophils # (auto) 0.02 K/uL (0-0.2); Basophils % (auto) 0.2 %; Immature Granulocytes # (auto) 0.05 K/uL (0.01-0.20); Immature Granulocytes % (auto) 0.5 %; Lymphocytes # (auto) 0.56 K/uL (1.2-3.4); Lymphocytes % (auto) 5.7 %; Monocytes # (auto) 0.26 K/uL (0.11-0.59); Monocytes % (auto) 2.6 %; Neutrophils # (auto) 8.94 K/uL (1.40-6.50)
[2023-01-22] MEDS: ASPIRIN 81 MG ECTAB PO SCH (08:28)
[2023-01-22] MEDS: amLODIPine BESYLATE 5 MG TAB PO SCH (08:28)
[2023-01-22] MEDS: FAMOTIDINE 20 MG TAB PO SCH (08:28)
[2023-01-22] MEDS: FOLIC ACID 400 MCG TAB PO SCH (08:28)
[2023-01-22] MEDS: carvediloL 3.125 MG TAB PO SCH ×2 (08:28→20:13)
[2023-01-22] MEDS: MAGNESIUM OXIDE 400 MG TAB PO SCH ×2 (08:29→16:15)
[2023-01-22] MEDS: LORATADINE 10 MG TAB PO SCH (08:29)
[2023-01-22] MEDS: DICLOFENAC SOD 1% GEL 100 GM TUBE EXT SCH ×4 (08:36→20:13)
[2023-01-22 08:48] LABS: Appearance Urine Clear (Clear); Bilirubin Urine Negative (Negative); Blood Urine Negative (Negative); Color Urine Yellow; Glucose Urine UA 1+ (Negative); Ketones Urine Trace (Negative); Leukocyte Esterase Urine Negative (Negative); Nitrite Urine Negative (Negative); Protein Urine Negative (Negative); Specific Gravity Urine > 1.045 (1.000-1.030); Urobilinogen Urine Negative (Negative)
[2023-01-22] MEDS ORDERED: ENOXAPARIN INJ 30 MG/0.3 ML SYR SQ SCH (09:00)
--- NOTE | 2023-01-22 10:56 | Electrocardiogram Report ---
Test Reason : Blood Pressure : / mmHG Vent. Rate : 081 BPM Atrial Rate : 081 BPM P-R Int : 154 ms QRS Dur : 090 ms QT Int : 396 ms P-R-T Axes : 053 001 066 degrees QTc Int : 460 ms Normal sinus rhythm Normal ECG When compared with ECG of 04-JUL-2021 06:18, T wave inversion no longer evident in Anterolateral leads Confirmed by Carlos Dietrich ([id number]) on 01/22/2023 10:56:12 AM Referred By: REFERRED SELF Confirmed By:Carlos Dietrich
--- NOTE | 2023-01-22 14:10 | Communication Note ---
Date of Service: January 22, 2023 Patient seen and examined at bedside. He is comfortable lying in the bed; not in any distress. Denies any pain or discomfort. He is saturating well on room air. On physical exam; Constitutional: Alert orient x1 WD/WN, vitals as above, NAD, sitting up in bed, pleasant, conversing easily Respiratory: Occasional wheeze. Cardiovascular: RRR, no murmur, no edema Vessels: no JVD or carotid bruit Chest: normal inspection of chest Abdomen: normal bowel sounds, soft, nontender, no hepatosplenomegaly Musculoskeletal: no cyanosis or clubbing, extremities motor strength 5/5 Skin: no rashes, warm and dry normal turgor Neurologic: Left hemiplegia present. Psychiatric: A+Ox1, euthymic affect Assessment/plan: Pneumonia Metabolic encephalopathy Continue on Unasyn. Plan to provide antibiotic treatment for 7 days. Airway clearance therapy with hypertonic saline and DuoNebs. Speech eval and VFSS Aspiration precautions As per chart review, patient appears to be mentating at baseline presently. Has chronic aphasia; able to answer some questions. Follows simple commands. Continue to monitor. Continue home meds.
--- NOTE | 2023-01-22 15:10 | Fluoroscopy Report ---
FL video swallow CLINICAL HISTORY: assess for aspiration TECHNIQUE: Video fluoroscopy of the pharyngeal region was performed as barium mixtures of varying con sistencies were administered to the patient by the speech pathologist. A formal esophagram was not pe rformed. Comparison: Comparison is made to swallow study 03/10/2014 FINDINGS: Total fluoroscopy time: 1.02 minutes. Radiation dose: 4.33 mGy. The patient swallowed the different barium consistencies without difficulty. There is questionable as piration with thin liquids. Pooling of barium was noted in the bilateral piriform sinuses and vallecu lae. IMPRESSION: Questionable aspiration with thin liquids. Please see the speech pathology report for further details. ACT 112: Negative or not required by law. Electronically signed by: Matthew Keys M.D. 01/22/2023 3:07 PM
[2023-01-22] MEDS: ATORVASTATIN 40 MG TAB PO SCH (16:15)
[2023-01-22] MEDS: SODIUM CHLOR 7% 4 ML NEB NEB SCH (19:23)
[2023-01-22] MEDS: ALBUT/IPRATROP 3MG/0.5MG NEB 3 ML VIAL NEB SCH (19:23)
[2023-01-22] MEDS: FLUTICASONE PROPIONATE NA SPR 16 GM BTL SCH (20:12)
[2023-01-22] MEDS: LANTUS PER UNIT CHARGE SQ SCH (20:36)
[2023-01-23] MEDS: LEVALBUTEROL 1.25 MG/3 ML NEB NEB SCH ×2 (00:55→07:40)
[2023-01-23] MEDS: IPRATROPIUM BROMIDE NEB SOLN 0.02% 2.5 ML VIAL NEB SCH ×2 (00:55→07:40)
[2023-01-23] MEDS: AMPICILLIN/SULBACTAM SOD 3,000 MG in 0.9 % SODIUM CHLORIDE 100 ML IV SCH ×4 (03:12→20:24)
[2023-01-23] MEDS: TAMSULOSIN HCL 0.4 MG CAP PO SCH (05:44)
[2023-01-23] MEDS: ACETAMINOPHEN 500 MG TAB PO SCH ×3 (05:44→20:27)
[2023-01-23] MEDS: ALBUT/IPRATROP 3MG/0.5MG NEB 3 ML VIAL NEB SCH ×2 (07:36→19:20)
[2023-01-23] MEDS: SODIUM CHLOR 7% 4 ML NEB NEB SCH ×2 (07:40→19:20)
[2023-01-23] MEDS: LORATADINE 10 MG TAB PO SCH (08:00)
[2023-01-23] MEDS: DICLOFENAC SOD 1% GEL 100 GM TUBE EXT SCH ×4 (08:00→20:26)
[2023-01-23] MEDS: carvediloL 3.125 MG TAB PO SCH ×2 (08:00→20:27)
[2023-01-23] MEDS: MAGNESIUM OXIDE 400 MG TAB PO SCH ×2 (08:01→17:06)
[2023-01-23] MEDS: ENOXAPARIN INJ 40 MG/0.4 ML SYR SQ SCH (08:01)
[2023-01-23] MEDS: FOLIC ACID 400 MCG TAB PO SCH (08:01)
[2023-01-23] MEDS: FAMOTIDINE 20 MG TAB PO SCH (08:01)
[2023-01-23] MEDS: ASPIRIN 81 MG ECTAB PO SCH (08:02)
[2023-01-23] MEDS: amLODIPine BESYLATE 5 MG TAB PO SCH (08:02)
[2023-01-23] MEDS: INSULIN ASPART PER UNIT CHARGE SC SCH ×4 (08:21→20:27)
[2023-01-23 09:02] LABS: Basophils # (auto) 0.03 K/uL (0-0.2); Basophils % (auto) 0.4 %; Eosinophils # (auto) 0.03 K/uL (0-0.50); Eosinophils % (auto) 0.4 %; Hematocrit (blood only) 30.3 % (42.0-52.0); Hemoglobin 10.2 g/dl (14.0-18.0); Immature Granulocytes # (auto) 0.03 K/uL (0.01-0.20); Immature Granulocytes % (auto) 0.4 %; Lymphocytes # (auto) 0.97 K/uL (1.2-3.4); Lymphocytes % (auto) 12.8 %; Mean Corpuscular Hemoglobin 30.9 pg (25.0-34.0); Mean Corpuscular Hgb Conc 33.7 g/dL (32.0-36.0); Mean Corpuscular Volume 91.8 fL (80.0-100.0); Mean Platelet Volume 11.3 fL (9.4-12.4); Monocytes # (auto) 0.37 K/uL (0.11-0.59); Monocytes % (auto) 4.9 %; Neutrophils # (auto) 6.17 K/uL (1.40-6.50); Neutrophils % (auto) 81.1 %; Platelet Count 226 K/uL (130-400); RDW Coefficient of Variation 13.5 % (11.5-14.5); RDW Standard Deviation 45.8 fL (36.4-46.3)
[2023-01-23 09:21] LABS: BUN Creatinine Ratio 23.8 (10-20); Calcium 8.9 mg/dl (8.6-10.3); Creatinine Clr Calc Pharmacy 72.4 ml/min; Potassium 3.9 mmol/L (3.5-5.1)
[2023-01-23] MEDS ORDERED: IPRATROPIUM BROMIDE NEB SOLN 0.02% 2.5 ML VIAL NEB PRN (11:21)
[2023-01-23] MEDS ORDERED: LEVALBUTEROL 1.25 MG/3 ML NEB NEB PRN (11:21)
--- NOTE | 2023-01-23 15:58 | Hospitalist Progress Note ---
Date of Service January 23, 2023 Assessment & Plan (1) Aspiration into airway: Plan 72-year-old male with PMH of CAD/CVA, PVD, HTN, DM 2 diet controlled, dementia, Warnicke Korsakoff syndrome as per records, past alcohol/tobacco abuse, chronic anemia [baseline hemoglobin around 11], aspiration risk as per records presented to the ED 01/22 from [facility] with complaint of increased lethargy for few days associated with chest congestion/coughing/audible wheezing/OP chest x-ray with left lower infiltrate. Patient was started on doxycycline and DuoNebs course, despite this patient continued to feel weak and short of breath with audible wheezing and hence presented to the hospital. He is being managed for the following: Metabolic encephalopathy: Resolved, appears he is back to baseline Likely aspiration pneumonia Patient presented with shortness of breath, confusion, audible wheezing. Speech evaluation, VFSS reviewed, appreciate recommendation. Continue with nebs RTC and as needed, continue with Unasyn 01/22 Other chronic medical conditions: CAD/CVA/PVD/HTN --continue with/resume home meds as able. DVT prophylaxis: Lovenox subcu Full code Patient's sister Ms. Casie Sena, contact #[phone]. PT/OT, CM to assist with DC planning. Likely can DC next 1 to 2 days Admission and Anticipated Discharge Date Admission Date: January 22, 2023 Subjective Patient seen and examined at bedside as a follow-up of metabolic encephalopathy and pneumonia. Patient was lying in bed, on room air, NAD, aphasic, able to cooperate and answer some questions. Left-sided hemiplegia noted. Patient reports being comfortable and feeling better, patient is alert and appears to be maintaining at his baseline. Physical Exam Physical Exam: Constitutional: Alert orient x1 WD/WN,NAD, sitting up in bed, pleasant. Respiratory: Occasional wheeze. Cardiovascular: RRR, no murmur, no edema Vessels: no JVD or carotid bruit Chest: normal inspection of chest Abdomen: normal bowel sounds, soft, nontender, no hepatosplenomegaly Musculoskeletal: no cyanosis or clubbing, extremities motor strength 5/5 Skin: no rashes, warm and dry normal turgor Neurologic: Left hemiplegia present. Psychiatric: A+Ox1, euthymic affect Results & Data Results & Data Vital Signs (Past 12 Hours) Vital Signs Temp Pulse Pulse Pulse Pulse Resp BP 01/23/23 10:51 36.7 C 69 18 168/71 H 01/23/23 09:59 01/23/23 07:30 36.5 C 73 18 158/78 H 01/23/23 07:41 75 20 01/23/23 07:32 75 Pulse Ox O2 Del Method 01/23/23 10:51 97 Room Air 01/23/23 09:59 Room Air 01/23/23 07:30 98 Room Air 01/23/23 07:41 95 Room Air 01/23/23 07:32
[2023-01-23] MEDS: ATORVASTATIN 40 MG TAB PO SCH (17:06)
[2023-01-23] MEDS: FLUTICASONE PROPIONATE NA SPR 16 GM BTL SCH (20:27)
[2023-01-23] MEDS: LANTUS PER UNIT CHARGE SQ SCH (20:29)
[2023-01-24] MEDS: AMPICILLIN/SULBACTAM SOD 3,000 MG in 0.9 % SODIUM CHLORIDE 100 ML IV SCH ×2 (03:00→08:57)
[2023-01-24] MEDS: ACETAMINOPHEN 500 MG TAB PO SCH (05:23)
[2023-01-24] MEDS: TAMSULOSIN HCL 0.4 MG CAP PO SCH (05:24)
[2023-01-24] MEDS: ALBUT/IPRATROP 3MG/0.5MG NEB 3 ML VIAL NEB SCH (06:59)
[2023-01-24] MEDS: SODIUM CHLOR 7% 4 ML NEB NEB SCH (06:59)
[2023-01-24] MEDS: FOLIC ACID 400 MCG TAB PO SCH (07:59)
[2023-01-24] MEDS: amLODIPine BESYLATE 5 MG TAB PO SCH (07:59)
[2023-01-24] MEDS: MAGNESIUM OXIDE 400 MG TAB PO SCH (07:59)
[2023-01-24] MEDS: ASPIRIN 81 MG ECTAB PO SCH (08:00)
[2023-01-24] MEDS: DICLOFENAC SOD 1% GEL 100 GM TUBE EXT SCH ×2 (08:00→12:14)
[2023-01-24] MEDS: LORATADINE 10 MG TAB PO SCH (08:00)
[2023-01-24] MEDS: FAMOTIDINE 20 MG TAB PO SCH (08:00)
[2023-01-24] MEDS: carvediloL 3.125 MG TAB PO SCH (08:00)
[2023-01-24] MEDS: ENOXAPARIN INJ 40 MG/0.4 ML SYR SQ SCH (08:01)
[2023-01-24] MEDS: INSULIN ASPART PER UNIT CHARGE SC SCH ×2 (08:19→12:14)
--- NOTE | 2023-01-24 14:35 | Discharge Summary ---
Date of Service January 24, 2023 Admission HPI Per Admitting Provider History obtained from patient family and records. Limited history from patient secondary to chronic aphasia. Medical history significant for CAD/CVA, valvular heart disease (moderate AR/), PVD, hypertension, DM2 diet controlled, dementia, Wernicke Korsakoff syndrome as per records, past tobacco/alcohol abuse, chronic anemia (baseline hemoglobin 11), aspiration risk as per records. Last confinement 2020 NSTEMI and aspiration pneumonitis. Cardiology recommended medical management for NSTEMI/probable CAD. Few days ago, patient noted to have increased lethargy at halfway. Chest congestion, coughing and audible wheezing noted. Outpatient chest x-ray showed left lower lobe infiltrate possible aspiration pneumonia. Patient started on doxycycline and DuoNebs course. Patient still feeling weak, short of breath and with audible wheezing on follow- up evaluation by halfway provider yesterday. Solu-Medrol IM dose administered followed by prednisone course prescription. Worsening confusion and wheezing noted at halfway. BSG 400s. Patient brought to ER for evaluation by EMS. IV insulin and Zosyn administered at the ER. Medical Historyas above Surgical History : Hip fracture surgery Family History : Heart disease, stroke Personal/Social history : Past tobacco/alcohol abuse, disabled, halfway resident Admission Exam Per Admitting Provider Constitutional: Alert orient x1 WD/WN,NAD, sitting up in bed, pleasant. Respiratory: Occasional wheeze. Cardiovascular: RRR, no murmur, no edema Vessels: no JVD or carotid bruit Chest: normal inspection of chest Abdomen: normal bowel sounds, soft, nontender, no hepatosplenomegaly Musculoskeletal: no cyanosis or clubbing, extremities motor strength 5/5 Skin: no rashes, warm and dry normal turgor Neurologic: Left hemiplegia present. Psychiatric: A+Ox1, euthymic affect Principal Diagnosis Metabolic encephalopathy Aspiration pneumonia Discharge Exam Constitutional: Alert orient x1 WD/WN,NAD, sitting up in bed, pleasant. Respiratory: Occasional wheeze. Cardiovascular: RRR, no murmur, no edema Vessels: no JVD or carotid bruit Chest: normal inspection of chest Abdomen: normal bowel sounds, soft, nontender, no hepatosplenomegaly Musculoskeletal: no cyanosis or clubbing, extremities motor strength 5/5 Skin: no rashes, warm and dry normal turgor Neurologic: Left hemiplegia present. Psychiatric: A+Ox1, euthymic affect Discharge Data Allergies Allergy/AdvReac Type Severity Reaction Status Date / Time No Known Allergies Allergy Verified 01/21/23 20:07 Consultations 01/21/23 23:09 ED Decision to Admit Stat Ordered Studies 01/21/23 21:20 CT angio chest PE protocol Stat 01/22/23 00:01 CT head/brain wo con Stat 01/22/23 13:30 FL video swallow Routine Hospital Course (1) Aspiration into airway: Plan 72-year-old male with PMH of CAD/CVA, PVD, HTN, DM 2 diet controlled, dementia, Warnicke Korsakoff syndrome as per records, past alcohol/tobacco abuse, chronic anemia [baseline hemoglobin around 11], aspiration risk as per records presented to the ED 01/22 from halfway with complaint of increased lethargy for few days associated with chest congestion/coughing/audible wheezing/OP chest x-ray with left lower infiltrate. Patient was started on doxycycline and DuoNebs course, despite this patient continued to feel weak and short of breath with audible wheezing and hence presented to the hospital. He was managed for the following: Metabolic encephalopathy: Resolved, appears he is back to baseline Likely aspiration pneumonia Patient presented with shortness of breath, confusion, audible wheezing. Speech evaluation, VFSS reviewed, appreciate recommendation. Continue with nebs RTC and as needed, continue with Unasyn 01/22 -- to augmentin on dc to complete 7 days course, probiotic added. Other chronic medical conditions: CAD/CVA/PVD/HTN --continue with/resume home meds as able. DVT prophylaxis: Lovenox subcu Full code Patient's sister Ms. Casie Sena, contact #[phone]. Patient being discharged to SNF with following instruction at the point of discharge: Follow-up with your primary care physician within a week time and likely you will need labs CBC/CMP/magnesium/phosphorus. Maintain aspiration precaution, recommended diet : food - pured consistency and for liquid - nectar thick consistency. You will be discharged on Augmentin to complete the course of antibiotic. Probiotics will be added. Please make sure that you are able to get your medications today by calling your pharmacy before you leave the hospital so that your treatment continuity is not broken. Home Health Attestation I certify that this patient is under my care and that I, or a physicians regulatory assistant working with me, had a face to-face encounter that meets the home health [id number] encounter requirements with this patient. The encounter with the patient was in whole, or in part, for the following medical condition, which is the primary reason for home health care (list medical condition): I certify that, based on my findings, the following services are medically necessary home health services: My clinical findings support the need for the above services because: Further, I certify that my clinical findings support that this patient is homebound (i.e. absences from home require considerable and taxing effort and are for medical reasons or orthodox services or infrequently or of short duration when for other reasons) because: Certification for Home Health Services: Based on the above findings, I certify that this patient is confined to the home and needs intermittent nursing home care, physical therapy and/or speech therapy or continues to need occupational therapy. The patient is under my care, and I have initiated the establishment of the plan of care. This patient will be followed by a physician who will periodically review the plan of care. Total Time Total Time Spent Total Time Spent (In Minutes): 45 Discharge Plan Discharge Items Patient Disposition: Personal Custodial Reason For Visit: ENCEPHALOPATHY, HCAP Discharge Diagnosis: Metabolic encephalopathy Aspiration pneumonia Activity: Resume your previous activity Non-emergency contact: Primary Care Provider Call non-emergency contact if: you have any medication questions, your symptoms worsen and your temperature is above 101 Follow-up/Referrals: Yesenia Rosa MD [Primary Care Provider] - Diet: Carb Consistent or DM2 and Heart Healthy Diet Texture: Pureed (blended smooth) Liquid Consistency: [place] thick Addtl Attending Provider Instructions: Follow-up with your primary care physician within a week time and likely you will need labs CBC/CMP/magnesium/phosphorus. Maintain aspiration precaution, recommended diet : food - pured consistency and for liquid - nectar thick consistency. You will be discharged on Augmentin to complete the course of antibiotic. Probiotics will be added. Please make sure that you are able to get your medications today by calling your pharmacy before you leave the hospital so that your treatment continuity is not broken. Pending Studies at Discharge: No Stand-Alone Forms: My [employer], Smoking Cessation Skilled Items Patient informed of condition?: Yes DNR: No Discharge Level of Care: Other Communicable Disease: No Discharge Prognosis: Stable Lines: None Urinary Catheter: No Medications and DC Order Prescriptions: New amoxicillin-pot clavulanate 875-125 mg tablet 1 tab PO BID 5 Days Qty: 10 0RF Probiotic 3 billion cell capsule 3,000 mmu cells PO DAILY 14 Days Qty: 14 0RF Rx Instructions: administer with a meal Continued acetaminophen [Tylenol Extra Strength] 500 mg tablet 500 mg PO TID MDD 3 GRAMS APAP/24 HOURS atorvastatin [Lipitor] 40 mg tablet 40 mg PO QDD folic acid 400 mcg Tablet 0.4 mg PO QAM magnesium oxide 400 mg (241.3 mg magnesium) Tablet 400 mg PO BID17 aspirin [Aspirin Childrens] 81 mg Tablet,Chewable 81 mg PO QAM metformin 500 mg tablet 500 mg PO BID17 ipratropium-albuterol [DuoNeb] 0.5 mg-3 mg(2.5 mg base)/3 mL Solution For Nebulization 3 ml INHALATION QID Rx Instructions: STARTED 01/18/23 WITH PM DOSE FOR 6 DAYS. amlodipine 2.5 mg tablet 2.5 mg PO QAM guaifenesin [Robafen] 100 mg/5 mL Liquid 200 mg PO Q4H PRN (Reason: Cough) dimenhydrinate [Driminate] 50 mg Tablet 50 mg PO DIRECTED PRN (Reason: PRN CAR RIDES) Rx Instructions: GIVE 30 MINUTES PRIOR TO CAR RIDES. magnesium hydroxide [Milk of Magnesia] 400 mg/5 mL Suspension 30 ml PO DIRECTED PRN (Reason: NO BM OF 3 DAYS.) mirtazapine 15 mg tablet 15 mg PO HS fluticasone propionate [Flonase Allergy Relief] 50 mcg/actuation [place],Suspension 2 spray INTRANASAL HS Rx Instructions: administer into each nostril loratadine [Claritin] 10 mg Tablet 10 mg PO QAM Senna Plus 8.6-50 mg Capsule 2 tab-cap PO BID Med Pass Suppliment 180 ml PO TID famotidine 20 mg tablet 20 mg PO DAILY diclofenac sodium 1 % gel 4 g TOPICAL QID Rx Instructions: apply to right knee tamsulosin 0.4 mg capsule 0.4 mg PO DAILYBB ipratropium-albuterol 0.5 mg-3 mg(2.5 mg base)/3 mL solution for nebulization 3 ml INHALATION Q4 PRN (Reason: Shortness Of Breath) acetaminophen 325 mg Tablet 650 mg PO Q4 MDD 3 GRAMS APAP/24 HOURS PRN (Reason: Fever Or Pain) Rx Instructions: use for temp>100 or mild to severe pain carvedilol 6.25 mg Tablet 6.25 mg PO AMHS 30 Days Qty: 30 2RF Rx Instructions: HOLD FOR SBP <100 OR HR <60 lisinopril 10 mg Tablet 10 mg PO BID 30 Days Qty: 60 2RF Discontinued doxycycline hyclate 100 mg capsule 100 mg PO BID Rx Instructions: STARTED 01/18/23 WITH PM DOSE FOR 10 DAYS prednisone 20 mg Tablet 40 mg PO QAM Rx Instructions: TO START 01/22/23 FOR 4 DAYS. methylprednisolone sodium succ [Solu-Medrol] 125 mg Recon Soln 125 mg IM ONCE Discharge Orders: Discharge Order (Routine); Ordered 01/24/23 Ordered By: Aliya Martinez Admission Data Admit Date/Time: 01/22/23 00:06 Attending Provider: Aliya Martinez Admit Provider: Josias Copeland Primary Care Provider: Yesenia Rosa Other Providers: Josias Copeland ; Roberts Chapel
== END 2023-01-24 15:37 | DRG 177 ==
LOC: ED 19:33 → 2W 01-22 00:06 → SUATTDRO 01-22 00:06 → 2W 01-22 01:23

== ENCOUNTER 2023-02-16 20:54 | Inpatient (IN) ==
[2023-02-16] MEDS ORDERED: LIDOCAINE 2% JELLY 5 ML TUBE EXT ONE (21:10)
[2023-02-16] MEDS ORDERED: SODIUM CHLORIDE 0.9% 1000ML 1,000 ML IV ONE (22:27)
--- NOTE | 2023-02-16 22:32 | Emergency Department Note ---
Impression & Plan Pneumonia, Acute urinary retention, Acute UTI, Acute renal insufficiency ED Provider Note NAME: ROB JONES AGE: 72 SEX: M ARRIVES VIA: Ambulance INFORMANT: Patient ED PROVIDER(S): Tim Butt MD CHIEF COMPLAINT: Decrease urination and urinary retention, referred. PLAN: Disposition: Admit MEDICAL DECISION MAKING: The patient is a 72-year-old with a past medical history of CVA, CAD, hypertension, diabetes, dementia, Wernicke-Korsakoff syndrome per records, prior history of tobacco and alcohol abuse, anemia, aspiration risk who presents to the emergency department via EMS from his intermediate facility at [facility] for evaluation of decreased urine output and urinary retention. Per EMS report staff had noticed decreased urine output and retention and attempt to place Chauhan catheter however were unsuccessful. Per EMS report the patient is being treated for pneumonia and received doxycycline and IM Rocephin today. On arrival to emergency department patient is uniparental ill-appearing but no acute distress, afebrile with blood pressure 90s-100s/50s-80s and vital signs otherwise stable. The patient appears clinically dry. Patient had Chauhan catheter placed successfully by nursing prior to my evaluation and dark yellow urine with clots noted draining the catheter bag. Abdomen was soft nontender. Patient exhibits chronic aphasia/dysarthria which is his baseline per reports missing a prior CVA. He exhibits subtle rhonchi bilateral lung ayon and lungs otherwise clear. EKG without overt acute ischemia. CXR with bibasilar airspace opacities. WBC 11.9K with neutrophil predominance but no left shift, nonspecific. H/H similar to and improved from prior. Platelets within normal limits. Chemistry without metabolic acidosis. Creatinine 2.1, consistent with acute renal insufficiency. BUN/creatinine> suggestive of prerenal etiology and consistent with the patient's clinical dry appearance. LFTs unremarkable. BNP 160, n onspecific. Procalcitonin is elevated 2.6. UA suspicious for infection with 2+ leuk esterase, WBCs, albeit with epithelial cells present no bacteria. COVID-19 RNA, JONES test was negative. CT of the abdomen pelvis demonstrates distention of urinary bladder despite placement of Chauhan catheter which likely was related to residual clot since placement and subsequently addressed by nursing. Otherwise no hydronephrosis seen nor urolithiasis. Lung bases are further characterized with increasing par enchymal consolidations consistent with pneumonia. Given the patient's worsening clinical status in the setting of pneumonia and suspected urinary tract infection patient was referred to hospital service for admission. Treatment initiated with empiric cefepime and vancomycin at this time. 30cc/kg of IV fluid hydration with normal saline administered with caution given acute renal insufficiency. Case was discussed with Dr. Frye, [facility] hospitalist, who will evaluate the patient for admission. Triage Nursing notes reviewed and agree them. Prior/outside medical records reviewed Vital Signs: reviewed Differential diagnosis: Renal colic, UTI, appendicitis, diverticulitis, mesenteric ischemia, aortic pathology, infections, inflammatory bowel disease, PUD, biliary pathology, as well as other pathologies. ER treatment provided: See below. Diagnostics interpreted by me: ECG: Sinus rhythm with frequent PVCs, 83 bpm, no overt ST elevation or depression, QTc 495. QRS 84. Cardiac Monitoring: An order for continuous cardiac monitoring was placed and demonstrated Sinus rhythm with frequent PVCs, 83 bpm. Laboratory studies: See below Imaging studies: See below Consultation(s): [facility]. HPI: The patient is a 72-year-old with a past medical history of CVA, CAD, hypertension, diabetes, dementia, Wernicke-Korsakoff syndrome per records, prior history of tobacco and alcohol abuse, anemia, aspiration risk who presents to the emergency department via EMS from his intermediate facility at [facility] for evaluation of decreased urine output and urinary retention. Per EMS report staff had noticed decreased urine output and retention and attempt to place Chauhan catheter however were unsuccessful. Per EMS report the patient is being treated for pneumonia and received doxycycline and IM Rocephin today. ROS: See above HPI for pertinent positives & negatives. A total of 10 systems re viewed and were otherwise negative. VITALS:See Below PHYSICAL EXAMINATION: GENERAL: Awake, alert, acute chronically ill-appearing, in no distress HENT: Normocephalic, atraumatic. Oropharynx with dry mucous membranes and otherwise unremarkable. EYES: Normal conjunctiva. Sclera non-icteric. NECK: Supple. No nuchal rigidity. FROM. No JVD. RESPIRATORY: Rhonchi bilateral lung ayon and lungs otherwise clear. CARDIAC: Regular rate, normal rhythm. Extremities warm and well perfused. Pulses equal. ABDOMEN: Soft, non-distended. No tenderness to palpation. : Dark yellow urine with clots noted draining the catheter bag. MUSCULOSKELETAL: Chest examination reveals no tenderness. The back is symmetrical on inspection without obvious abnormality. There is no CVA tenderness to palpation. No joint edema. LOWER EXTREMITIES: Calves are equal size bilaterally and non-tender. No edema. No discoloration. NEURO: Chronic aphasia/dysarthria which is his baseline per records 2/2 prior CVA. SKIN: No rash or jaundice noted. ED COURSE: Critical Care: I have personally spent greater than 35 minutes of critical care time in the direct management of this patient. This includes bedside care, interpretation of diagnostic studies, and testing, discussion with consultants, patient, and family members, and other required patient management activities. This 35 minutes is in excess of all separately billable procedures. 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 Cholelithiasis Chronic constipation Contracture, left ankle Contracture, right ankle Diabetic neuropathy Dysarthria following cerebral infarction Full code status Functional urinary incontinence Generalized muscle weakness Hemiplegia of left nondominant 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 History of CVA (cerebrovascular accident) Hypertension Hypomagnesemia Incontinence, feces Left ear impacted cerumen Nicotine dependence Occlusion and stenosis of bilateral carotid arteries Oral phase dysphagia Type 2 diabetes mellitus Vascular dementia without behavioral disturbance Vitamin B12 deficiency Surgical History No pertinent past surgical history Social History Smoking Status: Former smoker Tobacco Type: Cigarettes Second Hand Exposure: No; Hx Alcohol Use: No Hx Substance Use: No Preferred Language: Yoruba Communication Ability: Effective Communication Ability Comment: Patient mouths words, Hard to make out Vp Integrity Required: No Beliefs That Will Affect Care: None marital status: Single Current Living Situation: [facility] Current Living Situation Comment: is from [facility] Feels Safe at Home: No Assistive Devices: Walker and Wheelchair Allergies Allergies Allergy/AdvReac Type Severity Reaction Status Date / Time No Known Allergies Allergy Verified 01/21/23 20:07 Home Meds Home Medications Medication Instructions Recorded Confirmed aspirin 81 mg chewable tablet 81 mg PO QAM 06/12/20 01/21/23 (Aspirin Childrens) atorvastatin 40 mg tablet (Lipitor) 40 mg PO QDD 06/12/20 01/21/23 magnesium oxide 400 mg (241.3 mg 400 mg PO BID17 06/12/20 01/21/23 magnesium) tablet acetaminophen 500 mg tablet 500 mg PO TID 08/02/20 01/21/23 (Tylenol Extra Strength) acetaminophen 325 mg tablet 650 mg PO Q4 PRN Fever Or Pain 07/01/21 01/21/23 diclofenac sodium 1 % topical gel 4 g topical QID 07/01/21 01/21/23 famotidine 20 mg tablet 20 mg PO DAILY 07/01/21 01/21/23 ipratropium 0.5 mg-albuterol 3 mg 3 ml inhalation Q4 PRN Shortness 07/01/21 01/21/23 (2.5 mg base)/3 mL nebulization Of Breath soln tamsulosin 0.4 mg capsule 0.4 mg PO DAILYBB 07/01/21 01/21/23 Med Pass Suppliment 180 ml PO TID 01/21/23 01/21/23 amlodipine 2.5 mg tablet 2.5 mg PO QAM 01/21/23 01/21/23 fluticasone propionate 50 2 spray intranasal HS 01/21/23 01/21/23 mcg/actuation nasal spray,suspension (Flonase Allergy Relief) guaifenesin 100 mg/5 mL oral 200 mg PO Q4H PRN Cough 01/21/23 01/21/23 liquid (Robafen) ipratropium 0.5 mg-albuterol 3 mg 3 ml inhalation QID 01/21/23 01/21/23 (2.5 mg base)/3 mL nebulization soln loratadine 10 mg tablet (Claritin) 10 mg PO QAM 01/21/23 01/21/23 magnesium hydroxide 400 mg/5 mL 30 ml PO DIRECTED PRN NO BM OF 01/21/23 01/21/23 oral suspension (Milk of Magnesia) 3 DAYS. metformin 500 mg tablet 500 mg PO BID17 01/21/23 01/21/23 mirtazapine 15 mg tablet 15 mg PO HS 01/21/23 01/21/23 sennosides 8.6 mg-docusate sodium 2 tab-cap PO BID 01/21/23 01/21/23 50 mg capsule (Senna Plus) Proscar 5 mg PO DAILY 02/17/23 02/17/23 folic acid 400 mcg tablet 400 mcg PO DAILY 02/17/23 02/17/23 glycopyrrolate 1 mg tablet 0.5 mg PO BID 02/17/23 02/17/23 (Nicole) Previous Rx's Medication Instructions Recorded carvedilol 6.25 mg tablet 6.25 mg PO AMHS 30 days #30 tabs 07/06/21 lisinopril 10 mg tablet 10 mg PO BID 30 days #60 tabs 07/06/21 Results & Data (ED) Vital Signs Vital Signs - 24 hr 02/16/23 21:03 02/16/23 21:12 02/16/23 21:07 Temperature 36.8 C 36.8 C Temperature Source Oral Oral Pulse Rate 89 84 Pulse Rate [Apical] Pulse Rate [Right Brachial] 87 Pulse Rhythm Regular Pulse Rhythm [Right Brachial] Pulse Strength Normal Pulse Strength [Right Brachial] Respiratory Rate 21 21 Respiratory Effort / Characteristics SOB on Exertion SOB on Exertion Respiratory Depth Normal Normal Respiratory Pattern Regular Regular Blood Pressure 108/55 L Blood Pressure [Right Arm] 108/55 L Blood Pressure Mean 72 Blood Pressure Mean [Right Arm] 72 Pulse Oximetry 97 97 Oxygen Delivery Method Nasal Cannula Nasal Cannula Oxygen Flow Rate 4 4 Sepsis Recent Fever Within 48 Hours Yes Sepsis New/Unexplained Change in Mental Status N/A Sepsis Action Taken by Nursing No Action Required 02/16/23 22:19 02/16/23 23:45 02/17/23 01:00 Temperature Temperature Source Pulse Rate Pulse Rate [Apical] 78 74 Pulse Rate [Right Brachial] 85 Pulse Rhythm Pulse Rhythm [Right Brachial] Regular Pulse Strength Pulse Strength [Right Brachial] Normal Respiratory Rate 19 16 16 Respiratory Effort / Characteristics SOB on Exertion Respiratory Depth Normal Respiratory Pattern Regular Blood Pressure Blood Pressure [Right Arm] 95/84 L 95/60 L 118/55 L Blood Pressure Mean Blood Pressure Mean [Right Arm] 87 71 76 Pulse Oximetry 96 99 98 Oxygen Delivery Method Nasal Cannula Nasal Cannula Nasal Cannula Oxygen Flow Rate 4 4 4 Sepsis Recent Fever Within 48 Hours Sepsis New/Unexplained Change in Mental Status Sepsis Action Taken by Nursing 02/17/23 01:05 02/17/23 02:40 02/17/23 04:00 Temperature Temperature Source Pulse Rate 76 Pulse Rate [Apical] 66 68 Pulse Rate [Right Brachial] Pulse Rhythm Pulse Rhythm [Right Brachial] Pulse Strength Pulse Strength [Right Brachial] Respiratory Rate 16 16 Respiratory Effort / Characteristics Respiratory Depth Respiratory Pattern Blood Pressure Blood Pressure [Right Arm] 95/51 L 111/64 Blood Pressure Mean Blood Pressure Mean [Right Arm] 65 79 Pulse Oximetry 100 100 Oxygen Delivery Method Nasal Cannula Nasal Cannula Oxygen Flow Rate 4 4 Sepsis Recent Fever Within 48 Hours Sepsis New/Unexplained Change in Mental Status Sepsis Action Taken by Nursing 02/17/23 04:55 02/17/23 05:10 02/17/23 06:01 Temperature Temperature Source Pulse Rate 66 Pulse Rate [Apical] 65 74 Pulse Rate [Right Brachial] Pulse Rhythm Pulse Rhythm [Right Brachial] Pulse Strength Pulse Strength [Right Brachial] Respiratory Rate 16 16 Respiratory Effort / Characteristics Respiratory Depth Respiratory Pattern Blood Pressure Blood Pressure [Right Arm] 119/57 L 118/63 Blood Pressure Mean Blood Pressure Mean [Right Arm] 77 81 Pulse Oximetry 100 100 Oxygen Delivery Method Nasal Cannula Nasal Cannula Oxygen Flow Rate 4 4 Sepsis Recent Fever Within 48 Hours Sepsis New/Unexplained Change in Mental Status Sepsis Action Taken by Nursing Laboratory Data Attestation: I reviewed the patient's lab results. 02/16/23 21:22 02/16/23 21:22 Lab Results 02/16/23 02/16/23 02/16/23 Range/Units 21:22 21:22 21:22 WBC 11.90 H (4.8-10.8) K/ul RBC 3.76 L (4.70-6.10) M/uL Hgb 11.4 L (14.0-18.0) g/dl Hct 35.6 L (42.0-52.0) % MCV 94.7 (80.0-100.0) fL MCH 30.3 (25.0-34.0) pg MCHC 32.0 (32.0-36.0) g/dL RDW Std Deviation 51.8 H (36.4-46.3) fL RDW Coeff of Guido 14.9 H (11.5-14.5) % Plt Count 175 (130-400) K/uL MPV 13.4 H (9.4-12.4) fL Immature Gran % (Auto) 0.3 % Neut % (Auto) 89.4 % Lymph % (Auto) 5.2 % [place] % (Auto) 4.6 % Eos % (Auto) 0.2 % Baso % (Auto) 0.3 % Neut # (Auto) 10.64 H (1.40-6.50) K/uL Lymph # (Auto) 0.62 L (1.2-3.4) K/uL [place] # (Auto) 0.55 (0.11-0.59) K/uL Eos # (Auto) 0.02 (0-0.50) K/uL Baso # (Auto) 0.03 (0-0.2) K/uL Immature Gran # (Auto) 0.04 (0.01-0.20) K/uL Sodium 145 (136-145) mmol/L Potassium 4.2 (3.5-5.1) mmol/L Chloride 103 (98-107) mmol/L Carbon Dioxide 31 (21-32) mmol/L Anion Gap 11 (3-11) BUN 68 H (6-23) mg/dl Creatinine 2.13 H (0.6-1.4) mg/dl Est Cr Clr Drug Dosing 25.4 ml/min Est GFR ( Amer) 34.3 ml/min Est GFR (Non-Af Amer) 29.6 ml/min BUN/Creatinine Ratio 31.9 H (10-20) Glucose 321 H* (70-99(Fasting)) mg/dl Lactate (0.4-2.0) mmol/L Calcium 9.3 (8.6-10.3) mg/dl Phosphorus 3.5 (2.5-4.9) mg/dl Magnesium 2.1 (1.7-2.4) mg/dl Total Bilirubin 0.5 (0.2-1.0) mg/dl AST 10 L (13-39) U/L ALT 9 (7-52) U/L Alkaline Phosphatase 77 (34-104) U/L B-Natriuretic Peptide 160 H (0-100) pg/ml Total Protein 6.8 (6.0-8.3) gm/dl Albumin 3.2 L (3.4-5.0) gm/dl Globulin 3.6 (2.5-4.0) gm/dl Albumin/Globulin Ratio 0.9 (0.9-2) Procalcitonin (0-0.5) ng/ml TSH (0.300-4.500) uIu/ml Urine Color Urine Appearance (Clear) Urine pH (4.5-7.5) Ur Specific [place] (1.000-1.030) Urine Protein (Negative) Urine Glucose (UA) (Negative) Urine Ketones (Negative) Urine Blood (Negative) Urine Nitrite (Negative) Urine Bilirubin (Negative) Urine Urobilinogen (Negative) Ur Leukocyte Esterase (Negative) Urine WBC (Auto) (0-5) /hpf Urine RBC (Auto) (0-4) /hpf U Hyaline Cast (Auto) (0-5) /lpf U Epithel Cells (Auto) (0-5) /lpf Urine Bacteria (Auto) (Negative) Urine Yeast (None Prsent) SARS-CoV-2, RNA, NAAT (NEGATIVE) 02/16/23 02/16/23 02/16/23 Range/Units 21:22 21:22 21:45 WBC (4.8-10.8) K/ul RBC (4.70-6.10) M/uL Hgb (14.0-18.0) g/dl Hct (42.0-52.0) % MCV (80.0-100.0) fL MCH (25.0-34.0) pg MCHC (32.0-36.0) g/dL RDW Std Deviation (36.4-46.3) fL RDW Coeff of Guido (11.5-14.5) % Plt Count (130-400) K/uL MPV (9.4-12.4) fL Immature Gran % (Auto) % Neut % (Auto) % Lymph % (Auto) % [place] % (Auto) % Eos % (Auto) % Baso % (Auto) % Neut # (Auto) (1.40-6.50) K/uL Lymph # (Auto) (1.2-3.4) K/uL [place] # (Auto) (0.11-0.59) K/uL Eos # (Auto) (0-0.50) K/uL Baso # (Auto) (0-0.2) K/uL Immature Gran # (Auto) (0.01-0.20) K/uL Sodium (136-145) mmol/L Potassium (3.5-5.1) mmol/L Chloride (98-107) mmol/L Carbon Dioxide (21-32) mmol/L Anion Gap (3-11) BUN (6-23) mg/dl Creatinine (0.6-1.4) mg/dl Est Cr Clr Drug Dosing ml/min Est GFR ( Amer) ml/min Est GFR (Non-Af Amer) ml/min BUN/Creatinine Ratio (10-20) Glucose (70-99(Fasting)) mg/dl Lactate (0.4-2.0) mmol/L Calcium (8.6-10.3) mg/dl Phosphorus (2.5-4.9) mg/dl Magnesium (1.7-2.4) mg/dl Total Bilirubin (0.2-1.0) mg/dl AST (13-39) U/L ALT (7-52) U/L Alkaline Phosphatase (34-104) U/L B-Natriuretic Peptide (0-100) pg/ml Total Protein (6.0-8.3) gm/dl Albumin (3.4-5.0) gm/dl Globulin (2.5-4.0) gm/dl Albumin/Globulin Ratio (0.9-2) Procalcitonin 2.62 H (0-0.5) ng/ml TSH 2.154 (0.300-4.500) uIu/ml Urine Color Dark Yellow Urine Appearance Cloudy A (Clear) Urine pH 6.0 (4.5-7.5) Ur Specific [place] 1.022 (1.000-1.030) Urine Protein Trace H (Negative) Urine Glucose (UA) Negative (Negative) Urine Ketones Trace H (Negative) Urine Blood 3+ H (Negative) Urine Nitrite Negative (Negative) Urine Bilirubin Negative (Negative) Urine Urobilinogen Negative (Negative) Ur Leukocyte Esterase 2+ H (Negative) Urine WBC (Auto) >30 H (0-5) /hpf Urine RBC (Auto) 10-30 H (0-4) /hpf U Hyaline Cast (Auto) 5-10 H (0-5) /lpf U Epithel Cells (Auto) 20-30 H (0-5) /lpf Urine Bacteria (Auto) Negative (Negative) Urine Yeast Budding A (None Prsent) SARS-CoV-2, RNA, NAAT (NEGATIVE) 02/16/23 02/17/23 Range/Units 22:55 03:50 WBC (4.8-10.8) K/ul RBC (4.70-6.10) M/uL Hgb (14.0-18.0) g/dl Hct (42.0-52.0) % MCV (80.0-100.0) fL MCH (25.0-34.0) pg MCHC (32.0-36.0) g/dL RDW Std Deviation (36.4-46.3) fL RDW Coeff of Guido (11.5-14.5) % Plt Count (130-400) K/uL MPV (9.4-12.4) fL Immature Gran % (Auto) % Neut % (Auto) % Lymph % (Auto) % [place] % (Auto) % Eos % (Auto) % Baso % (Auto) % Neut # (Auto) (1.40-6.50) K/uL Lymph # (Auto) (1.2-3.4) K/uL [place] # (Auto) (0.11-0.59) K/uL Eos # (Auto) (0-0.50) K/uL Baso # (Auto) (0-0.2) K/uL Immature Gran # (Auto) (0.01-0.20) K/uL Sodium (136-145) mmol/L Potassium (3.5-5.1) mmol/L Chloride (98-107) mmol/L Carbon Dioxide (21-32) mmol/L Anion Gap (3-11) BUN (6-23) mg/dl Creatinine (0.6-1.4) mg/dl Est Cr Clr Drug Dosing ml/min Est GFR ( Amer) ml/min Est GFR (Non-Af Amer) ml/min BUN/Creatinine Ratio (10-20) Glucose (70-99(Fasting)) mg/dl Lactate 1.9 (0.4-2.0) mmol/L Calcium (8.6-10.3) mg/dl Phosphorus (2.5-4.9) mg/dl Magnesium (1.7-2.4) mg/dl Total Bilirubin (0.2-1.0) mg/dl AST (13-39) U/L ALT (7-52) U/L Alkaline Phosphatase (34-104) U/L B-Natriuretic Peptide (0-100) pg/ml Total Protein (6.0-8.3) gm/dl Albumin (3.4-5.0) gm/dl Globulin (2.5-4.0) gm/dl Albumin/Globulin Ratio (0.9-2) Procalcitonin (0-0.5) ng/ml TSH (0.300-4.500) uIu/ml Urine Color Urine Appearance (Clear) Urine pH (4.5-7.5) Ur Specific [place] (1.000-1.030) Urine Protein (Negative) Urine Glucose (UA) (Negative) Urine Ketones (Negative) Urine Blood (Negative) Urine Nitrite (Negative) Urine Bilirubin (Negative) Urine Urobilinogen (Negative) Ur Leukocyte Esterase (Negative) Urine WBC (Auto) (0-5) /hpf Urine RBC (Auto) (0-4) /hpf U Hyaline Cast (Auto) (0-5) /lpf U Epithel Cells (Auto) (0-5) /lpf Urine Bacteria (Auto) (Negative) Urine Yeast (None Prsent) SARS-CoV-2, RNA, NAAT NEGATIVE (NEGATIVE) Administered Medications Discontinued Medications Sodium Chloride (Nss 1000ml) 1,000 mls @ 999 mls/hr IV .Q1H1M ONE Stop: 02/16/23 23:27 Last Infusion: 02/16/23 23:58 Dose: 0 mls/hr Documented By: Admin: 02/16/23 22:57 Dose: 999 mls/hr Documented By: BERTHA Cefepime HCl (Maxipime) 2,000 mg in 20 mls @ 5 mls/min IV NOW STA; Protocol Stop: 02/17/23 00:05 Last Admin: 02/17/23 00:10 Dose: 5 mls/min Documented By: SHEREE Vancomycin HCl 1,500 mg/ (Sodium Chloride) 530 mls @ 200 mls/hr IV NOW ONE Stop: 02/17/23 02:40 Last Admin: 02/17/23 00:31 Dose: 200 mls/hr Documented By: SHEREE Sodium Chloride (Nss 1000ml) 1,000 mls @ 999 mls/hr IV .Q1H1M ONE Stop: 02/17/23 01:03 Last Infusion: 02/17/23 01:33 Dose: 0 mls/hr Documented By: Admin: 02/17/23 00:11 Dose: 999 mls/hr Documented By: SHEREE Acetaminophen (Ofirmev) 1,000 mg in 100 mls @ 400 mls/hr IV NOW STA Stop: 02/17/23 01:01 Last Infusion: 02/17/23 01:32 Dose: 0 mls/hr Documented By: Admin: 02/17/23 00:58 Dose: 400 mls/hr Documented By: SHEREE Lidocaine HCl (Lidocaine 2% Jelly 5 Ml Tube) Confirm Administered Dose 5 ml EXT .STK-MED ONE Stop: 02/16/23 21:11 Last Admin: 02/16/23 22:57 Dose: 5 ml Documented By: BERTHA Imaging Data Radiologist's Impression: Abdomen/Pelvis CT 02/16/23 22:56 Exam(s): CT ABDOMEN + PELVIS Without Contrast EXAM: CT Abdomen and Pelvis Without Intravenous Contrast CLINICAL HISTORY: Reason for exam: urinary retention, michael, sepsis. TECHNIQUE: Axial computed tomography images of the abdomen and pelvis without intravenous contrast. CTDI is 16.11 mGy and DLP is 842.64 mGy-cm. Automated exposure control was utilized for the study. A dose lowering technique was utilized adhering to the principles of ALARA. COMPARISON: Thoracic CT dated 01/21/23. FINDINGS: Lung bases: There are dense consolidations at the lung bases concerning for underlying pneumonia which are new from the prior study. ABDOMEN: Liver: Unremarkable. Gallbladder and bile ducts: Cholelithiasis within an otherwise normal- appearing gallbladder. No ductal dilation. Pancreas: Unremarkable. No ductal dilation. Spleen: Unremarkable. No splenomegaly. Adrenals: Unremarkable. No mass. Kidneys and ureters: Unremarkable. No obstructing stones. No hydronephrosis. Stomach and bowel: Unremarkable. No obstruction. No mucosal thickening. PELVIS: Appendix: No findings to suggest acute appendicitis. Bladder: Chauhan catheter in place. The urinary bladder is significantly distended despite the presence of the Chauhan catheter. No stones. Reproductive: Unremarkable as visualized. ABDOMEN and PELVIS: Intraperitoneal space: Unremarkable. No free air. No significant fluid collection. Bones/joints: Status post right hip arthroplasty. There are advanced degenerative changes of the thoracolumbar spine. No acute fracture. No dislocation. Soft tissues: Unremarkable. Vasculature: Scattered calcification throughout the liver most likely reflecting a combination of atherosclerotic disease and granulomas. There is diffuse atherosclerotic calcification of the aorta and its major branch vessels. No abdominal aortic aneurysm. Lymph nodes: Unremarkable. No enlarged lymph nodes. IMPRESSION: 1. Significant distention of the urinary bladder despite the presence of a Chauhan catheter. 2. No hydronephrosis or definite urolithiasis although evaluation is somewhat limited secondary to extensive vascular calcification. 3. Increasing parenchymal consolidations of the lung bases concerning for pneumonia. Electronically signed by: Krunal Sena MD 02/16/23 23:47 PM Discharge Plan Visit Data Chief Complaint: Urinary Symptoms Stated Complaint: URINARY RETENTION, ABD PAIN ED Provider: Tim Butt Discharge Problem: Pneumonia, Acute urinary retention, Acute UTI, Acute renal insufficiency Forms Stand Alone Forms: My [facility] Prescriptions Prescriptions: No Action acetaminophen [Tylenol Extra Strength] 500 mg tablet 500 mg PO TID MDD 3 GRAMS APAP/24 HOURS atorvastatin [Lipitor] 40 mg tablet 40 mg PO QDD magnesium oxide 400 mg (241.3 mg magnesium) Tablet 400 mg PO BID17 aspirin [Aspirin Childrens] 81 mg Tablet,Chewable 81 mg PO QAM metformin 500 mg tablet 500 mg PO BID17 ipratropium-albuterol 0.5 mg-3 mg(2.5 mg base)/3 mL Solution For Nebulization 3 ml INHALATION QID Rx Instructions: STARTED 01/18/23 WITH PM DOSE FOR 6 DAYS. amlodipine 2.5 mg tablet 2.5 mg PO QAM guaifenesin [Robafen] 100 mg/5 mL Liquid 200 mg PO Q4H PRN (Reason: Cough) magnesium hydroxide [Milk of Magnesia] 400 mg/5 mL Suspension 30 ml PO DIRECTED PRN (Reason: NO BM OF 3 DAYS.) mirtazapine 15 mg tablet 15 mg PO HS fluticasone propionate [Flonase Allergy Relief] 50 mcg/actuation [place],Suspension 2 spray INTRANASAL HS Rx Instructions: administer into each nostril loratadine [Claritin] 10 mg Tablet 10 mg PO QAM Senna Plus 8.6-50 mg Capsule 2 tab-cap PO BID Med Pass Suppliment 180 ml PO TID glycopyrrolate [Robinul] 1 mg Tablet 0.5 mg PO BID Proscar 5 mg 5 mg PO DAILY folic acid 400 mcg tablet 400 mcg PO DAILY famotidine 20 mg tablet 20 mg PO DAILY diclofenac sodium 1 % gel 4 g TOPICAL QID Rx Instructions: apply to right knee tamsulosin 0.4 mg capsule 0.4 mg PO DAILYBB ipratropium-albuterol 0.5 mg-3 mg(2.5 mg base)/3 mL solution for nebulization 3 ml INHALATION Q4 PRN (Reason: Shortness Of Breath) acetaminophen 325 mg Tablet 650 mg PO Q4 MDD 3 GRAMS APAP/24 HOURS PRN (Reason: Fever Or Pain) Rx Instructions: use for temp>100 or mild to severe pain carvedilol 6.25 mg Tablet 6.25 mg PO AMHS 30 Days Qty: 30 2RF Rx Instructions: HOLD FOR SBP <100 OR HR <60 lisinopril 10 mg Tablet 10 mg PO BID 30 Days Qty: 60 2RF Referrals Referrals: Yesenia Rosa MD [Primary Care Provider] - Pneumonia Qualifiers: Pneumonia type: due to unspecified organism Laterality: bilateral Lung location: lower lobe of lung Qualified Code(s): J18.9 - Pneumonia, unspecified organism
[2023-02-16 22:40] LABS: Basophils # (auto) 0.03 K/uL (0-0.2); Basophils % (auto) 0.3 %; Eosinophils # (auto) 0.02 K/uL (0-0.50); Eosinophils % (auto) 0.2 %; Hematocrit (blood only) 35.6 % (42.0-52.0); Hemoglobin 11.4 g/dl (14.0-18.0); Immature Granulocytes # (auto) 0.04 K/uL (0.01-0.20); Immature Granulocytes % (auto) 0.3 %; Lymphocytes # (auto) 0.62 K/uL (1.2-3.4); Lymphocytes % (auto) 5.2 %; Mean Corpuscular Hemoglobin 30.3 pg (25.0-34.0); Mean Corpuscular Volume 94.7 fL (80.0-100.0); Mean Platelet Volume 13.4 fL (9.4-12.4); Monocytes # (auto) 0.55 K/uL (0.11-0.59); Monocytes % (auto) 4.6 %; Neutrophils # (auto) 10.64 K/uL (1.40-6.50); Neutrophils % (auto) 89.4 %; Platelet Count 175 K/uL (130-400); RDW Coefficient of Variation 14.9 % (11.5-14.5); RDW Standard Deviation 51.8 fL (36.4-46.3); Red Blood Count 3.76 M/uL (4.70-6.10)
[2023-02-16 22:41] LABS: Appearance Urine Cloudy (Clear); Bacteria Urine Automated Negative (Negative); Bilirubin Urine Negative (Negative); Blood Urine 3+ (Negative); Color Urine Dark Yellow; Epithelial Cell Urine Auto 20-30 /lpf (0-5); Glucose Urine UA Negative (Negative); Ketones Urine Trace (Negative); Leukocyte Esterase Urine 2+ (Negative); Nitrite Urine Negative (Negative); Protein Urine Trace (Negative); Specific Gravity Urine 1.022 (1.000-1.030); Urobilinogen Urine Negative (Negative); WBC Urine Automated >30 /hpf (0-5)
[2023-02-16 22:44] LABS: Albumin Level 3.2 gm/dl (3.4-5.0); BUN Creatinine Ratio 31.9 (10-20); Bilirubin,Total 0.5 mg/dl (0.2-1.0); Calcium 9.3 mg/dl (8.6-10.3); Creatinine Clr Calc Pharmacy 25.4 ml/min; Est GFR (African American) 34.3 ml/min; Est GFR (Non-African American) 29.6 ml/min; Potassium 4.2 mmol/L (3.5-5.1); Total Protein 6.8 gm/dl (6.0-8.3)
[2023-02-16 22:52] LABS: Magnesium 2.1 mg/dl (1.7-2.4)
[2023-02-16 22:56] LABS: Phosphorus 3.5 mg/dl (2.5-4.9)
[2023-02-16 22:59] LABS: Globulin 3.6 gm/dl (2.5-4.0)
[2023-02-16 23:00] LABS: Albumin Globulin Ratio 0.9 (0.9-2)
--- NOTE | 2023-02-16 23:48 | CT Scan Report ---
Exam(s): CT ABDOMEN + PELVIS Without Contrast EXAM: CT Abdomen and Pelvis Without Intravenous Contrast CLINICAL HISTORY: Reason for exam: urinary retention, michael, sepsis. TECHNIQUE: Axial computed tomography images of the abdomen and pelvis without intravenous contrast. CTDI is 16.11 mGy and DLP is 842.64 mGy-cm. Automated exposure control was utilized for the study. A dose lowering technique was utilized adhering to the principles of ALARA. COMPARISON: Thoracic CT dated 01/21/23. FINDINGS: Lung bases: There are dense consolidations at the lung bases concerning for underlying pneumonia which are new from the prior study. ABDOMEN: Liver: Unremarkable. Gallbladder and bile ducts: Cholelithiasis within an otherwise normal- appearing gallbladder. No ductal dilation. Pancreas: Unremarkable. No ductal dilation. Spleen: Unremarkable. No splenomegaly. Adrenals: Unremarkable. No mass. Kidneys and ureters: Unremarkable. No obstructing stones. No hydronephrosis. Stomach and bowel: Unremarkable. No obstruction. No mucosal thickening. PELVIS: Appendix: No findings to suggest acute appendicitis. Bladder: Chauhan catheter in place. The urinary bladder is significantly distended despite the presence of the Chauhan catheter. No stones. Reproductive: Unremarkable as visualized. ABDOMEN and PELVIS: Intraperitoneal space: Unremarkable. No free air. No significant fluid collection. Bones/joints: Status post right hip arthroplasty. There are advanced degenerative changes of the thoracolumbar spine. No acute fracture. No dislocation. Soft tissues: Unremarkable. Vasculature: Scattered calcification throughout the liver most likely reflecting a combination of atherosclerotic disease and granulomas. There is diffuse atherosclerotic calcification of the aorta and its major branch vessels. No abdominal aortic aneurysm. Lymph nodes: Unremarkable. No enlarged lymph nodes. IMPRESSION: 1. Significant distention of the urinary bladder despite the presence of a Chauhan catheter. 2. No hydronephrosis or definite urolithiasis although evaluation is somewhat limited secondary to extensive vascular calcification. 3. Increasing parenchymal consolidations of the lung bases concerning for pneumonia. Electronically signed by: Krunal Sena MD 02/16/23 23:47 PM
[2023-02-17] MEDS ORDERED: VANCOMYCIN HCL 1,500 MG in SODIUM CHLORIDE 0.9% 500 ML IV ONE (00:02)
[2023-02-17] MEDS ORDERED: VANCOMYCIN CONSULT ACTIVE PRN (00:02)
[2023-02-17] MEDS ORDERED: CEFEPIME 2,000 MG/20 ML VIAL IV STA (00:02)
[2023-02-17] MEDS ORDERED: SODIUM CHLORIDE 0.9% 1000ML 1,000 ML IV ONE (00:03)
[2023-02-17] MEDS ORDERED: ACETAMINOPHEN 1,000 MG/100 ML VIAL IV STA (00:47)
--- NOTE | 2023-02-17 07:45 | History & Physical Report ---
Date of Service February 17, 2023 Assessment & Plan (1) AMS (altered mental status): Plan: 72-year-old male with history of CVA mostly wheelchair-bound currently at [facility] with history of recurrent aspiration pneumonitis presents with pneumonitis, urinary retention, UTI and AMS. Altered mental status Metabolic encephalopathy Mostly secondary to pneumonia and UTI On IV antibiotics Vanco and Zosyn On IV fluids Keep him n.p.o. We will follow cultures We will monitor the hemodynamics Pneumonia aspiration Antibiotics as able N.p.o. for now Last admission was recommended pureed Diet and nectar thick liquids Robinul was started in skilled nursing for drooling Urinary retention BPH On Flomax Proscar was added at the skilled nursing which will be continued S/p Chauhan in ER We will consult urology UTI Antibiotics as able We will follow cultures History of CVA Wheelchair-bound But able to get to wheelchair from bed as per skilled nursing PT OT when stable Continue aspirin and atorvastatin Hypertension continue Coreg and amlodipine Holding lisinopril We will monitor the blood pressure ALLEN Creatinine 2.1 baseline creatinine 0.8 Holding lisinopril S/p Chauhan catheter Getting fluids We will follow repeat labs Diabetes Hyperglycemia We will hold metformin Sliding scale we will follow glucose levels closely Follow HbA1c levels History of CAD On aspirin statin and beta-marsha Hyperlipidemia on statin History of Wernicke's Korsakoff syndrome History of alcoholism DVT prophylaxis Heparin subcu Disposition telemetry floor CODE STATUS full code as per discussion with skilled nursing and sister (2) Pneumonia: (3) Acute urinary retention: (4) Acute UTI: (5) Acute renal insufficiency: History of Present Illness Chief Complaint: AMS, UTI and aspiration pneumonitis Primary Care Provider: Yesenia Rosa MD 72-year-old male medical history significant for CAD/CVA, valvular heart disease (moderate AR/), PVD, hypertension, DM2 diet controlled, dementia, Wernicke Korsakoff syndrome as per records, past tobacco/alcohol abuse, chronic anemia (baseline hemoglobin 11), aspiration risk, recurrent aspiration pneumonitis, chronic calcific pancreatitis, occlusion of right internal carotid artery, aphasia poststroke, BPH, 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 Patient was recently in the hospital due to her aspiration pneumonitis. Had a video swallow recommended pured diet with nectar thick liquids was discharged back to skilled nursing on January 24, 2023. As per nursing staff patient is wheelchair-bound but able to get from the bed to the wheelchair. He is difficult to understand but is able to talk. But lately is not talking lying in the bed. Just recently chest x-ray which showed pneumonitis. He was given IM Rocephin and doxycycline. Results and urinary retention. And getting more confused and weak adversities and he was sent in here today. Patient currently mostly nonverbal. He is nodding his head and saying he is doing okay denies any pain. Hemodynamics are okay. Called his sister and she confirmed the patient is full code. Recently was started on robinul for drooling. Past medical history as mentioned above Past surgical history right hip hemiarthroplasty Allergies Allergy/AdvReac Type Severity Reaction Status Date / Time No Known Allergies Allergy Verified 01/21/23 20:07 Home Medications Medication Instructions Recorded Confirmed Type aspirin 81 mg chewable tablet 81 mg PO QAM 06/12/20 01/21/23 History (Aspirin Childrens) atorvastatin 40 mg tablet (Lipitor) 40 mg PO QDD 06/12/20 01/21/23 History magnesium oxide 400 mg (241.3 mg 400 mg PO BID17 06/12/20 01/21/23 History magnesium) tablet acetaminophen 500 mg tablet 500 mg PO TID 08/02/20 01/21/23 History (Tylenol Extra Strength) acetaminophen 325 mg tablet 650 mg PO Q4 PRN Fever Or Pain 07/01/21 01/21/23 History diclofenac sodium 1 % topical gel 4 g topical QID 07/01/21 01/21/23 History famotidine 20 mg tablet 20 mg PO DAILY 07/01/21 01/21/23 History ipratropium 0.5 mg-albuterol 3 mg 3 ml inhalation Q4 PRN Shortness 07/01/21 01/21/23 History (2.5 mg base)/3 mL nebulization Of Breath soln tamsulosin 0.4 mg capsule 0.4 mg PO DAILYBB 07/01/21 01/21/23 History carvedilol 6.25 mg tablet 6.25 mg PO AMHS 30 days #30 tabs 07/06/21 01/21/23 Rx lisinopril 10 mg tablet 10 mg PO BID 30 days #60 tabs 07/06/21 01/21/23 Rx Med Pass Suppliment 180 ml PO TID 01/21/23 01/21/23 History amlodipine 2.5 mg tablet 2.5 mg PO QAM 01/21/23 01/21/23 History fluticasone propionate 50 2 spray intranasal HS 01/21/23 01/21/23 History mcg/actuation nasal spray,suspension (Flonase Allergy Relief) guaifenesin 100 mg/5 mL oral 200 mg PO Q4H PRN Cough 01/21/23 01/21/23 History liquid (Robafen) ipratropium 0.5 mg-albuterol 3 mg 3 ml inhalation QID 01/21/23 01/21/23 History (2.5 mg base)/3 mL nebulization soln loratadine 10 mg tablet (Claritin) 10 mg PO QAM 01/21/23 01/21/23 History magnesium hydroxide 400 mg/5 mL 30 ml PO DIRECTED PRN NO BM OF 01/21/23 01/21/23 History oral suspension (Milk of Magnesia) 3 DAYS. 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 Cholelithiasis Chronic constipation Contracture, left ankle Contracture, right ankle Diabetic neuropathy Dysarthria following cerebral infarction Full code status Functional urinary incontinence Generalized muscle weakness Hemiplegia of left nondominant 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 History of CVA (cerebrovascular accident) Hypertension Hypomagnesemia Incontinence, feces Left ear impacted cerumen Nicotine dependence Occlusion and stenosis of bilateral carotid arteries Oral phase dysphagia Type 2 diabetes mellitus Vascular dementia without behavioral disturbance Vitamin B12 deficiency Surgical History No pertinent past surgical history Social History Smoking Status: Former smoker Tobacco Type: Cigarettes Second Hand Exposure: No; Hx Alcohol Use: No Hx Substance Use: No Preferred Language: Serbian Communication Ability: Effective Communication Ability Comment: Patient mouths words, Hard to make out Head Scorer Required: No Beliefs That Will Affect Care: None marital status: Single Current Living Situation: Longterm Current Living Situation Comment: is from [facility] Feels Safe at Home: No Assistive Devices: Walker and Wheelchair Review of Systems Review of Systems: Unobtainable due to reduced consciousness Physical Exam Physical Exam: General- alert and awake. Not in acute distress Head- atraumatic Eyes- PERRL, EOMI, anicteric ENT- dry Neck- supple, no JVD, Lungs- clear to auscultation and percussion Heart- regular rhythm; ESM present, no gallop, no rub appreciated Abdomen- normal bowel sounds, soft, nontender, no dsitension Extremities- no pretibial edema, no erythema Neuro- alert,and awake, not speaking. Skin- warm & dry Results & Data Results & Data Vital Signs (Past 12 Hours) Vital Signs Temp Pulse Pulse Pulse Resp BP BP 02/17/23 06:54 36.6 C 70 17 113/63 02/17/23 06:01 74 16 118/63 02/17/23 05:10 66 02/17/23 04:55 65 16 119/57 L 02/17/23 04:00 68 16 111/64 02/17/23 02:40 66 16 95/51 L 02/17/23 01:05 76 02/17/23 01:00 74 16 118/55 L 02/16/23 23:45 78 16 95/60 L 02/16/23 22:19 85 19 95/84 L 02/16/23 21:07 84 02/16/23 21:12 36.8 C 87 21 108/55 L 02/16/23 21:03 36.8 C 89 21 108/55 L Pulse Ox O2 Del Method O2 Flow Rate 02/17/23 06:54 99 Nasal Cannula 3 02/17/23 06:01 100 Nasal Cannula 4 02/17/23 05:10 02/17/23 04:55 100 Nasal Cannula 4 02/17/23 04:00 100 Nasal Cannula 4 02/17/23 02:40 100 Nasal Cannula 4 02/17/23 01:05 02/17/23 01:00 98 Nasal Cannula 4 02/16/23 23:45 99 Nasal Cannula 4 02/16/23 22:19 96 Nasal Cannula 4 02/16/23 21:07 02/16/23 21:12 97 Nasal Cannula 4 02/16/23 21:03 97 Nasal Cannula 4 Diagnostic Findings Laboratory Results WBC 11.90 K/ul (4.8-10.8) H 02/16/23 21: RBC 3.76 M/uL (4.70-6.10) L 02/16/23 21: Hgb 11.4 g/dl (14.0-18.0) L 02/16/23 21: Hct 35.6 % (42.0-52.0) L 02/16/23 21: MCV 94.7 fL (80.0-100.0) 02/16/23 21: MCH 30.3 pg (25.0-34.0) 02/16/23 21: MCHC 32.0 g/dL (32.0-36.0) 02/16/23 21: RDW Std Deviation 51.8 fL (36.4-46.3) H 02/16/23 21: RDW Coeff of Guido 14.9 % (11.5-14.5) H 02/16/23 21: Plt Count 175 K/uL (130-400) 02/16/23 21: MPV 13.4 fL (9.4-12.4) H 02/16/23 21: Immature Gran % (Auto) 0.3 % 02/16/23 21: Neut % (Auto) 89.4 % 02/16/23 21:22 Lymph % (Auto) 5.2 % 02/16/23 21: [place] % (Auto) 4.6 % 02/16/23 21:22 Eos % (Auto) 0.2 % 02/16/23 21:22 Baso % (Auto) 0.3 % 02/16/23 21: Neut # (Auto) 10.64 K/uL (1.40-6.50) H 02/16/23 21: Lymph # (Auto) 0.62 K/uL (1.2-3.4) L 02/16/23 21:22 [place] # (Auto) 0.55 K/uL (0.11-0.59) 02/16/23 21: Eos # (Auto) 0.02 K/uL (0-0.50) 02/16/23 21: Baso # (Auto) 0.03 K/uL (0-0.2) 02/16/23 21: Immature Gran # (Auto) 0.04 K/uL (0.01-0.20) 02/16/23 21: Sodium 145 mmol/L (136-145) 02/16/23 21: Potassium 4.2 mmol/L (3.5-5.1) 02/16/23 21: Chloride 103 mmol/L (98-107) 02/16/23 21: Carbon Dioxide 31 mmol/L (21-32) 02/16/23 21: Anion Gap 11 (3-11) 02/16/23 21:22 BUN 68 mg/dl (6-23) H 02/16/23 21: Creatinine 2.13 mg/dl (0.6-1.4) H 02/16/23 21: Est Cr Clr Drug Dosing 25.4 ml/min 02/16/23 21: Est GFR ( Amer) 34.3 ml/min 02/16/23 21: Est GFR (Non-Af Amer) 29.6 ml/min 02/16/23 21: BUN/Creatinine Ratio 31.9 (10-20) H 02/16/23 21: Glucose 321 mg/dl (70-99(Fasting)) H* 02/16/23 21: Lactate 1.9 mmol/L (0.4-2.0) 02/16/23 22:55 Calcium 9.3 mg/dl (8.6-10.3) 02/16/23 21: Phosphorus 3.5 mg/dl (2.5-4.9) 02/16/23 21: Magnesium 2.1 mg/dl (1.7-2.4) 02/16/23 21: Total Bilirubin 0.5 mg/dl (0.2-1.0) 02/16/23 21: AST 10 U/L (13-39) L 02/16/23 21: ALT 9 U/L (7-52) 02/16/23 21: Alkaline Phosphatase 77 U/L (34-104) 02/16/23 21: B-Natriuretic Peptide 160 pg/ml (0-100) H 02/16/23 21: Total Protein 6.8 gm/dl (6.0-8.3) 02/16/23 21: Albumin 3.2 gm/dl (3.4-5.0) L 02/16/23: Globulin 3.6 gm/dl (2.5-4.0) 02/16/23 21: Albumin/Globulin Ratio 0.9 (0.9-2) 02/16/23 21: Procalcitonin 2.62 ng/ml (0-0.5) H 02/16/23 21: TSH 2.154 uIu/ml (0.300-4.500) 02/16/23 21: Urine Color Dark Yellow 02/16/23 21:45 Urine Appearance Cloudy (Clear) A 02/16/23 21:45 Urine pH 6.0 (4.5-7.5) 02/16/23 21:45 Ur Specific [place] 1.022 (1.000-1.030) 02/16/23 21:45 Urine Protein Trace (Negative) H 02/16/23 21:45 Urine Glucose (UA) Negative (Negative) 02/16/23 21: Urine Ketones Trace (Negative) H 02/16/23 21:45 Urine Blood 3+ (Negative) H 02/16/23 21:45 Urine Nitrite Negative (Negative) 02/16/23 21:45 Urine Bilirubin Negative (Negative) 02/16/23 21:45 Urine Urobilinogen Negative (Negative) 07/22/23 21:45 Ur Leukocyte Esterase 2+ (Negative) H 02/16/23 21:45 Urine WBC (Auto) >30 /hpf (0-5) H 02/16/23 21:45 Urine RBC (Auto) 10-30 /hpf (0-4) H 02/16/23 21:45 U Hyaline Cast (Auto) 5-10 /lpf (0-5) H 02/16/23 21:45 U Epithel Cells (Auto) 20-30 /lpf (0-5) H 02/16/23 21:45 Urine Bacteria (Auto) Negative (Negative) 02/16/23 21:45 Urine Yeast Budding (None Prsent) A 02/16/23 21:45 SARS-CoV-2, RNA, NAAT NEGATIVE (NEGATIVE) 02/17/23 03:50 Impressions Abdomen/Pelvis CT 02/16/23 22:56 Exam(s): CT ABDOMEN + PELVIS Without Contrast EXAM: CT Abdomen and Pelvis Without Intravenous Contrast CLINICAL HISTORY: Reason for exam: urinary retention, allen, sepsis. TECHNIQUE: Axial computed tomography images of the abdomen and pelvis without intravenous contrast. CTDI is 16.11 mGy and DLP is 842.64 mGy-cm. Automated exposure control was utilized for the study. A dose lowering technique was utilized adhering to the principles of ALARA. COMPARISON: Thoracic CT dated 01/21/23. FINDINGS: Lung bases: There are dense consolidations at the lung bases concerning for underlying pneumonia which are new from the prior study. ABDOMEN: Liver: Unremarkable. Gallbladder and bile ducts: Cholelithiasis within an otherwise normal- appearing gallbladder. No ductal dilation. Pancreas: Unremarkable. No ductal dilation. Spleen: Unremarkable. No splenomegaly. Adrenals: Unremarkable. No mass. Kidneys and ureters: Unremarkable. No obstructing stones. No hydronephrosis. Stomach and bowel: Unremarkable. No obstruction. No mucosal thickening. PELVIS: Appendix: No findings to suggest acute appendicitis. Bladder: Chauhan catheter in place. The urinary bladder is significantly distended despite the presence of the Chauhan catheter. No stones. Reproductive: Unremarkable as visualized. ABDOMEN and PELVIS: Intraperitoneal space: Unremarkable. No free air. No significant fluid collection. Bones/joints: Status post right hip arthroplasty. There are advanced degenerative changes of the thoracolumbar spine. No acute fracture. No dislocation. Soft tissues: Unremarkable. Vasculature: Scattered calcification throughout the liver most likely reflecting a combination of atherosclerotic disease and granulomas. There is diffuse atherosclerotic calcification of the aorta and its major branch vessels. No abdominal aortic aneurysm. Lymph nodes: Unremarkable. No enlarged lymph nodes. IMPRESSION: 1. Significant distention of the urinary bladder despite the presence of a Chauhan catheter. 2. No hydronephrosis or definite urolithiasis although evaluation is somewhat limited secondary to extensive vascular calcification. 3. Increasing parenchymal consolidations of the lung bases concerning for pneumonia. Electronically signed by: Krunal Sena MD 02/16/23 23:47 PM ECG Additional Comments: ECG sinus rhythm with PVCs at a rate of 83 prolonged QTc of 495 Code Status & VTE Plan VTE Prophylaxis Plan VTE Prophylaxis will be ordered: Yes (2) Pneumonia Laterality: bilateral Lung location: lower lobe of lung Pneumonia type: due to unspecified organism Qualified Code(s): J18.9 - Pneumonia, unspecified organism
--- NOTE | 2023-02-17 08:25 | XRay Report ---
XR chest 1V portable CLINICAL HISTORY: Weakness. COMPARISON STUDY: Chest radiograph and chest CT January 21, 2023. FINDINGS: Elevation of the left hemidiaphragm is noted. Cardiac size is normal. Mediastinal contours are normal. Left mid lung and left basilar opacities have progressed. There is also right medial basi lar opacity. IMPRESSION: Increase in bilateral airspace opacities which suggest pneumonia or aspiration pneumoniti s. Radiographic follow-up to ensure resolution is recommended. ACT 112: Negative or not required by law. Electronically signed by: Param Taylor M.D. 02/17/2023 8:23 AM
[2023-02-17] MEDS ORDERED: CARBOHYDRATES FOR HYPOGLYCEMIA PO PRN (08:33)
[2023-02-17] MEDS ORDERED: ACETAMINOPHEN 325 MG TAB PO PRN (08:33)
[2023-02-17] MEDS ORDERED: GLUCOSE 40% GEL 15 GM TUBE PO PRN (08:33)
[2023-02-17] MEDS ORDERED: GLUCOSE 10 TAB/TUBE PO PRN (08:33)
[2023-02-17] MEDS ORDERED: NovoLIN-R INSULIN PER UNIT CHARGE IV STA (08:33)
[2023-02-17] MEDS ORDERED: ALBUT/IPRATROP 3MG/0.5MG NEB 3 ML VIAL INH PRN (08:33)
[2023-02-17] MEDS ORDERED: guaiFENesin SUGAR FREE 100 MG/5 ML UDC PO PRN (08:33)
[2023-02-17] MEDS ORDERED: NITROGLYCERIN SL 0.4 MG/TAB TAB SL PRN (08:33)
[2023-02-17] MEDS ORDERED: MAGNESIUM HYDROXIDE SUSP 30 ML UDC PO PRN (08:33)
[2023-02-17] MEDS ORDERED: DEXTROSE 50% 50 ML SYRINGE IV PRN (08:33)
[2023-02-17] MEDS ORDERED: GLUCAGON FOR INJ 1 MG VIAL SQ PRN (08:33)
[2023-02-17] MEDS ORDERED: INSULIN HUMAN REGULAR PER UNIT 5 UNITS in SYRINGE 4.95 ML IV ONE (08:45)
[2023-02-17] MEDS ORDERED: PIPERACILLIN/TAZOBACTAM 4.5 GM (over 30 mins) IV ONE (09:00)
[2023-02-17] MEDS: SODIUM CHLORIDE 0.9% 1000ML 1,000 ML IV SCH (09:48)
[2023-02-17] MEDS: DOCUSATE SODIUM/SENNA 50/8.6MG TAB PO SCH ×3 (09:49→21:43)
[2023-02-17] MEDS: INSULIN ASPART PER UNIT CHARGE SC SCH ×3 (09:49→17:31)
[2023-02-17] MEDS: DICLOFENAC SOD 1% GEL 100 GM TUBE EXT SCH ×4 (09:49→21:46)
[2023-02-17] MEDS: ACETAMINOPHEN 500 MG TAB PO SCH ×4 (09:50→21:42)
[2023-02-17] MEDS: GLYCOPYRROLATE 1 MG TAB PO SCH ×3 (09:50→21:43)
[2023-02-17] MEDS: FOLIC ACID 400 MCG TAB PO SCH ×2 (09:50→10:45)
[2023-02-17] MEDS: amLODIPine BESYLATE 5 MG TAB PO SCH ×2 (09:51→10:44)
[2023-02-17] MEDS: LORATADINE 10 MG TAB PO SCH ×2 (09:51→10:45)
[2023-02-17] MEDS: ASPIRIN 81 MG CHEW PO SCH ×2 (09:51→10:44)
[2023-02-17] MEDS: FAMOTIDINE 20 MG TAB PO SCH ×2 (09:52→10:45)
[2023-02-17] MEDS: MAGNESIUM OXIDE 400 MG TAB PO SCH ×3 (09:52→18:26)
[2023-02-17] MEDS: HEPARIN SOD 5,000 UNIT/0.5 ML VIAL SQ SCH ×2 (09:52→21:47)
[2023-02-17] MEDS: carvediloL 6.25 MG TAB PO SCH ×3 (09:52→21:42)
[2023-02-17] MEDS: FINASTERIDE 5 MG TAB PO SCH ×2 (09:52→10:45)
--- NOTE | 2023-02-17 09:54 | Pharmacy Report ---
Pharmacy PK ABX Note - Date of Service February 17, 2023 - Assessment and Plan Assessment 72 year old M receiving Vancomycin and Zosyn for empiric treatment of possible pneumonia vs UTI. * Day #1 of antimicrobial therapy. * Afebrile. Mild leukocytosis. Lactate normal. Procal elevated at 2.62. ALLEN currently with SCr of 2.13 (baseline of ~1). * Blood and urine cultures pending. MRSA nasal swab pending. Plan Vancomycin * Loading dose: 1500 mg IV x 1 * Maintenance dose: 750 mg IV every 24 hours * Regimen is predicted to achieve target AUC/ANDREA of 400-600 mg/L.hr * Random level ordered for: 02/18/23 given ALLEN Pharmacy will continue to follow and will adjust dose/frequency as necessary. Thank you. Pharmacy has transitioned to AUC monitoring for vancomycin. AUC/ANDREA is the preferred PK/PD target and is associated with decreased risk of nephrotoxicity compared to traditional trough targets.
[2023-02-17] MEDS: ALBUT/IPRATROP 3MG/0.5MG NEB 3 ML VIAL INH SCH ×3 (10:50→14:19)
[2023-02-17] MEDS: PIPERACILLIN/TAZOBACTAM 4.5 GM in DEXTROSE 5% 100 ML IV SCH ×2 (14:31→22:53)
[2023-02-17] MEDS: ATORVASTATIN 40 MG TAB PO SCH (14:46)
--- NOTE | 2023-02-17 15:10 | Communication Note ---
Date of Service: February 17, 2023 Patient seen and examined at bedside. He appears tired and lethargic; he will follow simple commands. Chauhan in place draining clear urine. Seen by speech; known history of silent aspiration. Recommended to keep n.p.o. Palliative consulted for goals of care discussion. Urology consulted for urinary retention. Constitutional: Alert orient x1 WD/WN, vitals as above, NAD, sitting up in bed, pleasant, conversing easily Respiratory: Decreased breath sound at bases.. Cardiovascular: RRR, no murmur, no edema Vessels: no JVD or carotid bruit Chest: normal inspection of chest Abdomen: normal bowel sounds, soft, nontender, no hepatosplenomegaly Musculoskeletal: no cyanosis or clubbing, extremities motor strength 5/5 Skin: no rashes, warm and dry normal turgor Neurologic: Left hemiplegia present. Psychiatric: A+Ox1, euthymic affect
[2023-02-17 16:47] LABS: BUN Creatinine Ratio 40.8 (10-20); Calcium 8.8 mg/dl (8.6-10.3); Creatinine Clr Calc Pharmacy 45.1 ml/min; Est GFR (African American) 68.6 ml/min; Est GFR (Non-African American) 59.2 ml/min; Potassium 3.6 mmol/L (3.5-5.1)
--- NOTE | 2023-02-17 16:59 | Urology Consultation ---
Date of Consultation February 17, 2023 Assessment & Plan (1) Acute urinary retention: (2) Acute renal insufficiency: (3) Acute UTI: Plan 72-year-old male who presented to the hospital from a home and was admitted due to urinary retention, concern for UTI and likely aspiration pneumonia. No acute urologic intervention necessary His bladder feels decompressed on physical exam and Chauhan catheter is draining zeus urine Maintain Chauhan catheter. Depending on clinical course, can try void trial before he leaves or if he needs to be discharged with catheter we can set up follow-up in the office to do so Follow-up cultures and continue broad-spectrum antibiotics Ensure good bowel regimen Urology to follow peripherally History of Present Illness Reason for Consultation: Urinary retention Attending Physician: Sam Mauricio MD History of Present Illness 72-year-old male who was admitted to the medicine service earlier this morning for concern for aspiration pneumonia and urinary retention. Catheter was placed in the emergency department. He has been afebrile with stable vitals. I independently reviewed his labs which shows a leukocytosis of 11.9, creatinine of 2.13 with a baseline of roughly 1, and a urinalysis that was nitrite negative, 2+ leukocyte esterase, greater than 30 WBCs, 10-30 RBCs and no bacteria. There is budding yeast. I independently reviewed a CT scan which does not show any hydronephrosis. It did show a catheter in place but a bladder that was still distended. Patient is currently on Zosyn and vancomycin. He is difficult to obtain a history from. His family members are in the room and they are unsure of his previous urinary issues. They do not think he has previously seen a urologist. Per the notes he is on Flomax and finasteride. Allergies Allergy/AdvReac Type Severity Reaction Status Date / Time No Known Allergies Allergy Verified 01/21/23 20:07 Home Medications Medication Instructions Recorded Confirmed Type aspirin 81 mg chewable tablet 81 mg PO QAM 06/12/20 01/21/23 History (Aspirin Childrens) atorvastatin 40 mg tablet (Lipitor) 40 mg PO QDD 06/12/20 01/21/23 History magnesium oxide 400 mg (241.3 mg 400 mg PO BID17 06/12/20 01/21/23 History magnesium) tablet acetaminophen 500 mg tablet 500 mg PO TID 08/02/20 01/21/23 History (Tylenol Extra Strength) acetaminophen 325 mg tablet 650 mg PO Q4 PRN Fever Or Pain 07/01/21 01/21/23 History diclofenac sodium 1 % topical gel 4 g topical QID 07/01/21 01/21/23 History famotidine 20 mg tablet 20 mg PO DAILY 07/01/21 01/21/23 History ipratropium 0.5 mg-albuterol 3 mg 3 ml inhalation Q4 PRN Shortness 07/01/21 01/21/23 History (2.5 mg base)/3 mL nebulization Of Breath soln tamsulosin 0.4 mg capsule 0.4 mg PO DAILYBB 07/01/21 01/21/23 History carvedilol 6.25 mg tablet 6.25 mg PO AMHS 30 days #30 tabs 07/06/21 01/21/23 Rx lisinopril 10 mg tablet 10 mg PO BID 30 days #60 tabs 07/06/21 01/21/23 Rx Med Pass Suppliment 180 ml PO TID 01/21/23 01/21/23 History amlodipine 2.5 mg tablet 2.5 mg PO QAM 01/21/23 01/21/23 History fluticasone propionate 50 2 spray intranasal HS 01/21/23 01/21/23 History mcg/actuation nasal spray,suspension (Flonase Allergy Relief) guaifenesin 100 mg/5 mL oral 200 mg PO Q4H PRN Cough 01/21/23 01/21/23 History liquid (Robafen) ipratropium 0.5 mg-albuterol 3 mg 3 ml inhalation QID 01/21/23 01/21/23 History (2.5 mg base)/3 mL nebulization soln loratadine 10 mg tablet (Claritin) 10 mg PO QAM 01/21/23 01/21/23 History magnesium hydroxide 400 mg/5 mL 30 ml PO DIRECTED PRN NO BM OF 01/21/23 01/21/23 History oral suspension (Milk of Magnesia) 3 DAYS. 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 Cholelithiasis Chronic constipation Contracture, left ankle Contracture, right ankle Diabetic neuropathy Dysarthria following cerebral infarction Full code status Functional urinary incontinence Generalized muscle weakness Hemiplegia of left nondominant 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 History of CVA (cerebrovascular accident) Hypertension Hypomagnesemia Incontinence, feces Left ear impacted cerumen Nicotine dependence Occlusion and stenosis of bilateral carotid arteries Oral phase dysphagia Type 2 diabetes mellitus Vascular dementia without behavioral disturbance Vitamin B12 deficiency Surgical History No pertinent past surgical history Social History Smoking Status: Former smoker Tobacco Type: Cigarettes Second Hand Exposure: No; Hx Alcohol Use: No Hx Substance Use: No Preferred Language: Croatian Communication Ability: Effective Communication Ability Comment: Patient mouths words, Hard to make out Tack Cutter Required: No Beliefs That Will Affect Care: None marital status: Single Current Living Situation: Shelter Current Living Situation Comment: is from [facility] Feels Safe at Home: No Assistive Devices: Walker and Wheelchair Review of Systems Review of Systems: 14 point review of systems negative outside of what is listed above in HPI Physical Exam Physical Exam: General: Awake HEENT: Normocephalic, mucous membranes moist Pulmonary: Nonlabored respirations Abdomen: Nondistended, soft, nontende. No suprapubic tenderness or distention : Circumcised phallus with orthotopic meatus. Catheter in place draining zeus urine Extremities: Moves all 4 spontaneously Neuro: No gross deficits Skin: Warm, dry, no rashes noted Results & Data Vital Signs (Past 12 Hours) Vital Signs Temp Pulse Pulse Resp BP Pulse Ox O2 Del Method 02/17/23 14:19 83 18 92 Room Air 02/17/23 12:19 36.4 C L 83 18 116/63 95 Room Air 02/17/23 11:36 76 02/17/23 10:51 74 18 94 Room Air 02/17/23 08:51 66 17 137/68 97 Room Air 02/17/23 08:49 Nasal Cannula 02/17/23 08:00 36.5 C 69 20 142/86 H 98 Nasal Cannula 02/17/23 06:54 36.6 C 70 17 113/63 99 Nasal Cannula 02/17/23 06:01 74 16 118/63 100 Nasal Cannula 02/17/23 05:10 66 02/17/23 04:55 65 16 119/57 L 100 Nasal Cannula O2 Flow Rate 02/17/23 14:19 02/17/23 12:19 02/17/23 11:36 02/17/23 10:51 02/17/23 08:51 02/17/23 08:49 3 02/17/23 08:00 2 02/17/23 06:54 3 02/17/23 06:01 4 02/17/23 05:10 02/17/23 04:55 4 PG Care Time/CCT Total # of Minutes Spent Total Time Spent with Patient: Total time spent is greater than 50% in coordination of care (as documented) at patient's floor/unit and/or counseling patient: Coding Level of Care Code 73867 INT INP/OBS CARE 2/55MIN Diagnoses Acute urinary retention R33.8 Acute renal insufficiency N28.9 Acute UTI N39.0
[2023-02-17] MEDS ORDERED: VANCOMYCIN HCL 750 MG in SODIUM CHLORIDE 0.9% 250 ML IV SCH (18:00)
[2023-02-17] MEDS: SODIUM CHLOR 7% 4 ML NEB NEB SCH (18:52)
[2023-02-17] MEDS: ALBUT/IPRATROP 3MG/0.5MG NEB 3 ML VIAL NEB SCH (18:52)
[2023-02-17] MEDS: MIRTAZAPINE TAB 15 MG TAB PO SCH (21:43)
[2023-02-17] MEDS: FLUTICASONE PROPIONATE NA SPR 16 GM BTL SCH (21:45)
[2023-02-18] MEDS: INSULIN ASPART PER UNIT CHARGE SC SCH ×5 (00:53→23:56)
[2023-02-18] MEDS: SODIUM CHLORIDE 0.9% 1000ML 1,000 ML IV SCH ×2 (00:56→09:48)
[2023-02-18 05:09] LABS: Hematocrit (blood only) 32.3 % (42.0-52.0); Hemoglobin 10.1 g/dl (14.0-18.0); Mean Corpuscular Hemoglobin 30.1 pg (25.0-34.0); Mean Corpuscular Hgb Conc 31.3 g/dL (32.0-36.0); Mean Corpuscular Volume 96.1 fL (80.0-100.0); Mean Platelet Volume 12.8 fL (9.4-12.4); Platelet Count 142 K/uL (130-400); RDW Coefficient of Variation 14.8 % (11.5-14.5); RDW Standard Deviation 51.8 fL (36.4-46.3); Red Blood Count 3.36 M/uL (4.70-6.10); White Blood Count 8.61 K/ul (4.8-10.8)
[2023-02-18] MEDS: PIPERACILLIN/TAZOBACTAM 4.5 GM in DEXTROSE 5% 100 ML IV SCH ×3 (05:28→23:51)
[2023-02-18] MEDS: TAMSULOSIN HCL 0.4 MG CAP PO SCH (05:30)
[2023-02-18 05:47] LABS: Basophils # (auto) 0.02 K/uL (0-0.2); Basophils % (auto) 0.2 %; Eosinophils # (auto) 0.02 K/uL (0-0.50); Eosinophils % (auto) 0.2 %; Immature Granulocytes # (auto) 0.05 K/uL (0.01-0.20); Immature Granulocytes % (auto) 0.6 %; Lymphocytes % (auto) 4.6 %; Monocytes # (auto) 0.37 K/uL (0.11-0.59); Monocytes % (auto) 4.3 %; Neutrophils # (auto) 7.75 K/uL (1.40-6.50); Neutrophils % (auto) 90.1 %
[2023-02-18 05:53] LABS: Calcium 8.6 mg/dl (8.6-10.3); Creatinine Clr Calc Pharmacy 46.6 ml/min; Est GFR (African American) 71.5 ml/min; Est GFR (Non-African American) 61.7 ml/min; Magnesium 1.8 mg/dl (1.7-2.4); Potassium 3.4 mmol/L (3.5-5.1)
[2023-02-18] MEDS: ACETAMINOPHEN 500 MG TAB PO SCH ×3 (07:11→20:19)
[2023-02-18] MEDS: ASPIRIN 81 MG CHEW PO SCH (07:11)
[2023-02-18] MEDS: SODIUM CHLOR 7% 4 ML NEB NEB SCH ×2 (07:11→19:14)
[2023-02-18] MEDS: amLODIPine BESYLATE 5 MG TAB PO SCH (07:11)
[2023-02-18] MEDS: FINASTERIDE 5 MG TAB PO SCH (07:12)
[2023-02-18] MEDS: carvediloL 6.25 MG TAB PO SCH ×2 (07:12→20:19)
[2023-02-18] MEDS: LORATADINE 10 MG TAB PO SCH (07:12)
[2023-02-18] MEDS: FOLIC ACID 400 MCG TAB PO SCH (07:12)
[2023-02-18] MEDS: DOCUSATE SODIUM/SENNA 50/8.6MG TAB PO SCH ×2 (07:12→20:20)
[2023-02-18] MEDS: GLYCOPYRROLATE 1 MG TAB PO SCH ×2 (07:12→20:20)
[2023-02-18] MEDS: FAMOTIDINE 20 MG TAB PO SCH (07:12)
[2023-02-18] MEDS: MAGNESIUM OXIDE 400 MG TAB PO SCH ×2 (07:13→15:24)
[2023-02-18] MEDS: ALBUT/IPRATROP 3MG/0.5MG NEB 3 ML VIAL NEB SCH ×2 (07:18→19:14)
[2023-02-18 07:39] LABS: Estimated Average Glucose 200 mg/dl; Hemoglobin A1C 8.6 % (4.5-5.6)
[2023-02-18] MEDS: DICLOFENAC SOD 1% GEL 100 GM TUBE EXT SCH ×4 (09:07→20:27)
[2023-02-18] MEDS: HEPARIN SOD 5,000 UNIT/0.5 ML VIAL SQ SCH ×2 (09:07→20:27)
[2023-02-18] MEDS: DEXTROSE 5% 1,000 ML IV SCH (09:10)
--- NOTE | 2023-02-18 10:16 | Palliative Care Consultation ---
Date of Consultation February 18, 2023 Assessment & Plan (1) Weakness generalized: (2) Dyspnea and respiratory abnormalities: (3) Palliative care by specialist: Plan * pt is not decisional * there was no family present * family meeting recommended * recommend contacting SNF to try and locate adv directive/POLST Thank you for allowing us to participate in the ongoing care of this patient. Please don't hesitate to call or page with any additional concerns. Dr. Karla Montiel DNP Director, Palliative Care History of Present Illness Reason for Consultation: Goals of care, Aspiration;? peg tube Attending Physician: Sam Mauricio MD History of Present Illness 72-year-old male who admitted 02/17/23 for aspiration pneumonia and urinary retention. Per admitting notes, history of CVA mostly wheelchair-bound currently at [facility] with history of recurrent aspiration pneumonitis presents with pneumonitis, urinary retention, UTI and AMS. 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 Patient was recently in the hospital due to her aspiration pneumonitis. Had a video swallow recommended pured diet with nectar thick liquids was [facility] to [facility] on January [facility], 2023. As per nursing staff patient is wheelchair-bound but able to get from the bed to the wheelchair. He is difficult to understand but is able to talk. But lately is not talking lying in the bed. Just recently chest x-ray which showed pneumonitis. He was given IM Rocephin and doxycycline. Results and urinary retention. And getting more confused and weak adversities and he was sent in here today. Patient currently mostly nonverbal. He is nodding his head and saying he is doing okay denies any pain. Hemodynamics are okay. Called his sister and she confirmed the patient is full code. Recently was started on robinul for drooling." pt seen at bedside, no family present he is confused and he has non sensical, whispered speech no adv directive found on file Allergies Allergy/AdvReac Type Severity Reaction Status Date / Time No Known Allergies Allergy Verified 01/21/23 20:07 Home Medications Medication Instructions Recorded Confirmed Type aspirin 81 mg chewable tablet 81 mg PO QAM 06/12/20 01/21/23 History (Aspirin Childrens) atorvastatin 40 mg tablet (Lipitor) 40 mg PO QDD 06/12/20 01/21/23 History magnesium oxide 400 mg (241.3 mg 400 mg PO BID17 06/12/20 01/21/23 History magnesium) tablet acetaminophen 500 mg tablet 500 mg PO TID 08/02/20 01/21/23 History (Tylenol Extra Strength) acetaminophen 325 mg tablet 650 mg PO Q4 PRN Fever Or Pain 07/01/21 01/21/23 History diclofenac sodium 1 % topical gel 4 g topical QID 07/01/21 01/21/23 History famotidine 20 mg tablet 20 mg PO DAILY 07/01/21 01/21/23 History ipratropium 0.5 mg-albuterol 3 mg 3 ml inhalation Q4 PRN Shortness 07/01/21 01/21/23 History (2.5 mg base)/3 mL nebulization Of Breath soln tamsulosin 0.4 mg capsule 0.4 mg PO DAILYBB 07/01/21 01/21/23 History carvedilol 6.25 mg tablet 6.25 mg PO AMHS 30 days #30 tabs 07/06/21 01/21/23 Rx lisinopril 10 mg tablet 10 mg PO BID 30 days #60 tabs 07/06/21 01/21/23 Rx Med Pass Suppliment 180 ml PO TID 01/21/23 01/21/23 History amlodipine 2.5 mg tablet 2.5 mg PO QAM 01/21/23 01/21/23 History fluticasone propionate 50 2 spray intranasal HS 01/21/23 01/21/23 History mcg/actuation nasal spray,suspension (Flonase Allergy Relief) guaifenesin 100 mg/5 mL oral 200 mg PO Q4H PRN Cough 01/21/23 01/21/23 History liquid (Robafen) ipratropium 0.5 mg-albuterol 3 mg 3 ml inhalation QID 01/21/23 01/21/23 History (2.5 mg base)/3 mL nebulization soln loratadine 10 mg tablet (Claritin) 10 mg PO QAM 01/21/23 01/21/23 History magnesium hydroxide 400 mg/5 mL 30 ml PO DIRECTED PRN NO BM OF 01/21/23 01/21/23 History oral suspension (Milk of Magnesia) 3 DAYS. 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 Cholelithiasis Chronic constipation Contracture, left ankle Contracture, right ankle Diabetic neuropathy Dysarthria following cerebral infarction Full code status Functional urinary incontinence Generalized muscle weakness Hemiplegia of left nondominant 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 History of CVA (cerebrovascular accident) Hypertension Hypomagnesemia Incontinence, feces Left ear impacted cerumen Nicotine dependence Occlusion and stenosis of bilateral carotid arteries Oral phase dysphagia Type 2 diabetes mellitus Vascular dementia without behavioral disturbance Vitamin B12 deficiency Surgical History No pertinent past surgical history Social History Smoking Status: Former smoker Tobacco Type: Cigarettes Second Hand Exposure: No; Hx Alcohol Use: No Hx Substance Use: No Preferred Language: Uzbek Communication Ability: Effective Communication Ability Comment: Patient mouths words, Hard to make out Aircraft Armorer Required: No Beliefs That Will Affect Care: None marital status: Single Current Living Situation: Skilled Nursing Current Living Situation Comment: is from [facility] Feels Safe at Home: No Assistive Devices: Walker and Wheelchair Review of Systems Review of Systems: Unobtainable due to cognitive status Physical Exam Constitutional: + ill appearing, + altered mental status, + frail appearing and + underweight Eyes: PERRL, conjunctivae normal, anicteric sclerae ENMT: membranes dry Neck: no stridor Respiratory: mild inc effort . diminish with crackles Cardiovascular: s1s2 Gastrointestinal (Abdomen): softly distended , bs + Musculoskeletal: generalized weakness Skin: pale, clammy Neurologic: confused. unable to follow command nonsensical speech Results & Data Vital Signs (Past 12 Hours) Vital Signs Temp Pulse Pulse Resp BP Pulse Ox O2 Del Method 02/18/23 08:29 37.1 C 99 H 18 156/67 H 92 Room Air 02/18/23 07:11 90 20 90 Room Air 02/18/23 02:36 36.9 C 85 20 121/64 96 Room Air 02/18/23 00:00 92 H 02/17/23 22:42 36.9 C 91 H 18 97/62 L 93 Room Air Laboratory Results data reviewed Diagnostic Findings data reviewed PG Care Time/CCT Total # of Minutes Spent Total Time Spent: 60 Total Time Spent with Patient: Total time spent is greater than 50% in coordination of care (as documented) at patient's floor/unit and/or counseling patient: I spent 60 minutes overall addressing this case: 20 in medical data review/discussion with referring provider(s) and/or preparation for the visit 25 in direct interaction with the patient none Advance Care Planning/Goals of Care discussions as detailed above in note (must be >16min) 5 in subsequent review and synthesis of assessment and plan 10 in communicating with other providers regarding the patient's case: [] [place] [address] IN/OBS CONSULT LVL 4,60M Patient Type New Medical Decision Making High Complexity Diagnoses Weakness generalized R53.1 Dyspnea and respiratory abnormalities R06.00; R06.89 Palliative care by specialist Z51.5
--- NOTE | 2023-02-18 10:52 | Electrocardiogram Report ---
Test Reason : Blood Pressure : / mmHG Vent. Rate : 083 BPM Atrial Rate : 083 BPM P-R Int : 142 ms QRS Dur : 084 ms QT Int : 422 ms P-R-T Axes : 077 041 076 degrees QTc Int : 495 ms Sinus rhythm with frequent Premature ventricular complexes Low voltage QRS Prolonged QT Abnormal ECG When compared with ECG of 21-JAN-2023 19:38, Premature ventricular complexes are now Present Confirmed by Carlos Dietrich ([id number]) on 02/18/2023 10:52:01 AM Referred By: REFERRED SELF Confirmed By:Carlos Dietrich
--- NOTE | 2023-02-18 14:12 | Hospitalist Progress Note ---
Date of Service February 18, 2023 Assessment & Plan (1) AMS (altered mental status): Plan: 72-year-old male with history of CVA mostly wheelchair-bound currently at [facility] with history of recurrent aspiration pneumonitis presents with pneumonitis, urinary retention, UTI and AMS. Altered mental status Metabolic encephalopathy Mostly secondary to pneumonia and UTI 72-year-old male with past medical history of CVA with history of recurrent aspiration was sent to the ED due to decreased urine output and urinary retention. Chest x-ray on admission personally reviewed; increasing bilateral airspace opacities suggestive of pneumonia/aspiration pneumonitis Bedside AIRCRA[employer] SPECIALIST eval done; recommend n.p.o., aspiration precautions, ice chips, oral care MRSA nares negative Urine culture shows gram-positive cocci, yeast Blood cultureno growth in 24 hours Continue on vancomycin. N.p.o. as per recommendation by AIR[employer] SPECIALIST. On D5 for hypernatremia. Urinary retention status post Chauhan BPH CT abdomen and pelvis on admission reviewed personally; enlarged bladder Appreciate urology recommendations; continue Chauhan drainage for 5 to 7 days before considering trial of void. On Flomax Proscar was added at the longterm which will be continued Hypernatremia Sodium up trended with IV hydration to 151 Patient is n.p.o. Started on D5 to provide free water Monitor blood glucose ALLEN, due to retention Creatinine 2.1 on admission; improving Holding lisinopril S/p Chauhan catheter History of CVA Wheelchair-bound But able to get to wheelchair from bed as per longterm PT OT when stable Continue aspirin and atorvastatin Hypertension continue Coreg and amlodipine Holding lisinopril We will monitor the blood pressure Diabetes Hyperglycemia We will hold metformin Sliding scale we will follow glucose levels closely History of CAD On aspirin statin and beta-marsha Hyperlipidemia on statin History of Wernicke's Korsakoff syndrome History of alcoholism Goals of care discussion; updated her Sister Casie over the phone who is also his healthcare POA. answered questions/queries. Palliative care also on board. DVT prophylaxis Heparin subcu Disposition telemetry floor Time spent evaluating patient, direct bedside care, chart review, placing orders, interpretation of diagnostic studies, discussion with consultants, patient, and family members, as well as other required patient management activities is 60 minutes. Please note the above document was generated using voice recognition software. It may contain grammatical, syntax or spelling errors. Any formal questions or concerns about the content, text or information contained within the body of this dictation should be directly addressed to the provider for clarification (2) Pneumonia: (3) Acute urinary retention: (4) Acute UTI: (5) Acute renal insufficiency: Admission and Anticipated Discharge Date Admission Date: February 17, 2023 Subjective Patient seen and examined at bedside. He is awake, oriented to self. Reports being hungry; also asking for water. Review of Systems Review of Systems: All systems reviewed & are unremarkable except as noted in Subjective Physical Exam Physical Exam: Constitutional: Alert orient x1 WD/WN, Respiratory: Decreased breath sound at bases.. Cardiovascular: RRR, no murmur, no edema Vessels: no JVD or carotid bruit Chest: normal inspection of chest Abdomen: normal bowel sounds, soft, nontender, no hepatosplenomegaly Musculoskeletal: no cyanosis or clubbing, extremities motor strength 5/5 Skin: no rashes, warm and dry normal turgor Neurologic: Left hemiplegia present. Psychiatric: A+Ox1, euthymic affect Results & Data Results & Data Vital Signs (Past 12 Hours) Vital Signs Temp Pulse Resp BP Pulse Ox O2 Del Method 02/18/23 11:16 36.5 C 91 H 20 146/55 H 93 Room Air 02/18/23 09:00 Room Air 02/18/23 08:29 37.1 C 99 H 18 156/67 H 92 Room Air 02/18/23 07:11 90 20 90 Room Air 02/18/23 02:36 36.9 C 85 20 121/64 96 Room Air Laboratory Results Laboratory Results WBC 8.61 K/ul (4.8-10.8) 02/18/23 04:30 RBC 3.36 M/uL (4.70-6.10) L 02/18/23 04:30 Hgb 10.1 g/dl (14.0-18.0) L 02/18/23 04:30 Hct 32.3 % (42.0-52.0) L 02/18/23 04:30 MCV 96.1 fL (80.0-100.0) 02/18/23 04:30 MCH 30.1 pg (25.0-34.0) 02/18/23 04:30 MCHC 31.3 g/dL (32.0-36.0) L 02/18/23 04:30 RDW Std Deviation 51.8 fL (36.4-46.3) H 02/18/23 04:30 RDW Coeff of Guido 14.8 % (11.5-14.5) H 02/18/23 04:30 Plt Count 142 K/uL (130-400) 02/18/23 04:30 MPV 12.8 fL (9.4-12.4) H 02/18/23 04:30 Immature Gran % (Auto) 0.6 % 02/18/23 04:30 Neut % (Auto) 90.1 % 02/18/23 04:30 Lymph % (Auto) 4.6 % 02/18/23 04:30 Patrick % (Auto) 4.3 % 02/18/23 04:30 Eos % (Auto) 0.2 % 02/18/23 04:30 Baso % (Auto) 0.2 % 02/18/23 04:30 Neut # (Auto) 7.75 K/uL (1.40-6.50) H 02/18/23 04:30 Lymph # (Auto) 0.40 K/uL (1.2-3.4) L 02/18/23 04:30 Patrick # (Auto) 0.37 K/uL (0.11-0.59) 02/18/23 04:30 Eos # (Auto) 0.02 K/uL (0-0.50) 02/18/23 04:30 Baso # (Auto) 0.02 K/uL (0-0.2) 02/18/23 04:30 Immature Gran # (Auto) 0.05 K/uL (0.01-0.20) 02/18/23 04:30 Sodium 151 mmol/L (136-145) H 02/18/23 04:30 Potassium 3.4 mmol/L (3.5-5.1) L 02/18/23 04:30 Chloride 114 mmol/L (98-107) H 02/18/23 04:30 Carbon Dioxide 27 mmol/L (21-32) 02/18/23 04:30 Anion Gap 10 (3-11) 02/18/23 04:30 BUN 36 mg/dl (6-23) H 02/18/23 04:30 Creatinine 1.16 mg/dl (0.6-1.4) 02/18/23 04:30 Est Cr Clr Drug Dosing 46.6 ml/min 02/18/23 04:30 Est GFR ( Amer) 71.5 ml/min 02/18/23 04:30 Est GFR (Non-Af Amer) 61.7 ml/min 02/18/23 04:30 BUN/Creatinine Ratio 31.0 (10-20) H 02/18/23 04:30 Glucose 160 mg/dl (70-99(Fasting)) H 02/18/23 04:30 POC Glucose 233 mg/dl (70-99) H 02/18/23 11:50 Estimat Average Glucose 200 mg/dl 02/18/23 04:30 Hemoglobin A1c 8.6 % (4.5-5.6) H 02/18/23 04:30 Lactate 1.9 mmol/L (0.4-2.0) 02/16/23 22:55 Calcium 8.6 mg/dl (8.6-10.3) 02/18/23 04:30 Phosphorus 3.5 mg/dl (2.5-4.9) 02/16/23 21:22 Magnesium 1.8 mg/dl (1.7-2.4) 02/18/23 04:30 Total Bilirubin 0.5 mg/dl (0.2-1.0) 02/16/23 21:22 AST 10 U/L (13-39) L 02/16/23 21:22 ALT 9 U/L (7-52) 02/16/23 21:22 Alkaline Phosphatase 77 U/L (34-104) 02/16/23 21:22 B-Natriuretic Peptide 160 pg/ml (0-100) H 02/16/23 21:22 Total Protein 6.8 gm/dl (6.0-8.3) 02/16/23 21:22 Albumin 3.2 gm/dl (3.4-5.0) L 02/16/23 21:22 Globulin 3.6 gm/dl (2.5-4.0) 02/16/23 21:22 Albumin/Globulin Ratio 0.9 (0.9-2) 02/16/23 21:22 Procalcitonin 2.62 ng/ml (0-0.5) H 02/16/23 21:22 TSH 2.154 uIu/ml (0.300-4.500) 02/16/23 21:22 Urine Color Dark Yellow 02/16/23 21:45 Urine Appearance Cloudy (Clear) A 02/16/23 21:45 Urine pH 6.0 (4.5-7.5) 02/16/23 21:45 Ur Specific [place] 1.022 (1.000-1.030) 02/16/23 21:45 Urine Protein Trace (Negative) H 02/16/23 21:45 Urine Glucose (UA) Negative (Negative) 02/16/23 21:45 Urine Ketones Trace (Negative) H 02/16/23 21:45 Urine Blood 3+ (Negative) H 02/16/23 21:45 Urine Nitrite Negative (Negative) 02/16/23 21:45 Urine Bilirubin Negative (Negative) 02/16/23 21:45 Urine Urobilinogen Negative (Negative) 02/16/23 21:45 Ur Leukocyte Esterase 2+ (Negative) H 02/16/23 21:45 Urine WBC (Auto) >30 /hpf (0-5) H 02/16/23 21:45 Urine RBC (Auto) 10-30 /hpf (0-4) H 02/16/23 21:45 U Hyaline Cast (Auto) 5-10 /lpf (0-5) H 02/16/23 21:45 U Epithel Cells (Auto) 20-30 /lpf (0-5) H 02/16/23 21:45 Urine Bacteria (Auto) Negative (Negative) 02/16/23 21:45 Urine Yeast Budding (None Prsent) A 02/16/23 21:45 Nasal Screen MRSA (PCR) Negative (Negative) 02/17/23 Unknown Random Vancomycin 12.6 mcg/ml (10-20) 02/18/23 04:30 SARS-CoV-2, RNA, NAAT NEGATIVE (NEGATIVE) 02/17/23 03:50 Impressions Chest X-Ray 02/16/23 22:30 XR chest 1V portable CLINICAL HISTORY: Weakness. COMPARISON STUDY: Chest radiograph and chest CT January 21, 2023. FINDINGS: Elevation of the left hemidiaphragm is noted. Cardiac size is normal. Mediastinal contours are normal. Left mid lung and left basilar opacities have progressed. There is also right medial basilar opacity. IMPRESSION: Increase in bilateral airspace opacities which suggest pneumonia or aspiration pneumonitis. Radiographic follow-up to ensure resolution is recommended. ACT 112: Negative or not required by law. Electronically signed by: Param Taylor M.D. 02/17/2023 8:23 AM Abdomen/Pelvis CT 02/16/23 22:56 Exam(s): CT ABDOMEN + PELVIS Without Contrast EXAM: CT Abdomen and Pelvis Without Intravenous Contrast CLINICAL HISTORY: Reason for exam: urinary retention, allen, sepsis. TECHNIQUE: Axial computed tomography images of the abdomen and pelvis without intravenous contrast. CTDI is 16.11 mGy and DLP is 842.64 mGy-cm. Automated exposure control was utilized for the study. A dose lowering technique was utilized adhering to the principles of ALARA. COMPARISON: Thoracic CT dated 01/21/23. FINDINGS: Lung bases: There are dense consolidations at the lung bases concerning for underlying pneumonia which are new from the prior study. ABDOMEN: Liver: Unremarkable. Gallbladder and bile ducts: Cholelithiasis within an otherwise normal- appearing gallbladder. No ductal dilation. Pancreas: Unremarkable. No ductal dilation. Spleen: Unremarkable. No splenomegaly. Adrenals: Unremarkable. No mass. Kidneys and ureters: Unremarkable. No obstructing stones. No hydronephrosis. Stomach and bowel: Unremarkable. No obstruction. No mucosal thickening. PELVIS: Appendix: No findings to suggest acute appendicitis. Bladder: Chauhan catheter in place. The urinary bladder is significantly distended despite the presence of the Chauhan catheter. No stones. Reproductive: Unremarkable as visualized. ABDOMEN and PELVIS: Intraperitoneal space: Unremarkable. No free air. No significant fluid collection. Bones/joints: Status post right hip arthroplasty. There are advanced degenerative changes of the thoracolumbar spine. No acute fracture. No dislocation. Soft tissues: Unremarkable. Vasculature: Scattered calcification throughout the liver most likely reflecting a combination of atherosclerotic disease and granulomas. There is diffuse atherosclerotic calcification of the aorta and its major branch vessels. No abdominal aortic aneurysm. Lymph nodes: Unremarkable. No enlarged lymph nodes. IMPRESSION: 1. Significant distention of the urinary bladder despite the presence of a Chauhan catheter. 2. No hydronephrosis or definite urolithiasis although evaluation is somewhat limited secondary to extensive vascular calcification. 3. Increasing parenchymal consolidations of the lung bases concerning for pneumonia. Electronically signed by: Krunal Sena MD 02/16/23 23:47 PM (2) Pneumonia Laterality: bilateral Lung location: lower lobe of lung Pneumonia type: due to unspecified organism Qualified Code(s): J18.9 - Pneumonia, unspecified organism
[2023-02-18] MEDS: ATORVASTATIN 40 MG TAB PO SCH (15:24)
[2023-02-18 15:27] LABS: Calcium 8.8 mg/dl (8.6-10.3); Creatinine Clr Calc Pharmacy 49.8 ml/min; Est GFR (Non-African American) 67.3 ml/min; Potassium 3.6 mmol/L (3.5-5.1)
[2023-02-18] MEDS: MIRTAZAPINE TAB 15 MG TAB PO SCH (20:20)
[2023-02-18] MEDS: FLUTICASONE PROPIONATE NA SPR 16 GM BTL SCH (20:27)
[2023-02-19] MEDS ORDERED: KETOROLAC TROMETHAMINE 15 MG/ML VIAL IV ONE (00:53)
[2023-02-19] MEDS: ACETAMINOPHEN 1,000 MG/100 ML VIAL IV STA ×2 (01:06→02:04)
[2023-02-19] MEDS: TAMSULOSIN HCL 0.4 MG CAP PO SCH (05:52)
[2023-02-19] MEDS: INSULIN ASPART PER UNIT CHARGE SC SCH ×2 (06:08→13:33)
[2023-02-19] MEDS: PIPERACILLIN/TAZOBACTAM 4.5 GM in DEXTROSE 5% 100 ML IV SCH ×2 (06:08→15:10)
[2023-02-19 06:36] LABS: Basophils # (auto) 0.03 K/uL (0-0.2); Basophils % (auto) 0.4 %; Eosinophils # (auto) 0.08 K/uL (0-0.50); Eosinophils % (auto) 0.9 %; Hemoglobin 9.7 g/dl (14.0-18.0); Immature Granulocytes # (auto) 0.07 K/uL (0.01-0.20); Immature Granulocytes % (auto) 0.8 %; Lymphocytes # (auto) 0.46 K/uL (1.2-3.4); Lymphocytes % (auto) 5.4 %; Mean Corpuscular Hemoglobin 29.9 pg (25.0-34.0); Mean Corpuscular Hgb Conc 31.3 g/dL (32.0-36.0); Mean Corpuscular Volume 95.7 fL (80.0-100.0); Mean Platelet Volume 12.7 fL (9.4-12.4); Monocytes # (auto) 0.32 K/uL (0.11-0.59); Monocytes % (auto) 3.8 %; Neutrophils # (auto) 7.56 K/uL (1.40-6.50); Neutrophils % (auto) 88.7 %; Platelet Count 144 K/uL (130-400); RDW Coefficient of Variation 14.6 % (11.5-14.5); RDW Standard Deviation 51.2 fL (36.4-46.3); Red Blood Count 3.24 M/uL (4.70-6.10); White Blood Count 8.52 K/ul (4.8-10.8)
[2023-02-19 06:54] LABS: BUN Creatinine Ratio 22.1 (10-20); Calcium 8.4 mg/dl (8.6-10.3); Creatinine Clr Calc Pharmacy 52.9 ml/min; Est GFR (African American) 81.6 ml/min; Est GFR (Non-African American) 70.4 ml/min
[2023-02-19] MEDS: ALBUT/IPRATROP 3MG/0.5MG NEB 3 ML VIAL NEB SCH ×2 (06:55→19:21)
[2023-02-19] MEDS: SODIUM CHLOR 7% 4 ML NEB NEB SCH ×2 (06:55→19:21)
[2023-02-19] MEDS: ACETAMINOPHEN 500 MG TAB PO SCH (07:43)
[2023-02-19] MEDS: ASPIRIN 81 MG CHEW PO SCH (07:44)
[2023-02-19] MEDS: amLODIPine BESYLATE 5 MG TAB PO SCH (07:44)
[2023-02-19] MEDS: DOCUSATE SODIUM/SENNA 50/8.6MG TAB PO SCH (07:44)
[2023-02-19] MEDS: carvediloL 6.25 MG TAB PO SCH (07:44)
[2023-02-19] MEDS: FINASTERIDE 5 MG TAB PO SCH (07:44)
[2023-02-19] MEDS: FAMOTIDINE 20 MG TAB PO SCH (07:44)
[2023-02-19] MEDS: MAGNESIUM OXIDE 400 MG TAB PO SCH ×2 (07:45→15:50)
[2023-02-19] MEDS: FOLIC ACID 400 MCG TAB PO SCH (07:45)
[2023-02-19] MEDS: GLYCOPYRROLATE 1 MG TAB PO SCH (07:45)
[2023-02-19] MEDS: LORATADINE 10 MG TAB PO SCH (07:45)
[2023-02-19] MEDS: DICLOFENAC SOD 1% GEL 100 GM TUBE EXT SCH ×4 (07:53→21:30)
[2023-02-19] MEDS: HEPARIN SOD 5,000 UNIT/0.5 ML VIAL SQ SCH (07:53)
[2023-02-19] MEDS ORDERED: ACETAMINOPHEN 1,000 MG/100 ML VIAL IV SCH (08:00)
[2023-02-19] MEDS: DEXTROSE 5% 1,000 ML IV SCH ×3 (09:04→16:32)
--- NOTE | 2023-02-19 11:53 | Palliative Family Discussion ---
Date of Service February 19, 2023 Patient Directed Conference Time of [id number] Participants: Karla Montiel DNP Patient participation: no/lacks capacity Patient Support System: sister/POA: Casie Sena Other Healthcare Provider Participation: None Meeting Location: teleconference Advanced Directive available: None, Caise is unsure if she ever signed a POLST but knows she has always said "Full Code" in hospitals The patient's surrogate medical decision maker participated: yes, Casie is POA A family meeting was held for ROB JONES. This meeting was necessary for determining the appropriate course of treatment. Topics of Discussion Topics of Discussion: 1. multiple stroke, CVA, wheelchair and bed bound, dementia/encephalopathy ?Wernickes/prior hx ETOH abuse 2. Progressively worsening aspiration with recurrent PNA + pneumonitis. Even with feeding tube he will still aspirate. I advised artificial nutrition and hydration (TATA) were originally developed to provide short-term support for patients who were acutely ill. For patients nearing/transitioning to EOL, TATA is unlikely to prolong life in addition to which researchers have found that TATA often leads to complications in patients nearing the end of life. Patients with advanced, life-limiting illness often lose the ability to eat and drink and/or interest in food and fluids. Like other medical interventions, it should be evaluated by weighing its benefits and burdens in light of the patient's clinical circumstances and goals of care. TATA may offer benefits when administered in the setting of acute, reversible illness, or as a component of chronic disease management, when the patient can appreciate the benefits of the treatment and significant burdens are not disproportionate. Near the end of life, some widely assumed benefits of TATA, such as alleviation of thirst, may be achieved by less invasive measures including good mouth care or providing ice chips. (Justin SD, Ilda ALVARADOK, Casey M. after PEG: Results of the National Confidential Enquiry into Patient Outcome and . Gastrointest Endosc. 2008;68:223-227andBrkenisha E, Amisha D, Nory S, et al. Parenteral hydration in patients with advanced cancer: A multicenter, double-blind, placebo-controlled randomized trial. J Clin Oncol. 2013;31:111-118.) Advised that continuation of tube feedings and IV fluids will not aid to any comfort in the dying process but in fact will create more secretions, bloating and distention, and possible fluid volume overload and progressive edema. Advised that this would likely only prolong the dying process rather than help make it more comfortable. We specifically discussed that artificial nutrition and hydration (TATA) by IV, will not prolong life or improve its quality, but will increase distressing symptoms such as shortness of breath, respiratory congestion, restlessness, nausea and vomiting. Educated family that fluids are often avoided at the very end of life to prevent volume overload in the lungs and other organs and oncology evidence has demonstrated IV hydration is unlikely to provide a meaningful benefit to most hospice patients with advanced cancer, even with mild to moderate dehydration. (Savannah E, Amisha D, Nory S, et al. Parenteral hydration in patients with advanced cancer: a multicenter, double-blind, placebo-controlled randomized trial. J Clin Oncol. 2013;31(1):111-118. Doi:10.1200/[id number].[id number]) 3. These conditions are not curable, fixable or reversible with CPR or aggressive care. I reviewed the data on CPR survival: Only about 10% of patients who have [id number]-[id number] sudden cardiac arrest survive to hospital discharge, with many survivors having neurologic impairment. This rate is even lower among patients with serious coexisting conditions, ie chance of survival to hospital discharge for in-hospital CPR in older people is low to moderate (15%) and decreases with age, comorbidities, performance status and frailty: for pts > 70 yo, more than half of the patients who initially survived resuscitation in the hospital before hospital discharge. The pooled survival to discharge after in-hospital CPR was 18% for patients between 70 and 79 years old, 15% for patients between 80 and 89 years old and 11% for patients of 90 years and older. (Dallin MARINY, Suman LJ, Danny F, et al. Trends in short- and long-term survival among [id number] cardiac arrest patients alive at hospital arrival. Circulation 2014;130:8193-8371. AND Micaela Peck, Alba T, Chata R, et al. Performance of clinical risk scores to predict mortality and neurological outcome in cardiac arrest patients. Resuscitation 2019;136:21-29.) Other Content of Meetin. Opportunity given for participants to speak and ask questions. 2. Participants were assured of attention to patient comfort. 3. Reassurance provided. 4. Support was provided for informed, good-emiliano decisions. 5. Emotions expressed by family were acknowledged and addressed. 6. Casie states she needs time to think about everything. She told me pt was always a very independent man who preferred being on his own/was not overly social. He would not want to be dependent on others for all care, though this has been his life for the past 11 years. She recognizes this isn't the life he would want for himself if he could choose but she is equally unsure what to do and how to make decisions from the choices at hand. She is overwhelmed by the current issues. She states she is also not feeling well and wants to take some time to think about everything. 7. Plan of Care: If TATA is not opted, we would move to a more comfort focused plan of care. She is very undecided about hospice and did not want to change code status. She is also, she said, undecided about a feeding tube. Patient has been at SNF for 11 years. She was able to admit this is not the way he would want to live but she could not bring herself to think about how those preference s would be carried out as far as a plan of care that focuses more on comfort. I spoke with her about end of life, goals of care, hospice and code status. I recommended DNR/DNI. I advised her he could have hospice at SNF since he is now a LTC pt and has medicaid along with medicare coverage. Time Involved in Meeting: I spent 50 minutes overall addressing this case: 10 in medical data review/discussion with referring provider(s) and/or preparation for the visit none in direct interaction with the patient 35 Advance Care Planning/Goals of Care discussions as detailed above in note (must be >16min) 0 in subsequent review and synthesis of assessment and plan 5 in communicating with other providers regarding the patient's case: []
--- NOTE | 2023-02-19 14:35 | Fluoroscopy Report ---
FL video swallow HISTORY: Pneumonia. assess for aspiration TECHNIQUE: Video fluoroscopic evaluation of swallowing was performed in the AP and lateral projection s by the speech pathology staff. The patient is fed nectar-thick and thin liquid barium, a barium coa lizzette wafer, and barium pudding. FLUOROSCOPY TIME: 2 minutes and 20 seconds. Ka,r: 10.7 mGy COMPARISON STUDY: None. FINDINGS: The patient had significant difficulty swallowing for examination. This results in overall poor pharyngeal constriction with episodes of incomplete epiglottic deflection and aspiration. Signif icant residue throughout the hypopharynx which the patient was unable to completely clear during the examination. IMPRESSION: 1. The patient had significant difficulty swallowing for examination resulting in multiple episodes o f aspiration. 2. Please see the speech pathologist report for detailed findings and recommendations. ACT 112: Negative or not required by law. Electronically signed by: Dewayne Morrison M.D. 02/19/2023 2:34 PM
[2023-02-19] MEDS ORDERED: LORazepam 0.5 MG TAB PO PRN (14:43)
[2023-02-19] MEDS ORDERED: LORazepam 2 MG/1 ML VIAL IV PRN ×2 (14:43→20:46)
[2023-02-19] MEDS ORDERED: ACETAMINOPHEN 325 MG TAB PO PRN (14:43)
[2023-02-19] MEDS ORDERED: MoRPHine SULFATE 2 MG/ML CARP IV PRN ×2 (14:43→20:47)
[2023-02-19] MEDS ORDERED: ONDANSETRON INJ 2 MG/ML 2 ML VIAL IV PRN (14:43)
[2023-02-19] MEDS ORDERED: ONDANSETRON 4 MG OD TAB SL PRN (14:43)
[2023-02-19] MEDS: ATORVASTATIN 40 MG TAB PO SCH (15:10)
--- NOTE | 2023-02-19 15:59 | Hospitalist Progress Note ---
Date of Service February 19, 2023 Assessment & Plan (1) AMS (altered mental status): Plan: 72-year-old male with history of CVA mostly wheelchair-bound currently at [facility] with history of recurrent aspiration pneumonitis presents with pneumonitis, urinary retention, UTI and AMS. Altered mental status Metabolic encephalopathy Mostly secondary to aspiration pneumonia and UTI Comfort care 72-year-old male with past medical history of CVA with history of recurrent aspiration was sent to the ED due to decreased urine output and urinary retention. Chest x-ray on admission personally reviewed; increasing bilateral airspace opacities suggestive of pneumonia/aspiration pneumonitis Bedside CHIEF TECHNOLOGY OFFICER eval done; recommend n.p.o., aspiration precautions, ice chips, oral care Underwent video swallow evaluation; see speech note for further detail. MRSA nares negative Urine culture shows gram-positive cocci, yeast Blood cultureno growth in 24 hours Discussed with his POA(Casie Sena) over the phone about the results of the video swallow evaluation. I discussed about possibility of feeding tube and how it will not reverse that he is aspirating. I discussed about comfort care measures and permissive aspiration with pleasure feeding. She opted for comfort care measures. Orders placed. Diet order placed as well. Monitor the patient overnight and possible discharge in a.m. with hospice care Urinary retention status post Chauhan BPH CT abdomen and pelvis on admission reviewed personally; enlarged bladder Appreciate urology recommendations; continue Chauhan drainage for 5 to 7 days before considering trial of void. On Flomax Proscar was added at the senior care which will be continued Hypernatremia Sodium up trended with IV hydration to 151 Downtrending with D5. Continue D5 ALLEN, due to urinary retention Creatinine 2.1 on admission; improving Holding lisinopril S/p Chauhan catheter History of CVA Wheelchair-bound But able to get to wheelchair from bed as per senior care PT OT when stable Continue aspirin and atorvastatin Hypertension continue Coreg and amlodipine Holding lisinopril We will monitor the blood pressure Diabetes Hyperglycemia We will hold metformin Sliding scale we will follow glucose levels closely History of CAD On aspirin statin and beta-marsha Hyperlipidemia on statin History of Wernicke's Korsakoff syndrome History of alcoholism DVT prophylaxis Heparin subcu Disposition MedSurg floor. Time spent evaluating patient, direct bedside care, chart review, placing orders, interpretation of diagnostic studies, discussion with consultants, patient, and family members, as well as other required patient management activities is 60 minutes. Please note the above document was generated using voice recognition software. It may contain grammatical, syntax or spelling errors. Any formal questions or concerns about the content, text or information contained within the body of this dictation should be directly addressed to the provider for clarification (2) Pneumonia: (3) Acute urinary retention: (4) Acute UTI: (5) Acute renal insufficiency: Admission and Anticipated Discharge Date Admission Date: February 17, 2023 Subjective Patient is seen and examined at bedside. He is comfortable lying on the bed; not in any distress. He is requesting for water. Review of Systems Review of Systems: All systems reviewed & are unremarkable except as noted in Subjective Physical Exam Physical Exam: Constitutional: Alert orient x1 WD/WN, Respiratory: Decreased breath sound at bases.. Cardiovascular: RRR, no murmur, no edema Vessels: no JVD or carotid bruit Chest: normal inspection of chest Abdomen: normal bowel sounds, soft, nontender, no hepatosplenomegaly Musculoskeletal: no cyanosis or clubbing, extremities motor strength 5/5 Skin: no rashes, warm and dry normal turgor Neurologic: Left hemiplegia present. Psychiatric: A+Ox1, euthymic affect Results & Data Results & Data Vital Signs (Past 12 Hours) Vital Signs Temp Pulse Pulse Resp BP Pulse Ox O2 Del Method 02/19/23 15:21 36.4 C L 83 20 141/73 H 92 Room Air 02/19/23 11:09 36.7 C 93 H 20 115/73 91 Room Air 02/19/23 07:37 Room Air 02/19/23 07:30 36.5 C 93 H 20 133/69 91 Room Air 02/19/23 07:08 87 02/19/23 06:55 91 H 18 91 Room Air 02/19/23 03:56 36.6 C 47 L 20 115/52 L 92 Room Air Laboratory Results Laboratory Results WBC 8.52 K/ul (4.8-10.8) 02/19/23 05:39 RBC 3.24 M/uL (4.70-6.10) L 02/19/23 05:39 Hgb 9.7 g/dl (14.0-18.0) L 02/19/23 05:39 Hct 31.0 % (42.0-52.0) L 02/19/23 05:39 MCV 95.7 fL (80.0-100.0) 02/19/23 05:39 MCH 29.9 pg (25.0-34.0) 02/19/23 05:39 MCHC 31.3 g/dL (32.0-36.0) L 02/19/23 05:39 RDW Std Deviation 51.2 fL (36.4-46.3) H 02/19/23 05:39 RDW Coeff of Guido 14.6 % (11.5-14.5) H 02/19/23 05:39 Plt Count 144 K/uL (130-400) 02/19/23 05:39 MPV 12.7 fL (9.4-12.4) H 02/19/23 05:39 Immature Gran % (Auto) 0.8 % 02/19/23 05:39 Neut % (Auto) 88.7 % 02/19/23 05:39 Lymph % (Auto) 5.4 % 02/19/23 05:39 Overton % (Auto) 3.8 % 02/19/23 05:39 Eos % (Auto) 0.9 % 02/19/23 05:39 Baso % (Auto) 0.4 % 02/19/23 05:39 Neut # (Auto) 7.56 K/uL (1.40-6.50) H 02/19/23 05:39 Lymph # (Auto) 0.46 K/uL (1.2-3.4) L 02/19/23 05:39 Overton # (Auto) 0.32 K/uL (0.11-0.59) 02/19/23 05:39 Eos # (Auto) 0.08 K/uL (0-0.50) 02/19/23 05:39 Baso # (Auto) 0.03 K/uL (0-0.2) 02/19/23 05:39 Immature Gran # (Auto) 0.07 K/uL (0.01-0.20) 02/19/23 05:39 Sodium 148 mmol/L (136-145) H 02/19/23 05:39 Potassium 3.0 mmol/L (3.5-5.1) L 02/19/23 05:39 Chloride 113 mmol/L (98-107) H 02/19/23 05:39 Carbon Dioxide 27 mmol/L (21-32) 02/19/23 05:39 Anion Gap 8 (3-11) 02/19/23 05:39 BUN 23 mg/dl (6-23) 02/19/23 05:39 Creatinine 1.04 mg/dl (0.6-1.4) 02/19/23 05:39 Est Cr Clr Drug Dosing 52.9 ml/min 02/19/23 05:39 Est GFR ( Amer) 81.6 ml/min 02/19/23 05:39 Est GFR (Non-Af Amer) 70.4 ml/min 02/19/23 05:39 BUN/Creatinine Ratio 22.1 (10-20) H 02/19/23 05:39 Glucose 190 mg/dl (70-99(Fasting)) H 02/19/23 05:39 POC Glucose 193 mg/dl (70-99) H 02/19/23 11:23 Estimat Average Glucose 200 mg/dl 02/18/23 04:30 Hemoglobin A1c 8.6 % (4.5-5.6) H 02/18/23 04:30 Lactate 1.9 mmol/L (0.4-2.0) 02/16/23 22:55 Calcium 8.4 mg/dl (8.6-10.3) L 02/19/23 05:39 Phosphorus 3.5 mg/dl (2.5-4.9) 02/16/23 21:22 Magnesium 1.8 mg/dl (1.7-2.4) 02/18/23 04:30 Total Bilirubin 0.5 mg/dl (0.2-1.0) 02/16/23 21:22 AST 10 U/L (13-39) L 02/16/23 21:22 ALT 9 U/L (7-52) 02/16/23 21:22 Alkaline Phosphatase 77 U/L (34-104) 02/16/23 21:22 B-Natriuretic Peptide 160 pg/ml (0-100) H 02/16/23 21:22 Total Protein 6.8 gm/dl (6.0-8.3) 02/16/23 21:22 Albumin 3.2 gm/dl (3.4-5.0) L 02/16/23 21: Globulin 3.6 gm/dl (2.5-4.0) 02/16/23 21: Albumin/Globulin Ratio 0.9 (0.9-2) 02/16/23 21:22 Procalcitonin 2.62 ng/ml (0-0.5) H 02/16/23 21:22 TSH 2.154 uIu/ml (0.300-4.500) 02/16/23 21: Urine Color Dark Yellow 02/16/23 21:45 Urine Appearance Cloudy (Clear) A 02/16/23 21:45 Urine pH 6.0 (4.5-7.5) 02/16/23 21:45 Ur Specific Corning 1.022 (1.000-1.030) 02/16/23 21:45 Urine Protein Trace (Negative) H 02/16/23 21:45 Urine Glucose (UA) Negative (Negative) 02/16/23 21:45 Urine Ketones Trace (Negative) H 02/16/23 21:45 Urine Blood 3+ (Negative) H 02/16/23 21:45 Urine Nitrite Negative (Negative) 02/16/23 21:45 Urine Bilirubin Negative (Negative) 02/16/23 21:45 Urine Urobilinogen Negative (Negative) 02/16/23 21:45 Ur Leukocyte Esterase 2+ (Negative) H 02/16/23 21:45 Urine WBC (Auto) >30 /hpf (0-5) H 02/16/23 21:45 Urine RBC (Auto) 10-30 /hpf (0-4) H 02/16/23 21:45 U Hyaline Cast (Auto) 5-10 /lpf (0-5) H 02/16/23 21:45 U Epithel Cells (Auto) 20-30 /lpf (0-5) H 02/16/23 21:45 Urine Bacteria (Auto) Negative (Negative) 02/16/23 21:45 Urine Yeast Budding (None Prsent) A 02/16/23 21:45 Nasal Screen MRSA (PCR) Negative (Negative) 02/17/23 Unknown Random Vancomycin 12.6 mcg/ml (10-20) 02/18/23 04:30 SARS-CoV-2, RNA, NAAT NEGATIVE (NEGATIVE) 02/17/23 03:50 Impressions Chest X-Ray 02/16/23 22:30 XR chest 1V portable CLINICAL HISTORY: Weakness. COMPARISON STUDY: Chest radiograph and chest CT January 21, 2023. FINDINGS: Elevation of the left hemidiaphragm is noted. Cardiac size is normal. Mediastinal contours are normal. Left mid lung and left basilar opacities have progressed. There is also right medial basilar opacity. IMPRESSION: Increase in bilateral airspace opacities which suggest pneumonia or aspiration pneumonitis. Radiographic follow-up to ensure resolution is recommended. ACT 112: Negative or not required by law. Electronically signed by: Param Taylor M.D. 02/17/2023 8:23 AM Abdomen/Pelvis CT 02/16/23 22:56 Exam(s): CT ABDOMEN + PELVIS Without Contrast EXAM: CT Abdomen and Pelvis Without Intravenous Contrast CLINICAL HISTORY: Reason for exam: urinary retention, allen, sepsis. TECHNIQUE: Axial computed tomography images of the abdomen and pelvis without intravenous contrast. CTDI is 16.11 mGy and DLP is 842.64 mGy-cm. Automated exposure control was utilized for the study. A dose lowering technique was utilized adhering to the principles of ALARA. COMPARISON: Thoracic CT dated 01/21/23. FINDINGS: Lung bases: There are dense consolidations at the lung bases concerning for underlying pneumonia which are new from the prior study. ABDOMEN: Liver: Unremarkable. Gallbladder and bile ducts: Cholelithiasis within an otherwise normal- appearing gallbladder. No ductal dilation. Pancreas: Unremarkable. No ductal dilation. Spleen: Unremarkable. No splenomegaly. Adrenals: Unremarkable. No mass. Kidneys and ureters: Unremarkable. No obstructing stones. No hydronephrosis. Stomach and bowel: Unremarkable. No obstruction. No mucosal thickening. PELVIS: Appendix: No findings to suggest acute appendicitis. Bladder: Cahuhan catheter in place. The urinary bladder is significantly distended despite the presence of the Chauhan catheter. No stones. Reproductive: Unremarkable as visualized. ABDOMEN and PELVIS: Intraperitoneal space: Unremarkable. No free air. No significant fluid collection. Bones/joints: Status post right hip arthroplasty. There are advanced degenerative changes of the thoracolumbar spine. No acute fracture. No dislocation. Soft tissues: Unremarkable. Vasculature: Scattered calcification throughout the liver most likely reflecting a combination of atherosclerotic disease and granulomas. There is diffuse atherosclerotic calcification of the aorta and its major branch vessels. No abdominal aortic aneurysm. Lymph nodes: Unremarkable. No enlarged lymph nodes. IMPRESSION: 1. Significant distention of the urinary bladder despite the presence of a Chauhan catheter. 2. No hydronephrosis or definite urolithiasis although evaluation is somewhat limited secondary to extensive vascular calcification. 3. Increasing parenchymal consolidations of the lung bases concerning for pneumonia. Electronically signed by: Krunal Sena MD 02/16/23 23:47 PM Videofluoroscopic Swallow 02/19/23 13:00 FL video swallow HISTORY: Pneumonia. assess for aspiration TECHNIQUE: Video fluoroscopic evaluation of swallowing was performed in the AP and lateral projections by the speech pathology staff. The patient is fed nectar-thick and thin liquid barium, a barium coated wafer, and barium pudding. FLUOROSCOPY TIME: 2 minutes and 20 seconds. Ka,r: 10.7 mGy COMPARISON STUDY: None. FINDINGS: The patient had significant difficulty swallowing for examination. This results in overall poor pharyngeal constriction with episodes of incomplete epiglottic deflection and aspiration. Significant residue throughout the hypopharynx which the patient was unable to completely clear during the examination. IMPRESSION: 1. The patient had significant difficulty swallowing for examination resulting in multiple episodes of aspiration. 2. Please see the speech pathologist report for detailed findings and recommendations. ACT 112: Negative or not required by law. Electronically signed by: Dewayne Morrison M.D. 02/19/2023 2:34 PM (2) Pneumonia Laterality: bilateral Lung location: lower lobe of lung Pneumonia type: due to unspecified organism Qualified Code(s): J18.9 - Pneumonia, unspecified organism
[2023-02-19] MEDS ORDERED: GLYCOPYRROLATE 0.2 MG/ML VIAL IV PRN (20:45)
--- NOTE | 2023-02-19 20:59 | Palliative Care Progress Note ---
Date of Service February 19, 2023 Assessment & Plan (1) Dyspnea and respiratory abnormalities: (2) Weakness generalized: (3) Multifocal pneumonia: (4) Aspiration into airway: (5) Palliative care by specialist: Plan see you above . Thank you for allowing us to participate in the ongoing care of this patient. Please don't hesitate to call or page with any additional concerns. Dr. Karla Montiel [facility] Director, Palliative Care Admission and Anticipated Discharge Date Admission Date: February 17, 2023 Subjective Notified by nursing that patient is having significant trouble taking his meds as well as any oral intake. He is choking, sputtering and unable to successfully swallow. This was confirmed earlier today in a video swallow evaluation as well, please see the speech therapy evaluation for all details. After discussion with patient's power of clinic coordinator, sister Casie, it was determined that we would move him to comfort care with a hopeful return to his alf facility and the addition of hospice. Nursing paged me this evening to request some modified comfort care orders including orders to assist in managing his secretions as well as his air hunger. Comfort care orders have been written. All non-essential and non-comfort oriented medications have been discontinued. Furthermore, patient is unable to swallow any medications and is steadily declining. His oral medications have been discontinued. IV fluids have been discontinued as these are only contributing to creating more secretions and causing more respiratory distress. IV antibiotics were also discontinued. Would note that artificial nutrition and hydration (TATA) were originally developed to provide short-term support for patients who were acutely ill. For patients nearing/transitioning to EOL, TAAT is unlikely to prolong life in addition to which researchers have found that TATA often leads to complications in patients nearing the end of life. Patients with advanced, life- limiting illness often lose the ability to eat and drink and/or interest in food and fluids. Like other medical interventions, it should be evaluated by weighing its benefits and burdens in light of the patient's clinical circumstances and goals of care. TATA may offer benefits when administered in the setting of acute, reversible illness, or as a component of chronic disease management, when the patient can appreciate the benefits of the treatment and significant burdens are not disproportionate. Near the end of life, some widely assumed benefits of TATA, such as alleviation of thirst, may be achieved by less invasive measures including good mouth care or providing ice chips. (Justin HOWELL, Ilda ALVARADOK, Casey Banuelos. after PEG: Results of the National Confidential Enquiry into Patient Outcome and . Gastrointest Endosc. 2008;68:223- 227andBrkenisha E, Amisha D, Nory S, et al. Parenteral hydration in patients with advanced cancer: A multicenter, double-blind, placebo-controlled randomized trial. J Clin Oncol. 2013;31:111-118.) For purposes of comfort, please allow oral intake for pleasure, with the agreed- upon permissive aspiration. Patient can be fed in small increments following speech therapy reccs /pured or thickened foods/drink. He should be positioned upright with his chin forward. If he is unable to tolerate oral feedings in this manner, please try using the mouth swabs to moisten his mucosal linings and provide relief from any discomfort. At this time he is on comfort care with the expectation of a short anticipated survival. This plan of care was discussed with the primary team attending as well as nursing. All orders written Thank you for allowing us to participate in the ongoing care of this patient. Please don't hesitate to call or page with any additional concerns. Dr. Karla Montiel DNP Director, Palliative Care. Results & Data Vital Signs (Past 12 Hours) Vital Signs Temp Pulse Resp BP Pulse Ox O2 Del Method 02/19/23 19:22 80 18 90 Room Air 02/19/23 15:21 36.4 C L 83 20 141/73 H 92 Room Air 02/19/23 11:09 36.7 C 93 H 20 115/73 91 Room Air PG Care Time/CCT Total # of Minutes Spent Total Time Spent: 32 Total Time Spent with Patient: Total time spent is greater than 50% in coordination of care (as documented) at patient's floor/unit and/or counseling patient: Coding Level of Care Code Established Pt None Patient Type Established Medical Decision Making High Complexity Diagnoses Dyspnea and respiratory abnormalities R06.00; R06.89 Weakness generalized R53.1 Multifocal pneumonia J18.9 Aspiration into airway T17.908A Palliative care by specialist Z51.5
[2023-02-19] MEDS: ACETAMINOPHEN 1,000 MG/100 ML VIAL IV PRN (21:16)
--- NOTE | 2023-02-20 09:11 | Communication Note ---
Date of Service: February 20, 2023 at 0855 Chart reviewed, last night's Nursing note indicates family with ??s re comfort care and meds. I attempted to call pt sister/Mehrdad Flores and left voicemail requesting call back. Thank you for allowing us to participate in the ongoing care of this patient. Please don't hesitate to call or page with any additional concerns. Dr. Karla Montiel DNP Director, Palliative Care
[2023-02-20] MEDS: DICLOFENAC SOD 1% GEL 100 GM TUBE EXT SCH ×4 (09:55→20:04)
[2023-02-20] MEDS: ACETAMINOPHEN 1,000 MG/100 ML VIAL IV PRN (10:02)
[2023-02-20] MEDS: MoRPHine SULFATE 2 MG/ML CARP IV PRN ×4 (12:13→21:38)
[2023-02-20] MEDS ORDERED: PIPERACILLIN/TAZOBACTAM 4.5 GM in DEXTROSE 5% 100 ML IV SCH (12:15)
--- NOTE | 2023-02-20 12:17 | Communication Note ---
Date of Service: February 20, 2023 [facility] Med Brief Note I spoke with pt sister Casie, she is also his POA. She is uncomfortable stopping Abtx and would like these to continue until DC We spoke about the pros and cons of Abtx at eol: If prolongation of life is a primary goal, and the potential benefits of antibiotics are thought to outweigh burdens, then it is reasonable to perform a work-up and treat a suspected infection by using the least invasive route of administration and the most narrow spectrum antibiotic therapy while avoiding the stress of hospitalization whenever possible. However, if comfort is a primary goal, it would be reasonable to avoid both a work-up and antibiotics. Instead, focus on relieving symptoms with antipyretics, bladder analgesics (e.g., Pyridium), and analgesics. The situation is much further complicated by pt aspiration and inability to tolerate oral meds though Casie reports "he seemed fine taking apple juice last night, so I don't know what you guys are seeing for him choking on stuff, I didn't see that." Pip Clemente reordered. She is agreeable to hospice at [facility] CM work to dc pt back to SNF with hospice added, continue Abtx until DC. nursing and primary team updated TS 32min ' Thank you for allowing us to participate in the ongoing care of this patient. Please don't hesitate to call or page with any additional concerns. Dr. Karla Montiel DNP Director, Palliative Care
[2023-02-20] MEDS ORDERED: LINEZOLID 600 MG/300 ML D5W IV SCH (13:00)
[2023-02-20] MEDS ORDERED: PIPERACILLIN/TAZOBACTAM 4.5 GM (over 30 mins) IV ONE (13:00)
--- NOTE | 2023-02-20 13:02 | Communication Note ---
Date of Service: February 20, 2023 Brief pall Med note notified by pharmacy pt urine culture from 02/16 resulted this morning as Enterococcus faecium and john glabrata. The Enterococcus is resistant to penicillin - zosyn will not cover this. Options include daptomycin and vancomycin, though dapto will not cover for aspiration organisms. I spoke with Dr Jones from pharmacy and we reviewed another option is linezolid which does not require dose reduction or additional labs/monitoring. I have stopped Zosyn and ordered linezolid 600mg IV q12h. I have updated nursing and Dr Mauricio. Thank you for allowing us to participate in the ongoing care of this patient. Please don't hesitate to call or page with any additional concerns. Dr. Karla Montiel DNP Director, Palliative Care
[2023-02-20] MEDS: LORazepam 2 MG/1 ML VIAL IV PRN ×2 (13:08→16:04)
[2023-02-20] MEDS: GLYCOPYRROLATE 0.2 MG/ML VIAL IV PRN ×2 (13:08→16:02)
--- NOTE | 2023-02-20 13:52 | Palliative Care Progress Note ---
Date of Service February 20, 2023 Assessment & Plan (1) Dyspnea and respiratory abnormalities: (2) Weakness generalized: (3) Palliative care by specialist: (4) Aspiration into airway: Plan * See multiple prior notes for today * Abtx restarted at sister's request * reassured sister roberto is prn only. will not make this routine per her preference * SERVICE DESK ASSOCIATE underway, +permissive aspiration for comfort * Return to SNF on hospice - see CM note for further details. Thank you for allowing us to participate in the ongoing care of this patient. Please don't hesitate to call or page with any additional concerns. Dr. Karla Montiel DNP Director, Palliative Care Admission and Anticipated Discharge Date Admission Date: February 17, 2023 Subjective on SERVICE DESK ASSOCIATE multiple discussions with family through the day see prior notes pt unable to provide HPI at time agitated and restless has not taken PO from nursing today, refusing to allow mouth care sister feels roberto made him worse - more cough/secretions Review of Systems Review of Systems: Unobtainable due to cognitive status and Unobtainable due to reduced consciousness Physical Exam Physical Exam: Agitated, restless at times speech remains garbled opens eyes to name no gross resp distress Results & Data Vital Signs (Past 12 Hours) Vital Signs Temp Pulse Resp BP Pulse Ox O2 Del Method 02/20/23 12:08 36.4 C L 112 H 24 106/70 90 Room Air 02/20/23 11:00 22 02/20/23 07:36 Room Air PG Care Time/CCT Total # of Minutes Spent Total Time Spent: 80 Total Time Spent with Patient: Total time spent is greater than 50% in coordination of care (as documented) at patient's floor/unit and/or counseling patient: C[place] [address] SUB INP/OBS CARE 3/50MIN Patient Type Established History Comprehensive Exam Detailed Medical Decision Making High Complexity Diagnoses Dyspnea and respiratory abnormalities R06.00; R06.89 Weakness generalized R53.1 Palliative care by specialist Z51.5 Aspiration into airway T17.908A
--- NOTE | 2023-02-20 14:29 | Hospitalist Progress Note ---
Date of Service February 20, 2023 Assessment & Plan (1) AMS (altered mental status): Plan: 72-year-old male with history of CVA mostly wheelchair-bound currently at [facility] with history of recurrent aspiration pneumonitis presents with pneumonitis, urinary retention, UTI and AMS. Altered mental status Metabolic encephalopathy Mostly secondary to aspiration pneumonia and UTI Comfort care 72-year-old male with past medical history of CVA with history of recurrent aspiration was sent to the ED due to decreased urine output and urinary retention. Chest x-ray on admission personally reviewed; increasing bilateral airspace opacities suggestive of pneumonia/aspiration pneumonitis Bedside CHIEF PHYSICAL THERAPIST eval done; recommend n.p.o., aspiration precautions, ice chips, oral care Underwent video swallow evaluation; see speech note for further detail. MRSA nares negative Urine culture shows Enterococcus faecium Blood cultureno growth in 24 hours Patient currently on comfort care measures. His sister wants to continue IV antibiotics for the time being for which he is started on linezolid. Tylenol, morphine for pain. Morphine for dyspnea. Ativan and glycopyrrolate. Urinary retention status post Chauhan BPH CT abdomen and pelvis on admission reviewed personally; enlarged bladder Appreciate urology recommendations; continue Chauhan drainage for 5 to 7 days before considering trial of void. Disposition [facility] floor. Updated his sister over the phone. Continue comfort care measures. Please note the above document was generated using voice recognition software. It may contain grammatical, syntax or spelling errors. Any formal questions or concerns about the content, text or information contained within the body of this dictation should be directly addressed to the provider for clarification (2) Pneumonia: (3) Acute urinary retention: (4) Acute UTI: (5) Acute renal insufficiency: Admission and Anticipated Discharge Date Admission Date: February 17, 2023 Subjective Patient seen and examined at bedside. He is awake, oriented to self. Able to follow simple commands. Review of Systems Review of Systems: All systems reviewed & are unremarkable except as noted in Subjective Physical Exam Physical Exam: Constitutional: Alert orient x1 WD/WN, Respiratory: Decreased breath sound at bases.. Cardiovascular: RRR, no murmur, no edema Vessels: no JVD or carotid bruit Chest: normal inspection of chest Abdomen: normal bowel sounds, soft, nontender, no hepatosplenomegaly Musculoskeletal: no cyanosis or clubbing, extremities motor strength 5/5 Skin: no rashes, warm and dry normal turgor Neurologic: Left hemiplegia present. Psychiatric: A+Ox1, euthymic affect Results & Data Results & Data Vital Signs (Past 12 Hours) Vital Signs Temp Pulse Pulse Resp BP Pulse Ox O2 Del Method 02/20/23 13:50 99 H 28 H 88 L Room Air 02/20/23 12:08 36.4 C L 112 H 24 106/70 90 Room Air 02/20/23 11:00 22 02/20/23 07:36 Room Air Laboratory Results Laboratory Results WBC 8.52 K/ul (4.8-10.8) 02/19/23 05:39 RBC 3.24 M/uL (4.70-6.10) L 02/19/23 05:39 Hgb 9.7 g/dl (14.0-18.0) L 02/19/23 05:39 Hct 31.0 % (42.0-52.0) L 02/19/23 05:39 MCV 95.7 fL (80.0-100.0) 02/19/23 05:39 MCH 29.9 pg (25.0-34.0) 02/19/23 05:39 MCHC 31.3 g/dL (32.0-36.0) L 02/19/23 05:39 RDW Std Deviation 51.2 fL (36.4-46.3) H 02/19/23 05:39 RDW Coeff of Guido 14.6 % (11.5-14.5) H 02/19/23 05:39 Plt Count 144 K/uL (130-400) 02/19/23 05:39 MPV 12.7 fL (9.4-12.4) H 02/19/23 05:39 Immature Gran % (Auto) 0.8 % 02/19/23 05:39 Neut % (Auto) 88.7 % 02/19/23 05:39 Lymph % (Auto) 5.4 % 02/19/23 05:39 [place] % (Auto) 3.8 % 02/19/23 05:39 Eos % (Auto) 0.9 % 02/19/23 05:39 Baso % (Auto) 0.4 % 02/19/23 05:39 Neut # (Auto) 7.56 K/uL (1.40-6.50) H 02/19/23 05:39 Lymph # (Auto) 0.46 K/uL (1.2-3.4) L 02/19/23 05:39 [place] # (Auto) 0.32 K/uL (0.11-0.59) 02/19/23 05:39 Eos # (Auto) 0.08 K/uL (0-0.50) 02/19/23 05:39 Baso # (Auto) 0.03 K/uL (0-0.2) 02/19/23 05:39 Immature Gran # (Auto) 0.07 K/uL (0.01-0.20) 02/19/23 05:39 Sodium 148 mmol/L (136-145) H 02/19/23 05:39 Potassium 3.0 mmol/L (3.5-5.1) L 02/19/23 05:39 Chloride 113 mmol/L (98-107) H 02/19/23 05:39 Carbon Dioxide 27 mmol/L (21-32) 02/19/23 05:39 Anion Gap 8 (3-11) 02/19/23 05:39 BUN 23 mg/dl (6-23) 02/19/23 05:39 Creatinine 1.04 mg/dl (0.6-1.4) 02/19/23 05:39 Est Cr Clr Drug Dosing 52.9 ml/min 02/19/23 05:39 Est GFR ( Amer) 81.6 ml/min 02/19/23 05:39 Est GFR (Non-Af Amer) 70.4 ml/min 02/19/23 05:39 BUN/Creatinine Ratio 22.1 (10-20) H 02/19/23 05:39 Glucose 190 mg/dl (70-99(Fasting)) H 02/19/23 05:39 POC Glucose 193 mg/dl (70-99) H 02/19/23 11:23 Estimat Average Glucose 200 mg/dl 02/18/23 04:30 Hemoglobin A1c 8.6 % (4.5-5.6) H 02/18/23 04:30 Lactate 1.9 mmol/L (0.4-2.0) 02/16/23 22:55 Calcium 8.4 mg/dl (8.6-10.3) L 02/19/23 05:39 Phosphorus 3.5 mg/dl (2.5-4.9) 02/16/23 21: Magnesium 1.8 mg/dl (1.7-2.4) 02/18/23 04:30 Total Bilirubin 0.5 mg/dl (0.2-1.0) 02/16/23 21: AST 10 U/L (13-39) L 02/16/23 21: ALT 9 U/L (7-52) 02/16/23 21: Alkaline Phosphatase 77 U/L (34-104) 02/16/23 21:22 B-Natriuretic Peptide 160 pg/ml (0-100) H 02/16/23 21: Total Protein 6.8 gm/dl (6.0-8.3) 02/16/23 21: Albumin 3.2 gm/dl (3.4-5.0) L 02/16/23 21: Globulin 3.6 gm/dl (2.5-4.0) 02/16/23 21: Albumin/Globulin Ratio 0.9 (0.9-2) 02/16/23 21:22 Procalcitonin 2.62 ng/ml (0-0.5) H 02/16/23 21: TSH 2.154 uIu/ml (0.300-4.500) 02/16/23 21: Urine Color Dark Yellow 02/16/23 21:45 Urine Appearance Cloudy (Clear) A 02/16/23 21:45 Urine pH 6.0 (4.5-7.5) 02/16/23 21:45 Ur Specific [place] 1.022 (1.000-1.030) 02/16/23 21:45 Urine Protein Trace (Negative) H 02/16/23 21:45 Urine Glucose (UA) Negative (Negative) 02/16/23 21:45 Urine Ketones Trace (Negative) H 02/16/23 21:45 Urine Blood 3+ (Negative) H 02/16/23 21:45 Urine Nitrite Negative (Negative) 02/16/23 21:45 Urine Bilirubin Negative (Negative) 02/16/23 21:45 Urine Urobilinogen Negative (Negative) 02/16/23 21:45 Ur Leukocyte Esterase 2+ (Negative) H 02/16/23 21:45 Urine WBC (Auto) >30 /hpf (0-5) H 02/16/23 21:45 Urine RBC (Auto) 10-30 /hpf (0-4) H 02/16/23 21:45 U Hyaline Cast (Auto) 5-10 /lpf (0-5) H 02/16/23 21:45 U Epithel Cells (Auto) 20-30 /lpf (0-5) H 02/16/23 21:45 Urine Bacteria (Auto) Negative (Negative) 02/16/23 21:45 Urine Yeast Budding (None Prsent) A 02/16/23 21:45 Nasal Screen MRSA (PCR) Negative (Negative) 02/17/23 Unknown Random Vancomycin 12.6 mcg/ml (10-20) 02/18/23 04:30 SARS-CoV-2, RNA, NAAT NEGATIVE (NEGATIVE) 02/17/23 03:50 Impressions Chest X-Ray 02/16/23 22:30 XR chest 1V portable CLINICAL HISTORY: Weakness. COMPARISON STUDY: Chest radiograph and chest CT January 21, 2023. FINDINGS: Elevation of the left hemidiaphragm is noted. Cardiac size is normal. Mediastinal contours are normal. Left mid lung and left basilar opacities have progressed. There is also right medial basilar opacity. IMPRESSION: Increase in bilateral airspace opacities which suggest pneumonia or aspiration pneumonitis. Radiographic follow-up to ensure resolution is recommended. ACT 112: Negative or not required by law. Electronically signed by: Param Taylor M.D. 02/17/2023 8:23 AM Abdomen/Pelvis CT 02/16/23 22:56 Exam(s): CT ABDOMEN + PELVIS Without Contrast EXAM: CT Abdomen and Pelvis Without Intravenous Contrast CLINICAL HISTORY: Reason for exam: urinary retention, michael, sepsis. TECHNIQUE: Axial computed tomography images of the abdomen and pelvis without intravenous contrast. CTDI is 16.11 mGy and DLP is 842.64 mGy-cm. Automated exposure control was utilized for the study. A dose lowering technique was utilized adhering to the principles of ALARA. COMPARISON: Thoracic CT dated 01/21/23. FINDINGS: Lung bases: There are dense consolidations at the lung bases concerning for underlying pneumonia which are new from the prior study. ABDOMEN: Liver: Unremarkable. Gallbladder and bile ducts: Cholelithiasis within an otherwise normal- appearing gallbladder. No ductal dilation. Pancreas: Unremarkable. No ductal dilation. Spleen: Unremarkable. No splenomegaly. Adrenals: Unremarkable. No mass. Kidneys and ureters: Unremarkable. No obstructing stones. No hydronephrosis. Stomach and bowel: Unremarkable. No obstruction. No mucosal thickening. PELVIS: Appendix: No findings to suggest acute appendicitis. Bladder: Chauhan catheter in place. The urinary bladder is significantly distended despite the presence of the Chauhan catheter. No stones. Reproductive: Unremarkable as visualized. ABDOMEN and PELVIS: Intraperitoneal space: Unremarkable. No free air. No significant fluid collection. Bones/joints: Status post right hip arthroplasty. There are advanced degenerative changes of the thoracolumbar spine. No acute fracture. No dislocation. Soft tissues: Unremarkable. Vasculature: Scattered calcification throughout the liver most likely reflecting a combination of atherosclerotic disease and granulomas. There is diffuse atherosclerotic calcification of the aorta and its major branch vessels. No abdominal aortic aneurysm. Lymph nodes: Unremarkable. No enlarged lymph nodes. IMPRESSION: 1. Significant distention of the urinary bladder despite the presence of a Chauhan catheter. 2. No hydronephrosis or definite urolithiasis although evaluation is somewhat limited secondary to extensive vascular calcification. 3. Increasing parenchymal consolidations of the lung bases concerning for pneumonia. Electronically signed by: Krunal Sena MD 02/16/23 23:47 PM Videofluoroscopic Swallow 02/19/23 13:00 FL video swallow HISTORY: Pneumonia. assess for aspiration TECHNIQUE: Video fluoroscopic evaluation of swallowing was performed in the AP and lateral projections by the speech pathology staff. The patient is fed nectar-thick and thin liquid barium, a barium coated wafer, and barium pudding. FLUOROSCOPY TIME: 2 minutes and 20 seconds. Ka,r: 10.7 mGy COMPARISON STUDY: None. FINDINGS: The patient had significant difficulty swallowing for examination. This results in overall poor pharyngeal constriction with episodes of incomplete epiglottic deflection and aspiration. Significant residue throughout the hypopharynx which the patient was unable to completely clear during the examination. IMPRESSION: 1. The patient had significant difficulty swallowing for examination resulting in multiple episodes of aspiration. 2. Please see the speech pathologist report for detailed findings and recommendations. ACT 112: Negative or not required by law. Electronically signed by: Dewayne Morrison M.D. 02/19/2023 2:34 PM (2) Pneumonia Laterality: bilateral Lung location: lower lobe of lung Pneumonia type: due to unspecified organism Qualified Code(s): J18.9 - Pneumonia, unspecified organism
[2023-02-20] MEDS: LINEZOLID 600 MG/300 ML BAG IV SCH (17:59)
[2023-02-21] MEDS: LINEZOLID 600 MG/300 ML BAG IV SCH ×2 (04:06→16:17)
[2023-02-21] MEDS: LORazepam 2 MG/1 ML VIAL IV PRN ×2 (07:39→15:12)
[2023-02-21] MEDS: DICLOFENAC SOD 1% GEL 100 GM TUBE EXT SCH ×4 (09:22→19:26)
[2023-02-21] MEDS: MoRPHine SULFATE 2 MG/ML CARP IV PRN ×3 (10:46→19:25)
--- NOTE | 2023-02-21 15:51 | Hospitalist Progress Note ---
Date of Service February 21, 2023 Assessment & Plan (1) AMS (altered mental status): Plan: 72-year-old male with history of CVA mostly wheelchair-bound currently at [facility] with history of recurrent aspiration pneumonitis presents with pneumonitis, urinary retention, UTI and AMS. Altered mental status Metabolic encephalopathy Mostly secondary to aspiration pneumonia and UTI Comfort care 72-year-old male with past medical history of CVA with history of recurrent aspiration was sent to the ED due to decreased urine output and urinary retention. Chest x-ray on admission personally reviewed; increasing bilateral airspace opacities suggestive of pneumonia/aspiration pneumonitis Bedside SHAPER AND PRESSER eval done; recommend n.p.o., aspiration precautions, ice chips, oral care Underwent video swallow evaluation; see speech note for further detail. MRSA nares negative Urine culture shows Enterococcus faecium Blood cultureno growth in 24 hours Patient currently on comfort care measures. His sister wants to continue IV antibiotics for the time being for which he is started on linezolid. Tylenol, morphine for pain. Morphine for dyspnea. Ativan and glycopyrrolate. Urinary retention status post Chauhan BPH CT abdomen and pelvis on admission reviewed personally; enlarged bladder Appreciate urology recommendations; continue Chauhan drainage for 5 to 7 days before considering trial of void. Disposition [facility] floor. Updated his sister over the phone. Continue comfort care measures. Patient needs inpatient care for escalating symptoms. Not to stable for transfer to rehab. Please note the above document was generated using voice recognition software. It may contain grammatical, syntax or spelling errors. Any formal questions or concerns about the content, text or information contained within the body of this dictation should be directly addressed to the provider for clarification (2) Pneumonia: (3) Acute urinary retention: (4) Acute UTI: (5) Acute renal insufficiency: Admission and Anticipated Discharge Date Admission Date: February 17, 2023 Subjective Patient seen and examined at bedside. He is resting comfortably; not in any distress. Received Ativan for agitation. Review of Systems Review of Systems: All systems reviewed & are unremarkable except as noted in Subjective Physical Exam Physical Exam: Constitutional: Lethargic; not awake evaluate voice. Respiratory: Decreased breath sound at bases.. Cardiovascular: RRR, no murmur, no edema Vessels: no JVD or carotid bruit Chest: normal inspection of chest Abdomen: normal bowel sounds, soft, nontender, no hepatosplenomegaly Musculoskeletal: no cyanosis or clubbing, Skin: no rashes, warm and dry normal turgor Neurologic: Left hemiplegia present. Psychiatric:Lethargic; not awake evaluate voice. Results & Data Results & Data Vital Signs (Past 12 Hours) Vital Signs O2 Del Method 02/21/23 07:45 Room Air Laboratory Results Laboratory Results WBC 8.52 K/ul (4.8-10.8) 02/19/23 05:39 RBC 3.24 M/uL (4.70-6.10) L 02/19/23 05:39 Hgb 9.7 g/dl (14.0-18.0) L 02/19/23 05:39 Hct 31.0 % (42.0-52.0) L 02/19/23 05:39 MCV 95.7 fL (80.0-100.0) 02/19/23 05:39 MCH 29.9 pg (25.0-34.0) 02/19/23 05:39 MCHC 31.3 g/dL (32.0-36.0) L 02/19/23 05:39 RDW Std Deviation 51.2 fL (36.4-46.3) H 02/19/23 05:39 RDW Coeff of Guido 14.6 % (11.5-14.5) H 02/19/23 05:39 Plt Count 144 K/uL (130-400) 02/19/23 05:39 MPV 12.7 fL (9.4-12.4) H 02/19/23 05:39 Immature Gran % (Auto) 0.8 % 02/19/23 05:39 Neut % (Auto) 88.7 % 02/19/23 05:39 Lymph % (Auto) 5.4 % 02/19/23 05:39 [place] % (Auto) 3.8 % 02/19/23 05:39 Eos % (Auto) 0.9 % 02/19/23 05:39 Baso % (Auto) 0.4 % 02/19/23 05:39 Neut # (Auto) 7.56 K/uL (1.40-6.50) H 02/19/23 05:39 Lymph # (Auto) 0.46 K/uL (1.2-3.4) L 02/19/23 05:39 [place] # (Auto) 0.32 K/uL (0.11-0.59) 02/19/23 05:39 Eos # (Auto) 0.08 K/uL (0-0.50) 02/19/23 05:39 Baso # (Auto) 0.03 K/uL (0-0.2) 02/19/23 05:39 Immature Gran # (Auto) 0.07 K/uL (0.01-0.20) 02/19/23 05:39 Sodium 148 mmol/L (136-145) H 02/19/23 05:39 Potassium 3.0 mmol/L (3.5-5.1) L 02/19/23 05:39 Chloride 113 mmol/L (98-107) H 02/19/23 05:39 Carbon Dioxide 27 mmol/L (21-32) 02/19/23 05:39 Anion Gap 8 (3-11) 02/19/23 05:39 BUN 23 mg/dl (6-23) 02/19/23 05:39 Creatinine 1.04 mg/dl (0.6-1.4) 02/19/23 05:39 Est Cr Clr Drug Dosing 52.9 ml/min 02/19/23 05:39 Est GFR ( Amer) 81.6 ml/min 02/19/23 05:39 Est GFR (Non-Af Amer) 70.4 ml/min 02/19/23 05:39 BUN/Creatinine Ratio 22.1 (10-20) H 02/19/23 05:39 Glucose 190 mg/dl (70-99(Fasting)) H 02/19/23 05:39 POC Glucose 193 mg/dl (70-99) H 02/19/23 11:23 Estimat Average Glucose 200 mg/dl 02/18/23 04:30 Hemoglobin A1c 8.6 % (4.5-5.6) H 02/18/23 04:30 Lactate 1.9 mmol/L (0.4-2.0) 02/16/23 22:55 Calcium 8.4 mg/dl (8.6-10.3) L 02/19/23 05:39 Phosphorus 3.5 mg/dl (2.5-4.9) 02/16/23 21:22 Magnesium 1.8 mg/dl (1.7-2.4) 02/18/23 04:30 Total Bilirubin 0.5 mg/dl (0.2-1.0) 02/16/23 21: AST 10 U/L (13-39) L 02/16/23 21: ALT 9 U/L (7-52) 02/16/23 21: Alkaline Phosphatase 77 U/L (34-104) 02/16/23 21: B-Natriuretic Peptide 160 pg/ml (0-100) H 02/16/23 21: Total Protein 6.8 gm/dl (6.0-8.3) 02/16/23 21: Albumin 3.2 gm/dl (3.4-5.0) L 02/16/23 21: Globulin 3.6 gm/dl (2.5-4.0) 02/16/23 21: Albumin/Globulin Ratio 0.9 (0.9-2) 02/16/23 21: Procalcitonin 2.62 ng/ml (0-0.5) H 02/16/23 21: TSH 2.154 uIu/ml (0.300-4.500) 02/16/23 21: Urine Color Dark Yellow 02/16/23 21:45 Urine Appearance Cloudy (Clear) A 02/16/23 21:45 Urine pH 6.0 (4.5-7.5) 02/16/23 21:45 Ur Specific [place] 1.022 (1.000-1.030) 02/16/23 21:45 Urine Protein Trace (Negative) H 02/16/23 21:45 Urine Glucose (UA) Negative (Negative) 02/16/23 21:45 Urine Ketones Trace (Negative) H 02/16/23 21:45 Urine Blood 3+ (Negative) H 02/16/23 21:45 Urine Nitrite Negative (Negative) 02/16/23 21:45 Urine Bilirubin Negative (Negative) 02/16/23 21:45 Urine Urobilinogen Negative (Negative) 02/16/23 21:45 Ur Leukocyte Esterase 2+ (Negative) H 02/16/23 21:45 Urine WBC (Auto) >30 /hpf (0-5) H 02/16/23 21:45 Urine RBC (Auto) 10-30 /hpf (0-4) H 02/16/23 21:45 U Hyaline Cast (Auto) 5-10 /lpf (0-5) H 02/16/23 21:45 U Epithel Cells (Auto) 20-30 /lpf (0-5) H 02/16/23 21:45 Urine Bacteria (Auto) Negative (Negative) 02/16/23 21:45 Urine Yeast Budding (None Prsent) A 02/16/23 21:45 Nasal Screen MRSA (PCR) Negative (Negative) 02/17/23 Unknown Random Vancomycin 12.6 mcg/ml (10-20) 02/18/23 04:30 SARS-CoV-2, RNA, NAAT NEGATIVE (NEGATIVE) 02/17/23 03:50 Impressions Chest X-Ray 02/16/23 22:30 XR chest 1V portable CLINICAL HISTORY: Weakness. COMPARISON STUDY: Chest radiograph and chest CT January 21, 2023. FINDINGS: Elevation of the left hemidiaphragm is noted. Cardiac size is normal. Mediastinal contours are normal. Left mid lung and left basilar opacities have progressed. There is also right medial basilar opacity. IMPRESSION: Increase in bilateral airspace opacities which suggest pneumonia or aspiration pneumonitis. Radiographic follow-up to ensure resolution is recom mended. ACT 112: Negative or not required by law. Electronically signed by: Param Taylor M.D. 02/17/2023 8:23 AM Abdomen/Pelvis CT 02/16/23 22:56 Exam(s): CT ABDOMEN + PELVIS Without Contrast EXAM: CT Abdomen and Pelvis Without Intravenous Contrast CLINICAL HISTORY: Reason for exam: urinary retention, michael, sepsis. TECHNIQUE: Axial computed tomography images of the abdomen and pelvis without intravenous contrast. CTDI is 16.11 mGy and DLP is 842.64 mGy-cm. Automated exposure control was utilized for the study. A dose lowering technique was utilized adhering to the principles of ALARA. COMPARISON: Thoracic CT dated 01/21/23. FINDINGS: Lung bases: There are dense consolidations at the lung bases concerning for underlying pneumonia which are new from the prior study. ABDOMEN: Liver: Unremarkable. Gallbladder and bile ducts: Cholelithiasis within an otherwise normal- appearing gallbladder. No ductal dilation. Pancreas: Unremarkable. No ductal dilation. Spleen: Unremarkable. No splenomegaly. Adrenals: Unremarkable. No mass. Kidneys and ureters: Unremarkable. No obstructing stones. No hydronephrosis. Stomach and bowel: Unremarkable. No obstruction. No mucosal thickening. PELVIS: Appendix: No findings to suggest acute appendicitis. Bladder: Chauhan catheter in place. The urinary bladder is significantly distended despite the presence of the Chauhan catheter. No stones. Reproductive: Unremarkable as visualized. ABDOMEN and PELVIS: Intraperitoneal space: Unremarkable. No free air. No significant fluid collection. Bones/joints: Status post right hip arthroplasty. There are advanced degenerative changes of the thoracolumbar spine. No acute fracture. No dislocation. Soft tissues: Unremarkable. Vasculature: Scattered calcification throughout the liver most likely reflecting a combination of atherosclerotic disease and granulomas. There is diffuse atherosclerotic calcification of the aorta and its major branch vessels. No abdominal aortic aneurysm. Lymph nodes: Unremarkable. No enlarged lymph nodes. IMPRESSION: 1. Significant distention of the urinary bladder despite the presence of a Chauhan catheter. 2. No hydronephrosis or definite urolithiasis although evaluation is somewhat limited secondary to extensive vascular calcification. 3. Increasing parenchymal consolidations of the lung bases concerning for pneumonia. Electronically signed by: Krunal Sena MD 02/16/23 23:47 PM Videofluoroscopic Swallow 02/19/23 13:00 FL video swallow HISTORY: Pneumonia. assess for aspiration TECHNIQUE: Video fluoroscopic evaluation of swallowing was performed in the AP and lateral projections by the speech pathology staff. The patient is fed nectar-thick and thin liquid barium, a barium coated wafer, and barium pudding. FLUOROSCOPY TIME: 2 minutes and 20 seconds. Ka,r: 10.7 mGy COMPARISON STUDY: None. FINDINGS: The patient had significant difficulty swallowing for examination. This results in overall poor pharyngeal constriction with episodes of incomplete epiglottic deflection and aspiration. Significant residue throughout the hypopharynx which the patient was unable to completely clear during the examination. IMPRESSION: 1. The patient had significant difficulty swallowing for examination resulting in multiple episodes of aspiration. 2. Please see the speech pathologist report for detailed findings and recommendations. ACT 112: Negative or not required by law. Electronically signed by: Dewayne Morrison M.D. 02/19/2023 2:34 PM (2) Pneumonia Laterality: bilateral Lung location: lower lobe of lung Pneumonia type: due to unspecified organism Qualified Code(s): J18.9 - Pneumonia, unspecified organism
[2023-02-22] MEDS: MoRPHine SULFATE 2 MG/ML CARP IV PRN ×4 (02:59→16:34)
[2023-02-22] MEDS: LINEZOLID 600 MG/300 ML BAG IV SCH (03:00)
[2023-02-22] MEDS: LORazepam 2 MG/1 ML VIAL IV PRN ×2 (04:34→11:19)
[2023-02-22] MEDS: DICLOFENAC SOD 1% GEL 100 GM TUBE EXT SCH ×3 (07:45→16:34)
--- NOTE | 2023-02-22 15:39 | Hospitalist Progress Note ---
Date of Service February 22, 2023 Assessment & Plan (1) AMS (altered mental status): Plan: 72-year-old male with history of CVA mostly wheelchair-bound currently at [facility] with history of recurrent aspiration pneumonitis presents with pneumonitis, urinary retention, UTI and AMS. Altered mental status Metabolic encephalopathy Mostly secondary to aspiration pneumonia and UTI Comfort care 72-year-old male with past medical history of CVA with history of recurrent aspiration was sent to the ED due to decreased urine output and urinary retention. Chest x-ray on admission personally reviewed; increasing bilateral airspace opacities suggestive of pneumonia/aspiration pneumonitis Bedside CLINICAL BIOCHEMICAL GENETICIST eval done; recommend n.p.o., aspiration precautions, ice chips, oral care Underwent video swallow evaluation; see speech note for further detail. MRSA nares negative Urine culture shows Enterococcus faecium Blood cultureno growth in 24 hours Patient currently on comfort care measures. His sister wants to continue IV antibiotics. Course of linezolid completed. Tylenol, morphine for pain. Morphine for dyspnea. Ativan and glycopyrrolate. Disposition [facility] floor. Patient continues to need symptom management with IV medication with morphine and Ativan. Inpatient hospice to see the patient today and make determination for inpatient hospice care. Please note the above document was generated using voice recognition software. It may contain grammatical, syntax or spelling errors. Any formal questions or concerns about the content, text or information contained within the body of th is dictation should be directly addressed to the provider for clarification (2) Pneumonia: (3) Acute urinary retention: (4) Acute UTI: (5) Acute renal insufficiency: Admission and Anticipated Discharge Date Admission Date: February 17, 2023 Subjective Patient seen and examined at bedside. He is requiring regular IV morphine and Ativan for comfort care. Appears comfortable; not in any distress. Review of Systems Review of Systems: All systems reviewed & are unremarkable except as noted in Subjective Physical Exam Physical Exam: Constitutional: Lethargic; not awake evaluate voice. Respiratory: Decreased breath sound at bases.. Cardiovascular: RRR, no murmur, no edema Vessels: no JVD or carotid bruit Chest: normal inspection of chest Abdomen: normal bowel sounds, soft, nontender, no hepatosplenomegaly Musculoskeletal: no cyanosis or clubbing, Skin: no rashes, warm and dry normal turgor Neurologic: Left hemiplegia present. Psychiatric:Lethargic; not awake evaluate voice. Results & Data Results & Data Vital Signs (Past 12 Hours) Vital Signs O2 Del Method 02/22/23 07:10 Room Air Laboratory Results Laboratory Results WBC 8.52 K/ul (4.8-10.8) 02/19/23 05:39 RBC 3.24 M/uL (4.70-6.10) L 02/19/23 05:39 Hgb 9.7 g/dl (14.0-18.0) L 02/19/23 05:39 Hct 31.0 % (42.0-52.0) L 02/19/23 05:39 MCV 95.7 fL (80.0-100.0) 02/19/23 05:39 MCH 29.9 pg (25.0-34.0) 02/19/23 05:39 MCHC 31.3 g/dL (32.0-36.0) L 02/19/23 05:39 RDW Std Deviation 51.2 fL (36.4-46.3) H 02/19/23 05:39 RDW Coeff of Guido 14.6 % (11.5-14.5) H 02/19/23 05:39 Plt Count 144 K/uL (130-400) 02/19/23 05:39 MPV 12.7 fL (9.4-12.4) H 02/19/23 05:39 Immature Gran % (Auto) 0.8 % 02/19/23 05:39 Neut % (Auto) 88.7 % 02/19/23 05:39 Lymph % (Auto) 5.4 % 02/19/23 05:39 [place] % (Auto) 3.8 % 02/19/23 05:39 Eos % (Auto) 0.9 % 02/19/23 05:39 Baso % (Auto) 0.4 % 02/19/23 05:39 Neut # (Auto) 7.56 K/uL (1.40-6.50) H 02/19/23 05:39 Lymph # (Auto) 0.46 K/uL (1.2-3.4) L 02/19/23 05:39 [place] # (Auto) 0.32 K/uL (0.11-0.59) 02/19/23 05:39 Eos # (Auto) 0.08 K/uL (0-0.50) 02/19/23 05:39 Baso # (Auto) 0.03 K/uL (0-0.2) 02/19/23 05:39 Immature Gran # (Auto) 0.07 K/uL (0.01-0.20) 02/19/23 05:39 Sodium 148 mmol/L (136-145) H 02/19/23 05:39 Potassium 3.0 mmol/L (3.5-5.1) L 02/19/23 05:39 Chloride 113 mmol/L (98-107) H 02/19/23 05:39 Carbon Dioxide 27 mmol/L (21-32) 02/19/23 05:39 Anion Gap 8 (3-11) 02/19/23 05:39 BUN 23 mg/dl (6-23) 02/19/23 05:39 Creatinine 1.04 mg/dl (0.6-1.4) 02/19/23 05:39 Est Cr Clr Drug Dosing 52.9 ml/min 02/19/23 05:39 Est GFR ( Amer) 81.6 ml/min 02/19/23 05:39 Est GFR (Non-Af Amer) 70.4 ml/min 02/19/23 05:39 BUN/Creatinine Ratio 22.1 (10-20) H 02/19/23 05:39 Glucose 190 mg/dl (70-99(Fasting)) H 02/19/23 05:39 POC Glucose 193 mg/dl (70-99) H 02/19/23 11:23 Estimat Average Glucose 200 mg/dl 02/18/23 04:30 Hemoglobin A1c 8.6 % (4.5-5.6) H 02/18/23 04:30 Lactate 1.9 mmol/L (0.4-2.0) 02/16/23 22:55 Calcium 8.4 mg/dl (8.6-10.3) L 02/19/23 05:39 Phosphorus 3.5 mg/dl (2.5-4.9) 02/16/23 21:22 Magnesium 1.8 mg/dl (1.7-2.4) 02/18/23 04:30 Total Bilirubin 0.5 mg/dl (0.2-1.0) 02/16/23 21: AST 10 U/L (13-39) L 02/16/23 21: ALT 9 U/L (7-52) 02/16/23 21: Alkaline Phosphatase 77 U/L (34-104) 02/16/23 21: B-Natriuretic Peptide 160 pg/ml (0-100) H 02/16/23 21: Total Protein 6.8 gm/dl (6.0-8.3) 02/16/23 21: Albumin 3.2 gm/dl (3.4-5.0) L 02/16/23 21: Globulin 3.6 gm/dl (2.5-4.0) 02/16/23 21: Albumin/Globulin Ratio 0.9 (0.9-2) 02/16/23 21: Procalcitonin 2.62 ng/ml (0-0.5) H 02/16/23 21: TSH 2.154 uIu/ml (0.300-4.500) 02/16/23 21: Urine Color Dark Yellow 02/16/23 21:45 Urine Appearance Cloudy (Clear) A 02/16/23 21:45 Urine pH 6.0 (4.5-7.5) 02/16/23 21:45 Ur Specific [place] 1.022 (1.000-1.030) 02/16/23 21:45 Urine Protein Trace (Negative) H 02/16/23 21:45 Urine Glucose (UA) Negative (Negative) 02/16/23 21:45 Urine Ketones Trace (Negative) H 02/16/23 21:45 Urine Blood 3+ (Negative) H 02/16/23 21:45 Urine Nitrite Negative (Negative) 02/16/23 21:45 Urine Bilirubin Negative (Negative) 02/16/23 21:45 Urine Urobilinogen Negative (Negative) 02/16/23 21:45 Ur Leukocyte Esterase 2+ (Negative) H 02/16/23 21:45 Urine WBC (Auto) >30 /hpf (0-5) H 02/16/23 21:45 Urine RBC (Auto) 10-30 /hpf (0-4) H 02/16/23 21:45 U Hyaline Cast (Auto) 5-10 /lpf (0-5) H 02/16/23 21:45 U Epithel Cells (Auto) 20-30 /lpf (0-5) H 02/16/23 21:45 Urine Bacteria (Auto) Negative (Negative) 02/16/23 21:45 Urine Yeast Budding (None Prsent) A 02/16/23 21:45 Nasal Screen MRSA (PCR) Negative (Negative) 02/17/23 Unknown Random Vancomycin 12.6 mcg/ml (10-20) 02/18/23 04:30 SARS-CoV-2, RNA, NAAT NEGATIVE (NEGATIVE) 02/17/23 03:50 Impressions Chest X-Ray 02/16/23 22:30 XR chest 1V portable CLINICAL HISTORY: Weakness. COMPARISON STUDY: Chest radiograph and chest CT January 21, 2023. FINDINGS: Elevation of the left hemidiaphragm is noted. Cardiac size is normal. Mediastinal contours are normal. Left mid lung and left basilar opacities have progressed. There is also right medial basilar opacity. IMPRESSION: Increase in bilateral airspace opacities which suggest pneumonia or aspiration pneumonitis. Radiographic follow-up to ensure resolution is recommended. ACT 112: Negative or not required by law. Electronically signed by: Param Taylor M.D. 02/17/2023 8:23 AM Abdomen/Pelvis CT 02/16/23 22:56 Exam(s): CT ABDOMEN + PELVIS Without Contrast EXAM: CT Abdomen and Pelvis Without Intravenous Contrast CLINICAL HISTORY: Reason for exam: urinary retention, michael, sepsis. TECHNIQUE: Axial computed tomography images of the abdomen and pelvis without intravenous contrast. CTDI is 16.11 mGy and DLP is 842.64 mGy-cm. Automated exposure control was utilized for the study. A dose lowering technique was utilized adhering to the principles of ALARA. COMPARISON: Thoracic CT dated 01/21/23. FINDINGS: Lung bases: There are dense consolidations at the lung bases concerning for underlying pneumonia which are new from the prior study. ABDOMEN: Liver: Unremarkable. Gallbladder and bile ducts: Cholelithiasis within an otherwise normal- appearing gallbladder. No ductal dilation. Pancreas: Unremarkable. No ductal dilation. Spleen: Unremarkable. No splenomegaly. Adrenals: Unremarkable. No mass. Kidneys and ureters: Unremarkable. No obstructing stones. No hydronephrosis. Stomach and bowel: Unremarkable. No obstruction. No mucosal thickening. PELVIS: Appendix: No findings to suggest acute appendicitis. Bladder: Chauhan catheter in place. The urinary bladder is significantly distended despite the presence of the Chauhan catheter. No stones. Reproductive: Unremarkable as visualized. ABDOMEN and PELVIS: Intraperitoneal space: Unremarkable. No free air. No significant fluid collection. Bones/joints: Status post right hip arthroplasty. There are advanced degenerative changes of the thoracolumbar spine. No acute fracture. No dislocation. Soft tissues: Unremarkable. Vasculature: Scattered calcification throughout the liver most likely reflecting a combination of atherosclerotic disease and granulomas. There is diffuse atherosclerotic calcification of the aorta and its major branch vessels. No abdominal aortic aneurysm. Lymph nodes: Unremarkable. No enlarged lymph nodes. IMPRESSION: 1. Significant distention of the urinary bladder despite the presence of a Chauhan catheter. 2. No hydronephrosis or definite urolithiasis although evaluation is somewhat limited secondary to extensive vascular calcification. 3. Increasing parenchymal consolidations of the lung bases concerning for pneumonia. Electronically signed by: Krunal Sena MD 02/16/23 23:47 PM Videofluoroscopic Swallow 02/19/23 13:00 FL video swallow HISTORY: Pneumonia. assess for aspiration TECHNIQUE: Video fluoroscopic evaluation of swallowing was performed in the AP and lateral projections by the speech pathology staff. The patient is fed nectar-thick and thin liquid barium, a barium coated wafer, and barium pudding. FLUOROSCOPY TIME: 2 minutes and 20 seconds. Ka,r: 10.7 mGy COMPARISON STUDY: None. FINDINGS: The patient had significant difficulty swallowing for examination. This results in overall poor pharyngeal constriction with episodes of incomplete epiglottic deflection and aspiration. Significant residue throughout the hypopharynx which the patient was unable to completely clear during the examination. IMPRESSION: 1. The patient had significant difficulty swallowing for examination resulting in multiple episodes of aspiration. 2. Please see the speech pathologist report for detailed findings and recommendations. ACT 112: Negative or not required by law. Electronically signed by: Dewayne Morrison M.D. 02/19/2023 2:34 PM (2) Pneumonia Laterality: bilateral Lung location: lower lobe of lung Pneumonia type: due to unspecified organism Qualified Code(s): J18.9 - Pneumonia, unspecified organism
--- NOTE | 2023-02-22 16:44 | Communication Note ---
Date of Service: February 21, 2023 Brief note for 02/21/23 on LITIGATION EXAMINER, sister/POA wants Abtx to continue Still with inc sympoms, amber dyspnea at times moaning/grimacing prn meds in use, sister does not want opioid infusion GIP eval will be requested no further changes for now, await GIP eval case d/w Dr Hang yu TIgerText TS 22min no charge submitted Thank you for allowing us to participate in the ongoing care of this patient. Please don't hesitate to call or page with any additional concerns. Dr. Karla Montiel DNP Director, Palliative Care
--- NOTE | 2023-02-22 16:58 | Discharge Summary ---
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 Patient was recently in the hospital due to her aspiration pneumonitis. Had a video swallow recommended pured diet with nectar thick liquids was discharged back to half-way on January 24, 2023. As per nursing staff patient is wheelchair-bound but able to get from the bed to the wheelchair. He is difficult to understand but is able to talk. But lately is not talking lying in the bed. Just recently chest x-ray which showed pneumonitis. He was given IM Rocephin and doxycycline. Results and urinary retention. And getting more confused and weak adversities and he was sent in here today. Patient currently mostly nonverbal. He is nodding his head and saying he is doing okay denies any pain. Hemodynamics are okay. Called his sister and she confirmed the patient is full code. Recently was started on robinul for drooling. Past medical history as mentioned above Past surgical history right hip hemiarthroplasty Admission Exam Per Admitting Provider General- alert and awake. Not in acute distress Head- atraumatic Eyes- PERRL, EOMI, anicteric ENT- dry Neck- supple, no JVD, Lungs- clear to auscultation and percussion Heart- regular rhythm; ESM present, no gallop, no rub appreciated Abdomen- normal bowel sounds, soft, nontender, no dsitension Extremities- no pretibial edema, no erythema Neuro- alert,and awake, not speaking. Skin- warm & dry Principal Diagnosis Acute hypoxic respiratory failure Aspiration pneumonia Comfort care Discharge Exam Constitutional: Lethargic; not awakeable by voice. Appears comfortable Respiratory: Decreased breath sound at bases.. Cardiovascular: RRR, no murmur, no edema Vessels: no JVD or carotid bruit Chest: normal inspection of chest Abdomen: normal bowel sounds, soft, nontender, no hepatosplenomegaly Musculoskeletal: no cyanosis or clubbing, Skin: no rashes, warm and dry normal turgor Neurologic: Left hemiplegia present. Psychiatric:Lethargic; not awake evaluate voice. Discharge Data Allergies Allergy/AdvReac Type Severity Reaction Status Date / Time No Known Allergies Allergy Verified 01/21/23 20:07 Consultations 02/17/23 00:47 ED Decision to Admit Stat 02/17/23 15:09 Consult Palliative Care Routine Consult Urology Routine Ordered Studies 02/16/23 22:56 CT abd pelvis wo con Stat 02/19/23 13:00 FL video swallow Routine Hospital Course (1) AMS (altered mental status): (2) Pneumonia: (3) Acute urinary retention: (4) Acute UTI: (5) Acute renal insufficiency: Plan 72-year-old male with history of CVA mostly wheelchair-bound currently at [facility] with history of recurrent aspiration pneumonitis presents with pneumonitis, urinary retention, UTI and AMS. Acute hypoxic respiratory failure Aspiration pneumonia Sepsis 72-year-old male with past medical history of CVA with history of recurrent aspiration was sent to the ED due to decreased urine output and urinary retention. Chest x-ray on admission personally reviewed; increasing bilateral airspace opacities suggestive of pneumonia/aspiration pneumonitis Bedside PAVING RAMMER eval done; recommend n.p.o., aspiration precautions, ice chips, oral care Underwent video swallow evaluation; see speech note for further detail. Patient does not have any functional swallowing. Discussion was done with his POA/Sister Casie. Patient was transition to comfort care. See palliative care note for further details. Patient discharged to inpatient hospice. Please note the above document was generated using voice recognition software. It may contain grammatical, syntax or spelling errors. Any formal questions or concerns about the content, text or information contained within the body of this dictation should be directly addressed to the provider for clarification Total Time Total Time Spent Total Time Spent (In Minutes): 35 Total Time Includes: Examination of the Patient, Discharge Planning, Medication Reconciliation, Communication With Other Providers and Other Discharge Plan Discharge Items Patient Disposition: Hospice - Medical Facility Reason For Visit: AMS, URINARY RETENTION, ASPIRATION PNEUMONITIS Discharge Diagnosis: Acute hypoxic respiratory failure Sepsis Activity: Resume your previous activity Non-emergency contact: Primary Care Provider Call non-emergency contact if: you have any medication questions Follow-up/Referrals: Yesenia Rosa MD [Primary Care Provider] - Diet: Regular Addtl Attending Provider Instructions: patient transitioned to comfort care measures inpatient. Pending Studies at Discharge: No Stand-Alone Forms: My [facility] Skilled Items Patient informed of condition?: Yes DNR: No Discharge Level of Care: Other Communicable Disease: No Discharge Prognosis: Deteriorating Lines: Peripheral IV Urinary Catheter: Yes Medications and DC Order Prescriptions: Continued acetaminophen [Tylenol Extra Strength] 500 mg tablet 500 mg PO TID MDD 3 GRAMS APAP/24 HOURS atorvastatin [Lipitor] 40 mg tablet 40 mg PO QDD magnesium oxide 400 mg (241.3 mg magnesium) Tablet 400 mg PO BID17 aspirin [Aspirin Childrens] 81 mg Tablet,Chewable 81 mg PO QAM metformin 500 mg tablet 500 mg PO BID17 ipratropium-albuterol 0.5 mg-3 mg(2.5 mg base)/3 mL Solution For Nebulization 3 ml INHALATION QID Rx Instructions: STARTED 01/18/23 WITH PM DOSE FOR 6 DAYS. amlodipine 2.5 mg tablet 2.5 mg PO QAM guaifenesin [Robafen] 100 mg/5 mL Liquid 200 mg PO Q4H PRN (Reason: Cough) magnesium hydroxide [Milk of Magnesia] 400 mg/5 mL Suspension 30 ml PO DIRECTED PRN (Reason: NO BM OF 3 DAYS.) mirtazapine 15 mg tablet 15 mg PO HS fluticasone propionate [Flonase Allergy Relief] 50 mcg/actuation [place],Suspension 2 spray INTRANASAL HS Rx Instructions: administer into each nostril loratadine [Claritin] 10 mg Tablet 10 mg PO QAM Senna Plus 8.6-50 mg Capsule 2 tab-cap PO BID Med Pass Suppliment 180 ml PO TID glycopyrrolate [Robinul] 1 mg Tablet 0.5 mg PO BID Proscar 5 mg 5 mg PO DAILY folic acid 400 mcg tablet 400 mcg PO DAILY famotidine 20 mg tablet 20 mg PO DAILY diclofenac sodium 1 % gel 4 g TOPICAL QID Rx Instructions: apply to right knee tamsulosin 0.4 mg capsule 0.4 mg PO DAILYBB ipratropium-albuterol 0.5 mg-3 mg(2.5 mg base)/3 mL solution for nebulization 3 ml INHALATION Q4 PRN (Reason: Shortness Of Breath) acetaminophen 325 mg Tablet 650 mg PO Q4 MDD 3 GRAMS APAP/24 HOURS PRN (Reason: Fever Or Pain) Rx Instructions: use for temp>100 or mild to severe pain carvedilol 6.25 mg Tablet 6.25 mg PO AMHS 30 Days Qty: 30 2RF Rx Instructions: HOLD FOR SBP <100 OR HR <60 lisinopril 10 mg Tablet 10 mg PO BID 30 Days Qty: 60 2RF Discharge Orders: Discharge Order (Routine); Ordered 02/22/23 Ordered By: Sam Mauricio Admission Data Admit Date/Time: 02/17/23 06:06 Attending Provider: Sam Mauricio Admit Provider: Froilan Frye Primary Care Provider: Yesenia Rosa Other Providers: Barb Fall ; Froilan Frye ; Samina Hui ; Zurdo Steiner ; [facility] ; [facility]
--- NOTE | 2023-02-26 13:14 | Coding Query ---
PRESENT ON ADMISSION QUERY To promote full compliance with coding requirements relating to pateint care, physician participation is requested in all cases of jewelry polisher uncertainty. Please assist us with the question(s) below: Please place an X within the parenthesis (x). The following diagnosis(es) listed in this patient's medical record require physician assistance to determine if they were present on admission (POA) or not. Please advise for each diagnosis whether it was present on admission, not present on admission, or if it was clinically undetermined. 1. Sepsis ( Documented in the Discharge Summary) ( X) Present On Admission ( ) Not Present On Admission ( ) Clinically Undetermined Thank you, Frank Crisostomo, R[facility] *Definition of the present on admission (POA)-Present on admission is defined as present at the time the order for inpatient admission occurs. Conditions that develop during an outpatient encounter prior to a written order for inpatient admission (including emergency department, observation, or outpatient surgery) are considered present on admission. MTDD
== END 2023-02-22 17:15 | disposition hospice, inpatient (51) | DRG 871 ==
LOC: ED 20:54 → 2W 02-17 06:06 → 3N 02-20 15:30
DX: K86.1 Other chronic pancreatitis; R33.9 Retention of urine, unspecified; I69.320 Aphasia following cerebral infarction; J69.0 Pneumonitis due to inhalation of food and vomit; N39.0 Urinary tract infection, site not specified; Z99.3 Dependence on wheelchair; I25.2 Old myocardial infarction; Z51.5 Encounter for palliative care; J96.01 Acute respiratory failure with hypoxia; E11.65 Type 2 diabetes mellitus with hyperglycemia; N17.9 Acute kidney failure, unspecified; E78.5 Hyperlipidemia, unspecified; F10.21 Alcohol dependence, in remission; B95.2 Enterococcus as the cause of diseases classified elsewhere; I69.354 Hemiplegia and hemiparesis following cerebral infarction affecting left non-dominant side; G93.41 Metabolic encephalopathy; E87.0 Hyperosmolality and hypernatremia; I08.0 Rheumatic disorders of both mitral and aortic valves; Z87.891 Personal history of nicotine dependence; Z66 Do not resuscitate; Z86.16 Personal history of COVID-19; I25.10 Atherosclerotic heart disease of native coronary artery without angina pectoris; A41.9 Sepsis, unspecified organism; F03.90 Unspecified dementia, unspecified severity, without behavioral disturbance, psychotic disturbance, mood disturbance, and anxiety

== ENCOUNTER 2023-02-22 17:15 | Inpatient (IN) ==
[2023-02-22] MEDS ORDERED: LORazepam 2 MG/1 ML VIAL IV PRN (17:28)
[2023-02-22] MEDS ORDERED: LORazepam 0.5 MG TAB PO PRN (17:28)
[2023-02-22] MEDS ORDERED: ONDANSETRON 4 MG OD TAB SL PRN (17:28)
[2023-02-22] MEDS ORDERED: ONDANSETRON INJ 2 MG/ML 2 ML VIAL IV PRN (17:28)
[2023-02-22] MEDS ORDERED: MoRPHine SULFATE 2 MG/ML CARP IV PRN (17:28)
--- NOTE | 2023-02-22 17:38 | History & Physical Report ---
Date of Service February 22, 2023 Assessment & Plan (1) Acute and chronic respiratory failure with hypoxia: (2) Multifocal pneumonia: Plan 72-year-old male with history of CVA mostly wheelchair-bound currently at [facility] with history of recurrent aspiration pneumonitis presents with pneumonitis, urinary retention, UTI and AMS. Acute hypoxic respiratory failure Aspiration pneumonia Sepsis General inpatient hospice care. 72-year-old male with history of CVA mostly wheelchair-bound currently at [facility] with history of recurrent aspiration pneumonitis presents with pneumonitis, urinary retention, UTI and AMS. Chest x-ray done during the hospitalization showed increasing bilateral opacities. Patient underwent speech evaluation; underwent video swallow evaluation. No functional swallow was seen. Goals of care discussion was done by palliative care/me with his POA/sister Casie. Patient was then transitioned to general inpatient hospice care here Continue comfort care measures with morphine 2 mg every 4 hours as per recommend ation by inpatient hospice. Oxygen via nasal cannula at 2 L/min Morphine as needed for breakthrough agitation/pain. Discussed with sister at bedside. Please note the above document was generated using voice recognition software. It may contain grammatical, syntax or spelling errors. Any formal questions or concerns about the content, text or information contained within the body of this dictation should be directly addressed to the provider for clarification Admission and Anticipated Discharge Date Admission Date: February 22, 2023 History of Present Illness Chief Complaint: General inpatient hospice care Primary Care Provider: Yesenia Rosa MD 72-year-old male with history of CVA mostly wheelchair-bound currently at [facility] with history of recurrent aspiration pneumonitis presents with pneumonitis, urinary retention, UTI and AMS. Chest x-ray done during the hospitalization showed increasing bilateral opacities. Patient underwent speech evaluation; underwent video swallow evaluation. No functional swallow was seen. Goals of care discussion was done by palliative care/me with his POA Casie. Patient was then transitioned to general inpatient hospice care here Allergies Allergy/AdvReac Type Severity Reaction Status Date / Time No Known Allergies Allergy Verified 01/21/23 20:07 Home Medications Medication Instructions Recorded Confirmed Type aspirin 81 mg chewable tablet 81 mg PO QAM 06/12/20 01/21/23 History (Aspirin Childrens) atorvastatin 40 mg tablet (Lipitor) 40 mg PO QDD 06/12/20 01/21/23 History magnesium oxide 400 mg (241.3 mg 400 mg PO BID17 06/12/20 01/21/23 History magnesium) tablet acetaminophen 500 mg tablet 500 mg PO TID 08/02/20 01/21/23 History (Tylenol Extra Strength) acetaminophen 325 mg tablet 650 mg PO Q4 PRN Fever Or Pain 07/01/21 01/21/23 History diclofenac sodium 1 % topical gel 4 g topical QID 07/01/21 01/21/23 History famotidine 20 mg tablet 20 mg PO DAILY 07/01/21 01/21/23 History ipratropium 0.5 mg-albuterol 3 mg 3 ml inhalation Q4 PRN Shortness 07/01/21 01/21/23 History (2.5 mg base)/3 mL nebulization Of Breath soln tamsulosin 0.4 mg capsule 0.4 mg PO DAILYBB 07/01/21 01/21/23 History carvedilol 6.25 mg tablet 6.25 mg PO AMHS 30 days #30 tabs 07/06/21 01/21/23 Rx lisinopril 10 mg tablet 10 mg PO BID 30 days #60 tabs 07/06/21 01/21/23 Rx Med Pass Suppliment 180 ml PO TID 01/21/23 01/21/23 History amlodipine 2.5 mg tablet 2.5 mg PO QAM 01/21/23 01/21/23 History fluticasone propionate 50 2 spray intranasal HS 01/21/23 01/21/23 History mcg/actuation nasal spray,suspension (Flonase Allergy Relief) guaifenesin 100 mg/5 mL oral 200 mg PO Q4H PRN Cough 01/21/23 01/21/23 History liquid (Robafen) ipratropium 0.5 mg-albuterol 3 mg 3 ml inhalation QID 01/21/23 01/21/23 History (2.5 mg base)/3 mL nebulization soln loratadine 10 mg tablet (Claritin) 10 mg PO QAM 01/21/23 01/21/23 History magnesium hydroxide 400 mg/5 mL 30 ml PO DIRECTED PRN NO BM OF 01/21/23 01/21/23 History oral suspension (Milk of Magnesia) 3 DAYS. 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 Cholelithiasis Chronic constipation Contracture, left ankle Contracture, right ankle Diabetic neuropathy Dysarthria following cerebral infarction Full code status Functional urinary incontinence Generalized muscle weakness Hemiplegia of left nondominant 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 History of CVA (cerebrovascular accident) Hypertension Hypomagnesemia Incontinence, feces Left ear impacted cerumen Nicotine dependence Occlusion and stenosis of bilateral carotid arteries Oral phase dysphagia Type 2 diabetes mellitus Vascular dementia without behavioral disturbance Vitamin B12 deficiency Surgical History No pertinent past surgical history Social History Smoking Status: Former smoker Tobacco Type: Cigarettes Second Hand Exposure: No; Hx Alcohol Use: No Hx Substance Use: No Preferred Language: Vietnamese Communication Ability: Effective Communication Ability Comment: Patient mouths words, Hard to make out Mural Artist Required: No Beliefs That Will Affect Care: None marital status: Single Current Living Situation: [facility] Current Living Situation Comment: is from [facility] Feels Safe at Home: No Assistive Devices: Walker and Wheelchair Review of Systems Review of Systems: All systems reviewed & are unremarkable except as noted in Subjective Physical Exam Physical Exam: Constitutional: Lethargic; not awake evaluate voice. Respiratory: Decreased breath sound at bases.. Cardiovascular: RRR, no murmur, no edema Vessels: no JVD or carotid bruit Chest: normal inspection of chest Abdomen: Soft, nontender Musculoskeletal: no cyanosis or clubbing, Skin: no rashes, warm and dry normal turgor Neurologic: Left hemiplegia present. Psychiatric:Lethargic; not awake evaluate voice.
[2023-02-22] MEDS: MoRPHine SULFATE 2 MG/ML CARP IV SCH ×2 (17:58→20:57)
[2023-02-23] MEDS: MoRPHine SULFATE 2 MG/ML CARP IV SCH (01:30)
--- NOTE | 2023-02-23 04:24 | Death Pronouncement Note ---
Date of Service February 23, 2023 Pronouncement Note Admission Date February 22, 2023 Date and Time of Date of : 02/23/23 Time of : 04:09 Additional Data Confirmation of : no pulse, no respirations, no heart sounds and pupils fixed and dilated Family: contacted Attending physician: Sam Mauricio MD
--- NOTE | 2023-02-27 14:10 | Discharge Summary ---
Date of Service February 23, 2023 Admission HPI Per Admitting Provider 72-year-old male with history of CVA mostly wheelchair-bound currently at [facility] with history of recurrent aspiration pneumonitis presents with pneumonitis, urinary retention, UTI and AMS. Chest x-ray done during the hospitalization showed increasing bilateral opacities. Patient underwent speech evaluation; underwent video swallow evaluation. No functional swallow was seen. Goals of care discussion was done by palliative care/me with his POA Casie. Patient was then transitioned to general inpatient hospice care here Admission Exam Per Admitting Provider Constitutional: Lethargic; not awake evaluate voice. Respiratory: Decreased breath sound at bases.. Cardiovascular: RRR, no murmur, no edema Vessels: no JVD or carotid bruit Chest: normal inspection of chest Abdomen: Soft, nontender Musculoskeletal: no cyanosis or clubbing, Skin: no rashes, warm and dry normal turgor Neurologic: Left hemiplegia present. Psychiatric:Lethargic; not awake evaluate voice. Principal Diagnosis Acute hypoxic respiratory failure Aspiration pneumonia Sepsis General inpatient hospice care. Discharge Exam Patient . Discharge Data Allergies Allergy/AdvReac Type Severity Reaction Status Date / Time No Known Allergies Allergy Verified 01/21/23 20:07 Hospital Course (1) Acute and chronic respiratory failure with hypoxia: (2) Multifocal pneumonia: Plan 72-year-old male with history of CVA mostly wheelchair-bound currently at [facility] with history of recurrent aspiration pneumonitis presents with pneumonitis, urinary retention, UTI and AMS. Acute hypoxic respiratory failure Aspiration pneumonia Sepsis General inpatient hospice care. 72-year-old male with history of CVA mostly wheelchair-bound currently at [facility] with history of recurrent aspiration pneumonitis presents with pneumonitis, urinary retention, UTI and AMS. Patient underwent speech evaluation; underwent video swallow evaluation. No functional swallow was seen. Goals of care discussion was done by palliative care/me with his POA/sister Casie. Patient was then transitioned to general inpatient hospice care here Patient was pronounced on February 23, 2023 at 4 :09 AM. Total Time Total Time Spent Total Time Spent (In Minutes): 10 Total Time Includes: Examination of the Patient, Discharge Planning, Medication Reconciliation, Communication With Other Providers and Other Discharge Plan Discharge Items Patient Disposition: Other Date/Time: 02/23/23 04:09
== END 2023-02-23 06:29 | disposition expired | DRG 951 ==
LOC: 3N 17:15
DX: Z99.3 Dependence on wheelchair; A41.9 Sepsis, unspecified organism; Z51.5 Encounter for palliative care; J96.21 Acute and chronic respiratory failure with hypoxia; Z86.73 Personal history of transient ischemic attack (TIA), and cerebral infarction without residual deficits; Z79.82 Long term (current) use of aspirin; Z87.891 Personal history of nicotine dependence; Z79.899 Other long term (current) drug therapy; Z79.84 Long term (current) use of oral hypoglycemic drugs; J69.0 Pneumonitis due to inhalation of food and vomit